=== PATIENT | male | born 1960 | race Caucasian/White ===

== ENCOUNTER 2021-06-16 00:36 | Inpatient (IN) | payer MEDICAID, SELFPAY ==
[2021-06-16] VITALS (101 sets, daily range): BP systolic 63–142; BP diastolic 44–86; PULSE 70–122; RESP 13–29; TEMP 36.7; O2SAT 90–100; BMI 30.1
--- NOTE | 2021-06-16 00:42 | W.ED.NAVMDI ---
Documented by User: ANA MARIA Lozano 06/18/21 07:05 HPI - Nausea/Vomiting/Diarrhea General: Chief complaint: Abdominal Pain Stated complaint: N/V/D Time Seen by Provider: 06/16/21 00:37 Source: patient and EMS Mode of arrival: EMS Limitations: no limitations History of Present Illness: HPI Narrative: Patient is a nice 61-year-old male presents to ED today via EMS for complaints of abdominal pain, nausea, vomiting, diarrhea that began around 4PM yesterday. Patient states he has had approximately 8-9 episodes of nonbloody emesis. He reports approximately fifteen episodes of non-bloody watery diarrhea. Patient states he had a very similar episode approximately 2 years ago and was diagnosed with gastroenteritis. He also was diagnosed with severe dehydration and admitted to the hospital (this visit occurred in [place]). Patient is status post nephrectomy secondary to renal carcinoma. He has not been running fevers. No other abdominal surgeries. MD elicited complaint: nausea, vomiting, diarrhea and abdominal pain Description of vomiting: watery Description of diarrhea: watery Associated nausea: Yes Associated abdominal pain: Yes Location of pain: Diffuse Radiation: diffuse Pain consistency: constant Associated symtoms: Reports nausea; Denies chest pain, dysuria, fatigue, headache(s) or malaise Review of Systems Const: Denies: fever(s), chills, body aches, fatigue or malaise Card: Denies: chest pain Resp: Denies: dyspnea GI: Reports: abdominal pain, nausea, vomiting and diarrhea; Denies: hematemesis, coffee ground emesis, hematochezia or melena : Denies: flank pain or dysuria Musc: Denies: neck pain, back pain, extremity pain or joint pain Skin/Breast: Denies: rash Neuro: Denies: headache(s), numbness in extremities, weakness in extremities or sensory changes PFS ED PFSH: Medical History Gout Hypertension Renal cell cancer Right 2018 Surgical History H/O inguinal hernia repair Right History of nephrectomy Right -- robotic 2018 History of tonsillectomy Family History Mother Cancer Lung cancer Other CAD (coronary artery disease) Social History Smoking and tobacco status: current every day smoker Alcohol intake: current Alcohol intake frequency: 3 or more drinks per day Alcohol type: beer and hard liquor Substance/Drug Use: never Household members: spouse Housing: House Physical Exam Const: COMMON NORMALS: patient oriented x3, no limitations and alert GENERAL APPEARANCE: cooperative and in distress (appears mildly uncomfortable) NUTRITIONAL APPEARANCE: obese ORIENTATION/CONSCIOUSNESS: Yes awake, Yes oriented to person, Yes oriented to place and Yes oriented to time HENMT: COMMON NORMALS: normocephalic and atraumatic HEAD & SCALP: normocephalic and atraumatic Resp: COMMON NORMALS: normal respiratory effort and clear to auscultation bilaterally AUSCULTATION: clear to auscultation bilaterally Cardio: COMMON NORMALS: regular rate and regular rhythm RATE: regular rate RHYTHM: regular rhythm GI: COMMON NORMALS: Normal to inspection, nondistended, normoactive bowel sounds present, Soft to palpation and no masses INSPECTION: Yes normal to inspection AUSCULTATION: Yes normoactive bowel sounds PALPATION: Yes Soft to palpation, Yes Tenderness to palpation present (GI) (across mid abdomen) and Yes Hepatomegaly present : COMMON NORMALS: Yes no CVA tenderness BLADDER/KIDNEY EXAM: Yes no CVA tenderness Back/Pelvis: COMMON NORMALS: no CVA tenderness Extremity: COMMON NORMALS: normal to inspection Neuro: COMMON NORMALS: patient oriented x3 SENSORIUM/ORIENTATION: Yes alert, Yes oriented to person, Yes oriented to place and Yes oriented to time Skin: COMMON NORMALS: no rashes or lesions noted GENERAL SKIN EXAM: no rashes or lesions noted Course ED course: Shortly after my initial assessment-RN was able to get a set of vital signs on patient. He is tachycardic and hypotensive with a BP of 60s/50s. EMS reported normal vital signs in route. We will move patient to room [address] Berger was consulted who has also seen/evaluated patient. Vital Signs: Vital signs: Vital Signs Temperature 98.8 F 06/18/21 03:50 Pulse Rate 67 06/18/21 03:50 Respiratory Rate 18 06/18/21 04:02 Blood Pressure 119/82 06/18/21 03:50 Pulse Oximetry 98 06/18/21 03:50 MDM - Nausea/Vomiting/Diarrhea Lab Data: Labs: Lab Results 06/16/21 06/16/21 06/16/21 Range/Units 01:21 01:21 01:21 WBC 11.0 H (4.0-10.0) 10^3/ uL RBC 2.72 L (4.1-5.3) 10^6/u L Hgb 9.4 L (11.7-16.6) g/dL Hct 31.0 L (42.0-52.0) % MCV 114.0 H (80-94) fL MCH 34.6 H (28.0-34.0) pg MCHC 30.3 (30.0-36.0) g/dL RDW 13.7 (12.1-15.1) % Plt Count 182 (130-400) 10^3/c mm MPV 8.9 (7.4-10.4) fL Neut % (Auto) 85.4 % Lymph % (Auto) 6.1 % Haralson % (Auto) 7.4 % Eos % (Auto) 0.0 % Baso % (Auto) 0.4 % Neut # (Auto) 9.35 H (1.8-7.7) 10^3/u L Lymph # (Auto) 0.7 L (0.8-4.8) 10^3/u L Haralson # (Auto) 0.8 (0.2-0.9) 10^3/u L Eos # (Auto) 0.0 (0.0-0.8) 10^3/u L Baso # (Auto) 0.0 (0.0-0.1) 10^3/u L Nucleated RBC % (a uto) 0 % Nucleated RBCs # 0.0 /100WBC Specimen Type Sample Site ABG pH (7.35-7.45) ABG pCO2 (35-45) mmHg ABG pO2 (80.0-100.0) mmH g ABG HCO3 (22-26) mmol/L ABG Base Excess (-2.0-2.0) mmol/ L Milo Test Hematocrit (42-52) % O2 Delivery Device Controller Operations And Hr Manager ID Sodium 144 (136-145) mmol/L Potassium 2.7 L* (3.5-5.1) mmol/L Chloride 123 H (98-107) mmol/L Carbon Dioxide 11 L (22-29) mmol/L Anion Gap 12.7 (5-19) BUN 10 (6-20) mg/dL Creatinine 0.8 (0.7-1.2) mg/dL GFR Calculation 98.9 (90-130) mL/min Glucose 113 (65-115) mg/dL Calculated Osmolal ity 298 H (285-295) mOsm/k g Lactate (0.5-2.2) mmol/L Calcium 3.1 L* (8.5-10.5) mg/dL Magnesium 0.6 L* (1.7-2.3) mg/dL Total Bilirubin 0.2 (0.15-1.2) mg/dL AST 19 (0-40) U/L ALT 13 (0-41) U/L Alkaline Phosphata se 57 (40-130) IU/L Troponin T Baselin e (0-15) ng/L Troponin T Hi Sens 6Hr Troponin T Hi Sens 6Hr Delta C-Reactive Protein (0.0-4.9) mg/L Total Protein 2.1 L (6.6-8.7) g/dL Albumin 1.4 L (3.5-5.2) g/dL Globulin 0.7 L (1.3-4.6) g/dL Lipase 5 L (13-60) U/L Procalcitonin (0-0.5) ng/mL 06/16/21 06/16/21 06/16/21 Range/Units 01:21 01:21 01:21 WBC (4.0-10.0) 10^3/ uL RBC (4.1-5.3) 10^6/u L Hgb (11.7-16.6) g/dL Hct (42.0-52.0) % MCV (80-94) fL MCH (28.0-34.0) pg MCHC (30.0-36.0) g/dL RDW (12.1-15.1) % Plt Count (130-400) 10^3/c mm MPV (7.4-10.4) fL Neut % (Auto) % Lymph % (Auto) % Haralson % (Auto) % Eos % (Auto) % Baso % (Auto) % Neut # (Auto) (1.8-7.7) 10^3/u L Lymph # (Auto) (0.8-4.8) 10^3/u L Haralson # (Auto) (0.2-0.9) 10^3/u L Eos # (Auto) (0.0-0.8) 10^3/u L Baso # (Auto) (0.0-0.1) 10^3/u L Nucleated RBC % (a uto) % Nucleated RBCs # /100WBC Specimen Type Sample Site ABG pH (7.35-7.45) ABG pCO2 (35-45) mmHg ABG pO2 (80.0-100.0) mmH g ABG HCO3 (22-26) mmol/L ABG Base Excess (-2.0-2.0) mmol/ L Milo Test Hematocrit (42-52) % O2 Delivery Device Controller Operations And Hr Manager ID Sodium (136-145) mmol/L Potassium (3.5-5.1) mmol/L Chloride (98-107) mmol/L Carbon Dioxide (22-29) mmol/L Anion Gap (5-19) BUN (6-20) mg/dL Creatinine (0.7-1.2) mg/dL GFR Calculation (90-130) mL/min Glucose (65-115) mg/dL Calculated Osmolal ity (285-295) mOsm/k g Lactate (0.5-2.2) mmol/L Calcium (8.5-10.5) mg/dL Magnesium (1.7-2.3) mg/dL Total Bilirubin (0.15-1.2) mg/dL AST (0-40) U/L ALT (0-41) U/L Alkaline Phosphata se (40-130) IU/L Troponin T Baselin e 12 (0-15) ng/L Troponin T Hi Sens 6Hr Cancelled Troponin T Hi Sens 6Hr Delta Cancelled C-Reactive Protein 7.1 H (0.0-4.9) mg/L Total Protein (6.6-8.7) g/dL Albumin (3.5-5.2) g/dL Globulin (1.3-4.6) g/dL Lipase (13-60) U/L Procalcitonin 0.18 (0-0.5) ng/mL 06/16/21 06/16/21 Range/Units 02:28 02:45 WBC (4.0-10.0) 10^3/ uL RBC (4.1-5.3) 10^6/u L Hgb (11.7-16.6) g/dL Hct (42.0-52.0) % MCV (80-94) fL MCH (28.0-34.0) pg MCHC (30.0-36.0) g/dL RDW (12.1-15.1) % Plt Count (130-400) 10^3/c mm MPV (7.4-10.4) fL Neut % (Auto) % Lymph % (Auto) % Haralson % (Auto) % Eos % (Auto) % Baso % (Auto) % Neut # (Auto) (1.8-7.7) 10^3/u L Lymph # (Auto) (0.8-4.8) 10^3/u L Haralson # (Auto) (0.2-0.9) 10^3/u L Eos # (Auto) (0.0-0.8) 10^3/u L Baso # (Auto) (0.0-0.1) 10^3/u L Nucleated RBC % (a uto) % Nucleated RBCs # /100WBC Specimen Type Arterial Sample Site Radial, right ABG pH 7.26 L (7.35-7.45) ABG pCO2 37.0 (35-45) mmHg ABG pO2 86.4 (80.0-100.0) mmH g ABG HCO3 16.5 L (22-26) mmol/L ABG Base Excess -9.8 L (-2.0-2.0) mmol/ L Milo Test Pos Hematocrit 54.0 H (42-52) % O2 Delivery Device Room air Controller Operations And Hr Manager ID newcl Sodium (136-145) mmol/L Potassium (3.5-5.1) mmol/L Chloride (98-107) mmol/L Carbon Dioxide (22-29) mmol/L Anion Gap (5-19) BUN (6-20) mg/dL Creatinine (0.7-1.2) mg/dL GFR Calculation (90-130) mL/min Glucose (65-115) mg/dL Calculated Osmolal ity (285-295) mOsm/k g Lactate 4.5 H* (0.5-2.2) mmol/L Calcium (8.5-10.5) mg/dL Magnesium (1.7-2.3) mg/dL Total Bilirubin (0.15-1.2) mg/dL AST (0-40) U/L ALT (0-41) U/L Alkaline Phosphata se (40-130) IU/L Troponin T Baselin e (0-15) ng/L Troponin T Hi Sens 6Hr Troponin T Hi Sens 6Hr Delta C-Reactive Protein (0.0-4.9) mg/L Total Protein (6.6-8.7) g/dL Albumin (3.5-5.2) g/dL Globulin (1.3-4.6) g/dL Lipase (13-60) U/L Procalcitonin (0-0.5) ng/mL Imaging Data^: CT Abd/Pel: Radiologist's impression: [address] [address] [address] Scan Report Signed Patient: DEB OBREGON Unit #: [id number] : 1960 Age/Sex: 61 / M ADM Date: 06/16/21 Loc: ER Room/Bed: Attending Dr: Ordering Provider/Ordering MD: Ashleigh Collazo Date of Service: 06/16/21 Procedure(s): CT abdomen pelvis con [id number] Accession Number(s): [id number] Report Number: [id number] PROCEDURE INFORMATION: Exam: CT Abdomen And Pelvis Without Contrast Exam date and time: 06/16/2021 1:05 AM Age: 61 years old Clinical indication: Nausea and vomiting; Abdominal pain; Generalized; Prior surgery; Surgery type: Nephrectomy. Hernia repair. ; Patient HX: Abd pain with n/v/d. Sudden hypovolemic shock while in er. ; Additional info: Abdominal pain, n/v/d; Hypotensive/tachycardic TECHNIQUE: Imaging protocol: Computed tomography of the abdomen and pelvis without contrast. Radiation optimization: All CT scans at this facility use at least one of these dose optimization techniques: automated exposure control; mA and/or kV adjustment per patient size (includes targeted exams where dose is matched to clinical indication); or iterative reconstruction. COMPARISON: No relevant prior studies available. RADIATION DOSE METRICS: Total DLP (mGy-cm): 1824.38 FINDINGS: Mediastinal space: Mild to moderate hiatal hernia. Liver: Severe fatty infiltration of the liver. Gallbladder and bile ducts: Normal. No calcified stones. No ductal dilation. Pancreas: Normal. No ductal dilation. Spleen: Normal. No splenomegaly. Adrenal glands: Normal. No mass. Kidneys and ureters: Absent right kidney consistent with previous nephrectomy. Stomach and bowel: Moderate diverticulosis. Moderate bowel wall thickening through out the entire small bowel except the duodenum consistent with moderate to severe infectious enteritis versus ischemic enteritis. Appendix: Normal appendix. Intraperitoneal space: Unremarkable. No free air. No significant fluid collection. Vasculature: Retroaortic left renal vein which is a normal variant. Calcification of the abdominal aorta and/or iliac arteries consistent with atherosclerotic vessel disease. CTA abdomen with arterial and venous phase imaging and or Doppler ultrasound examination of the superior mesenteric vessels may be helpful. Lymph nodes: Unremarkable. No enlarged lymph nodes. Urinary bladder: Unremarkable as visualized. Reproductive: Unremarkable as visualized. Bones/joints: Mild dextroscoliosis. Soft tissues: Unremarkable. CT/CT abdomen pelvis wo con [id number] IMPRESSION: 1. Severe fatty infiltration of the liver. 2. Absent right kidney consistent with previous nephrectomy. 3. Moderate bowel wall thickening through out the entire small bowel except the duodenum consistent with moderate to severe infectious enteritis versus ischemic enteritis. 4. CTA abdomen with arterial and venous phase imaging and or Doppler ultrasound examination of the superior mesenteric vessels may be helpful. Radiation Dose CTDIVOL = (mGy): DLP = 1824.38 (mGy-cm) Dictated By: Michael Pedraza MD Signed By: Michael Pedraza MD Signed Date/Time: 06/16/21143 DD/ 1 Discharge Plan Discharge Patient Disposition: Admitted As Inpatient Admit Provider: Debbie Hong Clinical Impression: Hypocalcemia, Hypokalemia, Hypomagnesemia, Abdominal pain, Elevated lactic acid level Condition: Stable Coding Level of Care Code ED Key Account Manager for Chg Fwd Exam Comprehensive Documented by User: Kamlesh Berger MD 06/16/21 04:55 HPI - Nausea/Vomiting/Diarrhea General: Chief complaint: Abdominal Pain Stated complaint: N/V/D Time Seen by Provider: 06/16/21 00:37 PFSH ED PFSH: Medical History Gout Hypertension Renal cell cancer Right 2018 Surgical History H/O inguinal hernia repair Right History of nephrectomy Right -- robotic 2018 History of tonsillectomy Family History Mother Cancer Lung cancer Other CAD (coronary artery disease) Social History Smoking and tobacco status: current every day smoker Alcohol intake: current Alcohol intake frequency: 3 or more drinks per day Alcohol type: beer and hard liquor Substance/Drug Use: never Household members: spouse Housing: House Course Vital Signs: Vital signs: Vital Signs Temperature 98.8 F 06/18/21 03:50 Pulse Rate 67 06/18/21 03:50 Respiratory Rate 18 06/18/21 04:02 Blood Pressure 119/82 06/18/21 03:50 Pulse Oximetry 98 06/18/21 03:50 MDM - Nausea/Vomiting/Diarrhea MDM Narrative: Medical decision making narrative: Deb presents with abdominal pain along with elevated lactic acid level. His initial blood pressures were in the 60s and after 3 L he is improved greatly. His heart rate now is 87 blood pressure is 107/65. CT findings show some bowel thickening. Concern for possible ischemic bowel but he is improving here with IV fluids. I spoke to her surgeon Dr. Gurrola who is consulted and will see patient. Patient also had electrolyte abnormalities that I have given calcium and magnesium and potassium 4. Patient also given IV antibiotics. Spoke to hospitalist will admit to the ICU. Lab Data: Labs: Lab Results 06/16/21 06/16/21 06/16/21 Range/Units 01:21 01:21 01:21 WBC 11.0 H (4.0-10.0) 10^3/ uL RBC 2.72 L (4.1-5.3) 10^6/u L Hgb 9.4 L (11.7-16.6) g/dL Hct 31.0 L (42.0-52.0) % MCV 114.0 H (80-94) fL MCH 34.6 H (28.0-34.0) pg MCHC 30.3 (30.0-36.0) g/dL RDW 13.7 (12.1-15.1) % Plt Count 182 (130-400) 10^3/c mm MPV 8.9 (7.4-10.4) fL Neut % (Auto) 85.4 % Lymph % (Auto) 6.1 % Haralson % (Auto) 7.4 % Eos % (Auto) 0.0 % Baso % (Auto) 0.4 % Neut # (Auto) 9.35 H (1.8-7.7) 10^3/u L Lymph # (Auto) 0.7 L (0.8-4.8) 10^3/u L Haralson # (Auto) 0.8 (0.2-0.9) 10^3/u L Eos # (Auto) 0.0 (0.0-0.8) 10^3/u L Baso # (Auto) 0.0 (0.0-0.1) 10^3/u L Nucleated RBC % (a uto) 0 % Nucleated RBCs # 0.0 /100WBC Specimen Type Sample Site ABG pH (7.35-7.45) ABG pCO2 (35-45) mmHg ABG pO2 (80.0-100.0) mmH g ABG HCO3 (22-26) mmol/L ABG Base Excess (-2.0-2.0) mmol/ L Milo Test Hematocrit (42-52) % O2 Delivery Device Controller Operations And Hr Manager ID Sodium 144 (136-145) mmol/L Potassium 2.7 L* (3.5-5.1) mmol/L Chloride 123 H (98-107) mmol/L Carbon Dioxide 11 L (22-29) mmol/L Anion Gap 12.7 (5-19) BUN 10 (6-20) mg/dL Creatinine 0.8 (0.7-1.2) mg/dL GFR Calculation 98.9 (90-130) mL/min Glucose 113 (65-115) mg/dL Calculated Osmolal ity 298 H (285-295) mOsm/k g Lactate (0.5-2.2) mmol/L Calcium 3.1 L* (8.5-10.5) mg/dL Magnesium 0.6 L* (1.7-2.3) mg/dL Total Bilirubin 0.2 (0.15-1.2) mg/dL AST 19 (0-40) U/L ALT 13 (0-41) U/L Alkaline Phosphata se 57 (40-130) IU/L Troponin T Baselin e (0-15) ng/L Troponin T Hi Sens 6Hr Troponin T Hi Sens 6Hr Delta C-Reactive Protein (0.0-4.9) mg/L Total Protein 2.1 L (6.6-8.7) g/dL Albumin 1.4 L (3.5-5.2) g/dL Globulin 0.7 L (1.3-4.6) g/dL Lipase 5 L (13-60) U/L Procalcitonin (0-0.5) ng/mL 06/16/21 06/16/21 06/16/21 Range/Units 01:21 01: 01:21 WBC (4.0-10.0) 10^3/ uL RBC (4.1-5.3) 10^6/u L Hgb (11.7-16.6) g/dL Hct (42.0-52.0) % MCV (80-94) fL MCH (28.0-34.0) pg MCHC (30.0-36.0) g/dL RDW (12.1-15.1) % Plt Count (130-400) 10^3/c mm MPV (7.4-10.4) fL Neut % (Auto) % Lymph % (Auto) % Haralson % (Auto) % Eos % (Auto) % Baso % (Auto) % Neut # (Auto) (1.8-7.7) 10^3/u L Lymph # (Auto) (0.8-4.8) 10^3/u L Haralson # (Auto) (0.2-0.9) 10^3/u L Eos # (Auto) (0.0-0.8) 10^3/u L Baso # (Auto) (0.0-0.1) 10^3/u L Nucleated RBC % (a uto) % Nucleated RBCs # /100WBC Specimen Type Sample Site ABG pH (7.35-7.45) ABG pCO2 (35-45) mmHg ABG pO2 (80.0-100.0) mmH g ABG HCO3 (22-26) mmol/L ABG Base Excess (-2.0-2.0) mmol/ L Milo Test Hematocrit (42-52) % O2 Delivery Device Controller Operations And Hr Manager ID Sodium (136-145) mmol/L Potassium (3.5-5.1) mmol/L Chloride (98-107) mmol/L Carbon Dioxide (22-29) mmol/L Anion Gap (5-19) BUN (6-20) mg/dL Creatinine (0.7-1.2) mg/dL GFR Calculation (90-130) mL/min Glucose (65-115) mg/dL Calculated Osmolal ity (285-295) mOsm/k g Lactate (0.5-2.2) mmol/L Calcium (8.5-10.5) mg/dL Magnesium (1.7-2.3) mg/dL Total Bilirubin (0.15-1.2) mg/dL AST (0-40) U/L ALT (0-41) U/L Alkaline Phosphata se (40-130) IU/L Troponin T Baselin e 12 (0-15) ng/L Troponin T Hi Sens 6Hr Cancelled Troponin T Hi Sens 6Hr Delta Cancelled C-Reactive Protein 7.1 H (0.0-4.9) mg/L Total Protein (6.6-8.7) g/dL Albumin (3.5-5.2) g/dL Globulin (1.3-4.6) g/dL Lipase (13-60) U/L Procalcitonin 0.18 (0-0.5) ng/mL 06/16/21 06/16/21 Range/Units 02:28 02:45 WBC (4.0-10.0) 10^3/ uL RBC (4.1-5.3) 10^6/u L Hgb (11.7-16.6) g/dL Hct (42.0-52.0) % MCV (80-94) fL MCH (28.0-34.0) pg MCHC (30.0-36.0) g/dL RDW (12.1-15.1) % Plt Count (130-400) 10^3/c mm MPV (7.4-10.4) fL Neut % (Auto) % Lymph % (Auto) % Haralson % (Auto) % Eos % (Auto) % Baso % (Auto) % Neut # (Auto) (1.8-7.7) 10^3/u L Lymph # (Auto) (0.8-4.8) 10^3/u L Haralson # (Auto) (0.2-0.9) 10^3/u L Eos # (Auto) (0.0-0.8) 10^3/u L Baso # (Auto) (0.0-0.1) 10^3/u L Nucleated RBC % (a uto) % Nucleated RBCs # /100WBC Specimen Type Arterial Sample Site Radial, right ABG pH 7.26 L (7.35-7.45) ABG pCO2 37.0 (35-45) mmHg ABG pO2 86.4 (80.0-100.0) mmH g ABG HCO3 16.5 L (22-26) mmol/L ABG Base Excess -9.8 L (-2.0-2.0) mmol/ L Milo Test Pos Hematocrit 54.0 H (42-52) % O2 Delivery Device Room air Controller Operations And Hr Manager ID newcl Sodium (136-145) mmol/L Potassium (3.5-5.1) mmol/L Chloride (98-107) mmol/L Carbon Dioxide (22-29) mmol/L Anion Gap (5-19) BUN (6-20) mg/dL Creatinine (0.7-1.2) mg/dL GFR Calculation (90-130) mL/min Glucose (65-115) mg/dL Calculated Osmolal ity (285-295) mOsm/k g Lactate 4.5 H* (0.5-2.2) mmol/L Calcium (8.5-10.5) mg/dL Magnesium (1.7-2.3) mg/dL Total Bilirubin (0.15-1.2) mg/dL AST (0-40) U/L ALT (0-41) U/L Alkaline Phosphata se (40-130) IU/L Troponin T Baselin e (0-15) ng/L Troponin T Hi Sens 6Hr Troponin T Hi Sens 6Hr Delta C-Reactive Protein (0.0-4.9) mg/L Total Protein (6.6-8.7) g/dL Albumin (3.5-5.2) g/dL Globulin (1.3-4.6) g/dL Lipase (13-60) U/L Procalcitonin (0-0.5) ng/mL EKG Data^: EKG 1: Attestation: I personally reviewed and interpreted this EKG as follows: EKG interpretation date: 06/16/21 EKG interpretation time: 00:59 Interpretation: sinus tach hr [address] or t wave abnormalities qrs 86 qtc 359 Critical Care Time Critical Care Time: Critical Care Time: Yes Total Critical Care Time: 35 Attestation: This case had a high probability of a clinically significant, sudden, or life threatening deterioration of this patient's condition which required my full and direct attention, intervention and personal management. Discharge Plan Discharge Patient Disposition: Admitted As Inpatient Admit Provider: Debbie Hong Clinical Impression: Hypocalcemia, Hypokalemia, Hypomagnesemia, Abdominal pain, Elevated lactic acid level Condition: Stable Coding Level of Care Code ED Key Account Manager for Chg Fwd Exam Comprehensive
--- NOTE | 2021-06-16 01:05 | CTR_ITS ---
PROCEDURE INFORMATION: Exam: CT Abdomen And Pelvis Without Contrast Exam date and time: 06/16/2021 1:05 AM Age: 61 years old Clinical indication: Nausea and vomiting; Abdominal pain; Generalized; Prior surgery; Surgery type: Nephrectomy. Hernia repair. ; Patient HX: Abd pain with n/v/d. Sudden hypovolemic shock while in er. ; Additional info: Abdominal pain, n/v/d; Hypotensive/tachycardic TECHNIQUE: Imaging protocol: Computed tomography of the abdomen and pelvis without contrast. Radiation optimization: All CT scans at this facility use at least one of these dose optimization techniques: automated exposure control; mA and/or kV adjustment per patient size (includes targeted exams where dose is matched to clinical indication); or iterative reconstruction. COMPARISON: No relevant prior studies available. RADIATION DOSE METRICS: Total DLP (mGy-cm): 1824.38 FINDINGS: Mediastinal space: Mild to moderate hiatal hernia. Liver: Severe fatty infiltration of the liver. Gallbladder and bile ducts: Normal. No calcified stones. No ductal dilation. Pancreas: Normal. No ductal dilation. Spleen: Normal. No splenomegaly. Adrenal glands: Normal. No mass. Kidneys and ureters: Absent right kidney consistent with previous nephrectomy. Stomach and bowel: Moderate diverticulosis. Moderate bowel wall thickening through out the entire small bowel except the duodenum consistent with moderate to severe infectious enteritis versus ischemic enteritis. Appendix: Normal appendix. Intraperitoneal space: Unremarkable. No free air. No significant fluid collection. Vasculature: Retroaortic left renal vein which is a normal variant. Calcification of the abdominal aorta and/or iliac arteries consistent with atherosclerotic vessel disease. CTA abdomen with arterial and venous phase imaging and or Doppler ultrasound examination of the superior mesenteric vessels may be helpful. Lymph nodes: Unremarkable. No enlarged lymph nodes. Urinary bladder: Unremarkable as visualized. Reproductive: Unremarkable as visualized. Bones/joints: Mild dextroscoliosis. Soft tissues: Unremarkable. CT/CT abdomen pelvis wo con [id number] IMPRESSION: 1. Severe fatty infiltration of the liver. 2. Absent right kidney consistent with previous nephrectomy. 3. Moderate bowel wall thickening through out the entire small bowel except the duodenum consistent with moderate to severe infectious enteritis versus ischemic enteritis. 4. CTA abdomen with arterial and venous phase imaging and or Doppler ultrasound examination of the superior mesenteric vessels may be helpful. Radiation Dose CTDIVOL = (mGy): DLP = 1824.38 (mGy-cm)
[2021-06-16] MEDS: morphine 4 mg/mL SDV 1 mL IVP ×2 (01:09→08:10)
[2021-06-16] MEDS: sodium chloride 0.9% 1,000 ML 999 ML IV ×3 (01:10→03:48)
[2021-06-16 01:27] LABS: Basophils % 0.4 %; Hemoglobin 9.4 g/dL (11.7-16.6); Lymphocytes # 0.7 10^3/uL (0.8-4.8); Lymphocytes % 6.1 %; Mean Corpuscular HGB Conc 30.3 g/dL (30.0-36.0); Mean Corpuscular Hemoglobin 34.6 pg (28.0-34.0); Mean Platelet Volume 8.9 fL (7.4-10.4); Monocytes # 0.8 10^3/uL (0.2-0.9); Monocytes % 7.4 %; Neutrophils # 9.35 10^3/uL (1.8-7.7); Neutrophils % 85.4 %; Nucleated Red Blood Cells % 0 %; Platelet Count 182 10^3/cmm (130-400); Red Blood Count 2.72 10^6/uL (4.1-5.3); Red Cell Distribution Width 13.7 % (12.1-15.1)
[2021-06-16 01:44] LABS: Alanine Aminotransferase 13 U/L (0-41); Albumin Level 1.4 g/dL (3.5-5.2); Alkaline Phosphatase 57 IU/L (40-130); Anion Gap 12.7 (5-19); Aspartate Amino Transferase 19 U/L (0-40); Blood Urea Nitrogen 10 mg/dL (6-20); Carbon Dioxide 11 mmol/L (22-29); Chloride 123 mmol/L (98-107); Globulin 0.7 g/dL (1.3-4.6); Glomerular Filtration Rate 98.9 mL/min (90-130); Glucose 113 mg/dL (65-115); Lipase 5 U/L (13-60); Osmolality Calculated 298 mOsm/kg (285-295); Sodium 144 mmol/L (136-145); Total Bilirubin 0.2 mg/dL (0.15-1.2); Total Protein 2.1 g/dL (6.6-8.7)
[2021-06-16 01:49] LABS: Potassium 2.7 mmol/L (3.5-5.1)
[2021-06-16 01:50] LABS: Calcium 3.1 mg/dL (8.5-10.5)
--- NOTE | 2021-06-16 01:52 | CTR_ITS ---
PROCEDURE INFORMATION: Exam: CTA Abdomen and Pelvis With Contrast Exam date and time: 06/16/2021 1:52 AM Age: 61 years old Clinical indication: Abdominal pain; Generalized; Prior surgery; Surgery type: Nephrectomy. Hernia repair. ; Patient HX: Abd pain with n/v/d. Hypovolemic shock while in er. ; Additional info: Abdominal pain poss ischemic bowel; Abnormal CT w/o contrast TECHNIQUE: Imaging protocol: Computed tomographic angiography of the abdomen and pelvis with contrast material. 3D rendering (Not supervised by radiologist): MIP and/or 3D reconstructed images were created by the technologist. Radiation optimization: All CT scans at this facility use at least one of these dose optimization techniques: automated exposure control; mA and/or kV adjustment per patient size (includes targeted exams where dose is matched to clinical indication); or iterative reconstruction. Contrast material: VISI 320; Contrast volume: 95 ml; Contrast route: INTRAVENOUS (IV); COMPARISON: CT abdomen pelvis wo con [id number] 06/16/2021 1:23 AM RADIATION DOSE METRICS: Total DLP (mGy-cm): 2707.88 FINDINGS: Lungs: Bilateral pulmonary nodularity with largest finding estimated at 7 mm. Mediastinal space: Moderate-sized hiatal hernia. Aorta: No aortic aneurysm. No aortic dissection. Celiac trunk and mesenteric arteries: No occlusion or significant stenosis. Renal arteries: No occlusion or significant stenosis. Right iliac arteries: No occlusion or significant stenosis. Left iliac arteries: No occlusion or significant stenosis. Liver: Hepatic steatosis and hepatomegaly are noted. No focal lesions. No portal venous gas Gallbladder and bile ducts: Unremarkable. No calcified stones. No ductal dilation. Pancreas: Unremarkable. No mass. No ductal dilation. Spleen: Unremarkable. No splenomegaly. Adrenal glands: Unremarkable. No mass. Kidneys and ureters: There are findings of right nephrectomy. Stomach and bowel: Fluid noted within the colon but no abnormal bowel distention. There is suggestion of some thickening of small bowel wall diffusely with mild edema in the small bowel mesentery. Mild/early reduction in small bowel wall thickening suspected. No pneumatosis. Colonic diverticuli noted. Appendix: No evidence of appendicitis. Intraperitoneal space: Small ascites. Lymph nodes: Unremarkable. No enlarged lymph nodes. Urinary bladder: Unremarkable. No mass. Reproductive: Unremarkable as visualized. Bones/joints: No acute fracture. No dislocation. Soft tissues: Unremarkable. CT/CT angio abdomen pelvis [id number] IMPRESSION: Thickening of small bowel wall can relate to enteritis or hypoperfusion/hypotension. Fatty liver. Right nephrectomy. No findings of significant narrowing of visceral vasculature. Pulmonary nodularity; for patients at low risk (minimal or absent history of smoking and of other known risk factors), recommend CT Chest at 3-6 months, then consider CT Chest at 18-24 months. For patients at high risk (history of smoking or of other known risk factors), recommend CT Chest at 3-6 months, then CT Chest at 18-24 months. (Reference: Betsy) REFERENCES: Betsy Mora, et al. Guidelines for Management of Incidental Pulmonary Nodules Detected on CT Images: From the Fleischner Society 2017. Radiology. 2017;284(1):228-243. Radiation Dose CTDIVOL = (mGy): DLP = 2707.88 (mGy-cm)
[2021-06-16] MEDS: ondansetron 2 mg/ML SDV 2 mL 4 MG IVP (02:15)
[2021-06-16] MEDS: HYDROmorphone 1 mg/mL INJ 1 mL IVP (02:15)
[2021-06-16] MEDS: potassium chloride premix 100 ML 25 MEQ IV (02:16)
[2021-06-16 02:18] LABS: Magnesium 0.6 mg/dL (1.7-2.3)
--- NOTE | 2021-06-16 02:28 | ECG_ITS ---
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 Measurements Intervals [place] Rate: 121 P: 30 AL: 132 QRS: -42 QRSD: 86 T: 48 QT: 287 QTc: 407 Interpretive Statements SINUS TACHYCARDIA PATTERN CONSISTENT WITH PULMONARY DISEASE INFERIOR MYOCARDIAL INFARCTION [40+ ms Q WAVE AND/OR ST/T ABNORMALITY IN II/aVF], PROBABLY OLD INTERPRETATION BASED ON A DEFAULT AGE OF 40 YEARS No previous ECG available for comparison Electronically Signed On 06-16-2021 9:55:21 CDT by Harlan Dutta M.D. [email or web address].[facility]pspe[facility] hospitalAgentBridgeprotest[facility].[place] [employer]/store/NU/[id number] f
--- NOTE | 2021-06-16 02:28 | CTR_ITS ---
PROCEDURE INFORMATION: Exam: CTA Chest With Contrast Exam date and time: 06/16/2021 2:28 AM Age: 61 years old Clinical indication: Chest pressure; Patient HX: Onset of chest pain with transient tachycardia while in er. ; Additional info: Cp TECHNIQUE: Imaging protocol: Computed tomographic angiography of the chest with contrast. 3D rendering (Not supervised by radiologist): MIP and/or 3D reconstructed images were created by the technologist. Radiation optimization: All CT scans at this facility use at least one of these dose optimization techniques: automated exposure control; mA and/or kV adjustment per patient size (includes targeted exams where dose is matched to clinical indication); or iterative reconstruction. Contrast material: VISI 320; Contrast volume: 67 ml; Contrast route: INTRAVENOUS (IV); COMPARISON: CT angio abdomen pelvis [id number] 06/16/2021 3:08 AM RADIATION DOSE METRICS: Total DLP (mGy-cm): 519.63 FINDINGS: Pulmonary arteries: Normal. No pulmonary emboli. Aorta: No aortic aneurysm. No aortic dissection. Lungs: No consolidation. Pleural spaces: No pneumothorax. No pleural effusion. Heart: No cardiomegaly. No pericardial effusion. Mediastinal space: Moderate-sized hiatal hernia. Lymph nodes: No enlarged lymph nodes. Bones/joints: No acute fracture. Soft tissues: Unremarkable. Other findings: Bilateral pulmonary nodularity; please see abdomen study regarding follow-up. CT/CT angio chest PE protcl [id number] IMPRESSION: No acute findings. Radiation Dose CTDIVOL = (mGy): DLP = 519.63 (mGy-cm)
[2021-06-16 02:47] LABS: Troponin(5th) Baseline 12 ng/L (0-15)
[2021-06-16 02:48] LABS: Lactate (Lactic Acid level) 4.5 mmol/L (0.5-2.2)
[2021-06-16 03:00] LABS: ABG PH Result 7.26 (7.35-7.45); Base Excess ABG -9.8 mmol/L (-2.0-2.0); Blood Gas Allen Test Pos; Blood Gas Sample Site Radial, right; Blood Gas Sample Type Arterial; HCO3 ABG 16.5 mmol/L (22-26); PO2 ABG 86.4 mmHg (80.0-100.0)
[2021-06-16 03:03] LABS: Oxygen Device ROOM AIR
[2021-06-16] MEDS: iodixanol 320 mg/mL 100mL Btl IV ×2 (03:11→03:26)
[2021-06-16] MEDS: piperacillin-tazobactam 3.375 GM in sodium chloride 0.9% (plus) 50 ML IV ×3 (03:38→16:06)
--- NOTE | 2021-06-16 04:28 | ECG_ITS ---
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 Measurements Intervals [place] Rate: 82 P: 38 ID: [id number] QRS: -47 QRSD: 110 T: 44 QT: 361 QTc: 423 Interpretive Statements SINUS RHYTHM LEFT ANTERIOR FASCICULAR BLOCK [QRS AXIS <= -45, QR IN I, RS IN II] INFERIOR MYOCARDIAL INFARCTION [40+ ms Q WAVE AND/OR ST/T ABNORMALITY IN II/aVF], PROBABLY OLD Compared to ECG 06/16/2021 00:59:12 Left anterior fascicular block now present Sinus tachycardia no longer present Myocardial infarct finding still present Electronically Signed On 06-23-2021 10:08:01 CDT by Sejal Botello M.D. [id number]
--- NOTE | 2021-06-16 04:55 | P.HP_ITS ---
Providers/Chief Complaint Admitting Physician: Debbie Hong MD Chief Complaint: N/V/D History of Present Illness DEB OBREGON is a 61 year old male who presented today with chief complaint of abdominal pain. Patient stating that his symptoms started around 4 PM yesterday, a day before yesterday he ate frozen clams, he has been experiencing multiple episodes of diarrhea associated with his emesis. He has noticed low- grade fever, no active chest pain, shortness of breath or recent use of antibiotics. No recent camping or traveling. He has moved from [place]. Experienced gastroenteritis 2 months ago. He is an alcoholic drinks 3-4 shots of vodka with 3 to 4 cans of beer every day. Never experienced any withdrawal symptoms. He is denying blood in stool or vomiting. No history of atrial fibrillation Diagnostic work-up in the ER revealed hypotension, hypokalemia, hypomagnesemia, hypocalcemia which improved with fluid resuscitation, potassium repleted, electrolytes replenished, blood pressure improved after fluid boluses, CT abdomen pelvis consistent with small bowel edema concern for ischemia versus gastroenteritis Started on Zosyn, fluid resuscitation, hold anticoagulation for now, EKG showing sinus rhythm Vaccinated with [employer]fund in March Review of Systems Const: Reports: fever(s), chills, body aches and fatigue Eyes: Denies: change in vision ENMT: Denies: throat pain Card: Denies: chest pain Resp: Denies: dyspnea GI: Reports: abdominal pain, nausea, vomiting and diarrhea : Denies: flank pain Musc: Denies: neck pain Skin/Breast: Denies: rash Neuro: Denies: headache(s) Psych: Denies: anxiety Endo: Denies: polyuria Arjun/Lymph: Denies: easy bruising All/Imm: Denies: urticaria Medications/Allergies Allergies Allergy/AdvReac Type Severity Reaction Status Date / Time No Known Allergies Allergy Verified 06/16/21 01:06 PFSH Acute PFSH: Medical History Hypertension Renal cell cancer Surgical History H/O inguinal hernia repair History of nephrectomy Family History (Updated 06/16/21 @ 06:44 by Debbie Hong MD) Mother Cancer Lung cancer Other CAD (coronary artery disease) Social History (Updated 06/16/21 @ 06:44 by Debbie Hong MD) Smoking and tobacco status: current every day smoker Alcohol intake: current Alcohol intake frequency: 3 or more drinks per day Alcohol type: beer and hard liquor Substance/Drug Use: never Household members: spouse Housing: House Vitals/I&O/Wt Last Vital Signs Pulse 94 06/16/21 04:00 Resp 16 06/16/21 04:00 BP 101/74 06/16/21 04:00 Pulse Ox 99 06/16/21 02:46 06/15/21 06/15/21 06/16/21 14:59 22:59 06:59 Intake Total 1070 / 1070 Balance 1070 / 1070 Weight last 48 hrs Weight 95.254 kg Physical Exam Narrative: EXAM NARRATIVE: Middle-age male who is being supine complaining abdominal pain Distended abdomen no active signs of peritonitis, bowel sounds present, no guarding or rigidity S1, S2 sinus rhythm No murmur appreciated no signs of heart failure clinically looks dehydrated EOMI, PERRLA No neurological deficit Bilateral breath sound without adventitious rhonchi or crackles No joint swelling or cellulitis Appropriate mood and affect Data : 06/16/21 01:21 06/16/21 01:21 A&P Assessment and plan (1) Small bowel ischemia: Status: Acute (2) Hypocalcemia: Status: Acute (3) Hypokalemia: Status: Acute (4) Hypomagnesemia: Status: Acute (5) Abdominal pain: Status: Acute (6) Elevated lactic acid level: Status: Acute (7) Sepsis: Status: Acute Additional A&P Information Sepsis small bowel ischemia Normal sinus rhythm on EKG No history of A. fib Hold off on anticoagulation for now Resuscitate with IV fluids and start Zosyn CT abdomen pelvis findings reviewed CTA unremarkable, no acute embolic phenomenon noted No signs of GI bleed Macrocytic anemia patient is an alcoholic check B12 folate level No active GI bleed Electrolyte imbalance Hypocalcemia: Repleted, will give him another calcium gluconate dose, Check PTH, corrected calcium less than 8 Hypokalemia and hypomagnesemia related diarrhea and vomiting: Repleted Lactic acidemia secondary to dehydration: Anticipating improvement Underlying sepsis, start Zosyn Low albumin 1.4, Secondary to alcohol abuse N.p.o. DVT prophylaxis: SCDs in case he requires any intervention, Full code History of nephrectomy, no acute worsening of kidney function Attestations Medical Necessity Statement*: Anticipating stay in the hospital cross more than 2 midnights for management of sepsis, small bowel ischemia Time Spent in Patient Care: Greater than 35 minutes Coding Level of Care Code Acute Licensed Occupational Therapy Assistant for Chg Fwd Diagnoses Small bowel ischemia K55.9 Hypocalcemia E83.51 Hypokalemia E87.6 Hypomagnesemia E83.42 Abdominal pain R10.9 Elevated lactic acid level R79.89 Sepsis A41.9
[2021-06-16] MEDS: fentaNYL 50 mcg/mL INJ 2mL 25 MCG IVP (06:30)
[2021-06-16 06:44] LABS: C Reactive Protein 7.1 mg/L (0.0-4.9)
[2021-06-16 06:51] LABS: Procalcitonin 0.18 ng/mL (0-0.5)
[2021-06-16] MEDS: pantoprazole 40 mg SDV IVP ×2 (08:08→17:22)
[2021-06-16] MEDS: folic acid 1 mg Tablet PO (08:08)
[2021-06-16] MEDS: magnesium sulfate premix 2 GM/50 ML PIGGYBACK IV (08:08)
--- NOTE | 2021-06-16 08:28 | ECG_ITS ---
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 Measurements Intervals [place] Rate: 78 P: 40 CT: 155 QRS: -16 QRSD: 100 T: 30 QT: 353 QTc: 404 Interpretive Statements SINUS RHYTHM INFERIOR MYOCARDIAL INFARCTION [40+ ms Q WAVE AND/OR ST/T ABNORMALITY IN II/aVF], PROBABLY OLD Compared to ECG 06/16/2021 05:37:34 Left anterior fascicular block no longer present Myocardial infarct finding still present Electronically Signed On 06-16-2021 23:05:12 CDT by Harlan Dutta M.D. [email or web address].[email or web address]/store/[id number]
[2021-06-16 08:45] LABS: Calcium 7.9 mg/dL (8.5-10.5)
[2021-06-16 08:52] LABS: Parathyroid Hormone 244.3 pg/mL (15-65)
[2021-06-16 08:55] LABS: Troponin(5th) Baseline 18 ng/L (0-15)
[2021-06-16 08:59] LABS: Folate Level 3.6 ng/mL (4.5-32.2)
[2021-06-16 09:01] LABS: 25 Hydroxy Vitamin D 16 ng/mL (30-100); Vitamin B12 378 pg/mL (232-1245)
[2021-06-16 09:03] LABS: Add Urine Culture? No; Add Urine Microscopic? YES; Bacteria Urine TRACE /hpf; Bilirubin Urine 1+ (Negative); Blood Urine Neg (Negative); Glucose Urine UA Norm (Normal); Ketones Urine Negative (Negative); Leukocyte Esterase Urine Negative (Negative); Nitrate Urine Negative (Negative); Protein Urine 1+ (Negative); RBC Urine RARE /hpf (0-2); Squamous Epithelial Cell Urine RARE /hpf (0-5); Urine Appearance Clear (CLEAR); Urine Color Yellow (Yellow); Urobilinogen Urine Norm (Negative); WBC Urine 0-4 /hpf (0-5); pH Urine 5 (5-7)
[2021-06-16] MEDS: HYDROmorphone 1 mg/mL INJ 1 mL 0.4 MG IVP ×4 (09:18→22:10)
--- NOTE | 2021-06-16 09:45 | PC.CHAP ---
Pastoral Care Encounter/Spiritual Assessment Type of Contact [] Declined pattern changer and repairer visit [] Patient/Family/Request visit [] Outpatient visit [] Follow-up visit [] Physician referral [] Code/Alert [x] Routine visit [] Staff referral [] Actively dying [] Patient sleeping [] Family support [] [] Out of room [] Palliative care [] [] Receiving care in room [] Pre-surgical visit [] Trauma [] Long length of stay [x] ICU visit [] Other: Relational/Emotional Strength [] Patient feels connected with others/family/visitors/staff [] Distress [] Loneliness/isolation [] Abandonment Spirituality of Patient [] Person of Leena [] Attends Adventism of their Leena [] Believes in Prayer [] Reads Bible or Latter-Day materials [] There are Spiritual issues to be addressed Graphic Arts Instructor Interventions [x] Prayer [x] Active listening [x] Non-anxious presence [x] Spiritual/emotional support [] Crisis/trauma care [] Spiritual counseling [] Bereavement support [] Provided bereavement packet [] Provided Bible/devotional materials [] Provided toy/stuffed animal, coloring book to patient or family member [] Provided Communion [] Anointing/[place] [] Salvation [x] Completed spiritual assessment [] Other: Impact on Illness or Injury [] Angry [] Fearful [] Anxious [] Often cries [] Exhaustion [] Unable to work [] Unable to attend religious [] Unable to walk/stand [] Unable to read [] Unable to drive [] Unable to eat/drink [] Unable to sleep [] Unable to be with family [] Patient intubated [] Other: Summary recently moved form [place] to [place]... feeling better Time spent with patient 5 min
[2021-06-16] MEDS: dextrose 5%-ns + KCl 40 40 MEQ/1,000 ML BAG 75 MEQ IV (09:59)
[2021-06-16 10:54] LABS: Troponin 5 2HR 17.84 ng/L (0-15)
[2021-06-16 10:58] LABS: Troponin 5 2HR Delta -0.16 ABS# (0-10)
--- NOTE | 2021-06-16 11:58 | PM.CONSULT ---
Providers/Reason For Consult Consulting Physician/Specialty*: General Surgery Daryl Gurrola MD Reason for Consult*: Abdominal pain, rule out intestinal ischemia. Attending Physician: Georges Castellanos MD History of Present Illness History of Present Illness Austin Munson is a 61 year old male admitted earlier this morning with abdominal pain, nausea/vomiting and diarrhea. The patient says that he started having some bandlike abdominal pain across the umbilical level yesterday morning. He does mention that he ate some frozen clams the day before that he obtained an [place], and has never done that before. He says by the afternoon he started having multiple episodes of diarrhea without evidence of hematochezia. 1 to 2 hours later he started developing nausea and had vomiting without evidence of hematemesis. He is not sure if he had any fevers but feels like he had some cold sweats. He came to the emergency department and apparently was found to be hypotensive initially. A CAT scan showed evidence of small bowel inflammation consistent with either gastroenteritis or possible intestinal ischemia. He apparently responded very well to fluid resuscitation and his pain got markedly better. He was placed in the intensive care unit subsequently. Harry says he has continued to feel well but still has some very mild pain. He would like something to drink if possible. Interestingly, Harry just moved from [place] recently. He said 2 months ago in [place] he had a very similar episode and was hospitalized for about 3 days. He says he was told at that time that he had kidney failure. Review of Systems General: Reports: 10 or more systems reviewed and unremarkable except in HPI and below Const: Reports: other ( Cold sweats ) GI: Reports: abdominal pain, nausea, vomiting and diarrhea; Denies: hematemesis Meds/Allergies Home Medications and Allergies Home Medications Medication Instructions Recorded Confirmed Last Taken Type allopurinol 100 mg PO QAM 06/16/21 06/16/21 Unknown History aspirin [Aspir-81] 81 mg PO QAM 06/16/21 06/16/21 Unknown History lisinopril 20 mg PO QAM 06/16/21 06/16/21 Unknown History omeprazole [Prilosec] 40 mg PO QAM 06/16/21 06/16/21 Unknown History tramadol [Ultram] 50 - 100 mg PO DAILY PRN 06/16/21 06/16/21 Unknown History Allergies Allergy/AdvReac Type Severity Reaction Status Date / Time No Known Allergies Allergy Verified 06/16/21 08:24 Current Medications Current Medications Generic Name Dose Route Start Last Admin Trade Name Suzanne PRN Reason Stop Dose Admin Folic Acid 1 mg 06/16/21 09:00 06/16/21 08:08 Folic Acid 1 Mg Tablet PO 1 mg DAILY YAAKOV Administration Hydromorphone HCl 0.4 mg 06/16/21 07:09 06/16/21 09:18 Hydromorphone 1 Mg/Ml Inj 1 Ml IVP 0.4 mg Q4H PRN Administration pain Piperacillin Sod/Tazobactam 50 mls @ 12.5 mls/hr 06/16/21 09:00 06/16/21 08:08 Sod 3.375 gm/ Sodium Chloride IV 12.5 mls/hr Q8H YAAKOV Administration Protocol Potassium Chloride/Dextrose/Sod Cl 40 meq in 1,000 mls @ 75 mls/hr 06/16/21 07:09 06/16/21 09:59 Dextrose 5%-Ns + Kcl 40 IV 75 mls/hr .[id number] YAAKOV Administration Pantoprazole Sodium 40 mg 06/16/21 09:00 06/16/21 08:08 Pantoprazole 40 Mg Sdv IVP 40 mg BID YAAKOV Administration Thiamine HCl 100 mg 06/16/21 09:00 06/16/21 08:08 Thiamine 100 Mg/Ml Sdv IV 100 mg DAILY YAAKOV Administration PFSH Acute PFSH: Medical History (Updated 06/16/21 @ 12:09 by Daryl Gurrola MD) Gout Hypertension Renal cell cancer Right 2018 Surgical History (Updated 06/16/21 @ 12:01 by Daryl Gurrola MD) H/O inguinal hernia repair Right History of nephrectomy Right -- robotic 2018 History of tonsillectomy Family History Mother Cancer Lung cancer Other CAD (coronary artery disease) Social History Smoking and tobacco status: current every day smoker Alcohol intake: current Alcohol intake frequency: 3 or more drinks per day Alcohol type: beer and hard liquor Substance/Drug Use: never Household members: spouse Housing: House Vitals/I&O/Wt Last Vital Signs Temp 98.0 F 06/16/21 08:15 Pulse 73 06/16/21 10:10 Resp 16 06/16/21 10:10 BP 104/63 06/16/21 10:10 Pulse Ox 95 06/16/21 08:10 06/15/21 06/16/21 06/16/21 22:59 06:59 14:59 Intake Total 3272 / 3272 50 / 50 Output Total 300 / 300 Balance 3272 / 3272 -250 / -250 Weight last 48 hrs Weight 218 lb Weight 210 lb Physical Exam Narrative: EXAM NARRATIVE: The patient was encountered in his room in the intensive care unit. He does not appear to be in any distress. The pupils are equal. No carotid bruits are heard. The lungs are clear anteriorly. The heart is regular. The abdomen is mildly to moderately obese but is soft. Bowel sounds are present. He still has some mild tenderness across the mid abdomen at around the umbilical level. No obvious masses are palpated. The extremities reveal no edema. Neurologically the patient is grossly intact. Data Imaging^: CT Abd/Pel: Radiologist's impression: CT abdomen/pelvis 06/15/2021 IMPRESSION: 1. Severe fatty infiltration of the liver. 2. Absent right kidney consistent with previous nephrectomy. 3. Moderate bowel wall thickening through out the entire small bowel except the duodenum consistent with moderate to severe infectious enteritis versus ischemic enteritis. 4. CTA abdomen with arterial and venous phase imaging and or Doppler ultrasound examination of the superior mesenteric vessels may be helpful. A&P Assessment and plan (1) Abdominal pain: I think it is unlikely that the patient has any ongoing intestinal ischemia, but a low flow state from dehydration could be a possibility. He seemed to respond very well to resuscitation in the emergency department last night. In addition, he had a very similar episode while he was very dehydrated in [place] 2 months ago. I will be happy to follow the patient for now. Status: Acute (2) Elevated lactic acid level: Recheck tomorrow. Status: Acute Consult Attestations Medical Necessity Statement: See admitting service's notation. Coding Level of Care Code Acute [employer] Salvage for Jessie Newman Diagnoses Abdominal pain R10.9 Elevated lactic acid level R79.89
--- NOTE | 2021-06-16 14:27 | P.PN_ITS ---
Subjective Subjective: Interval history: History and physical reviewed. Patient reports he still has some abdominal pain. Does feel markedly better than he did earlier. Denies any vomiting or nausea currently Medications: Reviewed: Yes Vitals/I&O/Wt Last Vital Signs Temp 98.0 F 06/16/21 08:15 Pulse 73 06/16/21 12:10 Resp 20 H 06/16/21 14:03 BP 94/64 06/16/21 12:10 Pulse Ox 95 06/16/21 12:10 06/15/21 06/16/21 06/16/21 22:59 06:59 14:59 Intake Total 3272 / 3272 100 / 100 Output Total 300 / 300 Balance 3272 / 3272 -200 / -200 Weight last 48 hrs Weight 98.883 kg Weight 95.254 kg Physical Exam Narrative: EXAM NARRATIVE: General exam no distress Neck supple no lymphadenopathy or thyromegaly Cardiovascular regular rate and rhythm without murmur Lungs clear Abdomen is soft, positive bowel sounds Extremities no cyanosis clubbing or edema Data : 06/16/21 01:21 06/16/21 01:21 A&P Assessment and plan (1) Sepsis: Appears to be resolving. Await cultures Add stool studies should he have any more diarrhea Continue hydration Status: Acute (2) Hypokalemia: Supplemented. Recheck Status: Acute (3) Hypocalcemia: Profound on admission. This has been supplemented. Will recheck. PTH level. We will also get TSH. Status: Acute (4) Hypomagnesemia: This has been supplemented. We will recheck this afternoon. Status: Acute (5) Abdominal pain: Patient reports this is improving. General surgery consultation is on the chart, with consideration of ischemic bowel. Repeat lactate Protonix IV Lipase not elevated CTA did not demonstrate vascular compromise. CT abdomen and pelvis demonstrated absent right kidney, fatty infiltration of liver, moderate bowel thickening throughout the entire small bowel except duodenum Status: Acute Additional A&P Information Non Anion gap metabolic acidosis noted on admission. Macrocytic anemia. Folate initiated. History of alcohol use. Monitor for withdrawal. He is also on thiamine. Full code Lovenox for DVT prophylaxis Consider transfer out of the ICU if electrolyte abnormalities are improving. He has been vaccinated with [employer] vaccine, however GI symptomatology is occasionally associated with Covid so will at least arrange for rapid Covid antigen test. Attestations Medical Necessity Statement*: Needs continued hospitalization for close monitoring secondary to concern of ischemic bowel. Coding Level of Care Code Acute Applications Consultant for Chg Fwd Diagnoses Sepsis A41.9 Hypokalemia E87.6 Hypocalcemia E83.51 Hypomagnesemia E83.42 Abdominal pain R10.9
[2021-06-16 15:27] LABS: Thyroid Stimulating Hormone 6.87 uIU/mL (0.27-4.20)
[2021-06-16 15:29] LABS: Lactate (Lactic Acid level) 2.4 mmol/L (0.5-2.2)
[2021-06-16] MEDS: sodium chloride 0.9% 1,000 ML 125 ML IV (16:11)
--- NOTE | 2021-06-16 16:23 | PM.CONSULT ---
Providers/Reason For Consult Consulting Physician/Specialty*: Pulmonary and critical care medicine Reason for Consult*: Hypertension and electrolyte abnormalities Attending Physician: Georges Castellanos MD History of Present Illness History of Present Illness Austin Munson is a 61 year old male with a past history of right nephrectomy due to renal cell cancer, hypertension who presented to the hospital with explosive diarrhea. According to the patient, he had frozen clamps on Sunday for dinner. Approximately 12 hours following that the patient started experiencing abdominal pain. This was followed by explosive diarrhea, nausea and vomiting. When the patient presented to the hospital yesterday he was hypotensive requiring fluid resuscitation. He also had significant electrolyte abnormalities. CT scan of the abdomen and pelvis revealed inflammation of the small bowel. Due to concern for ischemic colitis, the patient underwent a CT angiogram of the abdomen and pelvis which did not reveal any evidence of ischemia. For unclear reasons, the patient also had a CT angiogram of the chest which was negative as well. The patient's admission labs are very interesting. The patient had non-anion gap metabolic acidosis with profound hypokalemia and hypomagnesemia. This would be consistent with diarrhea. There is no evidence of renal tubular acidosis. There has been mildly elevated lactate level. I have seen and examined the patient in the ICU today. He appeared more comfortable. Still having abdominal pain but no diarrhea since midnight last night. He is receiving sodium chloride with potassium supplementation. He is concerned because this had happened to him about a year ago at which time the patient had kidney injury. The patient has history of alcohol use. No signs of withdrawal at this point. He does have fatty liver. No known history of hepatitis B or C. Review of Systems Narrative: General: Fever, chills, body ache and fatigue Skin: No rash HEENT: No nasal congestion, rhinitis, sinusitis, sneezing, hoarseness of voice Neck: There is no neck swelling, mass or swollen glands. Respiratory: No cough, sputum production, wheezing or shortness of breath Cardiovascular: No chest pain Gastrointestinal: Abdominal pain, nausea vomiting and diarrhea which has gotten better Musculoskeletal: No joint pain or swelling, muscle weakness, morning stiffness, numbness or tingling. Neurological: Patient is awake alert and oriented x3, no paralysis, gross motor function is normal. Psychiatric: No anxiety or depression. Meds/Allergies Home Medications and Allergies Home Medications Medication Instructions Recorded Confirmed Last Taken Type allopurinol 100 mg PO QAM 06/16/21 06/16/21 Unknown History aspirin [Aspir-81] 81 mg PO QAM 06/16/21 06/16/21 Unknown History lisinopril 20 mg PO QAM 06/16/21 06/16/21 Unknown History omeprazole [Prilosec] 40 mg PO QAM 06/16/21 06/16/21 Unknown History tramadol [Ultram] 50 - 100 mg PO DAILY PRN 06/16/21 06/16/21 Unknown History Allergies Allergy/AdvReac Type Severity Reaction Status Date / Time No Known Allergies Allergy Verified 06/16/21 08:24 Current Medications Current Medications Generic Name Dose Route Start Last Admin Trade Name Freq PRN Reason Stop Dose Admin Folic Acid 1 mg 06/16/21 09:00 06/16/21 08:08 Folic Acid 1 Mg Tablet PO 1 mg DAILY YAAKOV Administration Hydromorphone HCl 0.4 mg 06/16/21 07:09 06/16/21 14:03 Hydromorphone 1 Mg/Ml Inj 1 Ml IVP 0.4 mg Q4H PRN Administration pain Piperacillin Sod/Tazobactam 50 mls @ 12.5 mls/hr 06/16/21 09:00 06/16/21 16:06 Sod 3.375 gm/ Sodium Chloride IV 12.5 mls/hr Q8H YAAKOV Administration Protocol Sodium Chloride 1,000 mls @ 125 mls/hr 06/16/21 15:45 06/16/21 16:11 Sodium Chloride 0.9% IV 125 mls/hr .Q8H YAAKOV Administration Pantoprazole Sodium 40 mg 06/16/21 09:00 06/16/21 08:08 Pantoprazole 40 Mg Sdv IVP 40 mg BID YAAKOV Administration Thiamine HCl 100 mg 06/16/21 09:00 06/16/21 08:08 Thiamine 100 Mg/Ml Sdv IV 100 mg DAILY YAAKOV Administration PFSH Acute PFSH: Medical History Gout Hypertension Renal cell cancer Right 2018 Surgical History H/O inguinal hernia repair Right History of nephrectomy Right -- robotic 2018 History of tonsillectomy Family History Mother Cancer Lung cancer Other CAD (coronary artery disease) Social History Smoking and tobacco status: current every day smoker Alcohol intake: current Alcohol intake frequency: 3 or more drinks per day Alcohol type: beer and hard liquor Substance/Drug Use: never Household members: spouse Housing: House Vitals/I&O/Wt Last Vital Signs Temp 98.0 F 06/16/21 08:15 Pulse 76 06/16/21 15:57 Resp 14 06/16/21 15:30 BP 123/79 06/16/21 15:30 Pulse Ox 96 06/16/21 15:30 06/16/21 06/16/21 06/16/21 06:59 14:59 22:59 Intake Total 3272 / 3272 100 / 100 Output Total 300 / 300 Balance 3272 / 3272 -200 / -200 Weight last 48 hrs Weight 218 lb Weight 210 lb Physical Exam Narrative: EXAM NARRATIVE: General: Patient is awake alert and oriented, in no distress. Neck: No JVD Respiratory: Auscultation: Bilateral clear to auscultation both anterior and posteriorly, no crackles wheezing or rhonchi Cardiovascular: Regular rate and rhythm, S1-S2 present, no murmur, no peripheral edema. Abdomen: Soft, mild tenderness in the epigastric area, hyperactive bowel sound Musculoskeletal: No obvious joint deformity Skin: No rash Neuro: Mental status is normal, no gross cranial nerve deficit, normal motor and coordination. Data Other Data: Attestation for Other Data: I personally reviewed and interpreted the following: Other data: I have reviewed the patient's laboratory, microbiologic and radiologic data. Please see the HPI for detail A&P Assessment and plan (1) Acute gastroenteritis: The patient likely suffered from an episode of acute gastroenteritis resulting in sepsis. The patient suffered from profound volume loss from diarrhea and vomiting resulting in hypotension. Currently the patient is doing much better with volume replacement. No diarrhea since midnight last night. The patient still not able to tolerate oral diet other than small sips of liquid but the patient is ready to be transferred out of the ICU. Status: Acute (2) Sepsis: The sepsis appears to be resolving. The patient is currently on Zosyn. Once he is able to tolerate oral therapy he can be easily switched to Cipro and Metro. Status: Acute (3) Metabolic acidosis: The patient's laboratory work-up on admission was consistent with non-anion gap metabolic acidosis. This was secondary to explosive diarrhea which also resulted in hypokalemia and hypomagnesemia. The patient is receiving electrolyte replacements. We are following up with repeat blood work. All electrolytes are being repleted now. If the metabolic acidosis lingers, the patient will get bicarb drip. Status: Acute (4) Hypokalemia: Hypokalemia is intriguing in the setting of metabolic acidosis. This would signify a significant depletion of whole body potassium. Status: Acute (5) Hypomagnesemia: See above Status: Acute (6) Hypocalcemia: See above Status: Acute (7) Hypertension: We are holding his blood pressure medications for the time being. Status: Acute Coding Level of Care Code Acute Television Writer for [facility] Fwd Diagnoses Acute gastroenteritis K52.9 Sepsis A41.9 Metabolic acidosis E87.2 Hypokalemia E87.6 Hypomagnesemia E83.42 Hypocalcemia E83.51 Hypertension I10
[2021-06-16 17:16] LABS: Blood Urea Nitrogen 21 mg/dL (6-20); Calcium 7.9 mg/dL (8.5-10.5); Carbon Dioxide 21 mmol/L (22-29); Chloride 100 mmol/L (98-107); Glomerular Filtration Rate 29.2 mL/min (90-130); Glucose 84 mg/dL (65-115); Magnesium 2.2 mg/dL (1.7-2.3); Osmolality Calculated 278 mOsm/kg (285-295); Sodium 133 mmol/L (136-145)
[2021-06-16 17:17] LABS: Creatine Phosphokinase 83 U/L (39-308)
[2021-06-16 17:25] LABS: Troponin 5 6HR 21.81 ng/L (0-15)
[2021-06-16 17:53] LABS: Anion Gap 17.7 (5-19); Potassium 5.7 mmol/L (3.5-5.1)
--- NOTE | 2021-06-16 18:40 | PC.NURSE ---
Shift Note Frequent safety and comfort rounds continue. Orders and/or nursing care completed as indicated. Patient monitored for response to intervention and treatment(s). Education provided includes s/s of ishemic bowel and pain management. Patient verbalizes understanding. Pt swabbed for covid per orders. On isolation per orders until results return. Will continue to monitor.
[2021-06-16 18:52] LABS: SARS Covid-2 Antigen Negative (Negative)
[2021-06-17] VITALS (22 sets, daily range): BP systolic 93–149; BP diastolic 60–108; PULSE 74–105; RESP 13–23; TEMP 36.6–37; O2SAT 91–97
[2021-06-17] MEDS: piperacillin-tazobactam 3.375 GM in sodium chloride 0.9% (plus) 50 ML IV ×3 (00:39→17:38)
[2021-06-17] MEDS: sodium chloride 0.9% 1,000 ML 125 ML IV ×3 (01:15→17:42)
[2021-06-17] MEDS: HYDROmorphone 1 mg/mL INJ 1 mL 0.4 MG IVP ×4 (01:31→20:56)
--- NOTE | 2021-06-17 03:06 | PC.NURSE ---
Transfer Note Patient transferred from EVA Ochoa to this nurse (EVA Bess). Patient oriented to environment and equipment. Orders reviewed and will continue to monitor.
[2021-06-17 06:05] LABS: Basophils # 0.1 10^3/uL (0.0-0.1); Eosinophils # 0.3 10^3/uL (0.0-0.8); Eosinophils % 3.7 %; Hematocrit 42.2 % (42.0-52.0); Hemoglobin 13.2 g/dL (11.7-16.6); Lymphocytes # 0.7 10^3/uL (0.8-4.8); Lymphocytes % 9.5 %; Mean Corpuscular HGB Conc 31.3 g/dL (30.0-36.0); Mean Corpuscular Hemoglobin 34.2 pg (28.0-34.0); Mean Corpuscular Volume 109.3 fL (80-94); Mean Platelet Volume 9.1 fL (7.4-10.4); Monocytes # 0.6 10^3/uL (0.2-0.9); Monocytes % 8.2 %; Neutrophils # 5.26 10^3/uL (1.8-7.7); Neutrophils % 77.3 %; Nucleated Red Blood Cells % 0 %; Platelet Count 169 10^3/cmm (130-400); Red Blood Count 3.86 10^6/uL (4.1-5.3); Red Cell Distribution Width 13.7 % (12.1-15.1); White Blood Count 6.8 10^3/uL (4.0-10.0)
--- NOTE | 2021-06-17 06:17 | PC.NURSE ---
Shift Note Frequent safety and comfort rounds continue. Orders and/or nursing care completed as indicated. Patient monitored for response to intervention and treatment(s). Education provided includes letting staff know about increased pain before it gets too bad. Patient stated an understanding of letting staff know about pain before it gets out of hand. Will continue to monitor.
[2021-06-17 06:23] LABS: Anion Gap 12.6 (5-19); Blood Urea Nitrogen 15 mg/dL (6-20); Carbon Dioxide 21 mmol/L (22-29); Chloride 108 mmol/L (98-107); Glomerular Filtration Rate 36.5 mL/min (90-130); Glucose 79 mg/dL (65-115); Osmolality Calculated 280 mOsm/kg (285-295); Sodium 135 mmol/L (136-145)
[2021-06-17 06:39] LABS: Potassium 6.6 mmol/L (3.5-5.1)
--- NOTE | 2021-06-17 07:03 | ECG_ITS ---
[facility] Test Date: 2021-06-17 Pat Name: Austin Munson Department: Room: ICU12 Gender: Male Chain Dyer: : 1960 Requested By: MoneyReef Butch Order Number: [id number] Rodolfo MD: Sejal Botello M.D. Measurements Intervals [place] Rate: 85 P: 29 MS: 145 QRS: -17 QRSD: 97 T: 28 QT: 346 QTc: 413 Interpretive Statements SINUS RHYTHM INFERIOR MYOCARDIAL INFARCTION [40+ ms Q WAVE AND/OR ST/T ABNORMALITY IN II/aVF], PROBABLY OLD Compared to ECG 06/16/2021 18:21:17 No significant changes Electronically Signed On 06-17-2021 13:52:06 CDT by Sejal Botello M.D. [email or web address]
--- NOTE | 2021-06-17 08:04 | PC.NURSE ---
dexter getting up to b.s.cJoan puckett. well
--- NOTE | 2021-06-17 08:23 | P.PN_ITS ---
Subjective Subjective: Interval history: The patient says he feels well. He denies any abdominal pain. He says he has not taken any pain medication in over 12 hours. He is having bowel movements. Vitals/I&O/Wt Last Vital Signs Temp 98.4 F 06/17/21 07:48 Pulse 85 06/17/21 07:48 Resp 15 06/17/21 07:48 BP 110/60 06/17/21 05:00 Pulse Ox 93 06/17/21 07:48 06/16/21 06/17/21 06/17/21 22:59 06:59 14:59 Intake Total 1016.25 / 2186.25 1070 / 2186.25 Output Total 1150 / 1450 Balance 1016.25 / 736.25 -80 / 736.25 Weight last 48 hrs Weight 218 lb Weight 210 lb Physical Exam Narrative: EXAM NARRATIVE: Abdomen reveals bowel sounds and is nontender and soft. Data : 06/17/21 05:52 06/17/21 05:52 A&P Assessment and plan (1) Abdominal pain: I think it is unlikely that the patient has any ongoing intestinal ischemia, but he may have presented with a low flow state from dehydration could be a possibility. He has responded very well to resuscitation. In addition, he had a very similar episode while he was very dehydrated in [place] 2 months ago. The patient's white blood cell count is normal and his lactate has returned to normal. I will be out of town starting later today. I have discussed the patient with Dr. Garcia who is on-call. I do not expect any abdominal issues and will leave it up to his discretion if he wants to continue seeing the patient daily. Status: Acute (2) Elevated lactic acid level: Normal on 06/17/2021. Status: Acute Attestations Medical Necessity Statement*: See admitting service's notation. Coding Level of Care Code Acute Hearing Impaired Itinerant Teacher for [facility] Diagnoses Abdominal pain R10.9 Elevated lactic acid level R79.89
[2021-06-17] MEDS: insulin regular-human 10 UNIT in SYRINGE 1 EACH IVP (08:34)
[2021-06-17] MEDS: dextrose 50% syringe 50 mL IVP ×2 (08:36→08:39)
[2021-06-17] MEDS: FUROsemide 10 mg/mL SDV 2mL 20 MG IVP (08:39)
[2021-06-17] MEDS: folic acid 1 mg Tablet PO (09:40)
[2021-06-17] MEDS: pantoprazole 40 mg SDV IVP ×2 (09:46→17:29)
--- NOTE | 2021-06-17 10:06 | PC.NURSE ---
Left AC IV Since left AC IV was not able to give blood return around 0800, checked again if would give return and attempted to flush with normal saline. It did not give return or flush, therefore I removed the dressing to check for any kinks. Once repositioned, the IV was easily flushed and gave blood return. New venaguard applied.
--- NOTE | 2021-06-17 10:11 | PC.NURSE ---
Left AC IV IV in left AC did not give blood return or flush.
--- NOTE | 2021-06-17 11:41 | PC.NURSE ---
New Orders Physician responded at 1055 with new PO vancomycin order.
--- NOTE | 2021-06-17 11:55 | P.PN_ITS ---
Subjective Subjective: Interval history: Austin reports he feels better. Abdominal pain is less. No further vomiting. Diarrhea has subsided. Medications: Reviewed: Yes Vitals/I&O/Wt Last Vital Signs Temp 98.4 F 06/17/21 07:48 Pulse 81 06/17/21 11:00 Resp 14 06/17/21 11:00 BP 121/85 06/17/21 11:00 Pulse Ox 95 06/17/21 11:00 06/16/21 06/17/21 06/17/21 22:59 06:59 14:59 Intake Total 1016.25 / 1116.25 1070 / 2186.25 1000 / 1000 Output Total 1150 / 1450 575 / 575 Balance 1016.25 / 816.25 -80 / 736.25 425 / 425 Weight last 48 hrs Weight 98.883 kg Weight 95.254 kg Physical Exam Narrative: EXAM NARRATIVE: General exam no distress Neck supple no lymphadenopathy or thyromegaly Cardiovascular regular rate and rhythm without murmur Lungs clear Abdomen is soft, positive bowel sounds. Mild tenderness to palpation. Extremities no cyanosis clubbing or edema Data : 06/17/21 05:52 06/17/21 05:52 Micro: Microbiology 06/17/21 07:15 Enteric Pathogens (PCR) - Final Stool Routine Collection C.difficile Toxin B Gene (PCR) - Final Occult Blood (FIT) - Final A&P Assessment and plan (1) Sepsis: Appears to be resolved Await cultures. Unfortunately I do not believe he received a blood culture on admission. C. difficile has come back positive which is unusual. I am not sure I believe this caused the acute episode. We will treat with vancomycin 125 mg 4 times daily currently. Continue hydration. May reduce rate. Status: Acute (2) Hypokalemia: Supplemented in the emergency department and now hyperkalemic. EKG demonstrates no QRS widening. Critical care has given insulin and glucose as well as a dose of Lasix which is appropriate. Repeat early this afternoon Status: Acute (3) Hypocalcemia: Profound on admission. This has been supplemented. Stable currently. TSH slightly elevated. Status: Acute (4) Hypomagnesemia: This has been supplemented. Status: Acute (5) Abdominal pain: Patient reports this is improving. General surgery consultation is on the chart, with consideration of ischemic bowel. Lactate has now returned to normal. Continue IV Protonix Lipase not elevated CTA did not demonstrate vascular compromise. CT abdomen and pelvis demonstrated absent right kidney, fatty infiltration of liver, moderate bowel thickening throughout the entire small bowel except duodenum Advance diet Continue Protonix Status: Acute Additional A&P Information Acute kidney injury resolving. CK normal. Non Anion gap metabolic acidosis noted on admission. Macrocytic anemia. Folate initiated. History of alcohol use. Monitor for withdrawal. He is also on thiamine. Full code Lovenox for DVT prophylaxis He has been vaccinated with [employer] Carroll vaccine, however GI symptomatology is occasionally associated with Covid so will at least arrange for rapid Covid antigen test. This was negative. Attestations Medical Necessity Statement*: Needs continued hospitalization for close follow-up of abdominal pain with electrolyte abnormality. Coding Level of Care Code Acute Business Services Intern for [facility] Fwd Diagnoses Sepsis A41.9 Hypokalemia E87.6 Hypocalcemia E83.51 Hypomagnesemia E83.42 Abdominal pain R10.9
--- NOTE | 2021-06-17 13:13 | PC.NURSE ---
KENNYAR Report faxed to [facility].
[2021-06-17 13:20] LABS: Anion Gap 14.7 (5-19); Blood Urea Nitrogen 13 mg/dL (6-20); Calcium 8.3 mg/dL (8.5-10.5); Carbon Dioxide 22 mmol/L (22-29); Chloride 106 mmol/L (98-107); Glomerular Filtration Rate 36.5 mL/min (90-130); Glucose 85 mg/dL (65-115); Osmolality Calculated 283 mOsm/kg (285-295); Potassium 5.7 mmol/L (3.5-5.1); Sodium 137 mmol/L (136-145)
--- NOTE | 2021-06-17 13:23 | PC.NURSE ---
Report SBAR report called to [facility] and received by EVA Bernal.
--- NOTE | 2021-06-17 15:03 | PC.NURSE ---
Transfer patient transferred to [facility] room 262 via wheelchair. All belongings accounted for and with patient.
[2021-06-17 19:41] LABS: Potassium 5.5 mmol/L (3.5-5.1)
[2021-06-18] MEDS: piperacillin-tazobactam 3.375 GM in sodium chloride 0.9% (plus) 50 ML IV ×3 (00:22→17:55)
[2021-06-18] MEDS: sodium chloride 0.9% 1,000 ML 125 ML IV ×2 (00:22→10:45)
[2021-06-18 03:50] VITALS: BP 119/82; PULSE 67; RESP 18; TEMP 37.1; O2SAT 98
[2021-06-18 04:02] VITALS: RESP 18
[2021-06-18] MEDS: HYDROmorphone 1 mg/mL INJ 1 mL 0.4 MG IVP (04:02)
[2021-06-18 06:29] LABS: Basophils % 0.7 %; Eosinophils # 0.2 10^3/uL (0.0-0.8); Eosinophils % 3.3 %; Hemoglobin 12.2 g/dL (11.7-16.6); Lymphocytes # 0.7 10^3/uL (0.8-4.8); Lymphocytes % 11.9 %; Mean Corpuscular HGB Conc 31.3 g/dL (30.0-36.0); Mean Corpuscular Hemoglobin 34.3 pg (28.0-34.0); Mean Corpuscular Volume 109.6 fL (80-94); Mean Platelet Volume 9.5 fL (7.4-10.4); Monocytes # 0.6 10^3/uL (0.2-0.9); Monocytes % 9.3 %; Neutrophils # 4.59 10^3/uL (1.8-7.7); Neutrophils % 74.5 %; Nucleated Red Blood Cells % 0 %; Platelet Count 166 10^3/cmm (130-400); Red Blood Count 3.56 10^6/uL (4.1-5.3); Red Cell Distribution Width 13.3 % (12.1-15.1); White Blood Count 6.2 10^3/uL (4.0-10.0)
[2021-06-18 06:58] LABS: Alanine Aminotransferase 28 U/L (0-41); Albumin Level 3.1 g/dL (3.5-5.2); Alkaline Phosphatase 109 IU/L (40-130); Aspartate Amino Transferase 59 U/L (0-40); Blood Urea Nitrogen 11 mg/dL (6-20); Calcium 8.1 mg/dL (8.5-10.5); Carbon Dioxide 22 mmol/L (22-29); Chloride 106 mmol/L (98-107); Globulin 2.5 g/dL (1.3-4.6); Glomerular Filtration Rate 41.5 mL/min (90-130); Glucose 72 mg/dL (65-115); Osmolality Calculated 282 mOsm/kg (285-295); Sodium 137 mmol/L (136-145); Total Bilirubin 0.4 mg/dL (0.15-1.2); Total Protein 5.6 g/dL (6.6-8.7)
[2021-06-18 07:00] LABS: Anion Gap 14.5 (5-19); Potassium 5.5 mmol/L (3.5-5.1)
[2021-06-18 08:00] VITALS: BP 136/90; PULSE 76; RESP 16; TEMP 37.1; O2SAT 97
[2021-06-18] MEDS: folic acid 1 mg Tablet PO (08:10)
[2021-06-18] MEDS: pantoprazole 40 mg SDV IVP ×2 (10:38→17:52)
[2021-06-18] MEDS: dextrose 50% syringe 50 mL IVP (10:41)
[2021-06-18] MEDS: insulin regular-human 10 UNIT in SYRINGE 1 EACH IVP (10:43)
[2021-06-18] MEDS: cholecalciferol (vitamin D3) 5,000 unit Tablet 5000 UNIT PO (10:54)
[2021-06-18 12:24] LABS: Free T4 Free Thyroxine 0.85 ng/dL (0.82-1.77); T3 Free 2.5 PG/ML (2.0-4.4)
--- NOTE | 2021-06-18 13:04 | P.PN_ITS ---
Subjective Subjective: Interval history: Hospital course, labs appreciated. No acute events overnight. Denies any N/V. As per nurse 1 episode of BM since last night. More formed as per Nurse. Afebrile in last 24 hrs. Medications: Reviewed: Yes Vitals/I&O/Wt Last Vital Signs Temp 98.8 F 06/18/21 08:00 Pulse 76 06/18/21 08:00 Resp 16 06/18/21 08:00 BP 136/90 06/18/21 08:00 Pulse Ox 97 06/18/21 08:00 Intake & Output 06/17/21 06/18/21 06/18/21 22:59 06:59 14:59 Intake Total 1770 / 2820 833.333 / 3653.333 1410 / 1410 Output Total 1250 / 1825 Balance 1770 / 2245 -416.667 / 3164.060 8995 / 1410 Physical Exam Narrative: EXAM NARRATIVE: General exam no distress Neck supple no lymphadenopathy or thyromegaly Cardiovascular regular rate and rhythm without murmur Lungs clear Abdomen is soft, positive bowel sounds. Mild tenderness to palpation. Extremities no cyanosis clubbing or edema Data : 06/18/21 05:27 06/18/21 05:27 Micro: Microbiology 06/17/21 07:15 Enteric Pathogens (PCR) - Final Stool Routine Collection Parasite Antigen Panel - Final C.difficile Toxin B Gene (PCR) - Final Occult Blood (FIT) - Final A&P Assessment and plan (1) Sepsis: Appears to be resolved Await cultures. Unfortunately I do not believe he received a blood culture on admission. C. difficile has come back positive which is unusual. Continue with vancomycin 125 mg 4 times daily currently. Continue hydration with IVF @75 cc/hr. Status: Acute (2) Acute gastroenteritis: Status: Acute (3) Abdominal pain: Patient reports this is improving. General surgery consultation is on the chart, with consideration of ischemic bowel. Lactate has now returned to normal. Continue IV Protonix Lipase not elevated CTA did not demonstrate vascular compromise. CT abdomen and pelvis demonstrated absent right kidney, fatty infiltration of liver, moderate bowel thickening throughout the entire small bowel except duodenum Advance diet Continue Protonix Status: Acute (4) RADHA (acute kidney injury): Most likely 2/2 Sepsis, dehydration and home dose of lisinopril. Improving. Medrec done for nephrotoxic drugs. Good urine output. IVF @ 75 cc/hr. No metabolic acidosis. Status: Acute (5) Hyperkalemia: Most likely 2/2 to RADHA. D50, insulin 10 cc. Repeat in AM. Status: Acute (6) Hypocalcemia: Profound on admission. This has been supplemented. PTH low. Stable currently. TSH slightly elevated. Check free T3, T4 Status: Acute (7) Hypomagnesemia: This has been supplemented. Status: Acute Additional A&P Information Macrocytic anemia. Folate initiated. History of alcohol use. Monitor for withdrawal. He is also on thiamine. Start on oral Vit D Full code Lovenox for DVT prophylaxis He has been vaccinated with [employer] vaccine, however GI symptomatology is occasionally associated with Covid so will at least arrange for rapid Covid antigen test. This was negative. Attestations Medical Necessity Statement*: Requires further hospitalization for RADHA, C.diff infection. Time Spent in Patient Care: Greater than 35 minutes (>than 50% of time spent in counselling and/or direct pt care on unit) . Coding Level of Care Code Acute Collections Curator for [facility] Fwd Diagnoses Sepsis A41.9 Acute gastroenteritis K52.9 Abdominal pain R10.9 RADHA (acute kidney injury) N17.9 Hyperkalemia E87.5 Hypocalcemia E83.51 Hypomagnesemia E83.42
[2021-06-18 14:34] LABS: Iron 78 ug/dL (59-158); Total Iron Binding Capacity 260 mcg/dl; Unsaturated Iron Binding 182 ug/dL (112-347)
[2021-06-18 16:08] VITALS: BP 133/89; PULSE 74; RESP 18; TEMP 36.9; O2SAT 95
[2021-06-18 20:00] VITALS: BP 136/80; PULSE 68; RESP 18; TEMP 37.1; O2SAT 97
[2021-06-18] MEDS: sodium chloride 0.9% 1,000 ML 75 ML IV (21:45)
[2021-06-19] VITALS: BP 123/79; PULSE 65; RESP 16; TEMP 36.9; O2SAT 98
[2021-06-19] MEDS: piperacillin-tazobactam 3.375 GM in sodium chloride 0.9% (plus) 50 ML IV ×2 (00:35→09:48)
[2021-06-19 04:00] VITALS: BP 142/98; PULSE 77; RESP 17; TEMP 36.5; O2SAT 97
[2021-06-19] MEDS: acetaminophen 500 mg Tablet PO (04:32)
[2021-06-19 05:26] LABS: Alanine Aminotransferase 29 U/L (0-41); Albumin Level 3.3 g/dL (3.5-5.2); Alkaline Phosphatase 114 IU/L (40-130); Anion Gap 13.9 (5-19); Aspartate Amino Transferase 55 U/L (0-40); Blood Urea Nitrogen 9 mg/dL (6-20); Calcium 8.2 mg/dL (8.5-10.5); Carbon Dioxide 22 mmol/L (22-29); Chloride 103 mmol/L (98-107); Globulin 2.5 g/dL (1.3-4.6); Glomerular Filtration Rate 51.9 mL/min (90-130); Glucose 80 mg/dL (65-115); Osmolality Calculated 276 mOsm/kg (285-295); Potassium 4.9 mmol/L (3.5-5.1); Sodium 134 mmol/L (136-145); Total Bilirubin 0.4 mg/dL (0.15-1.2); Total Protein 5.8 g/dL (6.6-8.7)
[2021-06-19 05:33] LABS: Chol HDL Ratio 3.46 mg/dL (1.0-5.00); Cholesterol 194 mg/dL (0-200); HDL Cholesterol 56 mg/dL (60-100); LDL Cholesterol Calculated 92 mg/dL (50-129); Triglycerides 230 mg/dL (0-150); VLDL Cholestrol Calculation 46 mg/dL (0-30)
[2021-06-19 06:02] LABS: Estmated Average Glucose 108; Hemoglobin A1C 5.4 % (4.0-6.0)
[2021-06-19 07:32] VITALS: BP 149/96; PULSE 65; RESP 17; TEMP 37.1; O2SAT 96
[2021-06-19] MEDS: folic acid 1 mg Tablet PO (08:20)
[2021-06-19] MEDS: pantoprazole 40 mg SDV IVP (08:20)
[2021-06-19] MEDS: cholecalciferol (vitamin D3) 5,000 unit Tablet 5000 UNIT PO (08:20)
--- NOTE | 2021-06-19 09:20 | PM.DCS ---
Discharge Providers Date of Admission: 06/16/21 04:32 Date of Discharge: June 19, 2021 Attending Provider at Admission: Debbie Hong MD Attending Provider at Discharge: Emanuel Dave MD Consults: Surgery: Dr. Gurrola Diagnoses at Discharge Discharge Diagnosis (1) Sepsis: Status: Acute (2) Acute gastroenteritis: Status: Acute (3) Abdominal pain: Status: Acute (4) RADHA (acute kidney injury): Status: Acute (5) Hyperkalemia: Status: Acute (6) Hypocalcemia: Status: Acute (7) Hypomagnesemia: Status: Acute (8) Single functional kidney: Status: Acute Reason for Visit Reason for Visit: N/V/D Hospital Course Hospital Course DEB OBREGON is a 61 year old male who presented today with chief complaint of abdominal pain. Patient stating that his symptoms started around 4 PM yesterday, a day before yesterday he ate frozen clams, he has been experiencing multiple episodes of diarrhea associated with his emesis. He has noticed low-grade fever, no active chest pain, shortness of breath or recent use of antibiotics. No recent camping or traveling. He has moved from [place]. Experienced gastroenteritis 2 months ago. He is an alcoholic drinks 3-4 shots of vodka with 3 to 4 cans of beer every day. Never experienced any withdrawal symptoms. He is denying blood in stool or vomiting. No history of atrial fibrillation Diagnostic work-up in the ER revealed hypotension, hypokalemia, hypomagnesemia, hypocalcemia which improved with fluid resuscitation, potassium repleted, electrolytes replenished, blood pressure improved after fluid boluses, CT abdomen pelvis consistent with small bowel edema concern for ischemia versus gastroenteritis. Patient admitted to hospital for management of hypertension, acute kidney injury, dehydration secondary to gastroenteritis. On admission there were concerns of bowel ischemia for which surgery was consulted and it was ruled out. Eventually patient stool study came back positive for C. difficile. He was started on oral vancomycin after that patient continued to improve. Currently patient is having well formed bowel movements. His kidney functions have continued to improve with IV fluids. On admission patient was requiring electrolyte repletion to manage multiple electrolyte abnormalities which have normalized by the end of discharge. During hospitalization patient was found to have gout exacerbation for which she has been discharged on prednisone taper. He is been discharged hemodynamically stable condition with advice to follow-up with his primary care provider within next 1 week. He is advised to continue taking oral vancomycin for next 14 days. He is advised to stop his lisinopril for now. He will be started on amlodipine 10 mg daily. He is advised to monitor his blood pressure twice daily and maintain a blood pressure chart and follow-up with his primary care provider for further adjustment of antihypertensives. Patient is advised to take at least 2 to 3 L of fluid every day which should include at least 1 L of electrolyte fluid like Gatorade. He should repeat his BMP in next 1 week when he follow-up with a primary care provider. Physical Exam Narrative: EXAM NARRATIVE: General exam no distress Neck supple no lymphadenopathy or thyromegaly Cardiovascular regular rate and rhythm without murmur Lungs clear Abdomen is soft, positive bowel sounds. Mild tenderness to palpation. Extremities no cyanosis clubbing or edema Discharge Data Data Completed and Pending: Completed Studies During Hospitalization Category Date Time Status CT abdomen pelvis wo con [id number] Urge nt Cat Scan 06/16/21 01:[address] angio abdomen pelvis [id number] Urgen t Cat Scan 06/16/21 01:[address] angio chest PE protcl [id number] Urge nt Cat Scan 06/16/21 02:28 Completed Labs from last 24 hours 06/19/21 06/19/21 06/19/21 04:49 04:49 04:49 Sodium 134 L Potassium 4.9 Chloride 103 Carbon Dioxide 22 Anion Gap 13.9 BUN 9 Creatinine 1.4 H GFR Calculation 51.9 L Glucose 80 Estimat Average Gl ucose 108 Hemoglobin A1c 5.4 Calculated Osmolal ity 276 L Calcium 8.2 L Iron TIBC % Saturation Unsat Iron Binding Total Bilirubin 0.4 AST 55 H ALT 29 Alkaline Phosphata se 114 Total Protein 5.8 L Albumin 3.3 L Globulin 2.5 Triglycerides 230 H Cholesterol 194 LDL Cholesterol, C alc 92 Total VLDL Cholest jorge 46 H HDL Cholesterol 56 L Cholesterol/HDL Ra latoya 3.46 Free T4 Free T3 06/18/21 05:27 Sodium Potassium Chloride Carbon Dioxide Anion Gap BUN Creatinine GFR Calculation Glucose Estimat Average Gl ucose Hemoglobin A1c Calculated Osmolal ity Calcium Iron 78 TIBC 260 % Saturation 30.0 Unsat Iron Binding 182 Total Bilirubin AST ALT Alkaline Phosphata se Total Protein Albumin Globulin Triglycerides Cholesterol LDL Cholesterol, C alc Total VLDL Cholest jorge HDL Cholesterol Cholesterol/HDL Ra latoya Free T4 0.85 Free T3 2.5 Addt'l Data from Hospital Stay: Laboratory Results WBC 6.2 10^3/uL (4.0- 10.0) 06/18/21 05:27 RBC 3.56 10^6/uL (4.1 -5.3) L 06/18/21 05:27 Hgb 12.2 g/dL (11.7-1 6.6) 06/18/21 05:27 Hct 39.0 % (42.0-52.0 ) L 06/18/21 05:27 MCV 109.6 fL (80-94) H 06/18/21 05:27 MCH 34.3 pg (28.0-34. 0) H 06/18/21 05:27 MCHC 31.3 g/dL (30.0-3 6.0) 06/18/21 05:27 RDW 13.3 % (12.1-15.1 ) 06/18/21 05:27 Plt Count 166 10^3/cmm (130 -400) 06/18/21 05:27 MPV 9.5 fL (7.4-10.4) 06/18/21 05:27 Neut % (Auto) 74.5 % 06/18/21 05:27 Lymph % (Auto) 11.9 % 06/18/21 05:27 [place] % (Auto) 9.3 % 06/18/21 05:27 Eos % (Auto) 3.3 % 06/18/21 05:27 Baso % (Auto) 0.7 % 06/18/21 05:27 Neut # (Auto) 4.59 10^3/uL (1.8 -7.7) 06/18/21 05:27 Lymph # (Auto) 0.7 10^3/uL (0.8- 4.8) L 06/18/21 05:27 [place] # (Auto) 0.6 10^3/uL (0.2- 0.9) 06/18/21 05:27 Eos # (Auto) 0.2 10^3/uL (0.0- 0.8) 06/18/21 05:27 Baso # (Auto) 0.0 10^3/uL (0.0- 0.1) 06/18/21 05:27 Nucleated RBC % (a uto) 0 % 06/18/21 05:27 Nucleated RBCs # 0.0 /100WBC 06/18/21 05:27 Specimen Type Arterial 06/16/21 02:45 Sample Site Radial, right 06/16/21 02:45 ABG pH 7.26 (7.35-7.45) L 06/16/21 02:45 ABG pCO2 37.0 mmHg (35-45) 06/16/21 02:45 ABG pO2 86.4 mmHg (80.0-1 00.0) 06/16/21 02:45 ABG HCO3 16.5 mmol/L (22-2 6) L 06/16/21 02:45 ABG Base Excess -9.8 mmol/L (-2.0 -2.0) L 06/16/21 02:45 Milo Test Pos 06/16/21 02:45 Hematocrit 54.0 % (42-52) H 06/16/21 02:45 O2 Delivery Device Room air 06/16/21 02:45 Dipper And Drier ID newcl 06/16/21 02:45 Sodium 134 mmol/L (136-1 45) L 06/19/21 04:49 Potassium 4.9 mmol/L (3.5-5 .1) 06/19/21 04:49 Chloride 103 mmol/L (98-10 7) 06/19/21 04:49 Carbon Dioxide 22 mmol/L (22-29) 06/19/21 04:49 Anion Gap 13.9 (5-19) 06/19/21 04:49 BUN 9 mg/dL (6-20) 06/19/21 04:49 Creatinine 1.4 mg/dL (0.7-1. 2) H 06/19/21 04:49 GFR Calculation 51.9 mL/min (90-1 30) L 06/19/21 04:49 Glucose 80 mg/dL (65-115) 06/19/21 04:49 Estimat Average Gl ucose 108 06/19/21 04:49 Hemoglobin A1c 5.4 % (4.0-6.0) 06/19/21 04:49 Calculated Osmolal ity 276 mOsm/kg (285- 295) L 06/19/21 04:49 Lactate 1.0 mmol/L (0.5-2 .2) 06/17/21 05:52 Calcium 8.2 mg/dL (8.5-10 .5) L 06/19/21 04:49 Ionized Calcium Me as 1.0 mmol/L (1.1-1 .4) L 06/16/21 07:35 Magnesium 2.0 mg/dL (1.7-2. 3) 06/17/21 05:52 Iron 78 ug/dL (59-158) 06/18/21 05:27 TIBC 260 mcg/dl 06/18/21 05:27 % Saturation 30.0 % (20-50) 06/18/21 05:27 Unsat Iron Binding 182 ug/dL (112-34 7) 06/18/21 05:27 Total Bilirubin 0.4 mg/dL (0.15-1 .2) 06/19/21 04:49 AST 55 U/L (0-40) H 06/19/21 04:49 ALT 29 U/L (0-41) 06/19/21 04:49 Alkaline Phosphata se 114 IU/L (40-130) 06/19/21 04:49 Creatine Kinase 83 U/L (39-308) 06/16/21 16:08 Troponin T Baselin e 18 ng/L (0-15) H 06/16/21 07:35 Troponin T 120 Min [place] 17.84 ng/L (0-15) H 06/16/21 09:40 Delta Troponin T -0.16 ABS# (0-10) L 06/16/21 09:40 Troponin T Hi Sens 6Hr 21.81 ng/L (0-15) H 06/16/21 16:08 Troponin T Hi Sens 6Hr Delta TNP 06/16/21 16:08 C-Reactive Protein 7.1 mg/L (0.0-4.9 ) H 06/16/21 01:21 Total Protein 5.8 g/dL (6.6-8.7 ) L 06/19/21 04:49 Albumin 3.3 g/dL (3.5-5.2 ) L 06/19/21 04:49 Globulin 2.5 g/dL (1.3-4.6 ) 06/19/21 04:49 Triglycerides 230 mg/dL (0-150) H 06/19/21 04:49 Cholesterol 194 mg/dL (0-200) 06/19/21 04:49 LDL Cholesterol, C alc 92 mg/dL (50-129) 06/19/21 04:49 Total VLDL Cholest jorge 46 mg/dL (0-30) H 06/19/21 04:49 HDL Cholesterol 56 mg/dL (60-100) L 06/19/21 04:49 Cholesterol/HDL Ra latoya 3.46 mg/dL (1.0-5 .00) 06/19/21 04:49 Lipase 5 U/L (13-60) L 06/16/21 01:21 Vitamin B12 378 pg/mL (232-12 45) 06/16/21 07:35 25-OH Vitamin D To [place] 16 ng/mL (30-100) L 06/16/21 07:35 Folate 3.6 ng/mL (4.5-32 .2) L 06/16/21 07:35 Procalcitonin 0.18 ng/mL (0-0.5 ) 06/16/21 01:21 TSH 6.87 uIU/mL (0.27 -4.20) H 06/16/21 13:54 Free T4 0.85 ng/dL (0.82- 1.77) 06/18/21 05:27 Free T3 2.5 PG/ML (2.0-4. 4) 06/18/21 05:27 PTH Intact 244.3 pg/mL (15-6 5) H 06/16/21 07:35 Calcium (PTH Intac t) 7.9 mg/dL (8.5-10 .5) L 06/16/21 07:35 Urine Color Yellow (Yellow) 06/16/21 07:25 Urine Appearance Clear (CLEAR) 06/16/21 07:25 Urine pH 5 (5-7) 06/16/21 07:25 Ur Specific Gravit y 1.010 (1.005-1.0 30) 06/16/21 07:25 Urine Protein 1+ (Negative) H 06/16/21 07:25 Urine Glucose (UA) Norm (Normal) 06/16/21 07:25 Urine Ketones Negative (Negati ve) 06/16/21 07:25 Urine Blood Neg (Negative) 06/16/21 07:25 Urine Nitrate Negative (Negati ve) 06/16/21 07:25 Urine Bilirubin 1+ (Negative) H 06/16/21 07:25 Urine Urobilinogen Norm mg/dL (Negat anthony) 06/16/21 07:25 Ur Leukocyte Caridad ase Negative (Negati ve) 06/16/21 07:25 Urine RBC Rare /hpf (0-2) 06/16/21 07:25 Urine WBC 0-4 /hpf (0-5) H 06/16/21 07:25 Ur Squamous Epith Cells Rare /hpf (0-5) 06/16/21 07:25 Amorphous Sediment Not Reportable 06/16/21 07:25 Urine Bacteria Trace /hpf (NONE) 06/16/21 07:25 SARS-CoV-2 Ag (Rap id) Negative (Negati ve) 06/16/21 18:00 Blood Type A Positive 06/16/21 07:35 Rho(D) Type Positive / 4+ 06/16/21 07:35 Antibody Screen Negative 06/16/21 07:35 Impressions Abdomen/Pelvis CT 06/16/21 01:05 IMPRESSION: 1. Severe fatty infiltration of the liver. 2. Absent right kidney consistent with previous nephrectomy. 3. Moderate bowel wall thickening through out the entire small bowel except the duodenum consistent with moderate to severe infectious enteritis versus ischemic enteritis. 4. CTA abdomen with arterial and venous phase imaging and or Doppler ultrasound examination of the superior mesenteric vessels may be helpful. Radiation Dose CTDIVOL = (mGy): DLP = 1824.38 (mGy-cm) ADDENDUM: 06/16/21 0201 THIS REPORT CONTAINS FINDINGS THAT MAY BE CRITICAL TO PATIENT CARE. Ashleigh Collazo has read and understood the report at 1:58 AM CDT on 06/16/2021. The clinician has no questions. Radiation Dose CTDIVOL = (mGy): DLP = 1824.38 (mGy-cm) Abdomen/Pelvis CTA 06/16/21 01:52 IMPRESSION: Thickening of small bowel wall can relate to enteritis or hypoperfusion/hypotension. Fatty liver. Right nephrectomy. No findings of significant narrowing of visceral vasculature. Pulmonary nodularity; for patients at low risk (minimal or absent history of smoking and of other known risk factors), recommend CT Chest at 3-6 months, then consider CT Chest at 18-24 months. For patients at high risk (history of smoking or of other known risk factors), recommend CT Chest at 3-6 months, then [address] Chest at 18-24 months. (Reference: Betsy) REFERENCES: Betsy Mora et al. Guidelines for Management of Incidental Pulmonary Nodules Detected on CT Images: From the Fleischner Society 2017. Radiology. 2017;284(1):228-243. Radiation Dose CTDIVOL = (mGy): DLP = 2707.88 (mGy-cm) Chest CTA 06/16/21 02:28 IMPRESSION: No acute findings. Radiation Dose CTDIVOL = (mGy): DLP = 519.63 (mGy-cm) Microbiology 06/17/21 07:15 Stool Routine Collection Enteric Pathogens (PCR) - Final 06/17/21 07:15 Stool Routine Collection Parasite Antigen Panel - Final 06/17/21 07:15 Stool Routine Collection C.difficile Toxin B Gene (PCR) - Final 06/17/21 07:15 Stool Routine Collection Occult Blood (FIT) - Final Vitals: Last Vital Signs Temp 98.7 F 06/19/21 07:32 Pulse 65 06/19/21 07:32 Resp 17 06/19/21 07:32 BP 149/96 06/19/21 07:32 Pulse Ox 96 06/19/21 07:32 Discharge Plan Discharge Patient Disposition: Home Condition: Stable Prescriptions: New Protonix 40 mg tablet,delayed release (DR/EC) 40 mg PO BID 14 Days Qty: 28 RF: 0 vancomycin 125 mg capsule 125 mg PO QID 14 Days Qty: 56 RF: 0 prednisone 10 mg tablets,dose pack See Rx Instructions .ROUTE .COMPLEX Qty: 21 RF: 0 amlodipine 10 mg tablet 10 mg PO DAILY Qty: 30 RF: 0 Continued allopurinol 100 mg tablet 100 mg PO QAM RF: 0 Prilosec 40 mg Capsule,Delayed Release(Dr/Ec) 40 mg PO QAM RF: 0 Aspir-81 81 mg Tablet,Delayed Release (Dr/Ec) 81 mg PO QAM RF: 0 Ultram 50 mg Tablet 50 - 100 mg PO DAILY PRN (Reason: Pain) RF: 0 Held lisinopril 20 mg Tablet 20 mg PO QAM RF: 0 Hold Instructions: Resume on 07/04/21. Discharge Orders: Discharge Order (Routine); Ordered 06/19/21 Ordered By: Emanuel Dave Referrals: [facility] [Outside] Discharge Diet: Advance as tolerated, Usual diet and GI Soft Discharge Activity: Resume usual activity Patient Instructions: Opioid Safety Activity Restrictions/Additional Instructions: follow-up with his primary care provider within next 1 week. He is advised to continue taking oral vancomycin for next 14 days. He is advised to stop his lisinopril for now. He will be started on amlodipine 10 mg daily. He is advised to monitor his blood pressure twice daily and maintain a blood pressure chart and follow-up with his primary care provider for further adjustment of antihypertensives. Patient is advised to take at least 2 to 3 L of fluid every day which should include at least 1 L of electrolyte fluid like Gatorade. He should repeat his BMP in next 1 week when he follow-up with a primary care provider. Discharge Attestations Time Spent in Discharge Care*: greater than 30 min Specific Discharge Activities: educating patient, discussing with child support case officer/social workers/dc planners, documenting/other paperwork and evaluating patient/reviewing data Status at Discharge: Cognitive status at discharge: cognitively intact, Behavioral status at discharge: cooperative, Functional status at discharge: independent ambulation Overall status at discharge: patient is back to baseline Quality Metrics Clinical Quality Measures During this hospital stay, did patient experience: None Coding Level of Care Code Acute Chg FW DC note Diagnoses Sepsis A41.9 Acute gastroenteritis K52.9 Abdominal pain R10.9 RADHA (acute kidney injury) N17.9 Hyperkalemia E87.5 Hypocalcemia E83.51 Hypomagnesemia E83.42 Single functional kidney Z90.5
--- NOTE | 2021-06-19 11:50 | PC.NURSE ---
DISCHARGE INSTRUCTIONS DISCHARGE INSTRUCTIONS GIVEN PER THIS NURSE - PT VERBALIZES UNDERSTANDING
[2021-06-19 12:00] VITALS: BP 142/99; PULSE 65; RESP 18; TEMP 36.8; O2SAT 98
[2021-06-19 14:10] VITALS: BP 142/99; PULSE 65; RESP 18; TEMP 36.8; O2SAT 98
--- NOTE | 2021-06-20 16:54 | PC.RESP ---
Smoking Cessation information sent to patient.
== END 2021-06-19 14:11 | disposition home or self-care (01) | DRG 872 ==
LOC: ER 02:12 → ICU 04:37 → MEDSURG 06-17 14:58
PROVIDERS: Internal Medicine; Internal Medicine Critical Care Medicine; Physician Assistant; Surgery; Admitting Provider Internal Medicine; Emergency Provider Emergency Medicine; Visit Provider Student in an Organized Health Care Education/Training Program
DX: A41.9 Sepsis, unspecified organism (principal); E87.2 Acidosis; N17.9 Acute kidney failure, unspecified; A04.72 Enterocolitis due to Clostridium difficile, not specified as recurrent; E86.0 Dehydration; Z85.528 Personal history of other malignant neoplasm of kidney; Z90.5 Acquired absence of kidney; M10.9 Gout, unspecified; I10 Essential (primary) hypertension; F17.210 Nicotine dependence, cigarettes, uncomplicated; E87.6 Hypokalemia; E83.42 Hypomagnesemia; F10.10 Alcohol abuse, uncomplicated; I95.9 Hypotension, unspecified; E83.51 Hypocalcemia; D53.9 Nutritional anemia, unspecified; K76.0 Fatty (change of) liver, not elsewhere classified; K52.9 Noninfective gastroenteritis and colitis, unspecified; Z79.82 Long term (current) use of aspirin
CPT/HCPCS: 36415; 36600; 71275; 74174; 74176; 80048; 80053; 80061; 81001; 82274; 82306; 82310; 82330; 82550; 82607; 82746; 82803; 83036; 83540; 83550; 83605; 83690; 83735; 83970; 84132; 84145; 84439; 84443; 84481; 84484; 85025; 86140; 86850; 86900; 87426; 87493; 87506; 93005; 96365; 96366; 96367; 96375; 99291; C9113; J0610; J1170; J1815; J1940; J2270; J2405; J2543; J3010; J3370; J3411; J3475; J3480; J7030; Q9967

== ENCOUNTER 2021-07-07 03:37 | Emergency (ER) | payer MEDICAID, SELFPAY ==
[2021-07-07] VITALS (11 sets, daily range): BP systolic 100–140; BP diastolic 71–99; PULSE 97–120; RESP 17–22; TEMP 36.8–38.3; O2SAT 95–97; BMI 30.1
--- NOTE | 2021-07-07 03:47 | XRR_ITS ---
PROCEDURE INFORMATION: Exam: XR Chest Exam date and time: 07/07/2021 3:47 AM Age: 61 years old Clinical indication: Shortness of breath; Chest pressure; Patient HX: Chest pain with SOB. Per patient, history of pulmonary nodules. ; Additional info: Cp TECHNIQUE: Imaging protocol: XR of the chest. Views: 1 view. Total images: 1 COMPARISON: CT angio chest PE protcl [id number] 06/16/2021 3:23 AM FINDINGS: Lungs: Nonspecific mild opacity in the right lung base, favoring atelectasis or pneumonia. Pleural spaces: Unremarkable. No pleural effusion. No pneumothorax. Heart/Mediastinum: Low lung volumes are present, accentuating cardiac size and pulmonary markings. Bones/joints: Unremarkable. XR/XR chest 1V portable [id number] IMPRESSION: 1. Low lung volumes are present, accentuating cardiac size and pulmonary markings. 2. Nonspecific mild opacity in the right lung base, favoring atelectasis or pneumonia.
[2021-07-07] MEDS: sodium chloride 0.9% 1,000 ML 999 ML IV (05:05)
--- NOTE | 2021-07-07 05:08 | W.ED.CHESTPA ---
Documented by User: Kamlesh Berger MD 07/07/21 05:47 HPI - Chest Pain General: Chief Complaint: Chest Pain Stated Complaint: Chest Pains\Numbness Left Arm\Jaw Pain Time Seen by Provider: 07/07/21 04:02 Source: patient Mode of arrival: ambulatory Limitations: no limitations History of Present Illness: HPI narrative: 61-year-old male who states that he woke up tonight at midnight with a sharp pain in the center of his chest that radiated to his back. He states the pain was an 8 out of 10 he also had a fever 102. He denies any cough or recent illnesses. He states the pain is lessened but still a 5 out of 10. States he has had some slight dyspnea. He denies any worsening improving factors. Patient was admitted here 2 weeks ago for food poisoning states he currently does have gout in his left foot. He has been taking prednisone for his gout. Associated symptoms: Reports dyspnea and fever(s); Deny abdominal pain, nausea or vomiting Review of Systems Const: Reports: fever(s) and chills Eyes: Denies: blurry vision or eye discomfort ENMT: Denies: throat pain or dental pain Card: Reports: chest pain Resp: Reports: dyspnea GI: Denies: abdominal pain, nausea, vomiting or diarrhea : Denies: dysuria Musc: Denies: neck pain or back pain Skin/Breast: Denies: rash Neuro: Denies: headache(s) Psych: Denies: depression Arjun/Lymph: Denies: easy bruising All/Imm: Denies: urticaria PFSH ED PFSH: Medical History Gout Hypertension Hypertension Renal cell cancer Right 2018 Sepsis Single functional kidney Surgical History H/O inguinal hernia repair Right History of nephrectomy Right -- robotic 2018 History of tonsillectomy Family History Mother Cancer Lung cancer Other CAD (coronary artery disease) Social History Smoking and tobacco status: current every day smoker Alcohol intake: current Alcohol intake frequency: 3 or more drinks per day Alcohol type: beer and hard liquor Household members: spouse Housing: House Physical Exam Const: COMMON NORMALS: no acute distress, patient oriented x3 and healthy appearing HENMT: COMMON NORMALS: normocephalic and atraumatic HEAD & SCALP: normocephalic and atraumatic Eye: COMMON NORMALS: Equal, round and reactive pupils present and EOMs intact bilaterally PUPIL: Yes Equal, round and reactive pupils present Neck/C-Spine: COMMON NORMALS: full ROM and supple Chest: COMMONS NORMALS: normal inspection of the chest and normal palpation of entire chest wall Resp: COMMON NORMALS: normal respiratory effort, No retractions, No use of accessory muscles and clear to auscultation bilaterally AUSCULTATION: clear to auscultation bilaterally Cardio: COMMON NORMALS: regular rhythm and No murmurs present (Cardio) RATE: tachycardic RHYTHM: regular rhythm GI: COMMON NORMALS: Normal to inspection, nondistended, normoactive bowel sounds present, Soft to palpation, non-tender and no masses PALPATION: Yes Soft to palpation Extremity: COMMON NORMALS: normal to inspection and full ROM Neuro: COMMON NORMALS: patient oriented x3, moves all extremities and no focal motor deficits Psych: COMMON NORMALS: mental status grossly normal, Normal thought process present and cooperative THOUGHT PROCESS: Normal thought process present Skin: COMMON NORMALS: no rashes or lesions noted and no wounds GENERAL SKIN EXAM: no rashes or lesions noted Course Vital Signs: Vital signs: Vital Signs Temperature 101.0 F H 07/07/21 03:40 Pulse Rate 100 07/07/21 14:59 Respiratory Rate 22 H 07/07/21 14:59 Blood Pressure 100/71 07/07/21 12:15 Pulse Oximetry 95 07/07/21 14:59 MDM - Chest Pain Lab Data: Labs: Lab Results 07/07/21 07/07/21 07/07/21 Range/Units 05:10 07:00 07:00 WBC 12.0 H (4.0-10.0) 10^3/ uL RBC 3.53 L (4.1-5.3) 10^6/u L Hgb 11.8 (11.7-16.6) g/dL Hct 35.5 L (42.0-52.0) % MCV 100.6 H (80-94) fl MCH 33.4 (28.0-34.0) pg MCHC 33.2 (30.0-36.0) g/dL RDW 13.2 (12.1-15.1) % Plt Count 255 (130-400) 10^3/c mm MPV 9.4 (7.4-10.4) fL Neut % (Auto) 85.4 % Lymph % (Auto) 2.7 % [place] % (Auto) 10.7 % Eos % (Auto) 0.2 % Baso % (Auto) 0.3 % Neut # (Auto) 10.25 H (1.8-7.7) 10^3/u L Lymph # (Auto) 0.3 L (0.8-4.8) 10^3/u L [place] # (Auto) 1.3 H (0.2-0.9) 10^3/u L Eos # (Auto) 0.0 (0.0-0.8) 10^3/u L Baso # (Auto) 0.0 (0.0-0.1) 10^3/u L Nucleated RBC % (a uto) 0 % Nucleated RBCs # 0.0 /100WBC D-Dimer (0-0.59) ug/mIFE U Sodium 125 L (136-145) mmol/L Potassium 4.7 (3.5-5.1) mmol/L Chloride 91 L (98-107) mmol/L Carbon Dioxide 23 (22-29) mmol/L Anion Gap 15.7 (5-19) BUN 20 (6-20) mg/dL Creatinine 1.0 (0.7-1.2) mg/dL GFR Calculation 76.5 L (90-130) mL/min Glucose 130 H (65-115) mg/dL Calculated Osmolal ity 264 L (285-295) mOsm/k g Lactic Acid (0.5-2.2) mmol/L Calcium 9.0 (8.5-10.5) mg/dL Total Bilirubin 0.6 (0.15-1.2) mg/dL AST 61 H (0-40) U/L ALT 32 (0-41) U/L Alkaline Phosphata se 173 H (40-130) IU/L Troponin T Baselin e (0-15) ng/L Troponin T 120 Min [place] (0-15) ng/L Delta Troponin T (0-10) ABS# Troponin T Hi Sens 6Hr (0-15) ng/L Troponin T Hi Sens 6Hr Delta (0-12) ng/L NT-Pro-B Natriuret Pep 63 (0-125) pg/mL Total Protein 6.8 (6.6-8.7) g/dL Albumin 3.1 L (3.5-5.2) g/dL Globulin 3.7 (1.3-4.6) g/dL SARS-CoV-2 Ag (Rap id) Negative (Negative) 07/07/21 07/07/21 07/07/21 Range/Units 07:00 07:00 07:00 WBC (4.0-10.0) 10^3/ uL RBC (4.1-5.3) 10^6/u L Hgb (11.7-16.6) g/dL Hct (42.0-52.0) % MCV (80-94) fl MCH (28.0-34.0) pg MCHC (30.0-36.0) g/dL RDW (12.1-15.1) % Plt Count (130-400) 10^3/c mm MPV (7.4-10.4) fL Neut % (Auto) % Lymph % (Auto) % [place] % (Auto) % Eos % (Auto) % Baso % (Auto) % Neut # (Auto) (1.8-7.7) 10^3/u L Lymph # (Auto) (0.8-4.8) 10^3/u L [place] # (Auto) (0.2-0.9) 10^3/u L Eos # (Auto) (0.0-0.8) 10^3/u L Baso # (Auto) (0.0-0.1) 10^3/u L Nucleated RBC % (a uto) % Nucleated RBCs # /100WBC D-Dimer 3.04 H (0-0.59) ug/mIFE U Sodium (136-145) mmol/L Potassium (3.5-5.1) mmol/L Chloride (98-107) mmol/L Carbon Dioxide (22-29) mmol/L Anion Gap (5-19) BUN (6-20) mg/dL Creatinine (0.7-1.2) mg/dL GFR Calculation (90-130) mL/min Glucose (65-115) mg/dL Calculated Osmolal ity (285-295) mOsm/k g Lactic Acid 1.1 (0.5-2.2) mmol/L Calcium (8.5-10.5) mg/dL Total Bilirubin (0.15-1.2) mg/dL AST (0-40) U/L ALT (0-41) U/L Alkaline Phosphata se (40-130) IU/L Troponin T Baselin e 13 (0-15) ng/L Troponin T 120 Min [place] (0-15) ng/L Delta Troponin T (0-10) ABS# Troponin T Hi Sens 6Hr (0-15) ng/L Troponin T Hi Sens 6Hr Delta (0-12) ng/L NT-Pro-B Natriuret Pep (0-125) pg/mL Total Protein (6.6-8.7) g/dL Albumin (3.5-5.2) g/dL Globulin (1.3-4.6) g/dL SARS-CoV-2 Ag (Rap id) (Negative) 07/07/21 07/07/21 Range/Units 09:11 13:36 WBC (4.0-10.0) 10^3/ uL RBC (4.1-5.3) 10^6/u L Hgb (11.7-16.6) g/dL Hct (42.0-52.0) % MCV (80-94) fl MCH (28.0-34.0) pg MCHC (30.0-36.0) g/dL RDW (12.1-15.1) % Plt Count (130-400) 10^3/c mm MPV (7.4-10.4) fL Neut % (Auto) % Lymph % (Auto) % [place] % (Auto) % Eos % (Auto) % Baso % (Auto) % Neut # (Auto) (1.8-7.7) 10^3/u L Lymph # (Auto) (0.8-4.8) 10^3/u L [place] # (Auto) (0.2-0.9) 10^3/u L Eos # (Auto) (0.0-0.8) 10^3/u L Baso # (Auto) (0.0-0.1) 10^3/u L Nucleated RBC % (a uto) % Nucleated RBCs # /100WBC D-Dimer (0-0.59) ug/mIFE U Sodium (136-145) mmol/L Potassium (3.5-5.1) mmol/L Chloride (98-107) mmol/L Carbon Dioxide (22-29) mmol/L Anion Gap (5-19) BUN (6-20) mg/dL Creatinine (0.7-1.2) mg/dL GFR Calculation (90-130) mL/min Glucose (65-115) mg/dL Calculated Osmolal ity (285-295) mOsm/k g Lactic Acid (0.5-2.2) mmol/L Calcium (8.5-10.5) mg/dL Total Bilirubin (0.15-1.2) mg/dL AST (0-40) U/L ALT (0-41) U/L Alkaline Phosphata se (40-130) IU/L Troponin T Baselin e (0-15) ng/L Troponin T 120 Min [place] 11.82 (0-15) ng/L Delta Troponin T -1.18 L (0-10) ABS# Troponin T Hi Sens 6Hr 13.32 (0-15) ng/L Troponin T Hi Sens 6Hr Delta 0.32 (0-12) ng/L NT-Pro-B Natriuret Pep (0-125) pg/mL Total Protein (6.6-8.7) g/dL Albumin (3.5-5.2) g/dL Globulin (1.3-4.6) g/dL SARS-CoV-2 Ag (Rap id) (Negative) Imaging Data^: CXR: Attestation: I personally reviewed and interpreted this imaging study as follows: My impression: no acute abnormality EKG Data^: EKG 1: Attestation: I personally reviewed and interpreted this EKG as follows: EKG interpretation date: 07/07/21 EKG interpretation time: 03:48 Interpretation: sinus tach hr [address] or t wave abnormalities qrs 98 qtc 362 Discharge Plan Discharge Condition: Stable Prescriptions: No Action lisinopril 20 mg Tablet 20 mg PO QAM RF: 0 Hold Instructions: Resume on 07/04/21. allopurinol 100 mg tablet 100 mg PO QAM RF: 0 aspirin 81 mg Tablet,Delayed Release (Dr/Ec) 81 mg PO DAILY RF: 0 tramadol [Ultram] 50 mg Tablet See Rx Instructions .ROUTE .COMPLEX RF: 0 pantoprazole 40 mg tablet,delayed release (DR/EC) 40 mg PO DAILY RF: 0 amlodipine 10 mg tablet 10 mg PO QAM RF: 0 Discharge Orders: Discharge ED (Routine); Ordered 07/07/21 Ordered By: Lucian Temple Patient Instructions: Chest Pain (ED) Activity Restrictions/Additional Instructions: WE will call you to schedule an appointment with a pulmologist for possible lung lesions. Your CT report is below. Your sodium is 125, and you need to follow up with a doctor to get this adjusted. [address] [id number] Scan ReportSigned Patient: Austin Munson #: [id number]: 1960cct#:[id number]/Sex: 61 / MADM Date: 07/07/21Loc: ERRoom/Bed:Attending Dr: Ordering Provider/Ordering MD: Lucian Temple MD Date of Service: 07/07/21 Procedure(s): CT angio chest PE protcl [id number] Accession Number(s): [id number] Report Number: [id number] WS: [id number] CT CHEST ANGIOGRAPHY WITH REFORMATS HISTORY: rule out pe TECHNIQUE: Contiguous axial images are obtained through the chest during arterial injection of intravenous contrast. Images are reconstructed to evaluate the pulmonary arteries. MIP imaging also reviewed. All CT scans at [facility] use at least one of these dose optimization techniques: automated exposure control; mA and/or kV adjustment per patient size (includes targeted exams where dose is matched to clinical indication); or iterative reconstruction. CONTRAST: Visipaque 320; 95 mL IV. DLP: 579.59 mGy.cm COMPARISON: 06/16/2021 Good opacification of the pulmonary arteries. No pulmonary embolism is identified. Normal size pulmonary artery. Very mild atherosclerosis aorta. No aneurysm or dissection. Heart size is normal. Mild increased pericardial fat. No mediastinal or hilar adenopathy. Lungs are mildly hyperinflated. There are numerous bilateral subcentimeter and noncalcified pulmonary nodules. The largest nodule in the anterior RIGHT middle lobe measures 6 mm. These nodules are unchanged in size since 06/16/2021. Large hiatal hernia. No adrenal mass. Liver is enlarged but incompletely visualized. There is also mild enlargement of the spleen at 13.7 cm in length. Mild thoracic scoliosis and increased kyphosis. No destructive bone lesions. CT/CT angio chest PE protcl [id number] IMPRESSION: 1. No pulmonary embolism. 2. Subcentimeter, bilateral noncalcified pulmonary nodules unchanged since 06/16/2021. Recommend follow-up chest CT with IV contrast in 3-6 months. Early metastatic lesions are not excluded. 3. Large hiatal hernia. Dictated By:Cecile Julian DOSigned By:Cecile Julian DOSigned Date/Time:07/07/21 1508DD/ 1502 Coding Level of Care Code ED Desktop Technician for Chg Fwd Exam Comprehensive Documented by User: Lucian Temple MD 07/07/21 15:49 HPI - Chest Pain General: Chief Complaint: Chest Pain Stated Complaint: Chest Pains\Numbness Left Arm\Jaw Pain Time Seen by Provider: 07/07/21 04:02 [facility] ED PFSH: Medical History Gout Hypertension Hypertension Renal cell cancer Right 2018 Sepsis Single functional kidney Surgical History H/O inguinal hernia repair Right History of nephrectomy Right -- robotic 2018 History of tonsillectomy Family History Mother Cancer Lung cancer Other CAD (coronary artery disease) Social History Smoking and tobacco status: current every day smoker Alcohol intake: current Alcohol intake frequency: 3 or more drinks per day Alcohol type: beer and hard liquor Household members: spouse Housing: House Course Vital Signs: Vital signs: Vital Signs Temperature 101.0 F H 07/07/21 03:40 Pulse Rate 100 07/07/21 14:59 Respiratory Rate 22 H 07/07/21 14:59 Blood Pressure 100/71 07/07/21 12:15 Pulse Oximetry 95 07/07/21 14:59 MDM - Chest Pain MDM Narrative: Medical decision making narrative: 61-year-old male with history of prior nephrectomy presented to the emergency room with complaints of chest pain. EKG is nonischemic. Troponin wnl. Covid negative. White count was noted to be 12 today, unclear cause. Creatinine is within normal limit. CTA chest negative for PE. However patient is noted to have findings of lesions on CT evaluation. I have discussed these findings extensively with patient. In addition, patient is also noted to have a sodium of 125 which is an acute drop from prior evaluation 3 weeks ago. Have offered patient admission for evaluation of the low sodium level. However patient declined this time. I have given patient strict return precautions for any worsening signs of weakness, fatigue, any new or concerning complaints. I have referred patient to a television program director and given patient a copy of the CT report today. In addition, for the low sodium, have given patient follow-up with her primary care provider. Patient is afebrile in the emergency room despite leukocytosis, I do not suspect that there is an acute infectious process today. Leukocytosis is likely secondary to steroid. Disposition: Discharge. Patient is given strict return precautions for any worsening signs of fever chills, nausea/vomiting, chest pain shortness breath, any new or concerning complaints. Lab Data: Labs: Lab Results 07/07/21 07/07/21 07/07/21 Range/Units 05:10 07:00 07:00 WBC 12.0 H (4.0-10.0) 10^3/ uL RBC 3.53 L (4.1-5.3) 10^6/u L Hgb 11.8 (11.7-16.6) g/dL Hct 35.5 L (42.0-52.0) % MCV 100.6 H (80-94) fl MCH 33.4 (28.0-34.0) pg MCHC 33.2 (30.0-36.0) g/dL RDW 13.2 (12.1-15.1) % Plt Count 255 (130-400) 10^3/c mm MPV 9.4 (7.4-10.4) fL Neut % (Auto) 85.4 % Lymph % (Auto) 2.7 % [place] % (Auto) 10.7 % Eos % (Auto) 0.2 % Baso % (Auto) 0.3 % Neut # (Auto) 10.25 H (1.8-7.7) 10^3/u L Lymph # (Auto) 0.3 L (0.8-4.8) 10^3/u L [place] # (Auto) 1.3 H (0.2-0.9) 10^3/u L Eos # (Auto) 0.0 (0.0-0.8) 10^3/u L Baso # (Auto) 0.0 (0.0-0.1) 10^3/u L Nucleated RBC % (a uto) 0 % Nucleated RBCs # 0.0 /100WBC D-Dimer (0-0.59) ug/mIFE U Sodium 125 L (136-145) mmol/L Potassium 4.7 (3.5-5.1) mmol/L Chloride 91 L (98-107) mmol/L Carbon Dioxide 23 (22-29) mmol/L Anion Gap 15.7 (5-19) BUN 20 (6-20) mg/dL Creatinine 1.0 (0.7-1.2) mg/dL GFR Calculation 76.5 L (90-130) mL/min Glucose 130 H (65-115) mg/dL Calculated Osmolal ity 264 L (285-295) mOsm/k g Lactic Acid (0.5-2.2) mmol/L Calcium 9.0 (8.5-10.5) mg/dL Total Bilirubin 0.6 (0.15-1.2) mg/dL AST 61 H (0-40) U/L ALT 32 (0-41) U/L Alkaline Phosphata se 173 H (40-130) IU/L Troponin T Baselin e (0-15) ng/L Troponin T 120 Min [place] (0-15) ng/L Delta Troponin T (0-10) ABS# Troponin T Hi Sens 6Hr (0-15) ng/L Troponin T Hi Sens 6Hr Delta (0-12) ng/L NT-Pro-B Natriuret Pep 63 (0-125) pg/mL Total Protein 6.8 (6.6-8.7) g/dL Albumin 3.1 L (3.5-5.2) g/dL Globulin 3.7 (1.3-4.6) g/dL SARS-CoV-2 Ag (Rap id) Negative (Negative) 07/07/21 07/07/21 07/07/21 Range/Units 07:00 07:00 07:00 WBC (4.0-10.0) 10^3/ uL RBC (4.1-5.3) 10^6/u L Hgb (11.7-16.6) g/dL Hct (42.0-52.0) % MCV (80-94) fl MCH (28.0-34.0) pg MCHC (30.0-36.0) g/dL RDW (12.1-15.1) % Plt Count (130-400) 10^3/c mm MPV (7.4-10.4) fL Neut % (Auto) % Lymph % (Auto) % [place] % (Auto) % Eos % (Auto) % Baso % (Auto) % Neut # (Auto) (1.8-7.7) 10^3/u L Lymph # (Auto) (0.8-4.8) 10^3/u L [place] # (Auto) (0.2-0.9) 10^3/u L Eos # (Auto) (0.0-0.8) 10^3/u L Baso # (Auto) (0.0-0.1) 10^3/u L Nucleated RBC % (a uto) % Nucleated RBCs # /100WBC D-Dimer 3.04 H (0-0.59) ug/mIFE U Sodium (136-145) mmol/L Potassium (3.5-5.1) mmol/L Chloride (98-107) mmol/L Carbon Dioxide (22-29) mmol/L Anion Gap (5-19) BUN (6-20) mg/dL Creatinine (0.7-1.2) mg/dL GFR Calculation (90-130) mL/min Glucose (65-115) mg/dL Calculated Osmolal ity (285-295) mOsm/k g Lactic Acid 1.1 (0.5-2.2) mmol/L Calcium (8.5-10.5) mg/dL Total Bilirubin (0.15-1.2) mg/dL AST (0-40) U/L ALT (0-41) U/L Alkaline Phosphata se (40-130) IU/L Troponin T Baselin e 13 (0-15) ng/L Troponin T 120 Min [place] (0-15) ng/L Delta Troponin T (0-10) ABS# Troponin T Hi Sens 6Hr (0-15) ng/L Troponin T Hi Sens 6Hr Delta (0-12) ng/L NT-Pro-B Natriuret Pep (0-125) pg/mL Total Protein (6.6-8.7) g/dL Albumin (3.5-5.2) g/dL Globulin (1.3-4.6) g/dL SARS-CoV-2 Ag (Rap id) (Negative) 07/07/21 07/07/21 Range/Units 09:11 13:36 WBC (4.0-10.0) 10^3/ uL RBC (4.1-5.3) 10^6/u L Hgb (11.7-16.6) g/dL Hct (42.0-52.0) % MCV (80-94) fl MCH (28.0-34.0) pg MCHC (30.0-36.0) g/dL RDW (12.1-15.1) % Plt Count (130-400) 10^3/c mm MPV (7.4-10.4) fL Neut % (Auto) % Lymph % (Auto) % [place] % (Auto) % Eos % (Auto) % Baso % (Auto) % Neut # (Auto) (1.8-7.7) 10^3/u L Lymph # (Auto) (0.8-4.8) 10^3/u L [place] # (Auto) (0.2-0.9) 10^3/u L Eos # (Auto) (0.0-0.8) 10^3/u L Baso # (Auto) (0.0-0.1) 10^3/u L Nucleated RBC % (a uto) % Nucleated RBCs # /100WBC D-Dimer (0-0.59) ug/mIFE U Sodium (136-145) mmol/L Potassium (3.5-5.1) mmol/L Chloride (98-107) mmol/L Carbon Dioxide (22-29) mmol/L Anion Gap (5-19) BUN (6-20) mg/dL Creatinine (0.7-1.2) mg/dL GFR Calculation (90-130) mL/min Glucose (65-115) mg/dL Calculated Osmolal ity (285-295) mOsm/k g Lactic Acid (0.5-2.2) mmol/L Calcium (8.5-10.5) mg/dL Total Bilirubin (0.15-1.2) mg/dL AST (0-40) U/L ALT (0-41) U/L Alkaline Phosphata se (40-130) IU/L Troponin T Baselin e (0-15) ng/L Troponin T 120 Min [place] 11.82 (0-15) ng/L Delta Troponin T -1.18 L (0-10) ABS# Troponin T Hi Sens 6Hr 13.32 (0-15) ng/L Troponin T Hi Sens 6Hr Delta 0.32 (0-12) ng/L NT-Pro-B Natriuret Pep (0-125) pg/mL Total Protein (6.6-8.7) g/dL Albumin (3.5-5.2) g/dL Globulin (1.3-4.6) g/dL SARS-CoV-2 Ag (Rap id) (Negative) Imaging Data^: Other Imaging: Radiologist's impression: [facility] [id number] Scan ReportSigned Patient: Austin Munson #: [id number]: 2Acct#:[id number]/Sex: 61 / MADM Date: 07/07/21Loc: ERRoom/Bed:Attending Dr: Ordering Provider/Ordering MD: Lucian Temple MD Date of Service: 07/07/21 Procedure(s): CT angio chest PE protcl [id number] Accession Number(s): [id number] Report Number: [id number] WS: [id number] CT CHEST ANGIOGRAPHY WITH REFORMATS HISTORY: rule out pe TECHNIQUE: Contiguous axial images are obtained through the chest during arterial injection of intravenous contrast. Images are reconstructed to evaluate the pulmonary arteries. MIP imaging also reviewed. All CT scans at [facility] use at least one of these dose optimization techniques: automated exposure control; mA and/or kV adjustment per patient size (includes targeted exams where dose is matched to clinical indication); or iterative reconstruction. CONTRAST: Visipaque 320; 95 mL IV. DLP: 579.59 mGy.cm COMPARISON: 06/16/2021 Good opacification of the pulmonary arteries. No pulmonary embolism is identified. Normal size pulmonary artery. Very mild atherosclerosis aorta. No aneurysm or dissection. Heart size is normal. Mild increased pericardial fat. No mediastinal or hilar adenopathy. Lungs are mildly hyperinflated. There are numerous bilateral subcentimeter and noncalcified pulmonary nodules. The largest nodule in the anterior RIGHT middle lobe measures 6 mm. These nodules are unchanged in size since 06/16/2021. Large hiatal hernia. No adrenal mass. Liver is enlarged but incompletely visualized. There is also mild enlargement of the spleen at 13.7 cm in length. Mild thoracic scoliosis and increased kyphosis. No destructive bone lesions. CT/CT angio chest PE protcl [id number] IMPRESSION: 1. No pulmonary embolism. 2. Subcentimeter, bilateral noncalcified pulmonary nodules unchanged since 06/16/2021. Recommend follow-up chest CT with IV contrast in 3-6 months. Early metastatic lesions are not excluded. 3. Large hiatal hernia. Dictated By:Cecile Julian DOSigned By:Cecile Julian DOSigned Date/Time:07/07/21 1508DD/ [address] [address]OZnt ReportSigned Patient: Austin Munson #: [id number]: 1960cct#:[id number]/Sex: 61 / MADM Date: 07/07/21Loc: ERRoom/Bed:Attending Dr: Ordering Provider/Ordering MD: Kamlesh Berger MD Date of Service: 07/07/21 Procedure(s): XR chest 1V portable [id number] Accession Number(s): [id number] Report Number: [id number] PROCEDURE INFORMATION: Exam: XR Chest Exam date and time: 07/07/2021 3:47 AM Age: 61 years old Clinical indication: Shortness of breath; Chest pressure; Patient HX: Chest pain with SOB. Per patient, history of pulmonary nodules. ; Additional info: Cp TECHNIQUE: Imaging protocol: XR of the chest. Views: 1 view. Total images: 1 COMPARISON: CT angio chest PE protcl [id number] 06/16/2021 3:23 AM FINDINGS: Lungs: Nonspecific mild opacity in the right lung base, favoring atelectasis or pneumonia. Pleural spaces: Unremarkable. No pleural effusion. No pneumothorax. Heart/Mediastinum: Low lung volumes are present, accentuating cardiac size and pulmonary markings. Bones/joints: Unremarkable. XR/XR chest 1V portable [id number] IMPRESSION: 1. Low lung volumes are present, accentuating cardiac size and pulmonary markings. 2. Nonspecific mild opacity in the right lung base, favoring atelectasis or pneumonia. Dictated By:Alpesh Ochoa MDSigned By:Alpesh Ochoa MDSigned Date/Time:07/07/21607DD/ 5 Discharge Plan Discharge Condition: Stable Prescriptions: No Action lisinopril 20 mg Tablet 20 mg PO QAM RF: 0 Hold Instructions: Resume on 07/04/21. allopurinol 100 mg tablet 100 mg PO QAM RF: 0 aspirin 81 mg Tablet,Delayed Release (Dr/Ec) 81 mg PO DAILY RF: 0 tramadol [Ultram] 50 mg Tablet See Rx Instructions .ROUTE .COMPLEX RF: 0 pantoprazole 40 mg tablet,delayed release (DR/EC) 40 mg PO DAILY RF: 0 amlodipine 10 mg tablet 10 mg PO QAM RF: 0 Discharge Orders: Discharge ED (Routine); Ordered 07/07/21 Ordered By: Lucian Temple Patient Instructions: Chest Pain (ED) Activity Restrictions/Additional Instructions: WE will call you to schedule an appointment with a pulmologist for possible lung lesions. Your CT report is below. Your sodium is 125, and you need to follow up with a doctor to get this adjusted. [address] [place], [place] [address]JX Scan ReportSigned Patient: Austin Munson #: [id number]: 2Acct#:[id number]/Sex: 61 / MADM Date: 07/07/21Loc: ERRoom/Bed:Attending Dr: Ordering Provider/Ordering MD: Lucian Temple MD Date of Service: 07/07/21 Procedure(s): CT angio chest PE protcl [id number] Accession Number(s): [id number] Report Number: [id number] WS: [id number] CT CHEST ANGIOGRAPHY WITH REFORMATS HISTORY: rule out pe TECHNIQUE: Contiguous axial images are obtained through the chest during arterial injection of intravenous contrast. Images are reconstructed to evaluate the pulmonary arteries. MIP imaging also reviewed. All CT scans at [facility] use at least one of these dose optimization techniques: automated exposure control; mA and/or kV adjustment per patient size (includes targeted exams where dose is matched to clinical indication); or iterative reconstruction. CONTRAST: Visipaque 320; 95 mL IV. DLP: 579.59 mGy.cm COMPARISON: 06/16/2021 Good opacification of the pulmonary arteries. No pulmonary embolism is identified. Normal size pulmonary artery. Very mild atherosclerosis aorta. No aneurysm or dissection. Heart size is normal. Mild increased pericardial fat. No mediastinal or hilar adenopathy. Lungs are mildly hyperinflated. There are numerous bilateral subcentimeter and noncalcified pulmonary nodules. The largest nodule in the anterior RIGHT middle lobe measures 6 mm. These nodules are unchanged in size since 06/16/2021. Large hiatal hernia. No adrenal mass. Liver is enlarged but incompletely visualized. There is also mild enlargement of the spleen at 13.7 cm in length. Mild thoracic scoliosis and increased kyphosis. No destructive bone lesions. CT/CT angio chest PE protcl [id number]
[2021-07-07] MEDS: acetaminophen 325 mg Tablet 650 MG PO (05:10)
[2021-07-07 06:06] LABS: SARS Covid-2 Antigen Negative (Negative)
[2021-07-07 07:37] LABS: Basophils % 0.3 %; Eosinophils % 0.2 %; Hematocrit 35.5 % (42.0-52.0); Hemoglobin 11.8 g/dL (11.7-16.6); Lymphocytes # 0.3 10^3/uL (0.8-4.8); Lymphocytes % 2.7 %; Mean Corpuscular HGB Conc 33.2 g/dL (30.0-36.0); Mean Corpuscular Hemoglobin 33.4 pg (28.0-34.0); Mean Corpuscular Volume 100.6 fl (80-94); Mean Platelet Volume 9.4 fL (7.4-10.4); Monocytes # 1.3 10^3/uL (0.2-0.9); Monocytes % 10.7 %; Neutrophils # 10.25 10^3/uL (1.8-7.7); Neutrophils % 85.4 %; Nucleated Red Blood Cells % 0 %; Platelet Count 255 10^3/cmm (130-400); Red Blood Count 3.53 10^6/uL (4.1-5.3); Red Cell Distribution Width 13.2 % (12.1-15.1)
[2021-07-07 07:42] LABS: Lactic Sepsis W/Reflex 1.1 mmol/L (0.5-2.2)
[2021-07-07 07:50] LABS: D Dimer 3.04 ug/mIFEU (0-0.59)
[2021-07-07 07:52] LABS: Alanine Aminotransferase 32 U/L (0-41); Albumin Level 3.1 g/dL (3.5-5.2); Alkaline Phosphatase 173 IU/L (40-130); Anion Gap 15.7 (5-19); Aspartate Amino Transferase 61 U/L (0-40); Blood Urea Nitrogen 20 mg/dL (6-20); Carbon Dioxide 23 mmol/L (22-29); Chloride 91 mmol/L (98-107); Globulin 3.7 g/dL (1.3-4.6); Glomerular Filtration Rate 76.5 mL/min (90-130); Glucose 130 mg/dL (65-115); NT Pro B Type Natriuretic Pept 63 pg/mL (0-125); Osmolality Calculated 264 mOsm/kg (285-295); Potassium 4.7 mmol/L (3.5-5.1); Sodium 125 mmol/L (136-145); Total Bilirubin 0.6 mg/dL (0.15-1.2); Total Protein 6.8 g/dL (6.6-8.7); Troponin(5th) Baseline 13 ng/L (0-15)
[2021-07-07 09:33] LABS: Troponin 5 2HR 11.82 ng/L (0-15)
[2021-07-07 09:37] LABS: Troponin 5 2HR Delta -1.18 ABS# (0-10)
--- NOTE | 2021-07-07 09:47 | ECG_ITS ---
[facility] Test Date: 2021-07-07 Pat Name: Austin Munson Department: Room: Gender: Male Management Trainer: : 1960 Requested By: Kamlesh Berger Order Number: [id number] Reading MD: RICK CARD Measurements Intervals [place] Rate: 98 P: 31 MN: 143 QRS: -6 QRSD: 101 T: 32 QT: 319 QTc: 408 Interpretive Statements SINUS RHYTHM INFERIOR MYOCARDIAL INFARCTION , OF INDETERMINATE AGE [40+ ms Q WAVE AND/OR ST/T ABNORMALITY IN II/aVF] Compared to ECG 06/17/2021 07:32:06 No significant changes Electronically Signed On 07-07-2021 22:22:27 CDT by RICK CARD [id number]
--- NOTE | 2021-07-07 11:33 | PC.PHAR ---
pt states he takes care of his own medications-pt states he was taking one tab daily of protonix 40mg-rx filled on 06/20/21 14d/ for 40mg bid-pt states he is out of this medication and plans on going back to taking omeprazole-catarina last filled ultram on 05/05/21 50-100mg daily prn-pt states he only takes when he has a gout flare up pt states he has been taking 50mg qam and 100mg hs-pt states lisinopril 20mg is still on hold from dr lowe-catarina states the pt last filled 05/05/21 30d/s-pt states he took aspirin 81mg last night but states he was told to dc this medication-pt states he finished his vancomycin on sunday07/04/21 rx filled on 06/20/21 14d/s
--- NOTE | 2021-07-07 13:55 | CT_ITS ---
WS: [id number] CT CHEST ANGIOGRAPHY WITH REFORMATS HISTORY: rule out pe TECHNIQUE: Contiguous axial images are obtained through the chest during arterial injection of intrav enous contrast. Images are reconstructed to evaluate the pulmonary arteries. MIP imaging also reviewe d. All CT scans at [facility] use at least one of these dose optimization techniques: aut omated exposure control; mA and/or kV adjustment per patient size (includes targeted exams where dose is matched to clinical indication); or iterative reconstruction. CONTRAST: Visipaque 320; 95 mL IV. DLP: 579.59 mGy.cm COMPARISON: 06/16/2021 Good opacification of the pulmonary arteries. No pulmonary embolism is identified. Normal size pulmon andra artery. Very mild atherosclerosis aorta. No aneurysm or dissection. Heart size is normal. Mild in creased pericardial fat. No mediastinal or hilar adenopathy. Lungs are mildly hyperinflated. There are numerous bilateral subcentimeter and noncalcified pulmonary nodules. The largest nodule in the anterior RIGHT middle lobe measures 6 mm. These nodules are uncha nged in size since 06/16/2021. Large hiatal hernia. No adrenal mass. Liver is enlarged but incompletely visualized. There is also mi ld enlargement of the spleen at 13.7 cm in length. Mild thoracic scoliosis and increased kyphosis. No destructive bone lesions. CT/CT angio chest PE protcl [id number] IMPRESSION: 1. No pulmonary embolism. 2. Subcentimeter, bilateral noncalcified pulmonary nodules unchanged since 06/16. Recommend follow-up chest CT with IV contrast in 3-6 months. Early metas tatic lesions are not excluded. 3. Large hiatal hernia.
[2021-07-07 13:57] LABS: Troponin 5 6HR 13.32 ng/L (0-15); Troponin 5 6HR Delta 0.32 ng/L (0-12)
[2021-07-07] MEDS: iodixanol 320 mg/mL 100mL Btl IV (14:36)
--- NOTE | 2021-07-08 10:10 | DCPLANNER ---
manager background had message to speak with patient about getting established with a primary care physician and a follow up appointment for patient with a pulmologist. manager background called phone number [phone], unable to speak with patient at this time and unable to leave a voicemail for patient.
== END 2021-07-07 16:18 ==
PROVIDERS: Emergency Medicine; Emergency Provider Emergency Medicine
DX: R07.9 Chest pain, unspecified (principal); Z79.82 Long term (current) use of aspirin; I10 Essential (primary) hypertension; Z85.528 Personal history of other malignant neoplasm of kidney; F17.210 Nicotine dependence, cigarettes, uncomplicated; Z20.822 Contact with and (suspected) exposure to COVID-19
CPT/HCPCS: 36415; 71045; 71275; 80053; 83605; 83880; 84484; 85025; 85378; 87040; 87426; 93005; 99284; J7030; Q9967

== ENCOUNTER → 2021-09-02 11:31 | Outpatient (BNVA) | payer MEDICAID, SELFPAY | PROVIDERS: Visit Provider Family Medicine Adult Medicine | DX: Z90.5 Acquired absence of kidney (principal); M10.9 Gout, unspecified; I10 Essential (primary) hypertension | CPT/HCPCS: 80053; 84443; 84550; 85025 ==

== ENCOUNTER 2022-03-22 12:18 | Outpatient (CLI) | payer MEDICAID, SELFPAY ==
--- NOTE | 2022-03-22 12:29 | XR_ITS ---
WS: [id number] CHEST 2 VIEWS HISTORY: Shortness of breath COMPARISON: 07/07/2021 Lungs: Mild interstitial edema slightly greater on the RIGHT than the LEFT. No focal consolidation or pneumonia. No pleural effusion. Diaphragms are slightly flattened. Cardiac size: Normal. Mediastinum/Aorta: Mild atherosclerosis aorta. Bones: Mild increase in thoracic kyphosis. XR/XR chest 2V* [id number] IMPRESSION: Very mild interstitial edema. No pneumonia.
== END 2022-03-22 12:19 | disposition home or self-care (01) ==
LOC: RAD 12:20
PROVIDERS: PCP Family Medicine Adult Medicine; Visit Provider Family Medicine Adult Medicine
DX: R06.02 Shortness of breath (principal); R91.8 Other nonspecific abnormal finding of lung field
CPT/HCPCS: 71046; 80053; 80061; 85025

== ENCOUNTER 2022-03-22 16:57 | Observation (INO) | payer MEDICAID, SELFPAY ==
[2022-03-22] VITALS (11 sets, daily range): BP systolic 108–132; BP diastolic 66–78; PULSE 68–102; RESP 14–20; TEMP 36.5–37.1; O2SAT 92–96; BMI 29.5
--- NOTE | 2022-03-22 17:10 | ED_ITS ---
HPI - GI Bleed General: Chief complaint: GI Bleed Stated complaint: Says he needs a blood transfusion, Low blood count Time Seen by Provider: 03/22/22 17:10 Source: patient Mode of arrival: ambulatory Limitations: no limitations History of Present Illness: 61-year-old male comes in complaining of black tarry stools for the last 3 days. He has been lightheaded dizzy and weak. He is not had any bright red blood per rectum or hematemesis. Mild abdominal discomfort no vomiting. Shape patient admits and has known history of chronic alcohol use. MD complaint: melena Onset (ago): day(s) (3) Relieving factors: none Exacerbating factors: none Context: history of GI bleed Associated symptoms: Reports abdominal pain, malaise, nausea, poor appetite and weakness; Denies chills, easy bruising, epistaxis, fever(s), headache(s), other bleeding, rash, syncope or vomiting Treatments Prior to Arrival: none Review of Systems Const: Reports: malaise; Denies: fever(s) or chills ENMT: Denies: epistaxis Card: Denies: chest pain, palpitations, irregular heart rhythm or syncope Resp: Denies: dyspnea, productive cough or non-productive cough GI: Reports: abdominal pain, nausea and melena; Denies: vomiting, hematemesis or GI cramping : Denies: flank pain, difficulty urinating, dysuria, urinary frequency or urinary urgency Skin/Breast: Denies: rash Neuro: Denies: headache(s) Arjun/Lymph: Denies: easy bruising PFSH ED PFSH: Medical History Acute GI bleeding Acute kidney injury superimposed on CKD RADHA (acute kidney injury) Alcohol dependence Anemia Anemia Anxiety and depression Bilateral carpal tunnel syndrome Chronic low back pain Constipation by delayed colonic transit COPD exacerbation Elevated liver enzymes GERD (gastroesophageal reflux disease) Gout History of kidney stones Hypertension Hypertriglyceridemia Multiple lung nodules CTA 06/16 & 07/07/2021 RML nodules 6mm largest unchanged Obesity (BMI 30.0-34.9) Renal cell cancer Right nephrectomy 2018 Sepsis Single functional kidney Smoker SOBOE (shortness of breath on exertion) Surgical History H/O inguinal hernia repair Right History of nephrectomy Right -- robotic 2018 History of tonsillectomy Family History Mother Cancer Lung cancer Other CAD (coronary artery disease) Social History Smoking and tobacco status: former smoker Alcohol intake: current Alcohol intake frequency: 3 or more drinks per day Alcohol type: beer and hard liquor Household members: spouse Housing: House Physical Exam Const: COMMON NORMALS: no acute distress GENERAL APPEARANCE: cooperative and comfortable ORIENTATION/CONSCIOUSNESS: Yes awake, Yes oriented to person, Yes oriented to place and Yes oriented to time HENMT: COMMON NORMALS: normocephalic, atraumatic and hearing grossly normal bilaterally HEAD & SCALP: normocephalic and atraumatic Neck/C-Spine: COMMON NORMALS: no JVD Resp: COMMON NORMALS: normal respiratory effort, No retractions, No use of a ccessory muscles and clear to auscultation bilaterally AUSCULTATION: clear to auscultation bilaterally Cardio: COMMON NORMALS: no JVD, regular rate, regular rhythm and No murmurs present (Cardio) RATE: regular rate RHYTHM: regular rhythm GI: COMMON NORMALS: No hepatosplenomegaly present AUSCULTATION: Yes normoactive bowel sounds PALPATION: Yes Tenderness to palpation present (GI) (Mild epigastric tenderness), No Guarding due to palpation present (GI) and Yes No hepatosplenomegaly present Extremity: COMMON NORMALS: normal to inspection, capillary refill normal, no clubbing, cyanosis or edema, no calf tenderness and no pedal edema Neuro: SENSORIUM/ORIENTATION: Yes oriented to person, Yes oriented to place and Yes oriented to time Skin: COMMON NORMALS: no rashes or lesions noted GENERAL SKIN EXAM: no rashes or lesions noted Course Vital Signs: Vital signs: Vital Signs Temperature 98.2 F 03/24/22 16:23 Pulse Rate 88 03/24/22 16:23 Respiratory Rate 16 03/24/22 16:23 Blood Pressure 112/64 03/24/22 16:23 Pulse Oximetry 97 03/24/22 16:23 MDM - GI Bleed Medical Decision Making Severe anemia was upper GI bleed given Protonix cussed with hospitalist orders written transfusion orders written as well Medical Records I reviewed the patient's medical records. Lab Data I reviewed the patient's lab results. : 03/24/22 06:20 03/24/22 06:20 Laboratory Results Reticulocyte % (Auto) 4.5 % (0.5-2.0) H 03/22/22 11:51 Haptoglobin 143.0 mg/L (30-200) 03/22/22 17:25 PT 14.70 SECONDS (12.1-14.9) 03/22/22 17:25 INR 1.11 (0.8-1.2) 03/22/22 17:25 APTT 36.3 SECONDS (23.9-36.7) 03/22/22 17:25 Iron 14 ug/dL (59-158) L 03/22/22 17:25 TIBC 431 mcg/dl 03/22/22 17:25 % Saturation 3.2 % (20-50) L 03/22/22 17:25 Unsat Iron Binding 417 ug/dL (112-347) H 03/22/22 17:25 Ferritin 10 ng/mL (30-400) L 03/22/22 17:25 Vitamin B12 522 pg/mL (232-1245) 03/22/22 17:25 Folate 3.8 ng/mL (4.5-32.2) L 03/22/22 17:25 Blood Type A Positive 03/22/22 17:25 Rho(D) Type Positive 03/22/22 17:25 Antibody Screen Negative 03/22/22 17:25 Crossmatch See Detail 03/22/22 17:25 Discharge Plan Discharge Patient Disposition: Admitted As Inpatient Admit Provider: Jamie Puente Clinical Impression: Acute GI bleeding, Anemia, Alcohol dependence Condition: Stable Discharge Orders: Discharge Order (Routine); Ordered 03/24/22 Ordered By: Jamie Puente Discharge Diet: Regular Discharge Activity: Increase activity as tolerated Coding Level of Care Code ED Foreclosure Paralegal for Jessie Newman
[2022-03-22 17:43] LABS: Reticulocyte % 4.5 % (0.5-2.0)
[2022-03-22 17:50] LABS: INR 1.11 (0.8-1.2)
[2022-03-22 17:51] LABS: Partial Thromboplastin Time 36.3 SECONDS (23.9-36.7)
[2022-03-22 18:20] LABS: Ferritin 10 ng/mL (30-400); Iron 14 ug/dL (59-158); Percent Saturation 3.2 % (20-50); Total Iron Binding Capacity 431 mcg/dl; Unsaturated Iron Binding 417 ug/dL (112-347); Vitamin B12 522 pg/mL (232-1245)
--- NOTE | 2022-03-22 18:30 | PC.NURSE ---
Informed consent signed by patient before start of transfusion.
[2022-03-22 18:40] LABS: Folate Level 3.8 ng/mL (4.5-32.2)
--- NOTE | 2022-03-22 18:44 | PC.NURSE ---
RN at bedside, patient tolerating at this time. Patient vitals stable.
--- NOTE | 2022-03-22 18:49 | PM.HP ---
Providers/Chief Complaint Admitting Physician: Jamie Puente MD Primary Care Provider: Gary Macedo MD Chief Complaint: Says he needs a blood transfusion, Low blood count History of Present Illness Austin Munson is a 61 year old male with PMH of HTN, gout ,Alcohol use, chronic back pain , RCC s/p nephrectomy was sent in by his pcp because his H/H was 4/14.8, patient is currently complaining of slightly dark stool for about a week ,SOB with exertion,fatigue,low B/P, occasinal transient lasting palpitations.Deny any chest pain,nausea,vomiting. Upon arrival in the ER he was worked up for above mention complain Pertinent Labs WBC: 8.4 H&H : 4/ 14.8 PLT: 259 , RDW: 16.8 , Retic % : 4.5 , haptoglobin: 143 , Serum Iron : 14, TIBC : 431, Ferritin : 10 % Saturation : 3.2 ,Vit B12: 522, Folate :3.8 , Review of Systems General: Reports: 10 or more systems reviewed and unremarkable except in HPI and below Narrative: 70-year-old currently not in acute distress being admitted for chest pain evaluation Const: Denies: fever(s), chills, body aches, change in appetite or diaphoresis Card: Denies: palpitations, edema, swelling of feet/ankles, dyspnea on exertion, orthopnea or leg pain with exertion Resp: Denies: dyspnea, productive cough, wheezing or pain on inspiration GI: Denies: abdominal pain, nausea, vomiting, diarrhea or constipation : Denies: flank pain or difficulty urinating Musc: Denies: back pain, extremity pain or extremity swelling Neuro: Denies: headache(s), difficulty walking or confusion Medications/Allergies Home Medications Medication Instructions Recorded Confirmed Last Taken Type allopurinol 300 mg tablet 300 mg PO BID #60 tab 09/02/21 03/22/22 03/22/22 Rx bupropion HCl 150 mg 24 hr tablet, 150 mg PO QAM #30 tab 11/03/21 03/22/22 03/22/22 Rx extended release celecoxib 200 mg capsule See Rx Instructions .ROUTE 11/28/21 03/22/22 03/22/22 Rx .COMPLEX #60 cap tramadol 50 mg tablet 50 mg PO Q6H PRN 15 Days #60 tab 02/02/22 03/22/22 Unknown Rx pantoprazole 40 mg tablet,delayed 40 mg PO DAILY #30 tab 03/01/22 03/22/22 03/22/22 Rx release cyclobenzaprine 5 mg tablet 5 mg PO BEDTIME PRN 03/22/22 03/22/22 Unknown History Allergies Allergy/AdvReac Type Severity Reaction Status Date / Time No Known Allergies Allergy Verified 03/22/22 10:40 PFSH Acute PFSH: Medical History (Updated 03/22/22 @ 18:55 by Jamie Puente MD) RADHA (acute kidney injury) Alcohol dependence Anxiety and depression Bilateral carpal tunnel syndrome Chronic low back pain Constipation by delayed colonic transit COPD exacerbation Elevated liver enzymes GERD (gastroesophageal reflux disease) Gout History of kidney stones Hypertension Hypertriglyceridemia Multiple lung nodules CTA 06/16 & 07/07/2021 RML nodules 6mm largest unchanged Obesity (BMI 30.0-34.9) Renal cell cancer Right nephrectomy 2018 Sepsis Single functional kidney Smoker SOBOE (shortness of breath on exertion) Surgical History H/O inguinal hernia repair Right History of nephrectomy Right -- robotic 2018 History of tonsillectomy Family History Mother Cancer Lung cancer Other CAD (coronary artery disease) Social History Smoking and tobacco status: former smoker Alcohol intake: current Alcohol intake frequency: 3 or more drinks per day Alcohol type: beer and hard liquor Household members: spouse Housing: House Vitals/I&O/Wt Last Vital Signs Temp 98.0 F 03/22/22 18:36 Pulse 96 03/22/22 18:36 Resp 18 03/22/22 18:36 BP 122/72 03/22/22 18:36 Pulse Ox 95 03/22/22 18:36 03/22/22 03/22/22 03/22/22 06:59 14:59 22:59 Intake Total 0 / 0 Balance 0 / 0 Weight last 48 hrs Weight 93.44 kg Physical Exam Const: COMMON NORMALS: patient oriented x3 HENMT: COMMON NORMALS: normocephalic and atraumatic HEAD & SCALP: normocephalic and atraumatic Chest: CHEST: Yes Symmetrical chest wall rise Resp: COMMON NORMALS: normal respiratory effort, No retractions, No use of accessory muscles and clear to auscultation bilaterally EFFORT & INSPECTION: Yes symmetric chest movement AUSCULTATION: clear to auscultation bilaterally Cardio: COMMON NORMALS: regular rate, regular rhythm, S1 normal heart sound present, S2 normal heart sound present, No gallops present (Cardio), No murmurs present (Cardio), No rub (Cardio) and Peripheral pulses 2+ throughout RATE: regular rate RHYTHM: regular rhythm HEART SOUNDS: S1 normal heart sound present and S2 normal heart sound present PERIPHERAL PULSES: Peripheral pulses 2+ throughout GI: COMMON NORMALS: Normal to inspection, nondistended, normoactive bowel sounds present, Soft to palpation, non-tender, No hepatosplenomegaly present and no masses AUSCULTATION: Yes normoactive bowel sounds PALPATION: Yes Soft to palpation and Yes No hepatosplenomegaly present RECTAL EXAM: Yes deferred Extremity: COMMON NORMALS: no clubbing, cyanosis or edema and no pedal edema Neuro: COMMON NORMALS: patient oriented x3 Data : 03/23/22 04:23 03/23/22 01:57 A&P Assessment and plan (1) Chronic low back pain: Status: Acute (2) Gout: Status: Acute (3) Anemia: Status: Acute (4) Acute kidney injury superimposed on CKD: Status: Acute Plan 61 year old male with PMH of HTN, gout ,Alcohol use, chronic back pain , RCC s/p nephrectomy was sent in by his pcp because his H/H was 4/14.8, patient is currently complaining of morgan,SOB with exertion,fatigue,low B/P, dizziness. Deny any chest pain. Assessment : AL 2/2 G.I BLEED : H&H : 4/ 14.8 RDW: 16.8 , Retic % : 4.5 , haptoglobin: 143 , Anemia Panel : Serum Iron : 14, TIBC : 431, Ferritin : 10 % Saturation : 3.2 Vit B12: 522, Folate :3.8 NPO Protonix 40 mg I.V BID Plan is to transfuse 2 U PRBC Monitor H&H I.V Iron #G.I Bleed Patient is complaining of Dark stool. FOBT Possible EGD as well as colonscopy as outpatient v/s inpatient #Gout: Continue Allopurinol #H/O Alcohol dependence #Code Status :Full code #DVT PPX: ON SCDS Attestations Medical Necessity Statement*: Patient needs to be in hospital for the management of Symptomatic Anemia,G/I Bleed.Anticipated LOS Greater then 2 Midnights. Time Spent in Patient Care: Greater than 35 minutes (>than 50% of time spent in counselling and/or direct pt care on unit). Coding Level of Care Code Acute Pattern Weaver for [facility] Fwd Exam Detailed Diagnoses Chronic low back pain M54.50; G89.29 Gout M10.9 Anemia D64.9 Acute kidney injury superimposed on CKD N17.9; N18.9
--- NOTE | 2022-03-22 18:55 | PC.NURSE ---
attempted to give report at 1855, RN unable to take report at this time due to shift change.
--- NOTE | 2022-03-22 18:55 | PC.NURSE ---
Patient tolerated first 15 minutes of blood transfusion.
[2022-03-22] MEDS: TRAMadol 50 mg Tablet PO (21:42)
[2022-03-22] MEDS: pantoprazole 40 mg SDV IVP (21:42)
[2022-03-22] MEDS: sodium chloride 0.9% (100 ml) 100 ML 10 ML (22:15)
[2022-03-23] VITALS (21 sets, daily range): BP systolic 95–128; BP diastolic 58–80; PULSE 89–99; RESP 14–19; TEMP 36.6–37.2; O2SAT 85–97
[2022-03-23] MEDS: sodium chloride 0.9% 1,000 ML 75 ML IV (00:26)
[2022-03-23 02:29] LABS: Basophils # 0.1 10^3/uL (0.0-0.1); Basophils % 0.6 %; Eosinophils # 0.4 10^3/uL (0.0-0.8); Eosinophils % 4.9 %; Lymphocytes # 0.9 10^3/uL (0.8-4.8); Lymphocytes % 10.2 %; Mean Corpuscular HGB Conc 29.1 g/dL (30.0-36.0); Mean Corpuscular Hemoglobin 26.2 pg (28.0-34.0); Mean Platelet Volume 9.3 fL (7.4-10.4); Monocytes # 0.8 10^3/uL (0.2-0.9); Monocytes % 9.1 %; Neutrophils # 6.42 10^3/uL (1.8-7.7); Neutrophils % 74.5 %; Nucleated Red Blood Cells % 0.3 %; Platelet Count 224 10^3/cmm (130-400); Red Cell Distribution Width 15.9 % (12.1-15.1); White Blood Count 8.6 10^3/uL (4.0-10.0)
[2022-03-23 02:49] LABS: Hematocrit 18.9 % (42.0-52.0); Hemoglobin 5.5 g/dL (11.7-16.6)
[2022-03-23 02:51] LABS: INR 1.13 (0.8-1.2)
[2022-03-23 02:52] LABS: Partial Thromboplastin Time 38.5 SECONDS (23.9-36.7)
[2022-03-23 03:12] LABS: Anion Gap 15.5 (5-19); Blood Urea Nitrogen 19 mg/dL (6-20); Calcium 8.7 mg/dL (8.5-10.5); Carbon Dioxide 22 mmol/L (22-29); Chloride 103 mmol/L (98-107); Glomerular Filtration Rate 47.9 mL/min (90-130); Glucose 110 mg/dL (65-115); Osmolality Calculated 285 mOsm/kg (285-295); Potassium 4.5 mmol/L (3.5-5.1); Sodium 136 mmol/L (136-145); Thyroid Stimulating Hormone 5.15 uIU/mL (0.27-4.20)
[2022-03-23 05:18] LABS: Hematocrit 18.8 % (42.0-52.0); Hemoglobin 5.4 g/dL (11.7-16.6)
[2022-03-23] MEDS: pantoprazole 40 mg SDV IVP ×2 (06:09→18:18)
[2022-03-23] MEDS: buPROPion XL (24 HR) 150 mg Tablet PO (06:10)
[2022-03-23] MEDS: sodium chloride 0.9% (100 ml) 100 ML 125 ML ×2 (10:06→11:54)
[2022-03-23] MEDS: FUROsemide 10 mg/mL SDV 2mL 20 MG IVP (10:35)
[2022-03-23] MEDS: acetaminophen 325 mg Tablet 650 MG PO (10:35)
[2022-03-23] MEDS: TRAMadol 50 mg Tablet PO (10:36)
--- NOTE | 2022-03-23 11:09 | PC.CHAP ---
Pastoral Care Encounter/Spiritual Assessment Type of Contact [] Declined tower foreman visit [] Patient/Family/Request visit [] Outpatient visit [] Follow-up visit [] Physician referral [] Code/Alert [x] Routine visit [] Staff referral [] Actively dying [] Patient sleeping [] Family support [] [] Out of room [] Palliative care [] [x] Receiving care in room [] Pre-surgical visit [] Trauma [] Long length of stay [] ICU visit [] Other: Relational/Emotional Strength [x] Patient feels connected with others/family/visitors/staff [] Distress [] Loneliness/isolation [] Abandonment Spirituality of Patient [x] Person of Leena [] Attends Episcopalian of their Leena [x] Believes in Prayer [] Reads Bible or Lutheran materials [] There are Spiritual issues to be addressed Slate Splitter Interventions [x] Prayer [x] Active listening [x] Non-anxious presence [x] Spiritual/emotional support [] Crisis/trauma care [x] Spiritual counseling [] Bereavement support [] Provided bereavement packet [] Provided Bible/devotional materials [] Provided toy/stuffed animal, coloring book to patient or family member [] Provided Communion [] Anointing/[place] [] Salvation [x] Completed spiritual assessment [] Other: Impact on Illness or Injury [] Angry [] Fearful [x] Anxious [] Often cries [] Exhaustion [] Unable to work [] Unable to attend catholic [] Unable to walk/stand [] Unable to read [] Unable to drive [] Unable to eat/drink [] Unable to sleep [] Unable to be with family [] Patient intubated [] Other: Summary blood work checking stool waiting to see what needs to done has a good attitude well get to home soon Time spent with patient 10 mins
--- NOTE | 2022-03-23 12:49 | PM.PN ---
Subjective Subjective: Patient was seen and examined this morning, currently he is due to receive 4 units PRBC. For now we will continue to monitor H&H, has denied any hematuria,BRBPR. Started on full liquid diet. Medications: Medication Review Details: Generic Name Dose Route Start Last Admin Trade Name Freq PRN Reason Stop Dose Admin Acetaminophen 650 mg 03/22/22 18:41 03/23/22 10:35 Acetaminophen 32 5 Mg Tablet PO 650 mg Q6H PRN Administration Mild/Mod Pain Or Temp >/= 101 Bupropion HCl 150 mg 03/23/22 06:00 03/23/22 06:10 Bupropion Xl (24 Hr) 150 Mg Tablet PO 150 mg QAM YAAKOV Administration Pantoprazole Sodiu m 40 mg 03/22/22 18:45 03/23/22 06:09 Pantoprazole 40 Mg Sdv IVP 40 mg Q12H YAAKOV Administration Tramadol HCl 50 mg 03/23/22 07:55 03/23/22 10:36 Tramadol 50 Mg T ablet PO 50 mg Q6H PRN Administration MODERATE PAIN Vitals/I&O/Wt Last Vital Signs Temp 98.6 F 03/23/22 12:00 Pulse 94 03/23/22 12:00 Resp 17 03/23/22 12:00 BP 115/70 03/23/22 12:00 Pulse Ox 90 03/23/22 12:00 03/22/22 03/23/22 03/23/22 22:59 06:59 14:59 Intake Total 350 / 350 380 / 730 1513.75 / 1513.75 Output Total 800 / 800 300 / 300 Balance 350 / 350 -420 / -70 1213.75 / 1213.75 Weight last 48 hrs Weight 94.12 kg Weight 93.44 kg Weight 93.44 kg Physical Exam Const: COMMON NORMALS: patient oriented x3 HENMT: COMMON NORMALS: normocephalic and atraumatic HEAD & SCALP: normocephalic and atraumatic Chest: CHEST: Yes Symmetrical chest wall rise Resp: COMMON NORMALS: normal respiratory effort, No retractions, No use of accessory muscles and clear to auscultation bilaterally EFFORT & INSPECTION: Yes symmetric chest movement AUSCULTATION: clear to auscultation bilaterally Cardio: COMMON NORMALS: regular rate, regular rhythm, S1 normal heart sound present, S2 normal heart sound present, No gallops present (Cardio), No murmurs present (Cardio), No rub (Cardio) and Peripheral pulses 2+ throughout RATE: regular rate RHYTHM: regular rhythm HEART SOUNDS: S1 normal heart sound present and S2 normal heart sound present PERIPHERAL PULSES: Peripheral pulses 2+ throughout GI: COMMON NORMALS: Normal to inspection, nondistended, normoactive bowel sounds present, Soft to palpation, non-tender, No hepatosplenomegaly present and no masses AUSCULTATION: Yes normoactive bowel sounds PALPATION: Yes Soft to palpation and Yes No hepatosplenomegaly present RECTAL EXAM: Yes deferred Extremity: COMMON NORMALS: no clubbing, cyanosis or edema and no pedal edema Neuro: COMMON NORMALS: patient oriented x3 Data : 03/23/22 04:23 03/23/22 01:57 A&P Assessment and plan (1) Chronic low back pain: Status: Acute (2) Gout: Status: Acute (3) Anemia: Status: Acute (4) Acute kidney injury superimposed on CKD: Status: Acute Plan 61 year old male with PMH of HTN, gout ,Alcohol use, chronic back pain , RCC s/p nephrectomy was sent in by his pcp because his H/H was 4/14.8, patient is currently complaining of morgan,SOB with exertion,fatigue,low B/P, dizziness. Deny any chest pain. Assessment : AL 2/2 Likely G.I BLEED : H&H : 4/ 14.8 RDW: 16.8 , Retic % : 4.5 , haptoglobin: 143 , Anemia Panel : Serum Iron : 14, TIBC : 431, Ferritin : 10 % Saturation : 3.2 Vit B12: 522, Folate :3.8 Protonix 40 mg I.V BID Plan is to transfuse 4 U PRBC Monitor H&H I.V Iron #Possibly G.I Bleed Patient is complaining of Dark stool for about a week time FOBT Possible EGD as well as colonscopy as outpatient v/s inpatient #Gout: Continue Allopurinol #H/O Alcohol dependence #Code Status :Full code #DVT PPX: ON SCDS Attestations Medical Necessity Statement*: Patient is to be in hospital for management of symptomatic anemia. Coding Level of Care Code Acute Drafter Civil (Cad) for g Fwd Diagnoses Chronic low back pain M54.50; G89.29 Gout M10.9 Anemia D64.9 Acute kidney injury superimposed on CKD N17.9; N18.9
[2022-03-23] MEDS: iron sucrose 200 MG in sodium chloride 0.9% (100 ml) 100 ML 220 MG IV (16:12)
[2022-03-23 19:04] LABS: Hematocrit 24.3 % (42.0-52.0); Hemoglobin 7.4 g/dL (11.7-16.6)
[2022-03-24] VITALS (13 sets, daily range): BP systolic 111–129; BP diastolic 60–78; PULSE 60–96; RESP 16–18; TEMP 36.1–36.9; O2SAT 92–98
[2022-03-24] MEDS: buPROPion XL (24 HR) 150 mg Tablet PO (05:40)
[2022-03-24] MEDS: pantoprazole 40 mg SDV IVP (05:40)
[2022-03-24 06:44] LABS: Basophils # 0.1 10^3/uL (0.0-0.1); Basophils % 0.6 %; Eosinophils # 0.6 10^3/uL (0.0-0.8); Eosinophils % 6.6 %; Hemoglobin 7.9 g/dL (11.7-16.6); Lymphocytes # 0.8 10^3/uL (0.8-4.8); Lymphocytes % 9.7 %; Mean Corpuscular HGB Conc 30.4 g/dL (30.0-36.0); Mean Corpuscular Hemoglobin 26.3 pg (28.0-34.0); Mean Corpuscular Volume 86.7 fl (80-94); Mean Platelet Volume 8.9 fL (7.4-10.4); Monocytes # 0.8 10^3/uL (0.2-0.9); Monocytes % 9.8 %; Neutrophils % 72.2 %; Nucleated Red Blood Cells % 0.2 %; Platelet Count 209 10^3/cmm (130-400); Red Cell Distribution Width 17.4 % (12.1-15.1); White Blood Count 8.5 10^3/uL (4.0-10.0)
[2022-03-24 07:05] LABS: Alanine Aminotransferase 11 U/L (0-41); Albumin Level 3.4 g/dL (3.5-5.2); Alkaline Phosphatase 289 IU/L (40-130); Anion Gap 15.1 (5-19); Aspartate Amino Transferase 41 U/L (0-40); Blood Urea Nitrogen 14 mg/dL (6-20); Calcium 8.8 mg/dL (8.5-10.5); Carbon Dioxide 22 mmol/L (22-29); Chloride 105 mmol/L (98-107); Globulin 2.9 g/dL (1.3-4.6); Glomerular Filtration Rate 56.5 mL/min (90-130); Glucose 94 mg/dL (65-115); Osmolality Calculated 286 mOsm/kg (285-295); Potassium 4.1 mmol/L (3.5-5.1); Sodium 138 mmol/L (136-145); Total Bilirubin 1.3 mg/dL (0.15-1.2); Total Protein 6.3 g/dL (6.6-8.7)
--- NOTE | 2022-03-24 10:39 | PM.DCS ---
Discharge Providers Date of Admission: 03/22/22 17:51 Date of Discharge: March 24, 2022 Attending Provider at Admission: Jamie Puente MD Attending Provider at Discharge: Jamie Puente MD Primary Care Provider: Gary Macedo MD Diagnoses at Discharge Discharge Diagnosis (1) Chronic low back pain: Status: Acute (2) Gout: Status: Acute (3) Anemia: Status: Acute (4) Acute kidney injury superimposed on CKD: Status: Acute Reason for Visit Reason for Visit: Says he needs a blood transfusion, Low blood count Hospital Course Hospital Course Austin Munson is a 61 year old male with PMH of HTN, gout ,Alcohol use, chronic back pain , RCC s/p nephrectomy was sent in by his pcp because his H/H was 4/14.8, patient is currently complaining of slightly dark stool for about a week ,SOB with exertion,fatigue,low B/P, occasinal transient lasting palpitations.Deny any chest pain,nausea,vomiting. Upon arrival in the ER he was worked up for above mention complain Pertinent Labs WBC: 8.4 H&H : 4/ 14.8 PLT: 259 , RDW: 16.8 , Retic % : 4.5 , haptoglobin: 143 , Serum Iron : 14, TIBC : 431, Ferritin : 10 % Saturation : 3.2 ,Vit B12: 522, Folate :3.8 , FOBT positive. Hospital course: Patient was admitted for management of severe symptomatic anemia likely secondary to GI bleed, patient was complaining of black stool going on for about a week time. During the hospital stay patient was Transfused 5 units PRBC, H&H was monitored, patient was kept on Protonix IV, IV iron 2 bags were also given during the hospital stay,initially on full liquid diet later transitioned to, patient currently have opted for elective EGD and age-appropriate colonoscopy screening as outpatient. He has agreed to make outpatient appointment himself. He has been made aware of the providers who do EGD and colonoscopy. Overall he has responded well to above medical management and is being discharged in stable condition to home. Patient will continue to follow with his primary care physician as outpatient. Physical Exam Const: COMMON NORMALS: patient oriented x3 HENMT: COMMON NORMALS: normocephalic and atraumatic HEAD & SCALP: normocephalic and atraumatic Chest: CHEST: Yes Symmetrical chest wall rise Resp: COMMON NORMALS: normal respiratory effort, No retractions, No use of accessory muscles and clear to auscultation bilaterally EFFORT & INSPECTION: Yes symmetric chest movement AUSCULTATION: clear to auscultation bilaterally Cardio: COMMON NORMALS: regular rate, regular rhythm, S1 normal heart sound present, S2 normal heart sound present, No gallops present (Cardio), No murmurs present (Cardio), No rub (Cardio) and Peripheral pulses 2+ throughout RATE: regular rate RHYTHM: regular rhythm HEART SOUNDS: S1 normal heart sound present and S2 normal heart sound present PERIPHERAL PULSES: Peripheral pulses 2+ throughout GI: COMMON NORMALS: Normal to inspection, nondistended, normoactive bowel sounds present, Soft to palpation, non-tender, No hepatosplenomegaly present and no masses AUSCULTATION: Yes normoactive bowel sounds PALPATION: Yes Soft to palpation and Yes No hepatosplenomegaly present RECTAL EXAM: Yes deferred Extremity: COMMON NORMALS: no clubbing, cyanosis or edema and no pedal edema Neuro: COMMON NORMALS: patient oriented x3 Discharge Data Studies Completed and Pending Pending at discharge Category Date Time Status Complete Blood Count w/Auto AM LABS Lab 03/25/22 04:00 Ordered Comprehensive Metabolic Panel AM LABS Lab 03/25/22 04:00 Ordered Leukocyte Reduced RBC Stat Lab 03/22/22 17:25 Results Laboratory Results WBC 8.5 10^3/uL (4.0-10.0) 03/24/22 06:20 RBC 3.00 10^6/uL (4.1-5.3) L 03/24/22 06:20 Hgb 7.9 g/dL (11.7-16.6) L 03/24/22 06:20 Hct 26.0 % (42.0-52.0) L 03/24/22 06:20 MCV 86.7 fl (80-94) 03/24/22 06:20 MCH 26.3 pg (28.0-34.0) L 03/24/22 06:20 MCHC 30.4 g/dL (30.0-36.0) 03/24/22 06:20 RDW 17.4 % (12.1-15.1) H 03/24/22 06:20 Plt Count 209 10^3/cmm (130-400) 03/24/22 06:20 MPV 8.9 fL (7.4-10.4) 03/24/22 06:20 Neut % (Auto) 72.2 % 03/24/22 06:20 Lymph % (Auto) 9.7 % 03/24/22 06:20 Christian % (Auto) 9.8 % 03/24/22 06:20 Eos % (Auto) 6.6 % 03/24/22 06:20 Baso % (Auto) 0.6 % 03/24/22 06:20 Reticulocyte % (Auto) 4.5 % (0.5-2.0) H 03/22/22 11:51 Neut # (Auto) 6.10 10^3/uL (1.8-7.7) 03/24/22 06:20 Lymph # (Auto) 0.8 10^3/uL (0.8-4.8) 03/24/22 06:20 Christian # (Auto) 0.8 10^3/uL (0.2-0.9) 03/24/22 06:20 Eos # (Auto) 0.6 10^3/uL (0.0-0.8) 03/24/22 06:20 Baso # (Auto) 0.1 10^3/uL (0.0-0.1) 03/24/22 06:20 Nucleated RBC % (auto) 0.2 % 03/24/22 06:20 Nucleated RBCs # 0.0 /100WBC 03/24/22 06:20 Haptoglobin 143.0 mg/L (30-200) 03/22/22 17:25 PT 14.90 SECONDS (12.1-14.9) 03/23/22 01:57 INR 1.13 (0.8-1.2) 03/23/22 01:57 APTT 38.5 SECONDS (23.9-36.7) H 03/23/22 01:57 Sodium 138 mmol/L (136-145) 03/24/22 06:20 Potassium 4.1 mmol/L (3.5-5.1) 03/24/22 06:20 Chloride 105 mmol/L (98-107) 03/24/22 06:20 Carbon Dioxide 22 mmol/L (22-29) 03/24/22 06:20 Anion Gap 15.1 (5-19) 03/24/22 06:20 BUN 14 mg/dL (6-20) 03/24/22 06:20 Creatinine 1.3 mg/dL (0.7-1.2) H 03/24/22 06:20 GFR Calculation 56.5 mL/min (90-130) L 03/24/22 06:20 Glucose 94 mg/dL (65-115) 03/24/22 06:20 Calculated Osmolality 286 mOsm/kg (285-295) 03/24/22 06:20 Calcium 8.8 mg/dL (8.5-10.5) 03/24/22 06:20 Iron 14 ug/dL (59-158) L 03/22/22 17:25 TIBC 431 mcg/dl 03/22/22 17:25 % Saturation 3.2 % (20-50) L 03/22/22 17:25 Unsat Iron Binding 417 ug/dL (112-347) H 03/22/22 17:25 Ferritin 10 ng/mL (30-400) L 03/22/22 17:25 Total Bilirubin 1.3 mg/dL (0.15-1.2) H 03/24/22 06:20 AST 41 U/L (0-40) H 03/24/22 06:20 ALT 11 U/L (0-41) 03/24/22 06:20 Alkaline Phosphatase 289 IU/L (40-130) H 03/24/22 06:20 Total Protein 6.3 g/dL (6.6-8.7) L 03/24/22 06:20 Albumin 3.4 g/dL (3.5-5.2) L 03/24/22 06:20 Globulin 2.9 g/dL (1.3-4.6) 03/24/22 06:20 Vitamin B12 522 pg/mL (232-1245) 03/22/22 17:25 Folate 3.8 ng/mL (4.5-32.2) L 03/22/22 17:25 TSH 5.15 uIU/mL (0.27-4.20) H 03/23/22 01:57 Blood Type A Positive 03/22/22 17:25 Rho(D) Type Positive 03/22/22 17:25 Antibody Screen Negative 03/22/22 17:25 Crossmatch See Detail 03/22/22 17:25 Vitals Last Vital Signs Temp 98.0 F 03/24/22 07:18 Pulse 69 03/24/22 09:22 Resp 16 03/24/22 09:22 BP 127/76 03/24/22 07:18 Pulse Ox 92 03/24/22 09:22 Discharge Plan Discharge Patient Disposition: Home Condition: Stable Prescriptions: New Iron (ferrous sulfate) 325 mg (65 mg iron) tablet 325 mg PO DAILY Qty: 30 3RF Continued allopurinol 300 mg tablet 300 mg PO BID Qty: 60 5RF bupropion HCl 150 mg tablet extended release 24 hr 150 mg PO QAM Qty: 30 5RF tramadol 50 mg tablet 50 mg PO Q6H PRN (Reason: pain) 15 Days Qty: 60 1RF cyclobenzaprine 5 mg tablet 5 mg PO BEDTIME PRN (Reason: muscle spasm) 0RF Changed pantoprazole 40 mg tablet,delayed release (DR/EC) 40 mg PO BID 30 Days Qty: 60 5RF Discontinued celecoxib 200 mg capsule See Rx Instructions .ROUTE .COMPLEX Qty: 60 1RF Dose Instruction: TAKE 1 CAPSULE BY MOUTH TWICE DAILY FOR GOUT Rx Instructions: TAKE 1 CAPSULE BY MOUTH TWICE DAILY FOR GOUT Discharge Orders: Discharge Order (Routine); Ordered 03/24/22 Ordered By: Jamie Puente Other Ambulatory Orders: Complete Blood Count w/Auto (Routine) Timeframe: 1 Week Location: Determined by Patient Ordered By: Jamie uPente Referrals: Gary Macedo MD [Primary Care Provider] - 1 week Discharge Diet: Regular Discharge Activity: Increase activity as tolerated Patient Instructions: Opioid Safety Discharge Attestations Time Spent in Discharge Care*: less than 30 min Status at Discharge: Cognitive status at discharge: cognitively intact, Behavioral status at discharge: cooperative, Quality Metrics Clinical Quality Measures [ No reported AMI, CVA or VTE this stay] Coding Level of Care Code Acute Chg FW DC note Exam Detailed Diagnoses Chronic low back pain M54.50; G89.29 Gout M10.9 Anemia D64.9 Acute kidney injury superimposed on CKD N17.9; N18.9
[2022-03-24] MEDS: iron sucrose 200 MG in sodium chloride 0.9% (100 ml) 100 ML 220 MG IV (10:47)
[2022-03-24] MEDS: ipratropium-albuterol 3 mL Neb INHALATION (11:42)
[2022-03-24] MEDS: sodium chloride 0.9% (100 ml) 100 ML (12:57)
--- NOTE | 2022-03-24 16:16 | PC.NURSE ---
patient and family verbalized understanding of discharge instructions, home medications, and follow up appointments. Patient tolerated blood transfusion well. All vital signs stable.
== END 2022-03-24 16:25 | disposition home or self-care (01) ==
LOC: ER 17:22 → MEDSURG 18:33
PROVIDERS: Internal Medicine; Admitting Provider Internal Medicine; Emergency Provider Family Medicine; PCP Family Medicine Adult Medicine; Visit Provider Internal Medicine
DX: M54.50 Low back pain, unspecified (principal); G89.29 Other chronic pain; D64.9 Anemia, unspecified; N17.9 Acute kidney failure, unspecified; Z90.5 Acquired absence of kidney; E66.9 Obesity, unspecified; Z68.29 Body mass index [BMI] 29.0-29.9, adult; Z87.891 Personal history of nicotine dependence; I12.9 Hypertensive chronic kidney disease with stage 1 through stage 4 chronic kidney disease, or unspecified chronic kidney disease; N18.9 Chronic kidney disease, unspecified
CPT/HCPCS: 36415; 36430; 80048; 80053; 82274; 82607; 82728; 82746; 83010; 83540; 83550; 84443; 85014; 85018; 85025; 85045; 85610; 85730; 86850; 86900; 86920; 94640; 96365; 96375; 99285; C9113; G0378; J1756; J1940; J7030; P9016

== ENCOUNTER → 2022-03-29 10:41 | Outpatient (BNVA) | payer MEDICAID, SELFPAY | PROVIDERS: PCP Family Medicine Adult Medicine; Visit Provider Surgery | DX: D64.9 Anemia, unspecified (principal); Z12.11 Encounter for screening for malignant neoplasm of colon | CPT/HCPCS: 99202 ==

== ENCOUNTER → 2022-03-30 12:03 | Outpatient (BNVA) | payer MEDICAID, SELFPAY | PROVIDERS: PCP Family Medicine Adult Medicine; Visit Provider Family Medicine Adult Medicine | DX: D64.9 Anemia, unspecified (principal); K92.2 Gastrointestinal hemorrhage, unspecified; N17.9 Acute kidney failure, unspecified; N18.9 Chronic kidney disease, unspecified | CPT/HCPCS: 80048; 85025 ==

== ENCOUNTER 2022-04-07 07:12 | Day surgery (SDC) | payer MEDICAID, SELFPAY ==
[2022-04-04 13:09] VITALS: BMI 29.5
[2022-04-07 07:22] VITALS: PULSE 102; RESP 16; TEMP 36.2; O2SAT 97
[2022-04-07] MEDS: sodium chloride 0.9% 1,000 ML 30 ML IV (07:36)
--- NOTE | 2022-04-07 08:14 | ANES.PREANE2 ---
Pre-Anesthetic Assessment Height/Weight: Height 1.78 m Weight 93.44 kg Temp Pulse Resp Pulse Ox 97.2 F L 102 H 16 97 04/07/22 07:22 04/07/22 07:22 04/07/22 07:22 04/07/22 07:22 Operation Date: 04/07/22 08:30 Proposed Procedures p 20679 EGD 26235 COLON Z12.11/D50.9(Not Applicable) - DO govind Tavarez Colonoscopy(Not Applicable) - Merritt Garcia DO Familial anesthetic complications: none Was Beta Brea taken within 24 hours: N/A Was Clonidine taken within 24 hours: N/A Last intake: Intake Last Liquid Date 04/06/22 Last Liquid Time 22:00 Last Solid Date 04/06/22 Last Solid Time 07:00 Social Alcohol (ETOH dependence ) and No tobacco Exam alert, oriented x 3, clear to auscultation bilaterally and regular rate & rhythm Airway Submandibular: within normal limits Cervical ROM: within normal limits Mallampati: Class III Dentition: chipped Pulmonary Chronic Obstructive Pulmonary Disease Hx of SOBOE CV/HEM Anemia (Hgb 8.7) and Hypertension Chronic Renal Insufficiency 1 kidney s/p resection for carcinoma Hx of nephrolithiasi Hepatic Elevated liver enzymes GI Gastroesophageal Reflux Disease Hx of GI bleed Metabolic Overweight Musc/skel Gout Neuropsych Anxiety, Depression and Neuropathy Anesthetic Plan ASA status: 3 (61 year old male w/ hx of ETOH dependence with elevated AST/ALT, former smoking, COPD, HTN, GI bleed with anemia, s/p kidney removal for carcinoma) Anesthesia: Anesthesia Evaluation, General and MAC Other: I discussed with the patient risks, goals, and benefits of MAC and general anesthesia. We discussed spectrum of MAC anesthesia including conversion to general as well as possibility of recall of intraoperative stimuli including discomfort/pain. Patient agrees to proceed with MAC. Risk of > 500 ml blood loss (7ml/kg in children): No Medications/Allergies Home Medications Medication Instructions Recorded Confirmed Last Taken Type bupropion HCl 150 mg 24 hr tablet, 150 mg PO QAM #30 tab 11/03/21 04/04/22 04/06/22 Rx extended release cyclobenzaprine 5 mg tablet 5 mg PO BEDTIME PRN 03/22/22 04/04/22 04/06/22 History ferrous sulfate 325 mg (65 mg 325 mg PO DAILY #30 tab 03/24/22 04/04/22 04/06/22 Rx iron) tablet (Iron (ferrous sulfate)) pantoprazole 40 mg tablet,delayed 40 mg PO BID 30 Days #60 tab 03/24/22 04/04/22 04/06/22 Rx release allopurinol 300 mg tablet 300 mg PO BID 04/04/22 04/04/22 04/06/22 History tramadol 50 mg tablet 50 mg PO Q6H PRN 30 Days #60 tab 04/06/22 04/06/22 Rx Allergies Allergy/AdvReac Type Severity Reaction Status Date / Time No Known Allergies Allergy Verified 04/07/22 07:20 Current Medications Generic Name Dose Route Start Last Admin Trade Name Freq PRN Reason Stop Dose Admin Sodium Chloride 1,000 mls @ 30 mls/hr 04/07/22 07:15 04/07/22 07:36 Sodium Chloride 0.9% IV 04/08/22 07:14 30 mls/hr .Q24H YAAKOV Administration PFSH Anesthesia Medical History Acute GI bleeding Acute kidney injury superimposed on CKD RADHA (acute kidney injury) Alcohol dependence Anemia Anemia Anxiety and depression Bilateral carpal tunnel syndrome Chronic low back pain Constipation by delayed colonic transit COPD exacerbation Elevated liver enzymes GERD (gastroesophageal reflux disease) Gout History of kidney stones Hypertension Hypertriglyceridemia Multiple lung nodules CTA 06/16 & 07/07/2021 RML nodules 6mm largest unchanged Obesity (BMI 30.0-34.9) Renal cell cancer Right nephrectomy 2018 Sepsis Single functional kidney Smoker SOBOE (shortness of breath on exertion) Surgical History H/O inguinal hernia repair Right History of nephrectomy Right -- robotic 2018 History of tonsillectomy Family History Mother Cancer Lung cancer Other CAD (coronary artery disease) Social History Smoking and tobacco status: former smoker Alcohol intake: current Alcohol intake frequency: 3 or more drinks per day Alcohol type: beer and hard liquor Household members: spouse Housing: House Data Anesthesia Cardiac Studies: No Data to Display
--- NOTE | 2022-04-07 09:33 | W.PM.OPSUD ---
Surgery/Procedure H&P Update DATE OF PROCEDURE: April 07, 2022 DATE H&P PERFORMED: 03/29/22 CHANGES TO PREVIOUS DOCUMENTATION: none PLANNED PROCEDURE: Operation Date: 04/07/22 08:30 Proposed Procedures p 63291 EGD 97585 COLON Z12.11/D50.9(Not Applicable) - DO govind Tavarez Colonoscopy(Not Applicable) - Merritt Garcia DO
[2022-04-07 10:12] VITALS: BP 119/76; PULSE 88; RESP 18; TEMP 36.3; O2SAT 100
[2022-04-07 10:17] VITALS: BP 125/74; PULSE 90; RESP 18; O2SAT 98
[2022-04-07 10:27] VITALS: BP 120/78; PULSE 82; RESP 18; O2SAT 98
--- NOTE | 2022-04-07 14:45 | ANE.PACU2 ---
Inpatient post-anesthesia follow up: Airway intact: Yes Vital signs: Temperature 97.3 F Pulse Rate 82 Respiratory Rate 18 Blood Pressure 120/78 Pulse Oximetry 98 Oxygen Delivery Me thod Room Air Oxygen Flow Rate 5 Fraction of Inspir ed Oxygen Hydration adequate: Yes Nausea and vomiting: No Pain level: 1 Mental status: Baseline
== END 2022-04-07 10:40 | disposition home or self-care (01) ==
PROVIDERS: PCP Family Medicine Adult Medicine; Visit Provider Surgery
PROC: 0DJD8ZZ Inspection of Lower Intestinal Tract, Via Natural or Artificial Opening Endoscopic (ICD-10-PCS; CPT 45378; 2022-04-07 08:30)
PROC: 0DJ08ZZ Inspection of Upper Intestinal Tract, Via Natural or Artificial Opening Endoscopic (ICD-10-PCS; CPT 43235; 2022-04-07 08:30)
DX: Z12.11 Encounter for screening for malignant neoplasm of colon (principal); D50.9 Iron deficiency anemia, unspecified; D12.2 Benign neoplasm of ascending colon; K57.30 Diverticulosis of large intestine without perforation or abscess without bleeding; K64.4 Residual hemorrhoidal skin tags; K29.70 Gastritis, unspecified, without bleeding; J44.9 Chronic obstructive pulmonary disease, unspecified; K21.9 Gastro-esophageal reflux disease without esophagitis
CPT/HCPCS: 43239; 45385; 88305; 88342; J2704; J7030

== ENCOUNTER → 2022-04-20 14:34 | Outpatient (BNVA) | payer MEDICAID, SELFPAY | PROVIDERS: PCP Family Medicine Adult Medicine; Visit Provider Surgery | DX: Z09 Encounter for follow-up examination after completed treatment for conditions other than malignant neoplasm (principal); K21.9 Gastro-esophageal reflux disease without esophagitis; D36.9 Benign neoplasm, unspecified site | CPT/HCPCS: 99211; 99212; G0463 ==

== ENCOUNTER 2022-05-08 08:07 | Outpatient (CLI) | payer MEDICAID, SELFPAY ==
--- NOTE | 2022-05-08 08:30 | CT_ITS ---
WS: [id number] CTA CHEST AND ABDOMEN TECHNIQUE: Noncontrast plus contrast enhanced CTA of the chest and abdomen with coronal and sagittal reformatted images and additional MIP Images. CLINICAL INFORMATION: SOB and elevated liver enzmes with multiple lung nodules COMPARISON: None. DLP: 1626.[address] scans at [facility] use at least one of these dose optimization techniques: automated e xposure control; mA and/or kV adjustment per patient size (includes targeted exams where dose is matc hed to clinical indication); or iterative reconstruction. FINDINGS: Multiple noncalcified pulmonary nodules are stable compared to previous. Largest RIGHT middle lobe me asures 6 mm unchanged. Normal caliber thoracic aorta. Normal descending thoracic aorta. Celiac and SMA are patent. Large eso phageal hiatal hernia unchanged from previous. Proximal main pulmonary arteries are normal. Normal vi sualized segmental and subsegmental pulmonary arteries. No acute pulmonary infiltrates. Lungs are wel l aerated. No mediastinal or hilar lymphadenopathy. No axillary lymphadenopathy. Gallbladder is contracted. Cholelithiasis. Hepatomegaly. Mild splenomegaly measuring 15.0 cm pole-to- pole. This is similar to previous. RIGHT kidney is absent. Normal LEFT renal parenchymal enhancement. Partially visualized diverticulosis involving the RIGHT colon. CT/CT angio chest abdomen IMPRESSION: 1. Multiple noncalcified pulmonary nodules largest in the RIGHT middle lobe me asuring 6 mm unchanged from 07/07/21 2. Large esophageal hiatal hernia is stable. 3. Normal caliber thoracic aorta. Pulmonary arteries are normal. 4. No acute pulmonary infiltrates. 5. Hepatomegaly with splenomegaly. 6. Gallbladder is contracted with cholelithiasis. This can be further evaluate d ultrasound.
[2022-05-08] MEDS: iodixanol 320 mg/mL 100mL Btl IV (08:49)
== END 2022-05-08 08:08 | disposition home or self-care (01) ==
LOC: RAD 08:08
PROVIDERS: PCP Family Medicine Adult Medicine; Visit Provider Family Medicine Adult Medicine
DX: R91.8 Other nonspecific abnormal finding of lung field (principal); R06.02 Shortness of breath; R74.8 Abnormal levels of other serum enzymes; K44.9 Diaphragmatic hernia without obstruction or gangrene; R16.2 Hepatomegaly with splenomegaly, not elsewhere classified; K80.20 Calculus of gallbladder without cholecystitis without obstruction
CPT/HCPCS: 71275; 74175

== ENCOUNTER → 2022-06-21 09:53 | Outpatient (BNVA) | payer MEDICAID, SELFPAY | PROVIDERS: PCP Family Medicine Adult Medicine; Visit Provider Family Medicine Adult Medicine | DX: R79.89 Other specified abnormal findings of blood chemistry (principal); D64.9 Anemia, unspecified; N17.9 Acute kidney failure, unspecified; I12.9 Hypertensive chronic kidney disease with stage 1 through stage 4 chronic kidney disease, or unspecified chronic kidney disease; N18.9 Chronic kidney disease, unspecified; Z87.19 Personal history of other diseases of the digestive system; D36.9 Benign neoplasm, unspecified site; K21.9 Gastro-esophageal reflux disease without esophagitis; R91.8 Other nonspecific abnormal finding of lung field; Z90.5 Acquired absence of kidney | CPT/HCPCS: 80053; 84443; 85025 ==

== ENCOUNTER 2022-06-22 07:05 | Outpatient (CLI) | payer MEDICAID, SELFPAY ==
[2022-06-22] VITALS (13 sets, daily range): BP systolic 124–144; BP diastolic 74–90; PULSE 89–103; RESP 16–18; TEMP 36.8–37.1; O2SAT 97–100; BMI 30.1
[2022-06-22] MEDS: sodium chloride 0.9% (100 ml) 100 ML 150 ML (09:59)
--- NOTE | 2022-06-22 15:48 | PC.PHAR ---
PTS VERIFIED PTS MEDICATIONS-PTS STATES THE AMLODIPINE 10MG DAILY WAS DCED A WHILE BACK EXT MED HISTORY SHOWS LAST FILLED 05/29/22 30D/S
== END 2022-06-22 20:46 | disposition home or self-care (01) ==
LOC: OPMS 07:56 → MEDSURG 07:57
PROVIDERS: PCP Family Medicine Adult Medicine; Visit Provider Family Medicine Adult Medicine
DX: D64.9 Anemia, unspecified (principal)
CPT/HCPCS: 36415; 36430; 86850; 86900; 86920; P9016

== ENCOUNTER 2022-07-06 10:46 | Outpatient (CLI) | payer MEDICAID, SELFPAY ==
--- NOTE | 2022-07-06 11:00 | US_ITS ---
WS: [id number] RIGHT UPPER QUADRANT ULTRASOUND HISTORY: Contracted gallstones and gallbladder COMPARISON: 05/08/2022 Liver: 22.5 cm in length. Markedly enlarged very heterogeneous liver. Variable echogenicity throughou t the liver. The entire liver is not visualized. No mass identified. No bile duct dilatation. Portal Vein: Normal hepatopetal flow with monophasic waveform. Gallbladder: Moderately well distended gallbladder with numerous mobile small stones. No pericholecys tic fluid. CBD: 0.5 cm Pancreas: Head and tail are poorly visualized. The body is negative. Right kidney: Surgically removed. Aorta and IVC: Limited evaluation. No ascites. US/US gall bladder 47444 IMPRESSION: 1. Cholelithiasis without acute cholecystitis. 2. Marked hepatomegaly and hepatic steatosis.
== END 2022-07-06 10:47 | disposition home or self-care (01) ==
LOC: RAD 10:47
PROVIDERS: PCP Family Medicine Adult Medicine; Visit Provider Family Medicine Adult Medicine
DX: K80.20 Calculus of gallbladder without cholecystitis without obstruction (principal); R16.0 Hepatomegaly, not elsewhere classified; K76.0 Fatty (change of) liver, not elsewhere classified
CPT/HCPCS: 76705

== ENCOUNTER 2022-07-10 08:00 | Oncology outpatient (recurring) (ONCR) | payer MEDICAID, SELFPAY ==
[2022-06-29 15:49] LABS: Basophils % 0.8 %; Eosinophils # 0.1 10^3/uL (0.0-0.8); Eosinophils % 2.4 %; Hematocrit 26.2 % (42.0-52.0); Hemoglobin 7.1 g/dL (11.7-16.6); Lymphocytes # 0.5 10^3/uL (0.8-4.8); Lymphocytes % 10.6 %; Mean Corpuscular HGB Conc 27.1 g/dL (30.0-36.0); Mean Corpuscular Hemoglobin 26.5 pg (28.0-34.0); Mean Corpuscular Volume 97.8 fl (80-94); Mean Platelet Volume 9.1 fL (7.4-10.4); Monocytes # 0.5 10^3/uL (0.2-0.9); Monocytes % 10.6 %; Neutrophils # 3.66 10^3/uL (1.8-7.7); Neutrophils % 74.8 %; Nucleated Red Blood Cells % 0.4 %; Platelet Count 177 10^3/cmm (130-400); Red Blood Count 2.68 10^6/uL (4.1-5.3); Red Cell Distribution Width 20.3 % (12.1-15.1); White Blood Count 4.9 10^3/uL (4.0-10.0)
[2022-06-29 17:47] LABS: Alanine Aminotransferase 25 U/L (0-41); Albumin Level 4.1 g/dL (3.5-5.2); Alkaline Phosphatase 321 U/L (40-130); Anion Gap 16.4 (5-19); Aspartate Amino Transferase 59 U/L (0-40); Blood Urea Nitrogen 11 mg/dL (8-23); Calcium 9.1 mg/dL (8.5-10.5); Carbon Dioxide 26 mmol/L (22-29); Chloride 102 mmol/L (98-107); Ferritin 29 ng/mL (30-400); Globulin 2.2 g/dL (1.3-4.6); Glomerular Filtration Rate 76.2 mL/min (90-130); Glucose 95 mg/dL (65-115); Iron 43 ug/dL (59-158); Osmolality Calculated 289 mOsm/kg (285-295); Percent Saturation 8.8 % (20-50); Potassium 4.4 mmol/L (3.5-5.1); Sodium 140 mmol/L (136-145); Total Bilirubin 0.7 mg/dL (0.15-1.2); Total Iron Binding Capacity 484 mcg/dl; Total Protein 6.3 g/dL (6.6-8.7); Unsaturated Iron Binding 441 ug/dL (112-347)
[2022-07-03] VITALS (11 sets, daily range): BP systolic 122–132; BP diastolic 73–82; PULSE 68–94; RESP 18–20; TEMP 36.7–37.2; O2SAT 97–98
[2022-07-03] MEDS: diphenhydrAMINE 25 mg Capsule PO (09:54)
[2022-07-03] MEDS: acetaminophen 325 mg Tablet 650 MG PO (09:54)
[2022-07-03] MEDS: sodium chloride 0.9% 100 mL Bag 250 ML IV (09:55)
[2022-07-03] MEDS: FUROsemide 10 mg/mL SDV 2mL 20 MG IVP (12:02)
[2022-07-04 09:05] VITALS: BP 116/72; PULSE 106; RESP 18; TEMP 37.2; O2SAT 99
[2022-07-04] MEDS: sodium chloride 0.9% 500 ML 75 ML IV (09:29)
[2022-07-04] MEDS: acetaminophen 325 mg Tablet 650 MG PO (09:30)
[2022-07-04] MEDS: diphenhydrAMINE 50 mg/mL SDV 1mL 25 MG IVP (09:31)
[2022-07-04] MEDS: dexamethasone 10 mg/mL INJ IVP (09:32)
[2022-07-04] MEDS: iron dextran 25 MG in SYRINGE 1 EACH 30 MG IVP (09:43)
[2022-07-04] MEDS: iron dextran 1,500 MG in sodium chloride 0.9% 1,000 ML 250.75 MG IV (11:07)
[2022-07-04 16:40] VITALS: BP 131/75; PULSE 79; RESP 18; TEMP 36.5; O2SAT 94
[2022-07-10] VITALS (11 sets, daily range): BP systolic 92–130; BP diastolic 66–91; PULSE 66–91; RESP 18–20; TEMP 36.3–36.9; O2SAT 98
[2022-07-10 08:39] LABS: Basophils # 0.1 10^3/uL (0.0-0.1); Basophils % 0.8 %; Eosinophils # 0.1 10^3/uL (0.0-0.8); Eosinophils % 2.2 %; Hematocrit 24.9 % (42.0-52.0); Hemoglobin 7.3 g/dL (11.7-16.6); Lymphocytes % 16.3 %; Mean Corpuscular HGB Conc 29.3 g/dL (30.0-36.0); Mean Corpuscular Hemoglobin 31.2 pg (28.0-34.0); Mean Corpuscular Volume 106.4 fl (80-94); Mean Platelet Volume 9.4 fL (7.4-10.4); Monocytes # 0.6 10^3/uL (0.2-0.9); Monocytes % 10.2 %; Neutrophils # 4.22 10^3/uL (1.8-7.7); Neutrophils % 67.6 %; Nucleated Red Blood Cells # 0.1 /100WBC; Nucleated Red Blood Cells % 1.9 %; Platelet Count 211 10^3/cmm (130-400); Red Blood Count 2.34 10^6/uL (4.1-5.3); Red Cell Distribution Width 25.2 % (12.1-15.1); White Blood Count 6.3 10^3/uL (4.0-10.0)
[2022-07-10] MEDS: acetaminophen 325 mg Tablet 650 MG PO (10:02)
[2022-07-10] MEDS: sodium chloride 0.9% 100 mL Bag 250 ML IV (10:03)
[2022-07-10] MEDS: diphenhydrAMINE 25 mg Capsule PO (10:03)
== END 2022-07-12 23:59 | disposition home or self-care (01) ==
PROVIDERS: PCP Family Medicine Adult Medicine; Visit Provider Internal Medicine Medical Oncology
DX: D64.9 Anemia, unspecified (principal); D50.0 Iron deficiency anemia secondary to blood loss (chronic); Z79.899 Other long term (current) drug therapy
CPT/HCPCS: 36415; 36430; 80053; 82274; 82728; 83540; 83550; 85025; 86850; 86900; 86920; 96365; 96366; 96374; 96375; 99205; J1100; J1200; J1750; J1940; J7030; J7040; P9016; P9040

== ENCOUNTER 2022-07-18 11:16 | Outpatient (CLI) | payer MEDICAID, SELFPAY ==
[2022-07-18 11:58] LABS: Basophils # 0.1 10^3/uL (0.0-0.1); Basophils % 0.9 %; Eosinophils # 0.1 10^3/uL (0.0-0.8); Eosinophils % 2.1 %; Hematocrit 31.3 % (42.0-52.0); Hemoglobin 9.4 g/dL (11.7-16.6); Lymphocytes # 0.7 10^3/uL (0.8-4.8); Lymphocytes % 12.5 %; Mean Corpuscular Hemoglobin 33.3 pg (28.0-34.0); Mean Platelet Volume 8.8 fL (7.4-10.4); Monocytes # 0.6 10^3/uL (0.2-0.9); Monocytes % 10.7 %; Neutrophils # 4.16 10^3/uL (1.8-7.7); Neutrophils % 73.1 %; Nucleated Red Blood Cells % 0 %; Platelet Count 163 10^3/cmm (130-400); Red Blood Count 2.82 10^6/uL (4.1-5.3); Red Cell Distribution Width 24.4 % (12.1-15.1); White Blood Count 5.7 10^3/uL (4.0-10.0)
== END 2022-07-18 11:17 | disposition home or self-care (01) ==
LOC: LAB 11:20
PROVIDERS: Absent Provider Internal Medicine Medical Oncology; PCP Family Medicine Adult Medicine; Visit Provider Family Medicine Adult Medicine
DX: D64.9 Anemia, unspecified (principal); D50.0 Iron deficiency anemia secondary to blood loss (chronic)
CPT/HCPCS: 36415; 85025; 86850; 86900; 86920

== ENCOUNTER 2022-07-21 08:30 | Day surgery (SDC) | payer MEDICAID, SELFPAY ==
[2022-07-20 10:37] VITALS: BMI 30.7
--- NOTE | 2022-07-21 08:17 | W.PM.OPSUD ---
Surgery/Procedure H&P Update DATE OF PROCEDURE: July 21, 2022 DATE H&P PERFORMED: 03/29/22 H&P UPDATE INFORMATION: I have reviewed H&P completed within last 30 days, I have examined patient prior to procedure and No changes to prior documentation PRIMARY INDICATION FOR PROCEDURE: The same PLANNED PROCEDURE: Operation Date: 07/21/22 09:30 Proposed Procedures p EGD 86036/ gallbaladder problem K82.9/D50.0 iron def anemia(Not Applicable) - Dajuan Grande MD
[2022-07-21 08:49] VITALS: BP 140/72; PULSE 105; RESP 18; TEMP 37.1; O2SAT 100
[2022-07-21] MEDS: sodium chloride 0.9% 1,000 ML 30 ML IV (08:58)
--- NOTE | 2022-07-21 10:04 | ANES.PREANE2 ---
Pre-Anesthetic Assessment Height/Weight: Height 1.78 m Weight 97.069 kg Temp Pulse Resp BP Pulse Ox O2 Del Method 98.7 F 105 H 18 140/72 100 07/21/22 08:49 07/21/22 08:49 07/21/22 08:49 07/21/22 08:49 07/21/22 08:49 07/21/22 08:49 Preop Diagnosis: Anemia Operation Date: 07/21/22 09:30 Proposed Procedures p EGD 58971/ gallbaladder problem K82.9/D50.0 iron def anemia(Not Applicable) - Dajuan Grande MD Familial anesthetic complications: none Was Beta Brea taken within 24 hours: N/A Was Clonidine taken within 24 hours: N/A Last intake: Intake Last Liquid Date 07/20/22 Last Liquid Time 22:00 Last Solid Date 07/20/22 Last Solid Time 19:00 Social Alcohol (2 beers 2 shots a day) and No tobacco Exam alert, oriented x 3, clear to auscultation bilaterally and regular rate & rhythm Airway Submandibular: within normal limits Cervical ROM: within normal limits Mallampati: Class II Dentition: full Pulmonary Sleep Apnea CV/HEM Hypertension Chronic Renal Insufficiency kidney removed due to cancer Hepatic None reported GI Gastroesophageal Reflux Disease Metabolic Hyperlipidemia Musc/skel Lower Back Pain Neuropsych None reported Anesthetic Plan ASA status: 2 Anesthesia: MAC Risk of > 500 ml blood loss (7ml/kg in children): No Medications/Allergies Home Medications Medication Instructions Recorded Confirmed Last Taken Type cyclobenzaprine 5 mg tablet 5 mg PO BEDTIME PRN muscle spasm 03/22/22 07/21/22 07/20/22 History pantoprazole 40 mg tablet,delayed 40 mg PO BID 30 days #60 tabs 03/24/22 07/21/22 07/20/22 Rx release allopurinol 300 mg tablet 300 mg PO BID 04/04/22 07/21/22 07/20/22 History tramadol 50 mg tablet 50 mg PO Q6H PRN pain 30 days #60 04/06/22 07/21/22 04/06/22 Rx tabs bupropion HCl 150 mg 24 hr tablet, 150 mg PO QAM 06/22/22 07/21/22 07/20/22 History extended release Allergies Allergy/AdvReac Type Severity Reaction Status Date / Time No Known Allergies Allergy Verified 07/20/22 17:24 Current Medications Generic Name Dose Route Start Last Admin Trade Name Suzanne PRN Reason Stop Dose Admin Sodium Chloride 1,000 mls @ 30 mls/hr 07/21/22 08:45 07/21/22 08:58 Sodium Chloride 0.9% IV 07/22/22 08:44 30 mls/hr .Q24H YAAKOV Administration PFSH Anesthesia Medical History Acute kidney injury superimposed on CKD Alcohol dependence Anxiety and depression Bilateral carpal tunnel syndrome Chronic low back pain Constipation by delayed colonic transit COPD exacerbation Elevated liver enzymes Gallstones Gallstones GERD (gastroesophageal reflux disease) Gout Hepatomegaly History of GI bleed History of kidney stones History of multiple pulmonary nodules Hypertension Hypertriglyceridemia Obesity (BMI 30.0-34.9) Renal cell cancer Right nephrectomy 2018 Severe anemia Surgical History H/O inguinal hernia repair Right History of nephrectomy Right -- robotic 2018 History of tonsillectomy Family History Mother Cancer Lung cancer Lung disease Father CAD (coronary artery disease) Diabetes Stroke Other Chronic kidney disease (CKD) Hyperlipidemia Hypertension Denies family history of Clotting disorder Dementia Psychiatric illness Suicide Anesthesia complication Bleeding disorder Social History Smoking and tobacco status: former smoker Alcohol intake: current Alcohol intake frequency: 3 or more drinks per day Alcohol type: beer and hard liquor Household members: spouse Housing: House Data Anesthesia Cardiac Studies: No Data to Display
[2022-07-21 10:23] VITALS: BP 123/74; PULSE 99; RESP 18; TEMP 36.7; O2SAT 96
--- NOTE | 2022-07-21 10:27 | ANE.PACU2 ---
Inpatient post-anesthesia follow up: Airway intact: Yes Vital signs: Temperature 98.7 F Pulse Rate 105 Respiratory Rate 18 Blood Pressure 140/72 Pulse Oximetry 100 Oxygen Delivery Me thod Room Air Oxygen Flow Rate Fraction of Inspir ed Oxygen Hydration adequate: Yes Nausea and vomiting: No Pain level: 1 Mental status: Baseline
[2022-07-21 10:38] VITALS: BP 106/61; PULSE 102; RESP 18; O2SAT 97
== END 2022-07-21 10:44 | disposition home or self-care (01) ==
PROVIDERS: PCP Family Medicine Adult Medicine; Visit Provider Surgery
PROC: 0DJ08ZZ Inspection of Upper Intestinal Tract, Via Natural or Artificial Opening Endoscopic (ICD-10-PCS; CPT 43235; principal; 2022-07-21 09:30)
DX: D50.0 Iron deficiency anemia secondary to blood loss (chronic) (principal); K82.9 Disease of gallbladder, unspecified; K21.00 Gastro-esophageal reflux disease with esophagitis, without bleeding; K29.70 Gastritis, unspecified, without bleeding; G47.30 Sleep apnea, unspecified; I10 Essential (primary) hypertension; Z85.528 Personal history of other malignant neoplasm of kidney; Z90.5 Acquired absence of kidney; K21.9 Gastro-esophageal reflux disease without esophagitis; E78.5 Hyperlipidemia, unspecified; Z87.891 Personal history of nicotine dependence
CPT/HCPCS: 43239; 88305; J2704; J7030

== ENCOUNTER 2022-07-24 10:15 | Outpatient (CLI) | payer MEDICAID, SELFPAY ==
[2022-07-24 11:00] LABS: Basophils % 0.8 %; Eosinophils # 0.1 10^3/uL (0.0-0.8); Eosinophils % 2.4 %; Hematocrit 25.5 % (42.0-52.0); Hemoglobin 7.8 g/dL (11.7-16.6); Lymphocytes # 0.6 10^3/uL (0.8-4.8); Lymphocytes % 12.4 %; Mean Corpuscular HGB Conc 30.6 g/dL (30.0-36.0); Mean Corpuscular Hemoglobin 34.5 pg (28.0-34.0); Mean Corpuscular Volume 112.8 fl (80-94); Mean Platelet Volume 9.1 fL (7.4-10.4); Monocytes # 0.5 10^3/uL (0.2-0.9); Monocytes % 10.1 %; Neutrophils # 3.73 10^3/uL (1.8-7.7); Neutrophils % 73.5 %; Nucleated Red Blood Cells % 0.4 %; Platelet Count 210 10^3/cmm (130-400); Red Blood Count 2.26 10^6/uL (4.1-5.3); Red Cell Distribution Width 21.7 % (12.1-15.1); White Blood Count 5.1 10^3/uL (4.0-10.0)
[2022-07-24 11:20] LABS: Alanine Aminotransferase 31 U/L (0-41); Albumin Level 3.7 g/dL (3.5-5.2); Alkaline Phosphatase 331 U/L (40-130); Anion Gap 13.2 (5-19); Aspartate Amino Transferase 109 U/L (0-40); Blood Urea Nitrogen 10 mg/dL (8-23); Calcium 8.9 mg/dL (8.5-10.5); Carbon Dioxide 26 mmol/L (22-29); Chloride 103 mmol/L (98-107); Globulin 2.7 g/dL (1.3-4.6); Glomerular Filtration Rate 86.1 mL/min (90-130); Glucose 127 mg/dL (65-115); Iron 49 ug/dL (59-158); Osmolality Calculated 287 mOsm/kg (285-295); Percent Saturation 15.5 % (20-50); Potassium 4.2 mmol/L (3.5-5.1); Sodium 138 mmol/L (136-145); Total Bilirubin 0.9 mg/dL (0.15-1.2); Total Iron Binding Capacity 315 mcg/dl; Total Protein 6.4 g/dL (6.6-8.7); Unsaturated Iron Binding 266 ug/dL (112-347)
== END 2022-07-24 10:16 | disposition home or self-care (01) ==
LOC: LAB 10:18
PROVIDERS: PCP Family Medicine Adult Medicine; Visit Provider Internal Medicine Medical Oncology
DX: D50.0 Iron deficiency anemia secondary to blood loss (chronic) (principal)
CPT/HCPCS: 36415; 80053; 83540; 83550; 85025

== ENCOUNTER 2022-08-02 12:23 | Outpatient (CLI) | payer MEDICAID, SELFPAY | END 2022-08-02 12:24 | disposition home or self-care (01) | PROVIDERS: PCP Family Medicine Adult Medicine; Visit Provider Internal Medicine Medical Oncology | DX: D50.0 Iron deficiency anemia secondary to blood loss (chronic) (principal) | CPT/HCPCS: 36415; 86850; 86900; 86920 ==

== ENCOUNTER 2022-08-11 08:17 | Oncology outpatient (recurring) (ONCR) | payer MEDICAID, SELFPAY ==
[2022-07-13] VITALS (10 sets, daily range): BP systolic 114–130; BP diastolic 67–77; PULSE 60–95; RESP 18; TEMP 36.6–37.1; O2SAT 94–99
[2022-07-13 09:41] LABS: Basophils # 0.1 10^3/uL (0.0-0.1); Eosinophils # 0.2 10^3/uL (0.0-0.8); Eosinophils % 2.5 %; Hematocrit 27.8 % (42.0-52.0); Hemoglobin 8.1 g/dL (11.7-16.6); Lymphocytes # 0.9 10^3/uL (0.8-4.8); Lymphocytes % 14.2 %; Mean Corpuscular HGB Conc 29.1 g/dL (30.0-36.0); Mean Corpuscular Hemoglobin 31.6 pg (28.0-34.0); Mean Corpuscular Volume 108.6 fl (80-94); Mean Platelet Volume 9.1 fL (7.4-10.4); Monocytes # 0.6 10^3/uL (0.2-0.9); Monocytes % 9.2 %; Neutrophils # 4.17 10^3/uL (1.8-7.7); Neutrophils % 68.8 %; Nucleated Red Blood Cells # 0.1 /100WBC; Nucleated Red Blood Cells % 1.5 %; Platelet Count 158 10^3/cmm (130-400); Red Blood Count 2.56 10^6/uL (4.1-5.3); Red Cell Distribution Width 27.2 % (12.1-15.1); White Blood Count 6.1 10^3/uL (4.0-10.0)
[2022-07-13 09:59] LABS: Alanine Aminotransferase 29 U/L (0-41); Albumin Level 3.7 g/dL (3.5-5.2); Alkaline Phosphatase 312 U/L (40-130); Anion Gap 15.2 (5-19); Aspartate Amino Transferase 67 U/L (0-40); Blood Urea Nitrogen 11 mg/dL (8-23); Calcium 8.7 mg/dL (8.5-10.5); Carbon Dioxide 25 mmol/L (22-29); Chloride 104 mmol/L (98-107); Ferritin 470 ng/mL (30-400); Globulin 2.2 g/dL (1.3-4.6); Glomerular Filtration Rate 86.1 mL/min (90-130); Glucose 147 mg/dL (65-115); Iron 148 ug/dL (59-158); Osmolality Calculated 292 mOsm/kg (285-295); Percent Saturation 43.2 % (20-50); Potassium 4.2 mmol/L (3.5-5.1); Sodium 140 mmol/L (136-145); Total Iron Binding Capacity 342 mcg/dl; Total Protein 5.9 g/dL (6.6-8.7); Unsaturated Iron Binding 194 ug/dL (112-347)
[2022-07-13] MEDS: diphenhydrAMINE 25 mg Capsule PO (11:13)
[2022-07-13] MEDS: acetaminophen 325 mg Tablet 650 MG PO (11:13)
[2022-07-13] MEDS: sodium chloride 0.9% 250 ML 75 ML IV (11:21)
[2022-07-13] MEDS: FUROsemide 10 mg/mL SDV 2mL 20 MG IVP ×2 (13:03→13:11)
[2022-07-27] VITALS (10 sets, daily range): BP systolic 118–144; BP diastolic 67–79; PULSE 87–97; RESP 16–18; TEMP 36.2–36.9; O2SAT 97–100
[2022-07-27] MEDS: sodium chloride 0.9% 250 ML IV (09:37)
[2022-07-27] MEDS: diphenhydrAMINE 25 mg Capsule PO (09:38)
[2022-07-27] MEDS: acetaminophen 325 mg Tablet 650 MG PO (09:38)
[2022-07-27] MEDS: FUROsemide 10 mg/mL SDV 2mL 20 MG IVP (11:38)
--- NOTE | 2022-07-27 12:20 | PC.NURSE ---
Total volume of blood in bag was 262 mL
[2022-08-02 13:02] LABS: Basophils % 0.3 %; Eosinophils # 0.1 10^3/uL (0.0-0.8); Lymphocytes # 0.7 10^3/uL (0.8-4.8); Lymphocytes % 11.9 %; Mean Corpuscular HGB Conc 28.6 g/dL (30.0-36.0); Mean Corpuscular Volume 112.2 fl (80-94); Mean Platelet Volume 8.9 fL (7.4-10.4); Monocytes # 0.6 10^3/uL (0.2-0.9); Monocytes % 9.6 %; Neutrophils # 4.37 10^3/uL (1.8-7.7); Neutrophils % 76.5 %; Nucleated Red Blood Cells % 0.5 %; Platelet Count 183 10^3/cmm (130-400); Red Blood Count 1.81 10^6/uL (4.1-5.3); Red Cell Distribution Width 19.8 % (12.1-15.1); White Blood Count 5.7 10^3/uL (4.0-10.0)
[2022-08-02 13:15] LABS: Hematocrit 20.3 % (42.0-52.0); Hemoglobin 5.8 g/dL (11.7-16.6)
[2022-08-03] VITALS (17 sets, daily range): BP systolic 110–131; BP diastolic 58–75; PULSE 86–110; RESP 16–18; TEMP 36.2–37.2; O2SAT 95–100
[2022-08-03] MEDS: sodium chloride 0.9% 100 mL Bag 250 ML IV (08:28)
[2022-08-03] MEDS: acetaminophen 325 mg Tablet 650 MG PO (08:28)
[2022-08-03] MEDS: diphenhydrAMINE 25 mg Capsule PO (08:29)
[2022-08-09] VITALS (11 sets, daily range): BP systolic 94–121; BP diastolic 56–64; PULSE 94–97; RESP 18; TEMP 36.6–37.1; O2SAT 94–100
[2022-08-09 08:58] LABS: Basophils % 0.5 %; Eosinophils # 0.1 10^3/uL (0.0-0.8); Eosinophils % 1.8 %; Lymphocytes # 0.7 10^3/uL (0.8-4.8); Lymphocytes % 11.8 %; Mean Corpuscular HGB Conc 28.7 g/dL (30.0-36.0); Mean Corpuscular Hemoglobin 30.7 pg (28.0-34.0); Mean Corpuscular Volume 106.8 fl (80-94); Mean Platelet Volume 10.3 fL (7.4-10.4); Monocytes # 0.6 10^3/uL (0.2-0.9); Monocytes % 10.6 %; Neutrophils # 4.49 10^3/uL (1.8-7.7); Neutrophils % 74.6 %; Nucleated Red Blood Cells % 0.5 %; Platelet Count 195 10^3/cmm (130-400); Red Blood Count 1.76 10^6/uL (4.1-5.3); Red Cell Distribution Width 19.4 % (12.1-15.1)
[2022-08-09 09:04] LABS: Hematocrit 18.8 % (42.0-52.0); Hemoglobin 5.4 g/dL (11.7-16.6)
[2022-08-09 09:48] LABS: Reticulocyte % 9.4 % (0.5-2.0)
[2022-08-09] MEDS: sodium chloride 0.9% 100 mL Bag 50 ML IV (10:00)
[2022-08-09] MEDS: acetaminophen 325 mg Tablet 650 MG PO (10:30)
[2022-08-09] MEDS: diphenhydrAMINE 25 mg Capsule PO (10:30)
[2022-08-09] MEDS: sodium chloride 0.9% 250 ML 75 ML IV ×2 (10:31→10:42)
[2022-08-09 10:57] LABS: Lactate Dehydrogenase 261 U/L (135-225)
[2022-08-09] MEDS: FUROsemide 10 mg/mL SDV 2mL 20 MG IVP (12:58)
[2022-08-10 08:50] LABS: Basophils # 0.1 10^3/uL (0.0-0.1); Basophils % 0.7 %; Eosinophils # 0.1 10^3/uL (0.0-0.8); Eosinophils % 1.5 %; Hematocrit 21.8 % (42.0-52.0); Hemoglobin 6.8 g/dL (11.7-16.6); Lymphocytes # 0.7 10^3/uL (0.8-4.8); Lymphocytes % 9.2 %; Mean Corpuscular HGB Conc 31.2 g/dL (30.0-36.0); Mean Corpuscular Hemoglobin 31.1 pg (28.0-34.0); Mean Corpuscular Volume 99.5 fl (80-94); Mean Platelet Volume 10.5 fL (7.4-10.4); Monocytes # 0.8 10^3/uL (0.2-0.9); Monocytes % 11.1 %; Neutrophils # 5.83 10^3/uL (1.8-7.7); Neutrophils % 76.8 %; Nucleated Red Blood Cells % 0.5 %; Platelet Count 209 10^3/cmm (130-400); Red Blood Count 2.19 10^6/uL (4.1-5.3); Red Cell Distribution Width 20.1 % (12.1-15.1); White Blood Count 7.6 10^3/uL (4.0-10.0)
[2022-08-10 08:55] VITALS: BP 97/42; PULSE 92; RESP 18; TEMP 36.7; O2SAT 96
[2022-08-10] MEDS: diphenhydrAMINE 25 mg Capsule PO (09:23)
[2022-08-10] MEDS: acetaminophen 325 mg Tablet 650 MG PO (09:26)
[2022-08-10] MEDS: sodium chloride 0.9% 250 ML IV (10:08)
[2022-08-10 10:10] VITALS: BP 102/65; PULSE 95; RESP 18; TEMP 36.9; O2SAT 98
[2022-08-10 11:10] VITALS: BP 121/64; PULSE 100; RESP 18; TEMP 36.6; O2SAT 98
[2022-08-10 11:35] VITALS: BP 116/72; PULSE 94; RESP 18; TEMP 36.9; O2SAT 98
[2022-08-10 12:05] VITALS: BP 101/74; PULSE 91; RESP 18; TEMP 36.6; O2SAT 98
[2022-08-10] MEDS: FUROsemide 10 mg/mL SDV 2mL 20 MG IVP (12:05)
--- NOTE | 2022-08-10 16:38 | PC.NURSE ---
patient was visited with dr sterling with new orders for cbc in am and he is referring him to [facility] tomorrow for gi vsiit.mm
[2022-08-11 08:43] LABS: Basophils # 0.1 10^3/uL (0.0-0.1); Basophils % 0.7 %; Eosinophils # 0.1 10^3/uL (0.0-0.8); Eosinophils % 1.8 %; Hematocrit 26.9 % (42.0-52.0); Hemoglobin 8.4 g/dL (11.7-16.6); Lymphocytes # 0.8 10^3/uL (0.8-4.8); Lymphocytes % 11.1 %; Mean Corpuscular HGB Conc 31.2 g/dL (30.0-36.0); Mean Corpuscular Hemoglobin 30.1 pg (28.0-34.0); Mean Corpuscular Volume 96.4 fl (80-94); Mean Platelet Volume 10.2 fL (7.4-10.4); Monocytes # 0.9 10^3/uL (0.2-0.9); Monocytes % 11.9 %; Nucleated Red Blood Cells % 0.4 %; Platelet Count 208 10^3/cmm (130-400); Red Blood Count 2.79 10^6/uL (4.1-5.3); Red Cell Distribution Width 19.9 % (12.1-15.1); White Blood Count 7.4 10^3/uL (4.0-10.0)
[2022-08-11] MEDS: acetaminophen 325 mg Tablet 650 MG PO (09:14)
[2022-08-11] MEDS: diphenhydrAMINE 25 mg Capsule PO (09:15)
[2022-08-11] MEDS: sodium chloride 0.9% 250 ML IV (09:15)
[2022-08-11 09:39] VITALS: BP 117/77; PULSE 98; RESP 16; TEMP 36.5; O2SAT 98
[2022-08-11 09:55] VITALS: BP 120/74; PULSE 96; RESP 16; TEMP 37.2; O2SAT 99
[2022-08-11 10:10] VITALS: BP 111/69; PULSE 94; RESP 16; TEMP 36.9; O2SAT 99
[2022-08-11 11:10] VITALS: BP 112/64; PULSE 98; RESP 16; TEMP 36.7; O2SAT 99
[2022-08-11 11:25] VITALS: BP 119/76; PULSE 92; RESP 16; TEMP 36.7; O2SAT 98
[2022-08-11 11:35] VITALS: BP 119/76; PULSE 92; RESP 16; TEMP 36.7; O2SAT 98
== END 2022-08-11 23:59 | disposition home or self-care (01) ==
PROVIDERS: Nurse Practitioner; PCP Family Medicine Adult Medicine; Visit Provider Internal Medicine Medical Oncology
DX: D64.9 Anemia, unspecified (principal); Z53.9 Procedure and treatment not carried out, unspecified reason
CPT/HCPCS: 36415; 36430; 80053; 82728; 83010; 83540; 83550; 83615; 85025; 85045; 86850; 86900; 86920; 96374; 96375; J1940; J7050; P9016

== ENCOUNTER 2022-09-11 08:00 | Oncology outpatient (recurring) (ONCR) | payer MEDICAID, SELFPAY ==
[2022-08-16 09:38] LABS: Basophils # 0.1 10^3/uL (0.0-0.1); Basophils % 0.9 %; Eosinophils # 0.1 10^3/uL (0.0-0.8); Eosinophils % 1.7 %; Hematocrit 23.8 % (42.0-52.0); Hemoglobin 6.8 g/dL (11.7-16.6); Lymphocytes # 0.6 10^3/uL (0.8-4.8); Lymphocytes % 10.1 %; Mean Corpuscular HGB Conc 28.6 g/dL (30.0-36.0); Mean Corpuscular Volume 104.8 fl (80-94); Mean Platelet Volume 9.9 fL (7.4-10.4); Monocytes # 0.7 10^3/uL (0.2-0.9); Monocytes % 10.9 %; Neutrophils % 75.6 %; Nucleated Red Blood Cells % 0.3 %; Platelet Count 270 10^3/cmm (130-400); Red Blood Count 2.27 10^6/uL (4.1-5.3); Red Cell Distribution Width 18.5 % (12.1-15.1); White Blood Count 6.4 10^3/uL (4.0-10.0)
[2022-08-16] MEDS: acetaminophen 325 mg Tablet 650 MG PO (10:21)
[2022-08-16] MEDS: diphenhydrAMINE 25 mg Capsule PO (10:22)
[2022-08-16] MEDS: sodium chloride 0.9% 100 mL Bag 250 ML IV (10:22)
[2022-08-16 12:23] VITALS: BP 118/56; PULSE 94; RESP 16; TEMP 36.4; O2SAT 98
[2022-08-16] MEDS: FUROsemide 10 mg/mL SDV 2mL 20 MG IVP (14:11)
[2022-08-16 16:17] VITALS: BP 118/72; PULSE 79; TEMP 36.4; O2SAT 99
[2022-08-18 08:27] LABS: Basophils % 0.7 %; Eosinophils # 0.1 10^3/uL (0.0-0.8); Eosinophils % 2.1 %; Hematocrit 24.5 % (42.0-52.0); Hemoglobin 7.6 g/dL (11.7-16.6); Lymphocytes # 0.6 10^3/uL (0.8-4.8); Mean Corpuscular Hemoglobin 30.5 pg (28.0-34.0); Mean Corpuscular Volume 98.4 fl (80-94); Mean Platelet Volume 9.5 fL (7.4-10.4); Monocytes # 0.6 10^3/uL (0.2-0.9); Monocytes % 9.9 %; Neutrophils # 4.66 10^3/uL (1.8-7.7); Neutrophils % 76.8 %; Nucleated Red Blood Cells % 0.5 %; Platelet Count 256 10^3/cmm (130-400); Red Blood Count 2.49 10^6/uL (4.1-5.3); Red Cell Distribution Width 18.4 % (12.1-15.1); White Blood Count 6.1 10^3/uL (4.0-10.0)
[2022-08-18] MEDS: acetaminophen 325 mg Tablet 650 MG PO (08:52)
[2022-08-18] MEDS: diphenhydrAMINE 25 mg Capsule PO (08:53)
[2022-08-18] MEDS: sodium chloride 0.9% 100 mL Bag 50 ML IV (08:55)
[2022-08-18 09:30] VITALS: BP 119/73; PULSE 98; RESP 18; TEMP 36.2; O2SAT 97
[2022-08-18 09:45] VITALS: BP 112/69; PULSE 95; RESP 16; TEMP 36.4; O2SAT 97
[2022-08-18 10:05] VITALS: BP 128/76; PULSE 98; RESP 18; TEMP 36.4; O2SAT 100
[2022-08-18 11:20] VITALS: BP 108/66; PULSE 92; RESP 16; TEMP 36.7
[2022-08-18 11:25] VITALS: BP 108/66; PULSE 92; RESP 16; TEMP 36.7; O2SAT 98
[2022-08-21] VITALS (8 sets, daily range): BP systolic 110–121; BP diastolic 68–73; PULSE 78–92; RESP 16–18; TEMP 36.2–37; O2SAT 16–99
[2022-08-21 09:36] LABS: Basophils % 0.4 %; Eosinophils # 0.1 10^3/uL (0.0-0.8); Eosinophils % 1.6 %; Hematocrit 24.8 % (42.0-52.0); Hemoglobin 7.3 g/dL (11.7-16.6); Lymphocytes # 0.5 10^3/uL (0.8-4.8); Lymphocytes % 7.5 %; Mean Corpuscular HGB Conc 29.4 g/dL (30.0-36.0); Mean Corpuscular Hemoglobin 29.7 pg (28.0-34.0); Mean Corpuscular Volume 100.8 fl (80-94); Mean Platelet Volume 9.7 fL (7.4-10.4); Monocytes # 0.7 10^3/uL (0.2-0.9); Monocytes % 10.6 %; Neutrophils # 5.38 10^3/uL (1.8-7.7); Neutrophils % 79.5 %; Nucleated Red Blood Cells % 0 %; Platelet Count 247 10^3/cmm (130-400); Red Blood Count 2.46 10^6/uL (4.1-5.3); Red Cell Distribution Width 18.2 % (12.1-15.1); White Blood Count 6.8 10^3/uL (4.0-10.0)
[2022-08-21] MEDS: acetaminophen 325 mg Tablet 650 MG PO (11:13)
[2022-08-21] MEDS: sodium chloride 0.9% 100 mL Bag 250 ML IV (11:14)
[2022-08-21] MEDS: diphenhydrAMINE 25 mg Capsule PO (11:14)
[2022-08-23] VITALS (10 sets, daily range): BP systolic 106–112; BP diastolic 69–74; PULSE 85–92; RESP 18; TEMP 36.6; O2SAT 92–99
[2022-08-23 09:06] LABS: Basophils % 0.6 %; Eosinophils # 0.1 10^3/uL (0.0-0.8); Eosinophils % 1.4 %; Hematocrit 24.4 % (42.0-52.0); Hemoglobin 7.3 g/dL (11.7-16.6); Lymphocytes # 0.6 10^3/uL (0.8-4.8); Lymphocytes % 9.2 %; Mean Corpuscular HGB Conc 29.9 g/dL (30.0-36.0); Mean Corpuscular Hemoglobin 29.7 pg (28.0-34.0); Mean Corpuscular Volume 99.2 fl (80-94); Mean Platelet Volume 9.9 fL (7.4-10.4); Monocytes # 0.7 10^3/uL (0.2-0.9); Monocytes % 10.5 %; Neutrophils # 5.38 10^3/uL (1.8-7.7); Neutrophils % 77.7 %; Nucleated Red Blood Cells % 0.3 %; Platelet Count 230 10^3/cmm (130-400); Red Blood Count 2.46 10^6/uL (4.1-5.3); Red Cell Distribution Width 19.5 % (12.1-15.1); White Blood Count 6.9 10^3/uL (4.0-10.0)
[2022-08-23 09:27] LABS: Alanine Aminotransferase 17 U/L (0-41); Albumin Level 2.8 g/dL (3.5-5.2); Alkaline Phosphatase 367 U/L (40-130); Blood Urea Nitrogen 11 mg/dL (8-23); Calcium 8.6 mg/dL (8.5-10.5); Carbon Dioxide 23 mmol/L (22-29); Chloride 103 mmol/L (98-107); Globulin 3.2 g/dL (1.3-4.6); Glomerular Filtration Rate 76.2 mL/min (90-130); Glucose 151 mg/dL (65-115); Osmolality Calculated 288 mOsm/kg (285-295); Sodium 138 mmol/L (136-145)
[2022-08-23 09:29] LABS: Aspartate Amino Transferase 64 U/L (0-40)
[2022-08-23] MEDS: acetaminophen 325 mg Tablet 650 MG PO (10:12)
[2022-08-23] MEDS: diphenhydrAMINE 25 mg Capsule PO (10:13)
[2022-08-23] MEDS: sodium chloride 0.9% 250 ML IV (10:25)
[2022-08-23 12:32] LABS: Magnesium 1.8 mg/dL (1.7-2.3)
[2022-08-23] MEDS: FUROsemide 10 mg/mL SDV 2mL 20 MG IVP (12:57)
[2022-08-25] VITALS (11 sets, daily range): BP systolic 109–130; BP diastolic 69–78; PULSE 74–88; RESP 16; TEMP 36.1–36.4; O2SAT 97–99
[2022-08-25 08:18] LABS: Basophils # 0.1 10^3/uL (0.0-0.1); Basophils % 0.7 %; Eosinophils # 0.1 10^3/uL (0.0-0.8); Eosinophils % 1.5 %; Hematocrit 26.5 % (42.0-52.0); Hemoglobin 8.1 g/dL (11.7-16.6); Lymphocytes # 0.6 10^3/uL (0.8-4.8); Lymphocytes % 8.3 %; Mean Corpuscular HGB Conc 30.6 g/dL (30.0-36.0); Mean Corpuscular Hemoglobin 29.5 pg (28.0-34.0); Mean Corpuscular Volume 96.4 fl (80-94); Mean Platelet Volume 9.1 fL (7.4-10.4); Monocytes # 0.7 10^3/uL (0.2-0.9); Monocytes % 10.2 %; Neutrophils # 5.43 10^3/uL (1.8-7.7); Neutrophils % 78.7 %; Nucleated Red Blood Cells % 0 %; Platelet Count 209 10^3/cmm (130-400); Red Blood Count 2.75 10^6/uL (4.1-5.3); White Blood Count 6.9 10^3/uL (4.0-10.0)
[2022-08-25] MEDS: acetaminophen 325 mg Tablet 650 MG PO (09:06)
[2022-08-25] MEDS: diphenhydrAMINE 25 mg Capsule PO (09:06)
[2022-08-25] MEDS: sodium chloride 0.9% 100 mL Bag 250 ML IV (09:06)
[2022-08-25] MEDS: FUROsemide 10 mg/mL SDV 2mL 20 MG IVP (11:17)
[2022-08-28 08:41] LABS: Basophils # 0.1 10^3/uL (0.0-0.1); Basophils % 0.7 %; Eosinophils # 0.1 10^3/uL (0.0-0.8); Eosinophils % 2.1 %; Hematocrit 30.1 % (42.0-52.0); Hemoglobin 9.1 g/dL (11.7-16.6); Lymphocytes # 0.6 10^3/uL (0.8-4.8); Lymphocytes % 9.1 %; Mean Corpuscular HGB Conc 30.2 g/dL (30.0-36.0); Mean Corpuscular Hemoglobin 29.6 pg (28.0-34.0); Monocytes # 0.6 10^3/uL (0.2-0.9); Monocytes % 9.1 %; Neutrophils # 5.24 10^3/uL (1.8-7.7); Neutrophils % 78.6 %; Nucleated Red Blood Cells % 0 %; Platelet Count 215 10^3/cmm (130-400); Red Blood Count 3.07 10^6/uL (4.1-5.3); Red Cell Distribution Width 19.4 % (12.1-15.1); White Blood Count 6.7 10^3/uL (4.0-10.0)
[2022-08-31] VITALS (10 sets, daily range): BP systolic 106–130; BP diastolic 52–68; PULSE 62–93; RESP 16–18; TEMP 36.6–37.1; O2SAT 96–100
[2022-08-31 08:26] LABS: Basophils # 0.1 10^3/uL (0.0-0.1); Basophils % 0.7 %; Eosinophils # 0.1 10^3/uL (0.0-0.8); Eosinophils % 1.9 %; Hematocrit 23.7 % (42.0-52.0); Hemoglobin 7.1 g/dL (11.7-16.6); Lymphocytes # 0.7 10^3/uL (0.8-4.8); Lymphocytes % 9.4 %; Mean Corpuscular Hemoglobin 30.6 pg (28.0-34.0); Mean Corpuscular Volume 102.2 fl (80-94); Monocytes # 0.6 10^3/uL (0.2-0.9); Monocytes % 8.8 %; Neutrophils # 5.49 10^3/uL (1.8-7.7); Neutrophils % 78.3 %; Nucleated Red Blood Cells % 0 %; Platelet Count 254 10^3/cmm (130-400); Red Blood Count 2.32 10^6/uL (4.1-5.3); Red Cell Distribution Width 19.6 % (12.1-15.1)
[2022-08-31 08:53] LABS: Alanine Aminotransferase 19 U/L (0-41); Alkaline Phosphatase 429 U/L (40-130); Blood Urea Nitrogen 12 mg/dL (8-23); Calcium 8.8 mg/dL (8.5-10.5); Carbon Dioxide 24 mmol/L (22-29); Chloride 102 mmol/L (98-107); Ferritin 60 ng/mL (30-400); Globulin 3.5 g/dL (1.3-4.6); Glomerular Filtration Rate 68.3 mL/min (90-130); Glucose 184 mg/dL (65-115); Iron 39 ug/dL (59-158); Osmolality Calculated 291 mOsm/kg (285-295); Sodium 138 mmol/L (136-145); Total Protein 6.5 g/dL (6.6-8.7)
[2022-08-31 08:55] LABS: Anion Gap 17.3 (5-19); Aspartate Amino Transferase 88 U/L (0-40); Potassium 5.3 mmol/L (3.5-5.1)
[2022-08-31 08:58] LABS: Percent Saturation 11.9 % (20-50); Total Iron Binding Capacity 327 mcg/dl; Unsaturated Iron Binding 288 ug/dL (112-347)
[2022-08-31] MEDS: acetaminophen 325 mg Tablet 650 MG PO (09:53)
[2022-08-31] MEDS: diphenhydrAMINE 25 mg Capsule PO (09:54)
[2022-08-31] MEDS: sodium chloride 0.9% 100 mL Bag 250 ML IV (09:54)
[2022-08-31] MEDS: FUROsemide 10 mg/mL SDV 2mL 20 MG IVP (12:22)
[2022-09-04] VITALS (10 sets, daily range): BP systolic 107–117; BP diastolic 59–64; PULSE 74–97; RESP 16–18; TEMP 36.3–36.6; O2SAT 95–99
[2022-09-04 08:25] LABS: Basophils # 0.1 10^3/uL (0.0-0.1); Basophils % 0.6 %; Eosinophils # 0.2 10^3/uL (0.0-0.8); Eosinophils % 2.3 %; Hematocrit 23.2 % (42.0-52.0); Hemoglobin 6.9 g/dL (11.7-16.6); Lymphocytes # 0.6 10^3/uL (0.8-4.8); Mean Corpuscular HGB Conc 29.7 g/dL (30.0-36.0); Mean Corpuscular Hemoglobin 29.5 pg (28.0-34.0); Mean Corpuscular Volume 99.1 fl (80-94); Mean Platelet Volume 9.6 fL (7.4-10.4); Monocytes # 0.7 10^3/uL (0.2-0.9); Neutrophils # 6.33 10^3/uL (1.8-7.7); Neutrophils % 79.1 %; Nucleated Red Blood Cells % 0 %; Platelet Count 247 10^3/cmm (130-400); Red Blood Count 2.34 10^6/uL (4.1-5.3); Red Cell Distribution Width 20.3 % (12.1-15.1)
[2022-09-04 08:35] LABS: INR 1.05 (0.8-1.2)
[2022-09-04 08:36] LABS: Fibrinogen 547 mg/dL (174-498); Partial Thromboplastin Time 36.1 SECONDS (23.9-36.7)
[2022-09-04] MEDS: sodium chloride 0.9% 100 mL Bag 250 ML IV (10:17)
[2022-09-04] MEDS: diphenhydrAMINE 25 mg Capsule PO (10:17)
[2022-09-04] MEDS: acetaminophen 325 mg Tablet 650 MG PO (10:17)
[2022-09-06 10:57] LABS: Basophils % 0.6 %; Eosinophils # 0.1 10^3/uL (0.0-0.8); Hematocrit 24.7 % (42.0-52.0); Hemoglobin 7.6 g/dL (11.7-16.6); Lymphocytes # 0.6 10^3/uL (0.8-4.8); Lymphocytes % 9.7 %; Mean Corpuscular HGB Conc 30.8 g/dL (30.0-36.0); Mean Corpuscular Hemoglobin 30.2 pg (28.0-34.0); Mean Platelet Volume 9.1 fL (7.4-10.4); Monocytes # 0.7 10^3/uL (0.2-0.9); Monocytes % 10.5 %; Neutrophils # 4.84 10^3/uL (1.8-7.7); Neutrophils % 75.9 %; Nucleated Red Blood Cells % 0.3 %; Platelet Count 222 10^3/cmm (130-400); Red Blood Count 2.52 10^6/uL (4.1-5.3); Red Cell Distribution Width 19.6 % (12.1-15.1); White Blood Count 6.4 10^3/uL (4.0-10.0)
[2022-09-07] VITALS (11 sets, daily range): BP systolic 108–140; BP diastolic 70–78; PULSE 78–98; RESP 18–19; TEMP 36.1–37.2; O2SAT 94–99
[2022-09-07] MEDS: acetaminophen 325 mg Tablet 650 MG PO (08:29)
[2022-09-07] MEDS: diphenhydrAMINE 25 mg Capsule PO (08:30)
[2022-09-07] MEDS: sodium chloride 0.9% 250 ML 75 ML IV (08:45)
[2022-09-07] MEDS: FUROsemide 10 mg/mL SDV 2mL 20 MG IVP (10:58)
[2022-09-11] VITALS (10 sets, daily range): BP systolic 119–135; BP diastolic 69–77; PULSE 90–96; RESP 16–18; TEMP 36.8–37.2; O2SAT 97–99
[2022-09-11 08:53] LABS: Basophils # 0.1 10^3/uL (0.0-0.1); Basophils % 0.7 %; Eosinophils # 0.1 10^3/uL (0.0-0.8); Eosinophils % 1.8 %; Hematocrit 21.1 % (42.0-52.0); Lymphocytes # 0.5 10^3/uL (0.8-4.8); Lymphocytes % 7.2 %; Mean Corpuscular HGB Conc 29.9 g/dL (30.0-36.0); Mean Corpuscular Hemoglobin 29.9 pg (28.0-34.0); Mean Platelet Volume 9.5 fL (7.4-10.4); Monocytes # 0.6 10^3/uL (0.2-0.9); Monocytes % 9.3 %; Neutrophils # 5.36 10^3/uL (1.8-7.7); Neutrophils % 80.4 %; Nucleated Red Blood Cells % 0 %; Platelet Count 226 10^3/cmm (130-400); Red Blood Count 2.11 10^6/uL (4.1-5.3); Red Cell Distribution Width 18.6 % (12.1-15.1); White Blood Count 6.7 10^3/uL (4.0-10.0)
[2022-09-11 08:59] LABS: Hemoglobin 6.3 g/dL (11.7-16.6)
[2022-09-11] MEDS: sodium chloride 0.9% 250 ML IV (10:17)
[2022-09-11] MEDS: acetaminophen 325 mg Tablet 650 MG PO (10:17)
[2022-09-11] MEDS: diphenhydrAMINE 25 mg Capsule PO (10:17)
[2022-09-11] MEDS: FUROsemide 10 mg/mL SDV 2mL 20 MG IVP (12:20)
== END 2022-09-11 23:59 | disposition home or self-care (01) ==
PROVIDERS: PCP Family Medicine Adult Medicine; Visit Provider Internal Medicine Medical Oncology
DX: D64.9 Anemia, unspecified (principal)
CPT/HCPCS: 36415; 36430; 80053; 82728; 83540; 83550; 83735; 85025; 85384; 85610; 85730; 86850; 86900; 86920; 96374; 96375; J1940; J7050; P9016; P9040

== ENCOUNTER 2022-09-12 07:00 | Outpatient (CLI) | payer MEDICAID, SELFPAY ==
--- NOTE | 2022-09-12 07:00 | USCV_ITS ---
Arpit Austin Age: 62 Gender: M : 1960 Exam Date: 09/12/2022 07:26 Ordering Phys: Dajuan Grande MD Technologist: CT [place]am [place] [facility] Indication: ? sma size Findings Could not identify the aorta or SMA due to bowel gas. Conclusions Cannot identify the SMA, obscured by GI content. Dr. Cecile Julian DO (Electronically Signed) Final Date: 12 September 2022 10:39 S
== END 2022-09-12 07:01 | disposition home or self-care (01) ==
LOC: RAD 07:01
PROVIDERS: PCP Family Medicine Adult Medicine; Visit Provider Surgery
DX: R16.2 Hepatomegaly with splenomegaly, not elsewhere classified (principal)
CPT/HCPCS: 93975

== ENCOUNTER 2022-10-06 08:47 | Outpatient (CLI) | payer MEDICAID, SELFPAY ==
[2022-10-06] VITALS (10 sets, daily range): BP systolic 108–121; BP diastolic 56–76; PULSE 83–90; RESP 14–18; TEMP 36.4–36.8; O2SAT 96–98
[2022-10-06 08:21] LABS: Hematocrit 21.5 % (42.0-52.0); Hemoglobin 6.7 g/dL (11.7-16.6)
[2022-10-06 10:00] LABS: Basophils % 0.3 %; Eosinophils # 0.1 10^3/uL (0.0-0.8); Eosinophils % 1.8 %; Lymphocytes # 1.4 10^3/uL (0.8-4.8); Lymphocytes % 18.9 %; Mean Corpuscular HGB Conc 30.4 g/dL (30.0-36.0); Mean Corpuscular Hemoglobin 29.3 pg (28.0-34.0); Mean Corpuscular Volume 96.2 fl (80-94); Mean Platelet Volume 9.7 fL (7.4-10.4); Monocytes # 0.6 10^3/uL (0.2-0.9); Neutrophils # 4.85 10^3/uL (1.8-7.7); Neutrophils % 67.8 %; Nucleated Red Blood Cells # 0.1 /100WBC; Nucleated Red Blood Cells % 0.7 %; Platelet Count 224 10^3/cmm (130-400); Red Blood Count 2.39 10^6/uL (4.1-5.3); Red Cell Distribution Width 19.9 % (12.1-15.1); White Blood Count 7.2 10^3/uL (4.0-10.0)
[2022-10-06] MEDS: sodium chloride 0.9% (100 ml) 100 ML (12:54)
== END 2022-10-06 14:50 | disposition home or self-care (01) ==
LOC: LAB 08:50 → MEDSURG 08:51
PROVIDERS: PCP Family Medicine Adult Medicine; Visit Provider Internal Medicine Medical Oncology
DX: D50.0 Iron deficiency anemia secondary to blood loss (chronic) (principal)
CPT/HCPCS: 36415; 36430; 85014; 85018; 85025; 86850; 86900; 86920; P9016

== ENCOUNTER 2022-10-09 08:00 | Oncology outpatient (recurring) (ONCR) | payer MEDICAID, SELFPAY ==
[2022-09-12] VITALS (7 sets, daily range): BP systolic 110–130; BP diastolic 65–79; PULSE 92–102; RESP 18; TEMP 36.6–37; O2SAT 94–98
[2022-09-12] MEDS: diphenhydrAMINE 25 mg Capsule PO (08:22)
[2022-09-12] MEDS: acetaminophen 325 mg Tablet 650 MG PO (08:23)
[2022-09-12] MEDS: sodium chloride 0.9% 100 mL Bag 50 ML IV ×2 (08:25→11:35)
[2022-09-14] VITALS (11 sets, daily range): BP systolic 99–121; BP diastolic 61–74; PULSE 64–94; RESP 16–18; TEMP 36.6–37.3; O2SAT 96–98
[2022-09-14 08:25] LABS: Basophils # 0.1 10^3/uL (0.0-0.1); Basophils % 0.7 %; Eosinophils # 0.2 10^3/uL (0.0-0.8); Eosinophils % 2.7 %; Hematocrit 22.8 % (42.0-52.0); Hemoglobin 6.9 g/dL (11.7-16.6); Lymphocytes # 0.6 10^3/uL (0.8-4.8); Lymphocytes % 8.8 %; Mean Corpuscular HGB Conc 30.3 g/dL (30.0-36.0); Mean Corpuscular Volume 99.1 fl (80-94); Mean Platelet Volume 9.4 fL (7.4-10.4); Monocytes # 0.7 10^3/uL (0.2-0.9); Monocytes % 9.4 %; Neutrophils # 5.53 10^3/uL (1.8-7.7); Neutrophils % 77.3 %; Nucleated Red Blood Cells % 0.3 %; Platelet Count 228 10^3/cmm (130-400); Red Cell Distribution Width 19.5 % (12.1-15.1); White Blood Count 7.2 10^3/uL (4.0-10.0)
[2022-09-14] MEDS: acetaminophen 325 mg Tablet 650 MG PO (09:24)
[2022-09-14] MEDS: diphenhydrAMINE 25 mg Capsule PO (09:24)
[2022-09-14] MEDS: sodium chloride 0.9% 250 ML IV (09:24)
[2022-09-14] MEDS: FUROsemide 10 mg/mL SDV 2mL 20 MG IVP (11:44)
[2022-09-15] MEDS: diphenhydrAMINE 25 mg Capsule PO (08:06)
[2022-09-15] MEDS: acetaminophen 325 mg Tablet 650 MG PO (08:06)
[2022-09-15 08:08] VITALS: BP 122/64; PULSE 88; RESP 18; TEMP 36.9; O2SAT 98
[2022-09-15] MEDS: sodium chloride 0.9% 250 ML IV (08:15)
[2022-09-15 08:25] VITALS: BP 114/72; PULSE 100; RESP 18; TEMP 37; O2SAT 97
[2022-09-15 08:40] VITALS: BP 114/64; PULSE 95; RESP 16; TEMP 36.9; O2SAT 98
[2022-09-15 09:40] VITALS: BP 112/69; PULSE 90; RESP 16; TEMP 37.1; O2SAT 97
[2022-09-15 10:35] VITALS: BP 112/69; PULSE 90; RESP 16; TEMP 37.1; O2SAT 97
[2022-09-18] VITALS (11 sets, daily range): BP systolic 110–124; BP diastolic 52–79; PULSE 76–94; RESP 16–18; TEMP 36.3–36.9; O2SAT 98–100
[2022-09-18 08:52] LABS: Basophils % 0.6 %; Eosinophils # 0.2 10^3/uL (0.0-0.8); Eosinophils % 3.1 %; Hematocrit 24.5 % (42.0-52.0); Hemoglobin 7.2 g/dL (11.7-16.6); Lymphocytes # 0.6 10^3/uL (0.8-4.8); Lymphocytes % 8.9 %; Mean Corpuscular HGB Conc 29.4 g/dL (30.0-36.0); Mean Corpuscular Hemoglobin 29.8 pg (28.0-34.0); Mean Corpuscular Volume 101.2 fl (80-94); Mean Platelet Volume 9.7 fL (7.4-10.4); Monocytes # 0.7 10^3/uL (0.2-0.9); Monocytes % 9.3 %; Neutrophils % 77.1 %; Nucleated Red Blood Cells % 0 %; Platelet Count 235 10^3/cmm (130-400); Red Blood Count 2.42 10^6/uL (4.1-5.3); Red Cell Distribution Width 19.1 % (12.1-15.1)
[2022-09-21 08:30] LABS: Basophils % 0.7 %; Eosinophils # 0.1 10^3/uL (0.0-0.8); Eosinophils % 2.3 %; Hematocrit 22.5 % (42.0-52.0); Hemoglobin 6.6 g/dL (11.7-16.6); Lymphocytes # 0.6 10^3/uL (0.8-4.8); Lymphocytes % 10.5 %; Mean Corpuscular HGB Conc 29.3 g/dL (30.0-36.0); Mean Corpuscular Hemoglobin 29.5 pg (28.0-34.0); Mean Corpuscular Volume 100.4 fl (80-94); Mean Platelet Volume 9.4 fL (7.4-10.4); Monocytes # 0.4 10^3/uL (0.2-0.9); Monocytes % 7.9 %; Neutrophils # 4.32 10^3/uL (1.8-7.7); Neutrophils % 77.9 %; Nucleated Red Blood Cells % 0 %; Platelet Count 203 10^3/cmm (130-400); Red Blood Count 2.24 10^6/uL (4.1-5.3); Red Cell Distribution Width 18.6 % (12.1-15.1); White Blood Count 5.6 10^3/uL (4.0-10.0)
[2022-09-21] MEDS: sodium chloride 0.9% 250 ML IV (10:10)
[2022-09-21] MEDS: acetaminophen 325 mg Tablet 650 MG PO (10:11)
[2022-09-21] MEDS: diphenhydrAMINE 25 mg Capsule PO (10:11)
[2022-09-21 11:05] VITALS: BP 101/66; BP 105/63; PULSE 86; PULSE 88; RESP 18; TEMP 36.9; O2SAT 98
[2022-09-22] MEDS: diphenhydrAMINE 25 mg Capsule PO (08:38)
[2022-09-22] MEDS: acetaminophen 325 mg Tablet 650 MG PO (08:38)
[2022-09-22 10:50] VITALS: BP 111/67; PULSE 88; RESP 16; TEMP 36.7; O2SAT 99
[2022-09-22 11:05] VITALS: BP 111/67; PULSE 88; RESP 16; TEMP 36.6; O2SAT 99
[2022-09-22 11:20] VITALS: BP 113/67; PULSE 86; RESP 16; TEMP 36.9; O2SAT 98
[2022-09-22 11:50] VITALS: BP 111/69; PULSE 84; RESP 16; TEMP 36.7; O2SAT 98
[2022-09-22 12:38] VITALS: BP 121/78; PULSE 87; RESP 16; TEMP 36.7; O2SAT 99
[2022-09-25] VITALS (12 sets, daily range): BP systolic 103–126; BP diastolic 62–76; PULSE 81–90; RESP 18; TEMP 36–37.1; O2SAT 97–99
[2022-09-25 08:58] LABS: Basophils # 0.1 10^3/uL (0.0-0.1); Basophils % 0.9 %; Eosinophils # 0.1 10^3/uL (0.0-0.8); Eosinophils % 2.4 %; Hematocrit 21.4 % (42.0-52.0); Lymphocytes # 0.5 10^3/uL (0.8-4.8); Lymphocytes % 8.9 %; Mean Corpuscular Hemoglobin 29.2 pg (28.0-34.0); Mean Corpuscular Volume 100.9 fl (80-94); Mean Platelet Volume 9.5 fL (7.4-10.4); Monocytes # 0.6 10^3/uL (0.2-0.9); Neutrophils # 4.24 10^3/uL (1.8-7.7); Neutrophils % 76.9 %; Nucleated Red Blood Cells % 0 %; Platelet Count 196 10^3/cmm (130-400); Red Blood Count 2.12 10^6/uL (4.1-5.3); Red Cell Distribution Width 17.4 % (12.1-15.1); White Blood Count 5.5 10^3/uL (4.0-10.0)
[2022-09-25 09:01] LABS: Hemoglobin 6.2 g/dL (11.7-16.6)
[2022-09-25] MEDS: acetaminophen 325 mg Tablet 650 MG PO (09:54)
[2022-09-25] MEDS: sodium chloride 0.9% 250 ML 75 ML IV (09:55)
[2022-09-25] MEDS: diphenhydrAMINE 25 mg Capsule PO (09:55)
[2022-09-25] MEDS: FUROsemide 10 mg/mL SDV 2mL 20 MG IVP (11:48)
[2022-09-26] MEDS: sodium chloride 0.9% 250 mL Bag IV (08:37)
[2022-09-26] MEDS: acetaminophen 325 mg Tablet 650 MG PO (08:37)
[2022-09-26] MEDS: diphenhydrAMINE 25 mg Capsule PO (08:38)
[2022-09-26 08:50] VITALS: BP 107/61; PULSE 86; RESP 18; TEMP 36.8; O2SAT 98
[2022-09-26 10:25] VITALS: BP 120/76; PULSE 84; RESP 18; TEMP 37.1
[2022-09-28] VITALS (11 sets, daily range): BP systolic 105–114; BP diastolic 63–78; PULSE 92–98; RESP 18; TEMP 36.6; O2SAT 97–98
[2022-09-28 09:01] LABS: Basophils # 0.1 10^3/uL (0.0-0.1); Basophils % 1.2 %; Eosinophils # 0.1 10^3/uL (0.0-0.8); Eosinophils % 2.4 %; Hemoglobin 7.1 g/dL (11.7-16.6); Lymphocytes # 0.5 10^3/uL (0.8-4.8); Lymphocytes % 9.4 %; Mean Corpuscular HGB Conc 29.6 g/dL (30.0-36.0); Mean Corpuscular Hemoglobin 28.4 pg (28.0-34.0); Mean Platelet Volume 9.9 fL (7.4-10.4); Monocytes # 0.5 10^3/uL (0.2-0.9); Monocytes % 9.4 %; Neutrophils # 3.92 10^3/uL (1.8-7.7); Neutrophils % 76.8 %; Nucleated Red Blood Cells % 0 %; Platelet Count 221 10^3/cmm (130-400); Red Cell Distribution Width 19.4 % (12.1-15.1); White Blood Count 5.1 10^3/uL (4.0-10.0)
[2022-09-28] MEDS: acetaminophen 325 mg Tablet 650 MG PO (10:14)
[2022-09-28] MEDS: sodium chloride 0.9% 250 mL Bag IV (10:14)
[2022-09-28] MEDS: diphenhydrAMINE 25 mg Capsule PO (10:15)
--- NOTE | 2022-09-28 11:10 | XR_ITS ---
WS: [id number] Exam: XR chest 2V* [id number] Date/Time of Exam: 09/28/2022 11:10 AM Reason For Exam: cough Comparison 03/22/2022. The lungs are fully expanded. Chronic changes in the right lower lung zone. Normal cardiomediastinal silhouette for technique. Bilateral apical pleural thickening. Bony structures are intact. Increased thoracic kyphosis. XR/XR chest 2V* [id number] IMPRESSION: 1. Chronic changes in the right basal region. No acute process noted.
[2022-09-28] MEDS: FUROsemide 10 mg/mL SDV 2mL 20 MG IVP (12:35)
--- NOTE | 2022-09-28 16:15 | PC.NURSE ---
Addendum entered by Bridgett Patel RN 09/28/22 16:17: New orders for tesslon pearls sent into [facility] [place] along the over the counter Mucinex per Dr Odell//alyson Original Note: Patient has a non-productive cough with continous hacking. Dr Odell notified with Chest Xray done with no issues noted.alyson
[2022-09-29] MEDS: acetaminophen 325 mg Tablet 650 MG PO (08:19)
[2022-09-29] MEDS: sodium chloride 0.9% 250 mL Bag IV (08:19)
[2022-09-29] MEDS: diphenhydrAMINE 25 mg Capsule PO (08:20)
[2022-09-29 08:30] VITALS: BP 99/56; PULSE 97; RESP 16; TEMP 37; O2SAT 97
[2022-09-29 08:45] VITALS: BP 105/61; PULSE 97; RESP 16; TEMP 36.3; O2SAT 99
[2022-09-29 09:00] VITALS: BP 110/64; PULSE 90; RESP 16; TEMP 37.1; O2SAT 96
[2022-09-29 09:30] VITALS: BP 105/58; PULSE 95; RESP 16; TEMP 37.1
[2022-09-29 10:00] VITALS: BP 112/63; PULSE 96; RESP 16; TEMP 36.8; O2SAT 96
[2022-09-29 10:05] VITALS: BP 112/63; PULSE 96; RESP 16; TEMP 36.8; O2SAT 96
[2022-10-02] VITALS (11 sets, daily range): BP systolic 104–124; BP diastolic 56–69; PULSE 84–88; RESP 16–18; TEMP 35.8–36.5; O2SAT 95–99
[2022-10-02 08:35] LABS: Basophils % 0.3 %; Eosinophils # 0.1 10^3/uL (0.0-0.8); Lymphocytes # 0.7 10^3/uL (0.8-4.8); Lymphocytes % 20.4 %; Mean Corpuscular HGB Conc 29.7 g/dL (30.0-36.0); Mean Corpuscular Hemoglobin 28.9 pg (28.0-34.0); Mean Platelet Volume 10.4 fL (7.4-10.4); Monocytes # 0.3 10^3/uL (0.2-0.9); Monocytes % 9.4 %; Neutrophils # 2.17 10^3/uL (1.8-7.7); Nucleated Red Blood Cells % 0 %; Platelet Count 186 10^3/cmm (130-400); Red Blood Count 2.01 10^6/uL (4.1-5.3); Red Cell Distribution Width 19.9 % (12.1-15.1); White Blood Count 3.3 10^3/uL (4.0-10.0)
[2022-10-02 08:42] LABS: Hematocrit 19.5 % (42.0-52.0); Hemoglobin 5.8 g/dL (11.7-16.6)
[2022-10-02] MEDS: acetaminophen 325 mg Tablet 650 MG PO (09:43)
[2022-10-02] MEDS: diphenhydrAMINE 25 mg Capsule PO (09:43)
[2022-10-02] MEDS: sodium chloride 0.9% 250 ML IV (09:44)
[2022-10-03] VITALS (9 sets, daily range): BP systolic 113–126; BP diastolic 57–67; PULSE 80–94; RESP 16–18; TEMP 36.3–37; O2SAT 95–98
[2022-10-03] MEDS: acetaminophen 325 mg Tablet 650 MG PO (08:21)
[2022-10-03] MEDS: diphenhydrAMINE 25 mg Capsule PO (08:22)
[2022-10-03] MEDS: sodium chloride 0.9% 250 ML IV (08:22)
[2022-10-04 08:20] VITALS: BP 115/68; PULSE 88; RESP 18; TEMP 36.6; O2SAT 98
[2022-10-04 08:24] LABS: Basophils % 0.6 %; Eosinophils # 0.1 10^3/uL (0.0-0.8); Eosinophils % 2.6 %; Hematocrit 27.4 % (42.0-52.0); Hemoglobin 8.5 g/dL (11.7-16.6); Lymphocytes # 1.2 10^3/uL (0.8-4.8); Lymphocytes % 24.2 %; Mean Corpuscular Hemoglobin 29.4 pg (28.0-34.0); Mean Corpuscular Volume 94.8 fl (80-94); Mean Platelet Volume 10.1 fL (7.4-10.4); Monocytes # 0.6 10^3/uL (0.2-0.9); Monocytes % 11.2 %; Neutrophils # 3.06 10^3/uL (1.8-7.7); Nucleated Red Blood Cells % 0.6 %; Platelet Count 180 10^3/cmm (130-400); Red Blood Count 2.89 10^6/uL (4.1-5.3); Red Cell Distribution Width 18.9 % (12.1-15.1); White Blood Count 5.1 10^3/uL (4.0-10.0)
[2022-10-04] MEDS: sodium chloride 0.9% 250 mL Bag IV (09:27)
[2022-10-04] MEDS: acetaminophen 325 mg Tablet 650 MG PO (09:27)
[2022-10-04] MEDS: diphenhydrAMINE 25 mg Capsule PO (09:28)
[2022-10-04 09:55] VITALS: BP 115/66; PULSE 92; RESP 18; O2SAT 95
[2022-10-04 10:10] VITALS: BP 115/69; BP 115/78; PULSE 92; RESP 18; TEMP 36.6; O2SAT 95; O2SAT 99
[2022-10-04 10:25] VITALS: BP 116/70; PULSE 92; RESP 18; TEMP 36.6; O2SAT 98
[2022-10-04 10:55] VITALS: BP 117/68; PULSE 91; RESP 18; TEMP 36.7; O2SAT 98
[2022-10-04 11:30] VITALS: BP 120/69; PULSE 88; RESP 18; TEMP 36.6; O2SAT 98
--- NOTE | 2022-10-04 14:19 | PC.NURSE ---
patient came in for the lab test with Dr Odell reviewing the results requesting to have one unit due to extreme anemia and will be scheduled for Sunday lab draw and then check at [facility] for the possible transfusion on the unit due to this office closed on / Sun with the holiday.alyson
[2022-10-09] VITALS (8 sets, daily range): BP systolic 107–126; BP diastolic 62–72; PULSE 18–96; RESP 16–94; TEMP 36.7–37.2; O2SAT 96–97
[2022-10-09 08:57] LABS: Basophils % 0.4 %; Eosinophils # 0.1 10^3/uL (0.0-0.8); Eosinophils % 1.6 %; Lymphocytes # 0.6 10^3/uL (0.8-4.8); Lymphocytes % 11.3 %; Mean Corpuscular HGB Conc 29.7 g/dL (30.0-36.0); Mean Corpuscular Hemoglobin 29.6 pg (28.0-34.0); Mean Corpuscular Volume 99.5 fl (80-94); Mean Platelet Volume 9.8 fL (7.4-10.4); Monocytes # 0.4 10^3/uL (0.2-0.9); Neutrophils # 3.97 10^3/uL (1.8-7.7); Neutrophils % 77.3 %; Nucleated Red Blood Cells % 0.6 %; Platelet Count 231 10^3/cmm (130-400); Red Blood Count 2.03 10^6/uL (4.1-5.3); Red Cell Distribution Width 20.5 % (12.1-15.1); White Blood Count 5.1 10^3/uL (4.0-10.0)
[2022-10-09 09:00] LABS: Hematocrit 20.2 % (42.0-52.0); Slide Review Slide Review Perform
[2022-10-09] MEDS: diphenhydrAMINE 25 mg Capsule PO (09:46)
[2022-10-09] MEDS: sodium chloride 0.9% 250 mL Bag IV (09:47)
[2022-10-09] MEDS: acetaminophen 325 mg Tablet 650 MG PO (09:47)
== END 2022-10-11 23:59 | disposition home or self-care (01) ==
PROVIDERS: PCP Family Medicine Adult Medicine; Visit Provider Internal Medicine Medical Oncology
DX: D50.0 Iron deficiency anemia secondary to blood loss (chronic); Z79.899 Other long term (current) drug therapy
CPT/HCPCS: 36415; 36430; 71046; 85014; 85018; 85025; 86850; 86900; 86920; 96375; J1940; J7050; P9016; P9040

== ENCOUNTER 2022-11-08 08:00 | Oncology outpatient (recurring) (ONCR) | payer MEDICAID, SELFPAY ==
[2022-10-12] VITALS (7 sets, daily range): BP systolic 99–108; BP diastolic 57–69; PULSE 75–92; RESP 18; TEMP 36.1–36.6; O2SAT 94–98
[2022-10-12 08:45] LABS: Basophils % 0.4 %; Eosinophils # 0.2 10^3/uL (0.0-0.8); Eosinophils % 3.1 %; Hematocrit 22.9 % (42.0-52.0); Hemoglobin 6.8 g/dL (11.7-16.6); Lymphocytes # 0.6 10^3/uL (0.8-4.8); Lymphocytes % 13.2 %; Mean Corpuscular HGB Conc 29.7 g/dL (30.0-36.0); Mean Corpuscular Hemoglobin 29.6 pg (28.0-34.0); Mean Corpuscular Volume 99.6 fl (80-94); Mean Platelet Volume 9.6 fL (7.4-10.4); Monocytes # 0.4 10^3/uL (0.2-0.9); Monocytes % 7.5 %; Neutrophils # 3.59 10^3/uL (1.8-7.7); Neutrophils % 75.2 %; Nucleated Red Blood Cells % 0 %; Platelet Count 250 10^3/cmm (130-400); Red Cell Distribution Width 19.5 % (12.1-15.1); White Blood Count 4.8 10^3/uL (4.0-10.0)
[2022-10-12] MEDS: diphenhydrAMINE 25 mg Capsule PO (10:01)
[2022-10-12] MEDS: acetaminophen 325 mg Tablet 650 MG PO (10:01)
[2022-10-12] MEDS: sodium chloride 0.9% 250 mL Bag IV (10:02)
[2022-10-16 08:21] LABS: Basophils % 1.2 %; Eosinophils # 0.1 10^3/uL (0.0-0.8); Eosinophils % 3.5 %; Hematocrit 27.2 % (42.0-52.0); Lymphocytes # 0.6 10^3/uL (0.8-4.8); Lymphocytes % 16.1 %; Mean Corpuscular HGB Conc 29.4 g/dL (30.0-36.0); Mean Corpuscular Hemoglobin 29.7 pg (28.0-34.0); Mean Corpuscular Volume 101.1 fl (80-94); Mean Platelet Volume 9.8 fL (7.4-10.4); Monocytes # 0.4 10^3/uL (0.2-0.9); Monocytes % 10.5 %; Neutrophils # 2.33 10^3/uL (1.8-7.7); Neutrophils % 68.1 %; Nucleated Red Blood Cells % 0 %; Platelet Count 195 10^3/cmm (130-400); Red Blood Count 2.69 10^6/uL (4.1-5.3); Red Cell Distribution Width 18.9 % (12.1-15.1); White Blood Count 3.4 10^3/uL (4.0-10.0)
[2022-10-16] MEDS: acetaminophen 325 mg Tablet 650 MG PO (09:32)
[2022-10-16] MEDS: diphenhydrAMINE 25 mg Capsule PO (09:33)
[2022-10-16] MEDS: sodium chloride 0.9% 250 mL Bag IV (09:33)
[2022-10-16 09:45] VITALS: BP 121/81; PULSE 94; RESP 16; TEMP 37.1; O2SAT 95
[2022-10-16 10:00] VITALS: BP 124/67; PULSE 92; RESP 16; TEMP 36.9; O2SAT 96
[2022-10-16 10:15] VITALS: BP 118/73; PULSE 92; RESP 16; TEMP 37; O2SAT 96
[2022-10-16 10:45] VITALS: BP 126/69; PULSE 87; RESP 18; TEMP 37.1; O2SAT 98
[2022-10-16 11:25] VITALS: BP 116/74; PULSE 92; RESP 18; TEMP 37.2; O2SAT 97
[2022-10-16 11:45] VITALS: BP 116/74; PULSE 92; RESP 18; TEMP 37.2; O2SAT 97
[2022-10-19] VITALS (9 sets, daily range): BP systolic 104–122; BP diastolic 64–70; PULSE 88–96; RESP 16–18; TEMP 36.8–37.1; O2SAT 96–99
[2022-10-19 08:28] LABS: Basophils % 0.8 %; Eosinophils # 0.1 10^3/uL (0.0-0.8); Eosinophils % 3.4 %; Hematocrit 26.1 % (42.0-52.0); Hemoglobin 7.6 g/dL (11.7-16.6); Lymphocytes # 0.5 10^3/uL (0.8-4.8); Lymphocytes % 13.7 %; Mean Corpuscular HGB Conc 29.1 g/dL (30.0-36.0); Mean Corpuscular Hemoglobin 29.3 pg (28.0-34.0); Mean Corpuscular Volume 100.8 fl (80-94); Mean Platelet Volume 9.3 fL (7.4-10.4); Monocytes # 0.4 10^3/uL (0.2-0.9); Monocytes % 11.6 %; Neutrophils # 2.67 10^3/uL (1.8-7.7); Neutrophils % 70.2 %; Nucleated Red Blood Cells % 0 %; Platelet Count 167 10^3/cmm (130-400); Red Blood Count 2.59 10^6/uL (4.1-5.3); Red Cell Distribution Width 18.3 % (12.1-15.1); White Blood Count 3.8 10^3/uL (4.0-10.0)
[2022-10-19] MEDS: acetaminophen 325 mg Tablet 650 MG PO (09:16)
[2022-10-19] MEDS: diphenhydrAMINE 25 mg Capsule PO (09:16)
[2022-10-19] MEDS: sodium chloride 0.9% 250 mL Bag IV (09:17)
[2022-10-23] VITALS (10 sets, daily range): BP systolic 121–136; BP diastolic 67–80; PULSE 90–94; RESP 16–18; TEMP 37.1–37.4; O2SAT 96–99
[2022-10-23 08:59] LABS: Basophils % 0.6 %; Eosinophils # 0.1 10^3/uL (0.0-0.8); Eosinophils % 3.7 %; Hemoglobin 8.1 g/dL (11.7-16.6); Lymphocytes # 0.5 10^3/uL (0.8-4.8); Lymphocytes % 15.1 %; Mean Corpuscular Hemoglobin 29.8 pg (28.0-34.0); Mean Corpuscular Volume 99.3 fl (80-94); Mean Platelet Volume 10.2 fL (7.4-10.4); Monocytes # 0.3 10^3/uL (0.2-0.9); Monocytes % 9.4 %; Neutrophils % 70.9 %; Nucleated Red Blood Cells % 0 %; Platelet Count 152 10^3/cmm (130-400); Red Blood Count 2.72 10^6/uL (4.1-5.3); Red Cell Distribution Width 17.6 % (12.1-15.1); White Blood Count 3.5 10^3/uL (4.0-10.0)
[2022-10-23] MEDS: acetaminophen 325 mg Tablet 650 MG PO (10:36)
[2022-10-23] MEDS: diphenhydrAMINE 25 mg Capsule PO (10:36)
[2022-10-23] MEDS: sodium chloride 0.9% 250 mL Bag IV (10:37)
[2022-10-26 08:56] LABS: Eosinophils # 0.2 10^3/uL (0.0-0.8); Eosinophils % 4.5 %; Hematocrit 28.3 % (42.0-52.0); Hemoglobin 8.6 g/dL (11.7-16.6); Lymphocytes # 0.7 10^3/uL (0.8-4.8); Lymphocytes % 15.5 %; Mean Corpuscular HGB Conc 30.4 g/dL (30.0-36.0); Mean Corpuscular Hemoglobin 30.2 pg (28.0-34.0); Mean Corpuscular Volume 99.3 fl (80-94); Mean Platelet Volume 9.8 fL (7.4-10.4); Monocytes # 0.4 10^3/uL (0.2-0.9); Neutrophils # 2.87 10^3/uL (1.8-7.7); Neutrophils % 68.5 %; Nucleated Red Blood Cells % 0 %; Platelet Count 157 10^3/cmm (130-400); Red Blood Count 2.85 10^6/uL (4.1-5.3); Red Cell Distribution Width 18.5 % (12.1-15.1); White Blood Count 4.2 10^3/uL (4.0-10.0)
[2022-10-26] MEDS: acetaminophen 325 mg Tablet 650 MG PO (09:56)
[2022-10-26] MEDS: sodium chloride 0.9% 250 mL Bag IV (09:56)
[2022-10-26] MEDS: diphenhydrAMINE 25 mg Capsule PO (09:56)
[2022-10-26 10:30] VITALS: BP 111/69; PULSE 90; RESP 16; TEMP 36.7; O2SAT 99
[2022-10-26 10:45] VITALS: BP 111/60; PULSE 88; RESP 16; TEMP 37.1; O2SAT 99
[2022-10-26 11:00] VITALS: BP 121/64; PULSE 86; RESP 18; TEMP 37; O2SAT 100
[2022-10-26 12:00] VITALS: BP 113/66; PULSE 85; RESP 16; TEMP 36.9; O2SAT 100
[2022-10-26 12:15] VITALS: BP 114/55; PULSE 82; TEMP 37; O2SAT 100
[2022-10-26 12:43] VITALS: BP 114/55; PULSE 81; RESP 16; TEMP 37; O2SAT 100
[2022-11-01] VITALS (13 sets, daily range): BP systolic 109–123; BP diastolic 62–78; PULSE 74–91; RESP 18; TEMP 36.6–36.7; O2SAT 96–100
[2022-11-01 09:09] LABS: Basophils % 0.5 %; Eosinophils # 0.1 10^3/uL (0.0-0.8); Eosinophils % 2.2 %; Hematocrit 24.1 % (42.0-52.0); Hemoglobin 7.2 g/dL (11.7-16.6); Lymphocytes # 0.4 10^3/uL (0.8-4.8); Lymphocytes % 10.1 %; Mean Corpuscular HGB Conc 29.9 g/dL (30.0-36.0); Mean Corpuscular Hemoglobin 30.3 pg (28.0-34.0); Mean Corpuscular Volume 101.3 fl (80-94); Mean Platelet Volume 9.3 fL (7.4-10.4); Monocytes # 0.4 10^3/uL (0.2-0.9); Monocytes % 10.6 %; Neutrophils # 3.17 10^3/uL (1.8-7.7); Neutrophils % 75.9 %; Nucleated Red Blood Cells % 0 %; Platelet Count 175 10^3/cmm (130-400); Red Blood Count 2.38 10^6/uL (4.1-5.3); Red Cell Distribution Width 18.7 % (12.1-15.1); White Blood Count 4.2 10^3/uL (4.0-10.0)
[2022-11-01] MEDS: sodium chloride 0.9% 250 mL Bag IV (10:02)
[2022-11-01] MEDS: acetaminophen 325 mg Tablet 650 MG PO (10:02)
[2022-11-01] MEDS: diphenhydrAMINE 25 mg Capsule PO (10:03)
[2022-11-07 08:23] LABS: Basophils % 0.7 %; Eosinophils # 0.1 10^3/uL (0.0-0.8); Eosinophils % 3.3 %; Hemoglobin 7.4 g/dL (11.7-16.6); Lymphocytes # 0.4 10^3/uL (0.8-4.8); Lymphocytes % 14.2 %; Mean Corpuscular HGB Conc 29.6 g/dL (30.0-36.0); Mean Corpuscular Hemoglobin 29.5 pg (28.0-34.0); Mean Corpuscular Volume 99.6 fl (80-94); Monocytes # 0.3 10^3/uL (0.2-0.9); Monocytes % 10.9 %; Neutrophils # 2.13 10^3/uL (1.8-7.7); Neutrophils % 70.6 %; Nucleated Red Blood Cells % 0 %; Platelet Count 160 10^3/cmm (130-400); Red Blood Count 2.51 10^6/uL (4.1-5.3); Red Cell Distribution Width 18.1 % (12.1-15.1)
[2022-11-07] MEDS: acetaminophen 325 mg Tablet 650 MG PO (13:10)
[2022-11-07] MEDS: sodium chloride 0.9% 250 mL Bag IV (13:10)
[2022-11-07 13:15] VITALS: BP 131/64; PULSE 94; RESP 16; TEMP 37; O2SAT 98
[2022-11-07 13:30] VITALS: BP 122/73; PULSE 93; RESP 18; TEMP 36.9; O2SAT 98
[2022-11-07 13:45] VITALS: BP 119/69; PULSE 94; RESP 16; TEMP 37; O2SAT 98
[2022-11-07 14:15] VITALS: BP 120/70; PULSE 97; RESP 18; TEMP 37.5; O2SAT 98
[2022-11-07] MEDS: diphenhydrAMINE 25 mg Capsule PO (14:34)
[2022-11-08] MEDS: acetaminophen 325 mg Tablet 650 MG PO (08:22)
[2022-11-08] MEDS: diphenhydrAMINE 25 mg Capsule PO (08:23)
[2022-11-08] MEDS: sodium chloride 0.9% 250 ML IV (08:23)
[2022-11-08 08:25] VITALS: BP 134/70; PULSE 100; RESP 16; TEMP 37.2; O2SAT 99
[2022-11-08 08:40] VITALS: BP 130/82; PULSE 95; RESP 16; TEMP 37.1; O2SAT 99
[2022-11-08 08:55] VITALS: BP 133/80; PULSE 100; RESP 16; TEMP 36.9; O2SAT 99
[2022-11-08 09:25] VITALS: BP 129/75; PULSE 92; RESP 18; TEMP 37.1; O2SAT 98
[2022-11-08 10:15] VITALS: BP 134/70; PULSE 94; RESP 18; TEMP 37.1; O2SAT 98
== END 2022-11-11 23:59 | disposition home or self-care (01) ==
PROVIDERS: PCP Family Medicine Adult Medicine; Visit Provider Internal Medicine Medical Oncology
DX: D50.0 Iron deficiency anemia secondary to blood loss (chronic); Z79.899 Other long term (current) drug therapy
CPT/HCPCS: 36415; 36430; 85025; 86850; 86900; 86920; J7050; P9016; P9040

== ENCOUNTER → 2022-11-24 13:13 | Day surgery (SDC) | payer MEDICAID, SELFPAY ==
--- NOTE | 2022-11-24 12:29 | XR_ITS ---
WS: [id number] CHEST XRAY TECHNIQUE: Portable chest. CLINICAL INFORMATION: post PICC insertion COMPARISON: September 28, 2022 FINDINGS: RIGHT PICC line in good position with tip in the distal SVC. No pneumothorax. Heart: Cardiomegaly. Mild pulmonary vascular congestion. Lungs: No focal pneumonia or pleural fluid. Bones: Normal visualized bony structures. XR/XR chest 1V portable [id number] IMPRESSION: RIGHT PICC line in good position with tip in the distal SVC. No pneumothorax.
--- NOTE | 2022-11-24 14:00 | PC.NURSE ---
Pt to GI infusions for insertion of PICC. Right dual lumen PICC inserted into basilic vein without difficulty. Trimmed cath length 44cm with external length 3 cm. Mid-arm circumference noted at 28 cm measured 10 cm from right AC. X-ray confirms tip in distal SVC in good position for use. Pt tolertated well. States he has follow-up with oncology Sunday morning at 8 am.
== END ==
PROVIDERS: PCP Family Medicine Adult Medicine; Visit Provider Internal Medicine Medical Oncology
DX: Z45.2 Encounter for adjustment and management of vascular access device (principal)
CPT/HCPCS: 36569; 71045

== ENCOUNTER 2022-12-11 08:00 | Oncology outpatient (recurring) (ONCR) | payer MEDICAID, SELFPAY ==
[2022-11-14 08:31] LABS: Eosinophils # 0.1 10^3/uL (0.0-0.8); Eosinophils % 3.2 %; Hematocrit 22.4 % (42.0-52.0); Lymphocytes # 0.5 10^3/uL (0.8-4.8); Lymphocytes % 15.8 %; Mean Corpuscular HGB Conc 28.6 g/dL (30.0-36.0); Mean Corpuscular Hemoglobin 28.3 pg (28.0-34.0); Mean Corpuscular Volume 99.1 fl (80-94); Mean Platelet Volume 10.2 fL (7.4-10.4); Monocytes # 0.4 10^3/uL (0.2-0.9); Monocytes % 11.6 %; Neutrophils # 2.11 10^3/uL (1.8-7.7); Neutrophils % 67.8 %; Nucleated Red Blood Cells % 0 %; Platelet Count 138 10^3/cmm (130-400); Red Blood Count 2.26 10^6/uL (4.1-5.3); Red Cell Distribution Width 17.2 % (12.1-15.1); White Blood Count 3.1 10^3/uL (4.0-10.0)
[2022-11-14 08:45] VITALS: BP 106/65; PULSE 98; RESP 18; TEMP 36.6; O2SAT 96
[2022-11-14 09:21] LABS: Hemoglobin 6.4 g/dL (11.7-16.6)
[2022-11-14] MEDS: acetaminophen 325 mg Tablet 650 MG PO (11:27)
[2022-11-14] MEDS: diphenhydrAMINE 25 mg Capsule PO (11:27)
[2022-11-14] MEDS: sodium chloride 0.9% 250 mL Bag IV (11:28)
[2022-11-14 11:55] VITALS: BP 112/67; PULSE 92; RESP 18; TEMP 37.5; O2SAT 97
[2022-11-16] VITALS (10 sets, daily range): BP systolic 112–128; BP diastolic 58–71; PULSE 85–91; RESP 18; TEMP 36.6–36.9; O2SAT 91–99
[2022-11-16 08:40] LABS: Basophils % 1.1 %; Eosinophils # 0.1 10^3/uL (0.0-0.8); Hematocrit 24.7 % (42.0-52.0); Hemoglobin 7.3 g/dL (11.7-16.6); Lymphocytes # 0.7 10^3/uL (0.8-4.8); Lymphocytes % 19.9 %; Mean Corpuscular HGB Conc 29.6 g/dL (30.0-36.0); Mean Corpuscular Hemoglobin 29.3 pg (28.0-34.0); Mean Corpuscular Volume 99.2 fl (80-94); Mean Platelet Volume 9.3 fL (7.4-10.4); Monocytes # 0.4 10^3/uL (0.2-0.9); Monocytes % 10.2 %; Neutrophils # 2.25 10^3/uL (1.8-7.7); Neutrophils % 63.9 %; Nucleated Red Blood Cells % 0 %; Platelet Count 138 10^3/cmm (130-400); Red Blood Count 2.49 10^6/uL (4.1-5.3); Red Cell Distribution Width 18.2 % (12.1-15.1); White Blood Count 3.5 10^3/uL (4.0-10.0)
[2022-11-16] MEDS: sodium chloride 0.9% 250 mL Bag IV (10:33)
[2022-11-16] MEDS: diphenhydrAMINE 25 mg Capsule PO (10:34)
[2022-11-16] MEDS: acetaminophen 325 mg Tablet 650 MG PO (10:34)
[2022-11-20] VITALS (11 sets, daily range): BP systolic 114–126; BP diastolic 64–86; PULSE 84–94; RESP 16–18; TEMP 36.2–36.9; O2SAT 94–98
[2022-11-20 08:52] LABS: Basophils % 0.8 %; Eosinophils # 0.1 10^3/uL (0.0-0.8); Eosinophils % 2.9 %; Hematocrit 25.1 % (42.0-52.0); Hemoglobin 7.3 g/dL (11.7-16.6); Lymphocytes # 0.9 10^3/uL (0.8-4.8); Lymphocytes % 24.3 %; Mean Corpuscular HGB Conc 29.1 g/dL (30.0-36.0); Mean Corpuscular Hemoglobin 29.3 pg (28.0-34.0); Mean Corpuscular Volume 100.8 fl (80-94); Monocytes # 0.4 10^3/uL (0.2-0.9); Monocytes % 10.4 %; Neutrophils # 2.34 10^3/uL (1.8-7.7); Neutrophils % 61.1 %; Nucleated Red Blood Cells % 0.8 %; Platelet Count 146 10^3/cmm (130-400); Red Blood Count 2.49 10^6/uL (4.1-5.3); Red Cell Distribution Width 19.2 % (12.1-15.1); White Blood Count 3.8 10^3/uL (4.0-10.0)
[2022-11-20] MEDS: diphenhydrAMINE 25 mg Capsule PO (10:56)
[2022-11-20] MEDS: acetaminophen 325 mg Tablet 650 MG PO (10:56)
[2022-11-20] MEDS: sodium chloride 0.9% 250 mL Bag IV (10:56)
[2022-11-23 08:31] LABS: Basophils % 0.8 %; Eosinophils # 0.1 10^3/uL (0.0-0.8); Hematocrit 25.7 % (42.0-52.0); Hemoglobin 7.7 g/dL (11.7-16.6); Lymphocytes # 0.8 10^3/uL (0.8-4.8); Lymphocytes % 21.6 %; Mean Corpuscular Hemoglobin 30.1 pg (28.0-34.0); Mean Corpuscular Volume 100.4 fl (80-94); Mean Platelet Volume 9.2 fL (7.4-10.4); Monocytes # 0.3 10^3/uL (0.2-0.9); Monocytes % 9.1 %; Neutrophils # 2.33 10^3/uL (1.8-7.7); Neutrophils % 64.7 %; Nucleated Red Blood Cells % 0 %; Platelet Count 162 10^3/cmm (130-400); Red Blood Count 2.56 10^6/uL (4.1-5.3); Red Cell Distribution Width 19.7 % (12.1-15.1); White Blood Count 3.6 10^3/uL (4.0-10.0)
[2022-11-23] MEDS: acetaminophen 325 mg Tablet 650 MG PO (11:16)
[2022-11-23] MEDS: sodium chloride 0.9% 250 mL Bag IV (11:17)
[2022-11-23] MEDS: diphenhydrAMINE 25 mg Capsule PO (11:17)
[2022-11-27] VITALS (10 sets, daily range): BP systolic 112–123; BP diastolic 60–73; PULSE 86–94; RESP 16–18; TEMP 36.6–37; O2SAT 98
[2022-11-27 08:39] LABS: Basophils % 1.1 %; Eosinophils # 0.1 10^3/uL (0.0-0.8); Eosinophils % 2.8 %; Hematocrit 26.9 % (42.0-52.0); Hemoglobin 8.2 g/dL (11.7-16.6); Lymphocytes # 0.7 10^3/uL (0.8-4.8); Lymphocytes % 18.2 %; Mean Corpuscular HGB Conc 30.5 g/dL (30.0-36.0); Mean Corpuscular Volume 98.5 fl (80-94); Mean Platelet Volume 9.8 fL (7.4-10.4); Monocytes # 0.4 10^3/uL (0.2-0.9); Monocytes % 12.1 %; Neutrophils # 2.37 10^3/uL (1.8-7.7); Neutrophils % 65.2 %; Nucleated Red Blood Cells % 0 %; Platelet Count 178 10^3/cmm (130-400); Red Blood Count 2.73 10^6/uL (4.1-5.3); White Blood Count 3.6 10^3/uL (4.0-10.0)
[2022-11-27] MEDS: sodium chloride 0.9% 250 mL Bag IV (10:50)
[2022-11-27] MEDS: diphenhydrAMINE 25 mg Capsule PO (10:50)
[2022-11-27] MEDS: acetaminophen 325 mg Tablet 650 MG PO (10:50)
[2022-12-04 08:26] LABS: Basophils % 0.9 %; Eosinophils # 0.1 10^3/uL (0.0-0.8); Eosinophils % 3.4 %; Hematocrit 28.8 % (42.0-52.0); Hemoglobin 8.9 g/dL (11.7-16.6); Lymphocytes # 0.5 10^3/uL (0.8-4.8); Lymphocytes % 15.7 %; Mean Corpuscular HGB Conc 30.9 g/dL (30.0-36.0); Mean Corpuscular Hemoglobin 30.9 pg (28.0-34.0); Mean Platelet Volume 9.6 fL (7.4-10.4); Monocytes # 0.4 10^3/uL (0.2-0.9); Monocytes % 10.8 %; Neutrophils # 2.22 10^3/uL (1.8-7.7); Neutrophils % 68.6 %; Nucleated Red Blood Cells % 0 %; Platelet Count 136 10^3/cmm (130-400); Red Blood Count 2.88 10^6/uL (4.1-5.3); Red Cell Distribution Width 17.3 % (12.1-15.1); White Blood Count 3.2 10^3/uL (4.0-10.0)
[2022-12-07 09:00] VITALS: BP 122/68; PULSE 92; RESP 18; TEMP 37.2; O2SAT 98
[2022-12-07 09:54] LABS: Basophils % 0.7 %; Eosinophils # 0.1 10^3/uL (0.0-0.8); Eosinophils % 2.8 %; Hematocrit 28.6 % (42.0-52.0); Hemoglobin 8.4 g/dL (11.7-16.6); Lymphocytes # 0.4 10^3/uL (0.8-4.8); Lymphocytes % 15.2 %; Mean Corpuscular HGB Conc 29.4 g/dL (30.0-36.0); Mean Corpuscular Hemoglobin 29.4 pg (28.0-34.0); Mean Platelet Volume 9.9 fL (7.4-10.4); Monocytes # 0.4 10^3/uL (0.2-0.9); Monocytes % 13.4 %; Neutrophils # 1.96 10^3/uL (1.8-7.7); Neutrophils % 67.6 %; Nucleated Red Blood Cells % 0 %; Platelet Count 138 10^3/cmm (130-400); Red Blood Count 2.86 10^6/uL (4.1-5.3); Red Cell Distribution Width 16.6 % (12.1-15.1); White Blood Count 2.9 10^3/uL (4.0-10.0)
--- NOTE | 2022-12-07 16:23 | PC.NURSE ---
Patient labs reviewed with Dr Maldonado and patient does feel he will be okay without transfusion until recheck on sunday. results reviewed with 8.4 hbg.mm
== END 2022-12-12 23:59 | disposition home or self-care (01) ==
PROVIDERS: PCP Family Medicine Adult Medicine; Visit Provider Internal Medicine Medical Oncology
DX: D64.9 Anemia, unspecified (principal)
CPT/HCPCS: 36415; 36430; 36592; 80503; 85025; 86850; 86870; 86900; 86902; 86920; J7050; P9016; P9040

== ENCOUNTER 2023-01-08 08:00 | Oncology outpatient (recurring) (ONCR) | payer MEDICAID, SELFPAY ==
[2022-12-14 08:35] LABS: Basophils % 0.6 %; Eosinophils # 0.1 10^3/uL (0.0-0.8); Eosinophils % 3.1 %; Hematocrit 28.2 % (42.0-52.0); Hemoglobin 8.3 g/dL (11.7-16.6); Lymphocytes # 0.8 10^3/uL (0.8-4.8); Lymphocytes % 23.2 %; Mean Corpuscular HGB Conc 29.4 g/dL (30.0-36.0); Mean Corpuscular Hemoglobin 28.6 pg (28.0-34.0); Mean Corpuscular Volume 97.2 fl (80-94); Mean Platelet Volume 9.5 fL (7.4-10.4); Monocytes # 0.3 10^3/uL (0.2-0.9); Monocytes % 9.2 %; Neutrophils # 2.27 10^3/uL (1.8-7.7); Neutrophils % 63.6 %; Nucleated Red Blood Cells % 0 %; Platelet Count 135 10^3/cmm (130-400); Red Cell Distribution Width 15.4 % (12.1-15.1); White Blood Count 3.6 10^3/uL (4.0-10.0)
[2022-12-18 08:33] LABS: Eosinophils # 0.1 10^3/uL (0.0-0.8); Eosinophils % 2.8 %; Hematocrit 28.2 % (42.0-52.0); Lymphocytes # 0.6 10^3/uL (0.8-4.8); Lymphocytes % 16.2 %; Mean Corpuscular HGB Conc 28.4 g/dL (30.0-36.0); Mean Corpuscular Hemoglobin 27.5 pg (28.0-34.0); Mean Corpuscular Volume 96.9 fl (80-94); Mean Platelet Volume 9.7 fL (7.4-10.4); Monocytes # 0.4 10^3/uL (0.2-0.9); Neutrophils # 2.69 10^3/uL (1.8-7.7); Neutrophils % 69.2 %; Nucleated Red Blood Cells % 0 %; Platelet Count 154 10^3/cmm (130-400); Red Blood Count 2.91 10^6/uL (4.1-5.3); Red Cell Distribution Width 14.9 % (12.1-15.1); White Blood Count 3.9 10^3/uL (4.0-10.0)
[2022-12-21] VITALS (9 sets, daily range): BP systolic 122–140; BP diastolic 69–82; PULSE 84–91; RESP 18; TEMP 36.6–36.8; O2SAT 98–99
[2022-12-21 08:20] LABS: Basophils # 0.1 10^3/uL (0.0-0.1); Basophils % 1.4 %; Eosinophils # 0.1 10^3/uL (0.0-0.8); Eosinophils % 3.1 %; Hematocrit 26.9 % (42.0-52.0); Hemoglobin 7.7 g/dL (11.7-16.6); Lymphocytes # 0.7 10^3/uL (0.8-4.8); Lymphocytes % 18.7 %; Mean Corpuscular HGB Conc 28.6 g/dL (30.0-36.0); Mean Corpuscular Hemoglobin 27.5 pg (28.0-34.0); Mean Corpuscular Volume 96.1 fl (80-94); Mean Platelet Volume 9.5 fL (7.4-10.4); Monocytes # 0.4 10^3/uL (0.2-0.9); Monocytes % 10.6 %; Neutrophils # 2.36 10^3/uL (1.8-7.7); Neutrophils % 65.6 %; Nucleated Red Blood Cells % 0 %; Platelet Count 143 10^3/cmm (130-400); Red Cell Distribution Width 14.8 % (12.1-15.1); White Blood Count 3.6 10^3/uL (4.0-10.0)
[2022-12-21] MEDS: acetaminophen 325 mg Tablet 650 MG PO (09:56)
[2022-12-21] MEDS: sodium chloride 0.9% 250 mL Bag IV (09:57)
[2022-12-21] MEDS: diphenhydrAMINE 25 mg Capsule PO (09:57)
[2022-12-25 08:40] LABS: Basophils % 1.2 %; Eosinophils # 0.1 10^3/uL (0.0-0.8); Hemoglobin 8.7 g/dL (11.7-16.6); Lymphocytes # 0.6 10^3/uL (0.8-4.8); Lymphocytes % 18.5 %; Mean Corpuscular Hemoglobin 28.7 pg (28.0-34.0); Mean Corpuscular Volume 95.7 fl (80-94); Mean Platelet Volume 9.8 fL (7.4-10.4); Monocytes # 0.4 10^3/uL (0.2-0.9); Monocytes % 11.2 %; Neutrophils # 2.15 10^3/uL (1.8-7.7); Neutrophils % 65.5 %; Nucleated Red Blood Cells % 0 %; Platelet Count 133 10^3/cmm (130-400); Red Blood Count 3.03 10^6/uL (4.1-5.3); Red Cell Distribution Width 14.9 % (12.1-15.1); White Blood Count 3.3 10^3/uL (4.0-10.0)
[2023-01-01] VITALS (10 sets, daily range): BP systolic 131–149; BP diastolic 74–81; PULSE 90–98; RESP 16–18; TEMP 36.7–37.5; O2SAT 96–99
[2023-01-01 08:39] LABS: Basophils % 0.8 %; Eosinophils # 0.1 10^3/uL (0.0-0.8); Hematocrit 26.5 % (42.0-52.0); Hemoglobin 7.5 g/dL (11.7-16.6); Lymphocytes # 0.6 10^3/uL (0.8-4.8); Lymphocytes % 23.1 %; Mean Corpuscular HGB Conc 28.3 g/dL (30.0-36.0); Mean Corpuscular Hemoglobin 27.4 pg (28.0-34.0); Mean Corpuscular Volume 96.7 fl (80-94); Mean Platelet Volume 9.6 fL (7.4-10.4); Monocytes # 0.3 10^3/uL (0.2-0.9); Monocytes % 11.4 %; Neutrophils # 1.58 10^3/uL (1.8-7.7); Neutrophils % 61.9 %; Nucleated Red Blood Cells % 0 %; Platelet Count 133 10^3/cmm (130-400); Red Blood Count 2.74 10^6/uL (4.1-5.3); Red Cell Distribution Width 15.1 % (12.1-15.1); White Blood Count 2.6 10^3/uL (4.0-10.0)
[2023-01-01] MEDS: diphenhydrAMINE 25 mg Capsule PO (10:16)
[2023-01-01] MEDS: sodium chloride 0.9% 250 mL Bag IV (10:16)
[2023-01-01] MEDS: acetaminophen 325 mg Tablet 650 MG PO (10:16)
[2023-01-04 08:46] LABS: Basophils % 0.6 %; Eosinophils # 0.1 10^3/uL (0.0-0.8); Eosinophils % 2.9 %; Hematocrit 32.2 % (42.0-52.0); Hemoglobin 9.4 g/dL (11.7-16.6); Lymphocytes # 0.7 10^3/uL (0.8-4.8); Lymphocytes % 23.2 %; Mean Corpuscular HGB Conc 29.2 g/dL (30.0-36.0); Mean Corpuscular Hemoglobin 27.3 pg (28.0-34.0); Mean Corpuscular Volume 93.6 fl (80-94); Mean Platelet Volume 9.7 fL (7.4-10.4); Monocytes # 0.4 10^3/uL (0.2-0.9); Monocytes % 11.9 %; Neutrophils % 61.1 %; Nucleated Red Blood Cells % 0 %; Platelet Count 141 10^3/cmm (130-400); Red Blood Count 3.44 10^6/uL (4.1-5.3); Red Cell Distribution Width 15.4 % (12.1-15.1); White Blood Count 3.1 10^3/uL (4.0-10.0)
--- NOTE | 2023-01-04 15:47 | PC.NURSE ---
Patient has 9.4 hgb with no transfusion needed at this time,repeat on sunday for lab and dressing change.alyson
[2023-01-08 08:20] VITALS: BP 109/64; PULSE 90; RESP 18; TEMP 37.2; O2SAT 98
[2023-01-08 08:33] LABS: Basophils % 0.9 %; Eosinophils # 0.1 10^3/uL (0.0-0.8); Eosinophils % 2.8 %; Hematocrit 31.6 % (42.0-52.0); Hemoglobin 9.4 g/dL (11.7-16.6); Lymphocytes # 0.6 10^3/uL (0.8-4.8); Lymphocytes % 19.6 %; Mean Corpuscular HGB Conc 29.7 g/dL (30.0-36.0); Mean Corpuscular Hemoglobin 27.7 pg (28.0-34.0); Mean Corpuscular Volume 93.2 fl (80-94); Mean Platelet Volume 9.7 fL (7.4-10.4); Monocytes # 0.3 10^3/uL (0.2-0.9); Monocytes % 10.4 %; Neutrophils # 2.07 10^3/uL (1.8-7.7); Neutrophils % 65.7 %; Nucleated Red Blood Cells % 0 %; Platelet Count 128 10^3/cmm (130-400); Red Blood Count 3.39 10^6/uL (4.1-5.3); Red Cell Distribution Width 14.6 % (12.1-15.1); White Blood Count 3.2 10^3/uL (4.0-10.0)
[2023-01-08 09:30] VITALS: BP 142/76; PULSE 90; RESP 18; TEMP 37.7; O2SAT 96
--- NOTE | 2023-01-08 09:45 | PC.NURSE ---
Sterile dressing change to the right upper arm PICC line with no reddness or drainage. Area cleanse with chloraprep air dry with the biopatch and swab caps applied on dual line PICC line.mm
== END 2023-01-09 23:59 | disposition home or self-care (01) ==
PROVIDERS: PCP Family Medicine Adult Medicine; Visit Provider Internal Medicine Medical Oncology
DX: D50.0 Iron deficiency anemia secondary to blood loss (chronic) (principal)
CPT/HCPCS: 36430; 36591; 36592; 85025; 86850; 86900; 86920; J7050; P9016

== ENCOUNTER → 2023-01-31 07:59 | Outpatient (BNVA) | payer MEDICAID, SELFPAY | PROVIDERS: PCP Family Medicine Adult Medicine; Visit Provider Family Medicine Adult Medicine | DX: I10 Essential (primary) hypertension (principal); Z90.5 Acquired absence of kidney; R79.89 Other specified abnormal findings of blood chemistry; F10.20 Alcohol dependence, uncomplicated; E78.1 Pure hyperglyceridemia; R74.8 Abnormal levels of other serum enzymes; D50.0 Iron deficiency anemia secondary to blood loss (chronic); K31.811 Angiodysplasia of stomach and duodenum with bleeding | CPT/HCPCS: 80053; 80061; 83036; 84443; 85025 ==

== ENCOUNTER 2023-02-01 09:45 | Emergency (ER) | payer MEDICAID, SELFPAY ==
[2023-02-01 09:49] VITALS: BMI 31.2
[2023-02-01 09:55] VITALS: BP 146/80; PULSE 104; RESP 18; TEMP 36.9; O2SAT 98
--- NOTE | 2023-02-01 10:07 | W.ED.GENADLT ---
HPI - General Adult General: Chief complaint: General Medical Stated complaint: sent for pickline Time Seen by Provider: 02/01/23 09:58 History of Present Illness: Patient is a 62-year-old male comes to the ED for removal of PICC line. Patient was sent here by Dr. Kirby to have PICC line removed due to concern for infection. They wanted us to obtain blood cultures and culture of PICC line as well. Over the past couple days patient has had redness around PICC line site with some puslike drainage and increased tenderness. Reports having low-grade temperatures but no other symptoms. Associated symptoms: Deny chest pain, dyspnea, headache(s), nausea, rash, palpitations or vomiting Review of Systems Const: Denies: fever(s), chills or fatigue Eyes: Denies: change in vision or eye discomfort ENMT: Denies: throat pain, odynophagia, nasal discharge or nasal congestion Card: Denies: chest pain, palpitations, edema, swelling of feet/ankles, dyspnea on exertion or orthopnea Resp: Denies: dyspnea, productive cough or non-productive cough GI: Denies: abdominal pain, nausea, vomiting, diarrhea, constipation or hematochezia : Denies: flank pain, difficulty urinating, dysuria or hematuria Musc: Denies: neck pain, back pain or extremity swelling Skin/Breast: Reports: surgical incision (Right arm-PICC line infection); Denies: rash or new lesions Neuro: Denies: headache(s), numbness in extremities or weakness in extremities PFS ED PFSH: Medical History (Updated 02/01/23 @ 10:18 by ANA MARIA Mccormick) Acute kidney injury superimposed on CKD Alcohol dependence Anxiety and depression Bilateral carpal tunnel syndrome Chronic low back pain Constipation by delayed colonic transit COPD exacerbation Gallstones 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 Romy SEVERINO, [place], nodulal bleeding (GAVE) banded x5, F/U repeat 3-4 weeks GERD (gastroesophageal reflux disease) Gout Hepatomegaly History of kidney stones History of multiple pulmonary nodules Hypertension Hypertriglyceridemia Multiple lung nodules CTA 06/16 & 07/07/2021 RML nodules 6mm largest unchanged Obesity (BMI 30.0-34.9) Renal cell cancer Right nephrectomy 2018 Tubular adenoma Surgical History H/O inguinal hernia repair Right History of esophagogastroduodenoscopy (EGD) History of nephrectomy Right -- robotic 2018 History of tonsillectomy Hx of colonoscopy with polypectomy Family History Mother Cancer Lung cancer Lung disease Father CAD (coronary artery disease) Diabetes Stroke Other Chronic kidney disease (CKD) Hyperlipidemia Hypertension Denies family history of Clotting disorder Dementia Psychiatric illness Suicide Anesthesia complication Bleeding disorder Social History Smoking and tobacco status: former smoker Alcohol intake: current Alcohol intake frequency: 3 or more drinks per day Alcohol type: beer and hard liquor Household members: spouse Housing: House Physical Exam Const: COMMON NORMALS: patient oriented x3 HENMT: COMMON NORMALS: normocephalic HEAD & SCALP: normocephalic MOUTH: Normal oral and palatal mucosa present THROAT: posterior oropharynx normal and uvula midline Neck/C-Spine: COMMON NORMALS: supple GENERAL: Yes normal visual inspection Resp: COMMON NORMALS: normal respiratory effort, No retractions, No use of accessory muscles and clear to auscultation bilaterally AUSCULTATION: clear to auscultation bilaterally Cardio: COMMON NORMALS: regular rate, regular rhythm, S1 normal heart sound present, S2 normal heart sound present, No gallops present (Cardio), No clicks present (Cardio), No murmurs present (Cardio) and Peripheral pulses 2+ throughout RATE: regular rate RHYTHM: regular rhythm HEART SOUNDS: S1 normal heart sound present and S2 normal heart sound present PERIPHERAL PULSES: Peripheral pulses 2+ throughout GI: COMMON NORMALS: Normal to inspection, nondistended, normoactive bowel sounds present, Soft to palpation, non-tender and no masses PALPATION: Yes Soft to palpation : COMMON NORMALS: Yes no CVA tenderness BLADDER/KIDNEY EXAM: Yes no CVA tenderness Back/Pelvis: COMMON NORMALS: no CVA tenderness Extremity: NARRATIVE EXTREMITY EXAM: Right arm?PICC line?tenderness, erythema and warmth surrounding PICC line. No visible purulent drainage seen. Findings just above developing cellulitis around PICC line. No red streaking seen up arm. Neuro: COMMON NORMALS: patient oriented x3 GAIT: Yes Normal gait present Skin: GENERAL SKIN EXAM: dry skin Course Vital Signs: Vital signs: Vital Signs Temperature 98.5 F 02/01/23 09:55 Pulse Rate 95 02/01/23 10:57 Respiratory Rate 18 02/01/23 09:55 Blood Pressure 146/75 02/01/23 10:57 Pulse Oximetry 94 02/01/23 10:57 Oxygen Delivery Me thod 02/01/23 09:55 MDM - General Adult Medical Decision Making Patient is a 62-year-old male comes to the ED for removal of PICC line. Patient was sent here by Dr. Kirby to have PICC line removed due to concern for infection. They wanted us to obtain blood cultures and culture of PICC line as well. Over the past couple days patient has had redness around PICC line site with some puslike drainage and increased tenderness. Reports having low-grade temperatures but no other symptoms. Vitals are stable patient is afebrile. Patient appears nontoxic in no acute distress. Right arm?PICC line?tenderness, erythema and warmth surrounding PICC line. No visible purulent drainage seen. Findings just above developing cellulitis around PICC line. No red streaking seen up arm. nurse removed PICC line and CBC, BMP, blood cultures, PICC line culture were obtained and pending. White blood cell count normal at 4.4 and his hemoglobin is 8.8 which appears to be normal for him when looking at all previous hemoglobin labs. Rest of labs are unremarkable. Patient was diagnosed with PICC line removal and local infection around PICC line. He was discharged home with a prescription for Bactrim and Keflex. Told to follow-up with his doctor within the next 2 to 3 days for reevaluation. Return to ED precautions given. Patient understood and agreed with plan. Lab Data I reviewed the patient's lab results. 02/01/23 10:23 02/01/23 10:23 Laboratory Results WBC 4.4 10^3/uL (4.0-10.0) 02/01/23 10:23 RBC 3.31 10^6/uL (4.1-5.3) L 02/01/23 10:23 Hgb 8.8 g/dL (11.7-16.6) L 02/01/23 10:23 Hct 30.1 % (42.0-52.0) L 02/01/23 10:23 MCV 90.9 fl (80-94) 02/01/23 10:23 MCH 26.6 pg (28.0-34.0) L 02/01/23 10:23 MCHC 29.2 g/dL (30.0-36.0) L 02/01/23 10:23 RDW 15.4 % (12.1-15.1) H 02/01/23 10:23 Plt Count 146 10^3/cmm (130-400) 02/01/23 10:23 MPV 9.1 fL (7.4-10.4) 02/01/23 10:23 Neut % (Auto) 72.6 % 02/01/23 10:23 Lymph % (Auto) 13.3 % 02/01/23 10:23 [place] % (Auto) 10.2 % 02/01/23 10:23 Eos % (Auto) 2.5 % 02/01/23 10:23 Baso % (Auto) 0.7 % 02/01/23 10:23 Neut # (Auto) 3.21 10^3/uL (1.8-7.7) 02/01/23 10:23 Lymph # (Auto) 0.6 10^3/uL (0.8-4.8) L 02/01/23 10:23 [place] # (Auto) 0.5 10^3/uL (0.2-0.9) 02/01/23 10:23 Eos # (Auto) 0.1 10^3/uL (0.0-0.8) 02/01/23 10:23 Baso # (Auto) 0.0 10^3/uL (0.0-0.1) 02/01/23 10:23 Nucleated RBC % (auto) 0 % 02/01/23 10:23 Nucleated RBCs # 0.0 /100WBC 02/01/23 10:23 Sodium 139 mmol/L (136-145) 02/01/23 10:23 Potassium 4.7 mmol/L (3.5-5.1) 02/01/23 10:23 Chloride 102 mmol/L (98-107) 02/01/23 10:23 Carbon Dioxide 26 mmol/L (22-29) 02/01/23 10:23 Anion Gap 15.7 (5-19) 02/01/23 10:23 BUN 10 mg/dL (8-23) 02/01/23 10:23 Creatinine 1.1 mg/dL (0.7-1.2) 02/01/23 10:23 GFR Calculation 68.3 mL/min (90-130) L 02/01/23 10:23 Glucose 121 mg/dL (65-115) H 02/01/23 10:23 Calculated Osmolality 288 mOsm/kg (285-295) 02/01/23 10:23 Calcium 8.9 mg/dL (8.5-10.5) 02/01/23 10:23 Discharge Plan Discharge Patient Disposition: Home Clinical Impression: PIC line (peripherally inserted central catheter) removal Local infection due to peripherally inserted central catheter (PICC) Qualifiers: Encounter type: initial encounter Qualified Code(s): T80.212A - Local infection due to central venous catheter, initial encounter Condition: Stable Prescriptions: New Bactrim DS 800-160 mg tablet 1 tab PO BID 10 Days Qty: 20 0RF cephalexin 500 mg capsule 500 mg PO Q6H 10 Days Qty: 40 0RF No Action pantoprazole 40 mg tablet,delayed release (DR/EC) 40 mg PO BID 30 Days Qty: 60 5RF tramadol 50 mg tablet 50 mg PO Q6H PRN (Reason: pain) 30 Days Qty: 60 2RF Hold Instructions: Order Change Rx Instructions: hydrocodone's on hold surgery in 2 wks, refilling the tramadol milk thistle 150 mg Capsule 150 mg PO BID Rx Instructions: give with meal/snack allopurinol 300 mg tablet 300 mg PO BID cyclobenzaprine 5 mg tablet 5 mg PO QPM PRN (Reason: muscle spasm) Discharge Orders: Discharge ED (Routine); Ordered 02/01/23 Ordered By: Efraín Welch Referrals: Gary Macedo MD [Primary Care Provider] - Discharge Diet: Regular Discharge Activity: Increase activity as tolerated Activity Restrictions/Additional Instructions: Follow-up with medical provider as directed in the next 2 to 3 days for reevaluation. Take medications as prescribed. Return to the ER or your medical provider if condition worsens. Please read and understand discharge instructions. Thank you for choosing [facility] for your healthcare needs today. Please realize this is an emergency room and that we are providing you with a medical screening exam and this may not be complete and all inclusive of all the testing and or work up that you may need to determine your ailment or severity of your illness. It is very important that you follow up as instructed or that you return to the Emergency Department should you have concerns or if your condition changes or worsens in any way. Coding Level of Care Code ED [employer] for Jessie Newman
[2023-02-01 10:35] LABS: Basophils % 0.7 %; Eosinophils # 0.1 10^3/uL (0.0-0.8); Eosinophils % 2.5 %; Hematocrit 30.1 % (42.0-52.0); Hemoglobin 8.8 g/dL (11.7-16.6); Lymphocytes # 0.6 10^3/uL (0.8-4.8); Lymphocytes % 13.3 %; Mean Corpuscular HGB Conc 29.2 g/dL (30.0-36.0); Mean Corpuscular Hemoglobin 26.6 pg (28.0-34.0); Mean Corpuscular Volume 90.9 fl (80-94); Mean Platelet Volume 9.1 fL (7.4-10.4); Monocytes # 0.5 10^3/uL (0.2-0.9); Monocytes % 10.2 %; Neutrophils # 3.21 10^3/uL (1.8-7.7); Neutrophils % 72.6 %; Nucleated Red Blood Cells % 0 %; Platelet Count 146 10^3/cmm (130-400); Red Blood Count 3.31 10^6/uL (4.1-5.3); Red Cell Distribution Width 15.4 % (12.1-15.1); White Blood Count 4.4 10^3/uL (4.0-10.0)
[2023-02-01 10:49] LABS: Anion Gap 15.7 (5-19); Blood Urea Nitrogen 10 mg/dL (8-23); Calcium 8.9 mg/dL (8.5-10.5); Carbon Dioxide 26 mmol/L (22-29); Chloride 102 mmol/L (98-107); Glomerular Filtration Rate 68.3 mL/min (90-130); Glucose 121 mg/dL (65-115); Osmolality Calculated 288 mOsm/kg (285-295); Potassium 4.7 mmol/L (3.5-5.1); Sodium 139 mmol/L (136-145)
[2023-02-01 10:57] VITALS: BP 146/75; PULSE 95; O2SAT 94
== END 2023-02-01 10:59 | disposition home or self-care (01) ==
PROVIDERS: Emergency Provider Physician Assistant; PCP Family Medicine Adult Medicine
DX: T80.212A Local infection due to central venous catheter, initial encounter (principal); Y83.2 Surgical operation with anastomosis, bypass or graft as the cause of abnormal reaction of the patient, or of later complication, without mention of misadventure at the time of the procedure; D50.0 Iron deficiency anemia secondary to blood loss (chronic); L24.A9 Irritant contact dermatitis due friction or contact with other specified body fluids
CPT/HCPCS: 36415; 80048; 85025; 87040; 87070; 87075; 87077; 87186; 87205; 99283

== ENCOUNTER 2023-02-09 08:00 | Oncology outpatient (recurring) (ONCR) | payer MEDICAID, SELFPAY ==
[2023-01-15 08:28] LABS: Basophils % 0.9 %; Eosinophils # 0.2 10^3/uL (0.0-0.8); Eosinophils % 3.7 %; Hematocrit 34.1 % (42.0-52.0); Lymphocytes # 0.7 10^3/uL (0.8-4.8); Lymphocytes % 16.6 %; Mean Corpuscular HGB Conc 29.3 g/dL (30.0-36.0); Mean Corpuscular Hemoglobin 26.3 pg (28.0-34.0); Mean Corpuscular Volume 89.7 fl (80-94); Mean Platelet Volume 9.5 fL (7.4-10.4); Monocytes # 0.5 10^3/uL (0.2-0.9); Monocytes % 10.7 %; Neutrophils # 2.91 10^3/uL (1.8-7.7); Neutrophils % 67.9 %; Nucleated Red Blood Cells % 0 %; Platelet Count 159 10^3/cmm (130-400); Red Cell Distribution Width 14.1 % (12.1-15.1); White Blood Count 4.3 10^3/uL (4.0-10.0)
[2023-01-22 08:24] LABS: Eosinophils # 0.1 10^3/uL (0.0-0.8); Eosinophils % 4.2 %; Hematocrit 31.9 % (42.0-52.0); Hemoglobin 9.3 g/dL (11.7-16.6); Lymphocytes # 0.6 10^3/uL (0.8-4.8); Lymphocytes % 17.8 %; Mean Corpuscular HGB Conc 29.2 g/dL (30.0-36.0); Mean Corpuscular Hemoglobin 26.8 pg (28.0-34.0); Mean Corpuscular Volume 91.9 fl (80-94); Mean Platelet Volume 9.5 fL (7.4-10.4); Monocytes # 0.3 10^3/uL (0.2-0.9); Neutrophils # 2.02 10^3/uL (1.8-7.7); Neutrophils % 65.4 %; Nucleated Red Blood Cells % 0 %; Platelet Count 130 10^3/cmm (130-400); Red Blood Count 3.47 10^6/uL (4.1-5.3); Red Cell Distribution Width 14.7 % (12.1-15.1); White Blood Count 3.1 10^3/uL (4.0-10.0)
[2023-01-22 10:57] VITALS: BP 112/74; PULSE 84; RESP 16; TEMP 36.6
[2023-01-25 08:27] LABS: Basophils % 0.7 %; Eosinophils # 0.1 10^3/uL (0.0-0.8); Eosinophils % 3.4 %; Hematocrit 32.7 % (42.0-52.0); Hemoglobin 9.5 g/dL (11.7-16.6); Lymphocytes # 0.5 10^3/uL (0.8-4.8); Lymphocytes % 13.3 %; Mean Corpuscular HGB Conc 29.1 g/dL (30.0-36.0); Mean Corpuscular Hemoglobin 26.5 pg (28.0-34.0); Mean Corpuscular Volume 91.3 fl (80-94); Mean Platelet Volume 9.5 fL (7.4-10.4); Monocytes # 0.4 10^3/uL (0.2-0.9); Monocytes % 9.3 %; Neutrophils # 2.97 10^3/uL (1.8-7.7); Neutrophils % 73.1 %; Nucleated Red Blood Cells % 0 %; Platelet Count 133 10^3/cmm (130-400); Red Blood Count 3.58 10^6/uL (4.1-5.3); Red Cell Distribution Width 14.8 % (12.1-15.1); White Blood Count 4.1 10^3/uL (4.0-10.0)
[2023-01-25 08:30] VITALS: BP 124/88; PULSE 109; RESP 18; TEMP 37.2; O2SAT 98
[2023-02-01 08:10] VITALS: BP 124/78; PULSE 103; RESP 18; TEMP 37.4; O2SAT 99
[2023-02-05] VITALS (10 sets, daily range): BP systolic 108–121; BP diastolic 60–72; PULSE 82–92; RESP 18; TEMP 36.8–37.3; O2SAT 97–98
--- NOTE | 2023-02-05 08:11 | PC.NURSE ---
lab drawn from LAC x1 attempt tolerated well, pressures dressing applied.
[2023-02-05 08:19] LABS: Eosinophils # 0.1 10^3/uL (0.0-0.8); Eosinophils % 4.4 %; Hematocrit 27.6 % (42.0-52.0); Hemoglobin 7.7 g/dL (11.7-16.6); Lymphocytes # 0.4 10^3/uL (0.8-4.8); Lymphocytes % 14.9 %; Mean Corpuscular HGB Conc 27.9 g/dL (30.0-36.0); Mean Corpuscular Hemoglobin 25.7 pg (28.0-34.0); Mean Platelet Volume 9.1 fL (7.4-10.4); Monocytes # 0.4 10^3/uL (0.2-0.9); Monocytes % 12.2 %; Neutrophils # 1.98 10^3/uL (1.8-7.7); Neutrophils % 66.8 %; Nucleated Red Blood Cells % 0 %; Platelet Count 137 10^3/cmm (130-400); Red Cell Distribution Width 15.7 % (12.1-15.1)
[2023-02-05] MEDS: sodium chloride 0.9% 100 mL Bag 50 ML IV (11:37)
[2023-02-05] MEDS: acetaminophen 325 mg Tablet 650 MG PO (11:38)
[2023-02-05] MEDS: diphenhydrAMINE 25 mg Capsule PO (11:38)
[2023-02-09 08:13] LABS: Basophils % 0.9 %; Eosinophils # 0.2 10^3/uL (0.0-0.8); Eosinophils % 3.7 %; Hematocrit 34.5 % (42.0-52.0); Lymphocytes # 0.5 10^3/uL (0.8-4.8); Lymphocytes % 12.5 %; Mean Corpuscular Hemoglobin 26.3 pg (28.0-34.0); Mean Corpuscular Volume 90.8 fl (80-94); Mean Platelet Volume 9.2 fL (7.4-10.4); Monocytes # 0.4 10^3/uL (0.2-0.9); Monocytes % 8.1 %; Neutrophils # 3.21 10^3/uL (1.8-7.7); Neutrophils % 74.3 %; Nucleated Red Blood Cells % 0 %; Platelet Count 130 10^3/cmm (130-400); Red Cell Distribution Width 15.9 % (12.1-15.1); White Blood Count 4.3 10^3/uL (4.0-10.0)
== END 2023-02-09 23:59 | disposition home or self-care (01) ==
PROVIDERS: Nurse Practitioner; PCP Family Medicine Adult Medicine; Visit Provider Internal Medicine Medical Oncology
DX: D50.0 Iron deficiency anemia secondary to blood loss (chronic) (principal)
CPT/HCPCS: 36415; 36430; 36591; 36592; 85025; 86850; 86900; 86920; 87070; 87077; 87186; P9016

== ENCOUNTER 2023-03-01 08:00 | Oncology outpatient (recurring) (ONCR) | payer MEDICAID, SELFPAY ==
[2023-02-15 08:20] LABS: Basophils % 1.1 %; Eosinophils # 0.1 10^3/uL (0.0-0.8); Eosinophils % 3.1 %; Hematocrit 31.7 % (42.0-52.0); Hemoglobin 9.1 g/dL (11.7-16.6); Lymphocytes # 0.5 10^3/uL (0.8-4.8); Lymphocytes % 15.1 %; Mean Corpuscular HGB Conc 28.7 g/dL (30.0-36.0); Mean Corpuscular Hemoglobin 26.1 pg (28.0-34.0); Mean Corpuscular Volume 91.1 fl (80-94); Monocytes # 0.4 10^3/uL (0.2-0.9); Neutrophils # 2.47 10^3/uL (1.8-7.7); Neutrophils % 70.4 %; Nucleated Red Blood Cells % 0 %; Platelet Count 175 10^3/cmm (130-400); Red Blood Count 3.48 10^6/uL (4.1-5.3); Red Cell Distribution Width 16.2 % (12.1-15.1); White Blood Count 3.5 10^3/uL (4.0-10.0)
[2023-03-01 08:10] VITALS: BP 124/78; PULSE 77; RESP 18; TEMP 36.4; O2SAT 98
[2023-03-01 08:18] LABS: Basophils % 0.9 %; Eosinophils # 0.1 10^3/uL (0.0-0.8); Eosinophils % 3.1 %; Hematocrit 32.8 % (42.0-52.0); Hemoglobin 9.3 g/dL (11.7-16.6); Lymphocytes # 0.6 10^3/uL (0.8-4.8); Lymphocytes % 13.1 %; Mean Corpuscular HGB Conc 28.4 g/dL (30.0-36.0); Mean Corpuscular Hemoglobin 25.5 pg (28.0-34.0); Mean Corpuscular Volume 89.9 fl (80-94); Mean Platelet Volume 9.2 fL (7.4-10.4); Monocytes # 0.4 10^3/uL (0.2-0.9); Monocytes % 9.6 %; Neutrophils # 3.11 10^3/uL (1.8-7.7); Neutrophils % 73.1 %; Nucleated Red Blood Cells % 0 %; Platelet Count 145 10^3/cmm (130-400); Red Blood Count 3.65 10^6/uL (4.1-5.3); Red Cell Distribution Width 16.1 % (12.1-15.1); White Blood Count 4.3 10^3/uL (4.0-10.0)
--- NOTE | 2023-03-01 09:34 | PC.NURSE ---
Patient came in for the cbc with Dr Odell reviewing the results with no further orders and repeat the labs in 2 weeks.mm
== END 2023-03-11 23:59 | disposition home or self-care (01) ==
PROVIDERS: PCP Family Medicine Adult Medicine; Visit Provider Internal Medicine Medical Oncology
DX: D50.0 Iron deficiency anemia secondary to blood loss (chronic) (principal)
CPT/HCPCS: 36415; 85025; 86850; 86900

== ENCOUNTER 2023-04-10 08:00 | Oncology outpatient (recurring) (ONCR) | payer MEDICAID, SELFPAY ==
[2023-03-15 08:10] VITALS: BP 120/78; PULSE 91; RESP 18; TEMP 37.6; O2SAT 98
[2023-03-15 08:14] LABS: Basophils % 0.9 %; Eosinophils # 0.1 10^3/uL (0.0-0.8); Hematocrit 30.9 % (42.0-52.0); Hemoglobin 8.6 g/dL (11.7-16.6); Lymphocytes # 0.6 10^3/uL (0.8-4.8); Lymphocytes % 12.5 %; Mean Corpuscular HGB Conc 27.8 g/dL (30.0-36.0); Mean Corpuscular Hemoglobin 25.2 pg (28.0-34.0); Mean Corpuscular Volume 90.6 fl (80-94); Mean Platelet Volume 8.7 fL (7.4-10.4); Monocytes # 0.4 10^3/uL (0.2-0.9); Neutrophils # 3.29 10^3/uL (1.8-7.7); Neutrophils % 74.9 %; Nucleated Red Blood Cells % 0 %; Platelet Count 167 10^3/cmm (130-400); Red Blood Count 3.41 10^6/uL (4.1-5.3); Red Cell Distribution Width 17.1 % (12.1-15.1); White Blood Count 4.4 10^3/uL (4.0-10.0)
--- NOTE | 2023-03-15 15:28 | PC.NURSE ---
lab results reviewed by Dr Odell with new orders in 2 weeks for labs and possible iron infusion.mm
[2023-03-28] VITALS (11 sets, daily range): BP systolic 124–158; BP diastolic 68–78; PULSE 91–99; RESP 18; TEMP 36.1–37; O2SAT 96–100
[2023-03-28 08:47] LABS: Eosinophils # 0.1 10^3/uL (0.0-0.8); Eosinophils % 2.5 %; Hematocrit 28.2 % (42.0-52.0); Hemoglobin 7.8 g/dL (11.7-16.6); Lymphocytes # 0.7 10^3/uL (0.8-4.8); Lymphocytes % 16.6 %; Mean Corpuscular HGB Conc 27.7 g/dL (30.0-36.0); Mean Corpuscular Hemoglobin 24.9 pg (28.0-34.0); Mean Corpuscular Volume 90.1 fl (80-94); Mean Platelet Volume 9.7 fL (7.4-10.4); Monocytes # 0.3 10^3/uL (0.2-0.9); Monocytes % 8.4 %; Neutrophils # 2.86 10^3/uL (1.8-7.7); Neutrophils % 70.8 %; Nucleated Red Blood Cells % 0 %; Platelet Count 172 10^3/cmm (130-400); Red Blood Count 3.13 10^6/uL (4.1-5.3)
[2023-03-28] MEDS: sodium chloride 0.9% (100 ml) 100 ML 75 ML (09:15)
[2023-03-28 09:20] LABS: Alanine Aminotransferase 21 U/L (0-41); Alkaline Phosphatase 316 U/L (40-130); Aspartate Amino Transferase 76 U/L (0-40); Blood Urea Nitrogen 9 mg/dL (8-23); Calcium 8.8 mg/dL (8.5-10.5); Carbon Dioxide 25 mmol/L (22-29); Chloride 101 mmol/L (98-107); Ferritin 20 ng/mL (30-400); Globulin 3.2 g/dL (1.3-4.6); Glomerular Filtration Rate 76.2 mL/min (90-130); Glucose 200 mg/dL (65-115); Iron 26 ug/dL (59-158); Osmolality Calculated 290 mOsm/kg (285-295); Percent Saturation 5.7 % (20-50); Sodium 138 mmol/L (136-145); Total Bilirubin 1.4 mg/dL (0.15-1.2); Total Iron Binding Capacity 453 mcg/dl; Total Protein 7.2 g/dL (6.6-8.7); Unsaturated Iron Binding 427 ug/dL (112-347)
[2023-03-28 09:22] LABS: Anion Gap 16.4 (5-19); Potassium 4.4 mmol/L (3.5-5.1)
[2023-04-05 08:20] VITALS: BP 119/73; PULSE 92; RESP 18; TEMP 37.4; O2SAT 95
[2023-04-05 08:30] LABS: Basophils # 0.1 10^3/uL (0.0-0.1); Basophils % 1.2 %; Eosinophils # 0.1 10^3/uL (0.0-0.8); Eosinophils % 2.5 %; Hematocrit 37.5 % (42.0-52.0); Hemoglobin 10.6 g/dL (11.7-16.6); Lymphocytes # 0.7 10^3/uL (0.8-4.8); Lymphocytes % 15.2 %; Mean Corpuscular HGB Conc 28.3 g/dL (30.0-36.0); Mean Corpuscular Hemoglobin 25.4 pg (28.0-34.0); Mean Corpuscular Volume 89.9 fl (80-94); Monocytes # 0.4 10^3/uL (0.2-0.9); Monocytes % 8.2 %; Neutrophils # 3.55 10^3/uL (1.8-7.7); Neutrophils % 72.7 %; Nucleated Red Blood Cells % 0 %; Platelet Count 186 10^3/cmm (130-400); Red Blood Count 4.17 10^6/uL (4.1-5.3); Red Cell Distribution Width 16.6 % (12.1-15.1); White Blood Count 4.9 10^3/uL (4.0-10.0)
[2023-04-05] MEDS: iron sucrose 200 MG in sodium chloride 0.9% (100 ml) 100 ML 220 MG IV (08:37)
[2023-04-05 09:30] VITALS: BP 120/78; PULSE 99; RESP 17; TEMP 36.6; O2SAT 98
[2023-04-10 08:19] VITALS: BP 136/72; PULSE 82; RESP 18; TEMP 37.2; O2SAT 97
[2023-04-10] MEDS: iron sucrose 200 MG in sodium chloride 0.9% (100 ml) 100 ML 220 MG IV (08:30)
[2023-04-10 09:05] VITALS: BP 122/78; PULSE 90; RESP 18; TEMP 36.5; O2SAT 98
== END 2023-04-11 23:59 | disposition home or self-care (01) ==
PROVIDERS: PCP Family Medicine Adult Medicine; Visit Provider Internal Medicine Medical Oncology
DX: D50.0 Iron deficiency anemia secondary to blood loss (chronic) (principal)
CPT/HCPCS: 36415; 36430; 80053; 82728; 83540; 83550; 85025; 86850; 86870; 86900; 86920; 96365; 96374; J1756; J7050; P9016

== ENCOUNTER 2023-05-09 11:00 | Oncology outpatient (recurring) (ONCR) | payer MEDICAID, SELFPAY ==
[2023-04-12 08:20] VITALS: BP 109/78; PULSE 92; RESP 18; TEMP 36.6; O2SAT 98
[2023-04-12] MEDS: iron sucrose 200 MG in sodium chloride 0.9% (100 ml) 100 ML 220 MG IV (09:00)
[2023-04-12 09:20] VITALS: BP 147/78; PULSE 92; RESP 18; TEMP 36.6; O2SAT 98
[2023-04-12 09:48] VITALS: BP 126/66; PULSE 81; RESP 18; TEMP 36.8; O2SAT 99
[2023-04-16 08:30] VITALS: BP 114/73; PULSE 89; RESP 18; TEMP 36.9; O2SAT 96
[2023-04-16] MEDS: iron sucrose 200 MG in sodium chloride 0.9% (100 ml) 100 ML 220 MG IV (08:35)
[2023-04-16 09:15] VITALS: BP 124/75; PULSE 85; RESP 16; TEMP 37.1; O2SAT 99
[2023-04-18 08:30] VITALS: BP 119/73; PULSE 89; RESP 16; TEMP 36.3; O2SAT 97
[2023-04-18] MEDS: iron sucrose 200 MG in sodium chloride 0.9% (100 ml) 100 ML 220 MG IV (08:46)
[2023-04-18 09:25] VITALS: BP 125/76; PULSE 88; RESP 16; TEMP 37.1; O2SAT 98
[2023-05-09 11:07] VITALS: BP 142/82; PULSE 113; RESP 18; TEMP 37.6; O2SAT 98
[2023-05-09 11:20] LABS: Basophils % 0.9 %; Eosinophils # 0.1 10^3/uL (0.0-0.8); Eosinophils % 2.1 %; Hematocrit 37.3 % (42.0-52.0); Hemoglobin 11.1 g/dL (11.7-16.6); Lymphocytes # 0.6 10^3/uL (0.8-4.8); Lymphocytes % 16.5 %; Mean Corpuscular HGB Conc 29.8 g/dL (30.0-36.0); Mean Corpuscular Hemoglobin 28.8 pg (28.0-34.0); Mean Corpuscular Volume 96.9 fl (80-94); Mean Platelet Volume 9.1 fL (7.4-10.4); Monocytes # 0.3 10^3/uL (0.2-0.9); Monocytes % 8.4 %; Neutrophils # 2.39 10^3/uL (1.8-7.7); Neutrophils % 71.8 %; Nucleated Red Blood Cells % 0 %; Platelet Count 100 10^3/cmm (130-400); Red Blood Count 3.85 10^6/uL (4.1-5.3); Red Cell Distribution Width 19.5 % (12.1-15.1); White Blood Count 3.3 10^3/uL (4.0-10.0)
[2023-05-09 11:39] LABS: Alanine Aminotransferase 20 U/L (0-41); Albumin Level 4.1 g/dL (3.5-5.2); Alkaline Phosphatase 329 U/L (40-130); Anion Gap 18.7 (5-19); Aspartate Amino Transferase 53 U/L (0-40); Blood Urea Nitrogen 6 mg/dL (8-23); Calcium 8.6 mg/dL (8.5-10.5); Carbon Dioxide 22 mmol/L (22-29); Chloride 100 mmol/L (98-107); Ferritin 66 ng/mL (30-400); Glucose 168 mg/dL (65-115); Iron 28 ug/dL (59-158); Osmolality Calculated 285 mOsm/kg (285-295); Percent Saturation 6.8 % (20-50); Potassium 3.7 mmol/L (3.5-5.1); Sodium 137 mmol/L (136-145); Total Bilirubin 1.2 mg/dL (0.15-1.2); Total Iron Binding Capacity 407 mcg/dl; Total Protein 7.1 g/dL (6.6-8.7); Unsaturated Iron Binding 379 ug/dL (112-347)
== END 2023-05-11 23:59 | disposition home or self-care (01) ==
PROVIDERS: Nurse Practitioner Family; PCP Family Medicine Adult Medicine; Visit Provider Internal Medicine Medical Oncology
DX: D50.0 Iron deficiency anemia secondary to blood loss (chronic) (principal); K31.811 Angiodysplasia of stomach and duodenum with bleeding
CPT/HCPCS: 36415; 80053; 82728; 83540; 83550; 85025; 96365; J1756

== ENCOUNTER 2023-06-19 14:00 | Oncology outpatient (recurring) (ONCR) | payer MEDICARE, MEDICAID, SELFPAY ==
[2023-06-12 10:00] VITALS: BP 131/77; PULSE 102; RESP 18; TEMP 36.9; O2SAT 97
[2023-06-12 10:12] LABS: Basophils % 0.7 %; Eosinophils # 0.1 10^3/uL (0.0-0.8); Eosinophils % 2.5 %; Hematocrit 28.3 % (42.0-52.0); Hemoglobin 8.2 g/dL (11.7-16.6); Lymphocytes # 0.5 10^3/uL (0.8-4.8); Lymphocytes % 11.4 %; Mean Corpuscular Volume 96.6 fl (80-94); Mean Platelet Volume 8.9 fL (7.4-10.4); Monocytes # 0.5 10^3/uL (0.2-0.9); Monocytes % 10.9 %; Neutrophils # 3.22 10^3/uL (1.8-7.7); Neutrophils % 73.4 %; Nucleated Red Blood Cells % 0 %; Platelet Count 132 10^3/cmm (130-400); Red Blood Count 2.93 10^6/uL (4.1-5.3); Red Cell Distribution Width 16.7 % (12.1-15.1); White Blood Count 4.4 10^3/uL (4.0-10.0)
[2023-06-12 10:33] LABS: Iron 24 ug/dL (59-158); Percent Saturation 5.9 % (20-50); Total Iron Binding Capacity 405 mcg/dl; Unsaturated Iron Binding 381 ug/dL (112-347)
[2023-06-12 12:25] LABS: Alanine Aminotransferase 21 U/L (0-41); Albumin Level 3.9 g/dL (3.5-5.2); Alkaline Phosphatase 356 U/L (40-130); Anion Gap 15.5 (5-19); Aspartate Amino Transferase 76 U/L (0-40); Blood Urea Nitrogen 7 mg/dL (8-23); Carbon Dioxide 26 mmol/L (22-29); Chloride 103 mmol/L (98-107); Globulin 2.8 g/dL (1.3-4.6); Glucose 141 mg/dL (65-115); Osmolality Calculated 290 mOsm/kg (285-295); Potassium 4.5 mmol/L (3.5-5.1); Sodium 140 mmol/L (136-145); Total Bilirubin 1.6 mg/dL (0.15-1.2); Total Protein 6.7 g/dL (6.6-8.7)
[2023-06-12] MEDS: sodium chloride 0.9% 250 ML 75 ML IV (13:00)
[2023-06-12] MEDS: ferric carboxy (IVPB) 750 MG in sodium chloride 0.9% (100 ml) 100 ML 345 MG IV (13:30)
[2023-06-13 11:21] LABS: Thyroid Stimulating Hormone 3.07 uIU/mL (0.27-4.20)
[2023-06-19 14:15] VITALS: BP 119/66; PULSE 98; RESP 18; TEMP 36.7; O2SAT 97
[2023-06-19] MEDS: ferric carboxy (IVPB) 750 MG in sodium chloride 0.9% (100 ml) 100 ML 345 MG IV (14:25)
[2023-06-19 15:00] VITALS: BP 138/85; PULSE 72; RESP 18; TEMP 36.3; O2SAT 99
== END 2023-07-12 23:59 | disposition home or self-care (01) ==
PROVIDERS: PCP Family Medicine Adult Medicine; Visit Provider Internal Medicine Medical Oncology
DX: D50.0 Iron deficiency anemia secondary to blood loss (chronic) (principal)
CPT/HCPCS: 36415; 80053; 82274; 83540; 83550; 84443; 85025; 96365; 99214; J1439; J7050

== ENCOUNTER 2023-07-30 07:36 | Outpatient (CLI) | payer MEDICARE, MEDICAID, SELFPAY ==
--- NOTE | 2023-07-30 08:00 | CT_ITS ---
WS: [id number] CT CHEST, ABDOMEN AND PELVIS WITH CONTRAST HISTORY: hepatomegaly, renal cell cancer. TECHNIQUE: Contiguous 5 mm axial imaging performed through the chest, abdomen and pelvis with IV cont rast, oral contrast has been provided. Coronal and sagittal reformats chest. Coronal and sagittal ref ormats through the abdomen and pelvis. All CT scans at [facility] use at least one of these d ose optimization techniques: automated exposure control; mA and/or kV adjustment per patient size (in cludes targeted exams where dose is matched to clinical indication); or iterative reconstruction. CONTRAST: Omnipaque 350; 100 mL IV. DLP: 1414.56 mGy COMPARISON: 05/08/2022, 06/16/[address]: Numerous bilateral, subcentimeter noncalcified pulmonary nodules. Majority of these nodules are pleural or subpleural based. Largest nodule in the RIGHT middle lobe at 7 mm. These nodules are not increasing in size. No pneumonia. No pericardial or pleural effusions. No mediastinal or hilar ad enopathy. There is a large hiatal hernia. There is fluid adjacent to the hiatal hernia which was not present on the prior studies. This is only a small amount of fluid and may be reactive. Very mild ath erosclerosis aorta. Normal sized pulmonary artery. Abdomen CT: Marked hepatosplenomegaly. Liver is enlarged and of decreased attenuation and extends ove r a length of 22.3 cm. Spleen is also enlarged measuring 17.2 cm. No mass identified. Normal portal v ein. Cholelithiasis without acute cholecystitis. Negative pancreas. No adrenal mass. Prior RIGHT neph rectomy. No recurrent mass in the renal bed. LEFT kidney is normal size. There is new perinephric str anding. There is edema and stranding along the anterior and posterior pararenal fascia and along the paracolic gutter. Mild atherosclerosis aorta. Collateral vessels in the upper abdomen. There are several lymph nodes which are mildly enlarged in t he celiac axis and mansi hepatis. These lymph nodes measure up to 13 mm in short axis diameter. Nondistended stomach. No small bowel obstruction. Normal appendix. There are a few scattered distal c olonic diverticula. No acute diverticulitis. Pelvic CT: No free fluid in the pelvis. There is continued soft tissue stranding extending along the LEFT paracolic gutter into the LEFT pelvis. LEFT ureter does not appear dilated and no obstructing st ones. No destructive bone process. IMPRESSION: 1. Marked hepatosplenomegaly with LEFT upper quadrant collateral vessels. Suspect portal hypertension . 2. Cholelithiasis without acute cholecystitis. 3. Numerous bilateral, subcentimeter, noncalcified pulmonary nodules are stable over several years. 4. Indeterminate celiac axis and mansi hepatis lymph nodes. These may be reactive from patient's port al hypertension. 5. Large hiatal hernia. There is a small amount of fluid adjacent to the hiatal hernia which is new. 6. Prior RIGHT nephrectomy. 7. New LEFT perinephric and periureteral stranding. Correlate for urinary tract infection. Source of this stranding is not apparent. 8. Mild sigmoid diverticulosis without acute diverticulitis.
[2023-07-30] MEDS: iohexol 350 mg/mL 500 mL Btl (per mL) IV (08:53)
[2023-07-30] MEDS: iohexol 350 mg/mL 500 mL Btl (per mL) PO (08:54)
== END 2023-07-30 07:37 | disposition home or self-care (01) ==
LOC: RAD 07:36
PROVIDERS: PCP Family Medicine Adult Medicine; Visit Provider Internal Medicine Medical Oncology
DX: R91.8 Other nonspecific abnormal finding of lung field (principal); C64.9 Malignant neoplasm of unspecified kidney, except renal pelvis; R16.0 Hepatomegaly, not elsewhere classified; R74.8 Abnormal levels of other serum enzymes; R16.2 Hepatomegaly with splenomegaly, not elsewhere classified; K80.20 Calculus of gallbladder without cholecystitis without obstruction; Z90.5 Acquired absence of kidney; K44.9 Diaphragmatic hernia without obstruction or gangrene; K57.30 Diverticulosis of large intestine without perforation or abscess without bleeding
CPT/HCPCS: 71260; 74177; Q9967

== ENCOUNTER 2023-08-02 14:00 | Oncology outpatient (recurring) (ONCR) | payer MEDICARE, MEDICAID, SELFPAY ==
[2023-07-19 14:00] VITALS: BP 113/72; PULSE 89; RESP 18; TEMP 37.1; O2SAT 98
[2023-07-19 14:37] LABS: Basophils % 0.6 %; Eosinophils # 0.1 10^3/uL (0.0-0.8); Eosinophils % 1.9 %; Hematocrit 34.5 % (37-53); Lymphocytes # 0.6 10^3/uL (0.8-4.8); Lymphocytes % 8.9 %; Mean Corpuscular HGB Conc 30.4 g/dL (30-55); Mean Corpuscular Hemoglobin 32.4 pg (27-33); Mean Corpuscular Volume 106.5 fl (82-101); Mean Platelet Volume 9.1 fL (7.4-10.4); Monocytes # 0.6 10^3/uL (0.2-0.9); Monocytes % 9.2 %; Neutrophils # 4.91 10^3/uL (1.8-7.7); Neutrophils % 79.1 %; Nucleated Red Blood Cells % 0 %; Platelet Count 203 10^3/cmm (157-399); Red Blood Count 3.24 10^6/uL (3.85-5.65); Red Cell Distribution Width 19.3 % (12.1-15.1); White Blood Count 6.21 10^3/uL (3.29-11.43)
[2023-07-19 14:55] LABS: Ferritin 68 ng/mL (30-400); Iron 27 ug/dL (59-158); Percent Saturation 8.1 % (20-50); Total Iron Binding Capacity 332 mcg/dl; Unsaturated Iron Binding 305 ug/dL (112-347)
[2023-07-26] MEDS: ferric carboxy (IVPB) 750 MG in sodium chloride 0.9% (100 ml) 100 ML 345 MG IV (15:33)
[2023-07-26 16:10] VITALS: BP 123/61; PULSE 96; RESP 16; TEMP 37; O2SAT 96
[2023-08-02 14:30] VITALS: BP 140/71; PULSE 92; RESP 18; O2SAT 97
[2023-08-02] MEDS: ferric carboxy (IVPB) 750 MG in sodium chloride 0.9% (100 ml) 100 ML 345 MG IV (14:44)
[2023-08-02 15:26] VITALS: BP 124/63; PULSE 93; RESP 17; O2SAT 95
== END 2023-08-11 23:59 | disposition home or self-care (01) ==
PROVIDERS: PCP Family Medicine Adult Medicine; Visit Provider Internal Medicine Medical Oncology
DX: D50.0 Iron deficiency anemia secondary to blood loss (chronic) (principal)
CPT/HCPCS: 36415; 82728; 83540; 83550; 85025; 96365; J1439

== ENCOUNTER 2023-09-04 09:18 | Oncology outpatient (recurring) (ONCR) | payer MEDICARE, MEDICAID, SELFPAY ==
[2023-09-04 09:24] VITALS: BP 129/74; PULSE 79; RESP 16; TEMP 37.1; O2SAT 98
[2023-09-04 10:00] LABS: Basophils % 1.1 %; Eosinophils # 0.1 10^3/uL (0.0-0.8); Hematocrit 38.4 % (37-53); Lymphocytes # 0.5 10^3/uL (0.8-4.8); Mean Corpuscular HGB Conc 30.7 g/dL (30-55); Mean Corpuscular Hemoglobin 33.7 pg (27-33); Mean Corpuscular Volume 109.7 fl (82-101); Mean Platelet Volume 9.2 fL (7.4-10.4); Monocytes # 0.3 10^3/uL (0.2-0.9); Monocytes % 7.3 %; Neutrophils # 2.69 10^3/uL (1.8-7.7); Nucleated Red Blood Cells % 0 %; Platelet Count 157 10^3/cmm (157-399); Red Cell Distribution Width 16.1 % (12.1-15.1); White Blood Count 3.54 10^3/uL (3.29-11.43)
[2023-09-04 10:24] LABS: Alanine Aminotransferase 21 U/L (0-41); Alkaline Phosphatase 358 U/L (40-130); Anion Gap 16.2 (5-19); Aspartate Amino Transferase 89 U/L (0-40); Blood Urea Nitrogen 8 mg/dL (8-23); Calcium 8.9 mg/dL (8.5-10.5); Carbon Dioxide 26 mmol/L (22-29); Chloride 103 mmol/L (98-107); Globulin 3.3 g/dL (1.3-4.6); Glomerular Filtration Rate 68.1 mL/min (90-130); Glucose 148 mg/dL (65-115); Iron 24 ug/dL (59-158); Osmolality Calculated 293 mOsm/kg (285-295); Percent Saturation 7.3 % (20-50); Potassium 4.2 mmol/L (3.5-5.1); Sodium 141 mmol/L (136-145); Total Bilirubin 1.5 mg/dL (0.15-1.2); Total Iron Binding Capacity 325 mcg/dl; Total Protein 7.3 g/dL (6.6-8.7); Unsaturated Iron Binding 301 ug/dL (112-347)
== END 2023-09-11 23:59 | disposition home or self-care (01) ==
PROVIDERS: PCP Family Medicine Adult Medicine; Visit Provider Internal Medicine Medical Oncology
DX: D50.0 Iron deficiency anemia secondary to blood loss (chronic) (principal); R74.8 Abnormal levels of other serum enzymes; R91.8 Other nonspecific abnormal finding of lung field
CPT/HCPCS: 36415; 80053; 83540; 83550; 85025; 99214

== ENCOUNTER 2023-11-07 14:02 | Oncology outpatient (recurring) (ONCR) | payer MEDICARE, MEDICAID, SELFPAY ==
[2023-11-07 14:55] VITALS: BP 130/85; PULSE 85; RESP 18; TEMP 36.6; O2SAT 98
[2023-11-07] MEDS: ferric carboxy (IVPB) 750 MG in sodium chloride 0.9% (100 ml) 100 ML 345 MG IV (15:04)
[2023-11-07 15:41] VITALS: BP 93/59; PULSE 81; RESP 18; TEMP 36.4; O2SAT 97
== END 2023-11-11 23:59 | disposition home or self-care (01) ==
PROVIDERS: PCP Family Medicine Adult Medicine; Visit Provider Internal Medicine Medical Oncology
DX: Z53.9 Procedure and treatment not carried out, unspecified reason (principal); D50.0 Iron deficiency anemia secondary to blood loss (chronic)
CPT/HCPCS: 96365; J1439

== ENCOUNTER 2023-11-14 13:59 | Oncology outpatient (recurring) (ONCR) | payer MEDICARE, MEDICAID, SELFPAY ==
[2023-11-14 14:50] VITALS: BP 98/68; PULSE 78; RESP 18; TEMP 36.6; O2SAT 97
[2023-11-14] MEDS: ferric carboxy (IVPB) 750 MG in sodium chloride 0.9% (100 ml) 100 ML 345 MG IV (15:09)
[2023-11-14 15:40] VITALS: BP 96/74; PULSE 74; RESP 18; TEMP 36.6; O2SAT 99
== END 2023-12-12 23:59 | disposition home or self-care (01) ==
PROVIDERS: PCP Family Medicine Adult Medicine; Visit Provider Internal Medicine Medical Oncology
DX: D50.0 Iron deficiency anemia secondary to blood loss (chronic) (principal)
CPT/HCPCS: 96365; J1439

== ENCOUNTER 2024-01-03 09:30 | Oncology outpatient (recurring) (ONCR) | payer MEDICARE, MEDICAID, SELFPAY ==
[2023-12-19 12:11] LABS: Basophils % 0.8 %; Eosinophils # 0.1 10^3/uL (0.0-0.8); Eosinophils % 2.4 %; Hematocrit 32.8 % (37-53); Lymphocytes # 0.4 10^3/uL (0.8-4.8); Lymphocytes % 8.7 %; Mean Corpuscular HGB Conc 31.7 g/dL (30-55); Mean Corpuscular Volume 113.5 fl (82-101); Mean Platelet Volume 9.4 fL (7.4-10.4); Monocytes # 0.3 10^3/uL (0.2-0.9); Monocytes % 6.1 %; Neutrophils # 4.02 10^3/uL (1.8-7.7); Neutrophils % 81.4 %; Nucleated Red Blood Cells % 0 %; Platelet Count 111 10^3/cmm (157-399); Red Blood Count 2.89 10^6/uL (3.85-5.65); Red Cell Distribution Width 18.8 % (12.1-15.1); White Blood Count 4.94 10^3/uL (3.29-11.43)
[2023-12-19 12:39] LABS: Alanine Aminotransferase 17 U/L (0-41); Albumin Level 3.9 g/dL (3.5-5.2); Alkaline Phosphatase 452 U/L (40-130); Aspartate Amino Transferase 93 U/L (0-40); Blood Urea Nitrogen 10 mg/dL (8-23); Calcium 9.4 mg/dL (8.5-10.5); Carbon Dioxide 26 mmol/L (22-29); Chloride 95 mmol/L (98-107); Creatinine Clr Calc Pharmacy 78.7993; Ferritin 86 ng/mL (30-400); Globulin 3.7 g/dL (1.3-4.6); Glomerular Filtration Rate 68.1 mL/min (90-130); Glucose 140 mg/dL (65-115); Iron 28 ug/dL (59-158); Osmolality Calculated 279 mOsm/kg (285-295); Percent Saturation 9.6 % (20-50); Sodium 134 mmol/L (136-145); Total Bilirubin 2.6 mg/dL (0.15-1.2); Total Iron Binding Capacity 289 mcg/dl; Total Protein 7.6 g/dL (6.6-8.7); Unsaturated Iron Binding 261 ug/dL (112-347)
[2023-12-24 17:14] LABS: Soluble Transferrin Receptor 2.32 mg/L (0.76-1.76)
[2023-12-27 13:09] VITALS: BP 126/76; PULSE 98; RESP 16; TEMP 36.6; O2SAT 99
[2023-12-27] MEDS: ferric carboxy (IVPB) 750 MG in sodium chloride 0.9% (100 ml) 100 ML 345 MG IV (13:48)
[2023-12-27 14:24] VITALS: BP 135/69; PULSE 93; RESP 16; TEMP 36.9; O2SAT 97
[2024-01-03 10:18] VITALS: BP 98/58; PULSE 90; RESP 18; TEMP 36.4; O2SAT 93
[2024-01-03] MEDS: ferric carboxy (IVPB) 750 MG in sodium chloride 0.9% (100 ml) 100 ML 345 MG IV (10:23)
[2024-01-03 11:05] VITALS: BP 100/61; PULSE 93; RESP 17; TEMP 36.3; O2SAT 96
== END 2024-01-10 23:59 | disposition home or self-care (01) ==
PROVIDERS: PCP Family Medicine Adult Medicine; Visit Provider Internal Medicine Medical Oncology
DX: Z53.9 Procedure and treatment not carried out, unspecified reason (principal); D50.0 Iron deficiency anemia secondary to blood loss (chronic)
CPT/HCPCS: 36415; 80053; 82728; 83540; 83550; 84238; 85025; 96365; 99214; J1439

== ENCOUNTER 2024-01-31 15:09 | Emergency (ER) | payer MEDICARE, MEDICAID, SELFPAY ==
[2024-01-31] VITALS (10 sets, daily range): BP systolic 98–120; BP diastolic 52–96; PULSE 97–112; RESP 15–20; TEMP 36.8–36.9; O2SAT 99–100
[2024-01-31 15:59] LABS: Basophils % 0.6 %; Eosinophils # 0.1 10^3/uL (0.0-0.8); Eosinophils % 0.7 %; Lymphocytes # 0.4 10^3/uL (0.8-4.8); Lymphocytes % 6.4 %; Mean Corpuscular HGB Conc 26.9 g/dL (30-55); Mean Corpuscular Hemoglobin 34.1 pg (27-33); Mean Platelet Volume 10.4 fL (7.4-10.4); Monocytes # 0.4 10^3/uL (0.2-0.9); Monocytes % 6.2 %; Neutrophils # 5.93 10^3/uL (1.8-7.7); Neutrophils % 85.7 %; Nucleated Red Blood Cells % 0 %; Platelet Count 124 10^3/cmm (157-399); Red Blood Count 1.26 10^6/uL (3.85-5.65); Red Cell Distribution Width 17.4 % (12.1-15.1); White Blood Count 6.92 10^3/uL (3.29-11.43)
--- NOTE | 2024-01-31 16:17 | ED_ITS ---
HPI - GI Bleed 2 General: Chief complaint: GI Bleed Stated complaint: SOB, blood in stool, swollen feet Time Seen by Provider: 01/31/24 16:11 History of Present Illness: Patient presents to the ER with complaints of black and tarry stools over about the last week. Patient says he has had this before. He sees Dr. Odell. He does have a diagnosis of iron deficiency anemia in association with gastric antral vascular ectasia. About a year ago he was shipped up to [place] where he had endoscopies and cauterization multiple times on these. He has not needed blood has been stable for approximately the last year. 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 Romy SEVERINO, [place], nodulal bleeding (GAVE) banded x5, F/U repeat 3-4 weeks Hepatomegaly Increased thyroid stimulating hormone (TSH) level Gallstones Tubular adenoma Acute kidney injury superimposed on CKD Hypertriglyceridemia Bilateral carpal tunnel syndrome Anxiety and depression Chronic low back pain Constipation by delayed colonic transit COPD exacerbation GERD (gastroesophageal reflux disease) Alcohol dependence History of kidney stones Gout Hypertension Renal cell cancer Right nephrectomy 2017 Surgical History Hx of colonoscopy with polypectomy History of esophagogastroduodenoscopy (EGD) History of tonsillectomy H/O inguinal hernia repair Right History of nephrectomy Right -- robotic 2017 Family History Mother Cancer Lung cancer Lung disease Father CAD (coronary artery disease) Diabetes Stroke Other Chronic kidney disease (CKD) Hyperlipidemia Hypertension Denies family history of Clotting disorder Dementia Psychiatric illness Suicide Anesthesia complication Bleeding disorder Social History Smoking and tobacco/nicotine status: former use of tobacco/nicotine Quit status (tobacco/nicotine): has quit using Year quit tobacco: 2002 Former quit date comment: Smoked for 20 years Second hand smoke exposure: Yes (Smoked x 20+ years) Alcohol intake: current Alcohol intake frequency: 3 or more drinks per day Alcohol type: beer and hard liquor Substance/Drug Use: never Household members: spouse Housing: House Physical Exam 2 Const: COMMON NORMALS: no acute distress, average body habitus, patient oriented x3, no limitations, healthy appearing, alert and well nourished HENMT: COMMON NORMALS: normocephalic, atraumatic, hearing grossly normal bilaterally, external ears normal, Normal external nose present, moist oral mucous membranes and oropharynx normal HEAD & SCALP: normocephalic and atraumatic NOSE: Normal external nose present EXTERNAL EAR: Yes external ears normal Neck/C-Spine: COMMON NORMALS: no JVD Chest: COMMONS NORMALS: normal inspection of the chest and normal palpation of entire chest wall Resp: COMMON NORMALS: normal respiratory effort, No retractions, No use of accessory muscles and clear to auscultation bilaterally AUSCULTATION: clear to auscultation bilaterally Cardio: COMMON NORMALS: no JVD, regular rate, regular rhythm, S1 normal heart sound present, S2 normal heart sound present, No clicks present (Cardio) and No rub (Cardio); negative for No murmurs present (Cardio) (2/6 to 36 systolic ejection murmur) RATE: regular rate RHYTHM: regular rhythm HEART SOUNDS: S1 normal heart sound present and S2 normal heart sound present GI: COMMON NORMALS: Normal to inspection, nondistended, normoactive bowel sounds present, Soft to palpation, non-tender, No hepatosplenomegaly present and no masses PALPATION: Yes Soft to palpation and Yes No hepatosplenomegaly present Neuro: COMMON NORMALS: patient oriented x3 SENSORIUM/ORIENTATION: Yes alert Course 2 Vital Signs: Vital signs: Vital Signs Temperature 98.4 F 01/31/24 19:27 Pulse Rate 103 H 01/31/24 19:27 Respiratory Rate 20 H 01/31/24 19:27 Blood Pressure 120/56 01/31/24 19:27 Pulse Oximetry 99 01/31/24 19:27 Oxygen Delivery Me thod Room Air 01/31/24 17:25 MDM - GI Bleed Medical Decision Making Dr Hong suggested we transfer the patient out secondary to his not having GI and only having 2 units of blood with no timeframe that we will get anymore. Yared Alberto was consulted Dr. Julian in the ER accepted transfer patient be transfuse her 2 units while patient is here. Differential Diagnosis Likely esophageal varices, gastritis, Upper gastrointestinal hemorrhage and melena; Unlikely hemorrhoids, infectious diarrhea, Leticia-Kirk syndrome, Lower gastrointestinal hemorrhage or anal fissure Medical Records I reviewed the patient's medical records. Lab Data I reviewed the patient's lab results. 01/31/24 15:49 01/31/24 15:49 Laboratory Results WBC 6.92 10^3/uL (3.29-11.43) 01/31/24 15:49 RBC 1.26 10^6/uL (3.85-5.65) L 01/31/24 15:49 Hgb 4.30 g/dL (11.27-16.99) L* 01/31/24 15:49 Hct 16.0 % (37-53) L* 01/31/24 15:49 MCV 127.0 fl (82-101) H 01/31/24 15:49 MCH 34.1 pg (27-33) H 01/31/24 15:49 MCHC 26.9 g/dL (30-55) L 01/31/24 15:49 RDW 17.4 % (12.1-15.1) H 01/31/24 15:49 Plt Count 124 10^3/cmm (157-399) L 01/31/24 15:49 MPV 10.4 fL (7.4-10.4) 01/31/24 15:49 Neut % (Auto) 85.7 % 01/31/24 15:49 Lymph % (Auto) 6.4 % 01/31/24 15:49 [place] % (Auto) 6.2 % 01/31/24 15:49 Eos % (Auto) 0.7 % 01/31/24 15:49 Baso % (Auto) 0.6 % 01/31/24 15:49 Neut # (Auto) 5.93 10^3/uL (1.8-7.7) 01/31/24 15:49 Lymph # (Auto) 0.4 10^3/uL (0.8-4.8) L 01/31/24 15:49 [place] # (Auto) 0.4 10^3/uL (0.2-0.9) 01/31/24 15:49 Eos # (Auto) 0.1 10^3/uL (0.0-0.8) 01/31/24 15:49 Baso # (Auto) 0.0 10^3/uL (0.0-0.1) 01/31/24 15:49 Nucleated RBC % (auto) 0 % 01/31/24 15:49 Nucleated RBCs # 0.0 /100WBC 01/31/24 15:49 PT 17.30 SECONDS (12.1-14.9) H 01/31/24 15:49 INR 1.36 (0.8-1.2) H 01/31/24 15:49 Sodium 133 mmol/L (136-145) L 01/31/24 15:49 Potassium 4.3 mmol/L (3.5-5.1) 01/31/24 15:49 Chloride 98 mmol/L (98-107) 01/31/24 15:49 Carbon Dioxide 14 mmol/L (22-29) L 01/31/24 15:49 Anion Gap 25.3 (5-19) H 01/31/24 15:49 BUN 19 mg/dL (8-23) 01/31/24 15:49 Creatinine 1.1 mg/dL (0.7-1.2) 01/31/24 15:49 GFR Calculation 68.1 mL/min (90-130) L 01/31/24 15:49 Glucose 84 mg/dL (65-115) 01/31/24 15:49 Calculated Osmolality 277 mOsm/kg (285-295) L 01/31/24 15:49 Calcium 7.8 mg/dL (8.5-10.5) L 01/31/24 15:49 Total Bilirubin 2.2 mg/dL (0.15-1.2) H 01/31/24 15:49 AST 85 U/L (0-40) H 01/31/24 15:49 ALT 22 U/L (0-41) 01/31/24 15:49 Alkaline Phosphatase 436 U/L (40-130) H 01/31/24 15:49 Total Protein 5.6 g/dL (6.6-8.7) L 01/31/24 15:49 Albumin 2.9 g/dL (3.5-5.2) L 01/31/24 15:49 Globulin 2.7 g/dL (1.3-4.6) 01/31/24 15:49 Blood Type A Positive 01/31/24 16:16 Rho(D) Type Rh positive 01/31/24 16:16 Antibody Screen Positive 01/31/24 16:16 Antibody Identification Anti-Marlena 01/31/24 16:16 Crossmatch See Detail 01/31/24 16:16 All radiology interpretation(s) finalized by discharge Discharge Plan Discharge Patient Disposition: Xfer Short-Term Hosp Clinical Impression: Acute upper gastrointestinal bleeding, Anemia Condition: Stable Referrals: Gary Macedo MD [Primary Care Provider] - Coding Level of Care Code ED [employer] for Jessie Newman
[2024-01-31 16:24] LABS: Alanine Aminotransferase 22 U/L (0-41); Albumin Level 2.9 g/dL (3.5-5.2); Alkaline Phosphatase 436 U/L (40-130); Anion Gap 25.3 (5-19); Aspartate Amino Transferase 85 U/L (0-40); Blood Urea Nitrogen 19 mg/dL (8-23); Calcium 7.8 mg/dL (8.5-10.5); Carbon Dioxide 14 mmol/L (22-29); Chloride 98 mmol/L (98-107); Globulin 2.7 g/dL (1.3-4.6); Glomerular Filtration Rate 68.1 mL/min (90-130); Glucose 84 mg/dL (65-115); Osmolality Calculated 277 mOsm/kg (285-295); Potassium 4.3 mmol/L (3.5-5.1); Sodium 133 mmol/L (136-145); Total Bilirubin 2.2 mg/dL (0.15-1.2); Total Protein 5.6 g/dL (6.6-8.7)
[2024-01-31 16:26] LABS: INR 1.36 (0.8-1.2)
[2024-01-31 16:33] LABS: Slide Review Slide Review Perform
--- NOTE | 2024-01-31 18:04 | PC.NURSE ---
pt and family updated on status of possible blood transfusion. per lab they are doing an antibody panel to see if pt will have match for a blood transfusion here at [facility]. this nurse transferred lab to Dr. Rodgers to update Dr. Rodgers as well. pt still AOx4.
--- NOTE | 2024-01-31 19:18 | PC.NURSE ---
Pt. started on blood infusion. Pt. going at slower rate due to specific antibodies.
[2024-01-31] MEDS: morphine 4 mg/mL SDV 1 mL IVP (19:51)
[2024-01-31] MEDS: ondansetron 2 mg/ML SDV 2 mL 4 MG IVP (19:51)
--- NOTE | 2024-01-31 22:15 | PC.NURSE ---
Other unit that was prepared for patient was checked out and sent with cambering machine operator on helicopter for infusion.
== END 2024-01-31 22:18 | disposition short-term general hospital (02) ==
PROVIDERS: Emergency Provider Emergency Medicine; PCP Family Medicine Adult Medicine
DX: K92.2 Gastrointestinal hemorrhage, unspecified (principal); D64.9 Anemia, unspecified; Z87.891 Personal history of nicotine dependence; I12.9 Hypertensive chronic kidney disease with stage 1 through stage 4 chronic kidney disease, or unspecified chronic kidney disease; N18.9 Chronic kidney disease, unspecified; J44.9 Chronic obstructive pulmonary disease, unspecified; Z85.528 Personal history of other malignant neoplasm of kidney
CPT/HCPCS: 36415; 36430; 80053; 85025; 85610; 86850; 86870; 86900; 86905; 86920; 96374; 96375; 99285; J2270; J2405; P9016

== ENCOUNTER 2024-03-10 12:30 | Oncology outpatient (recurring) (ONCR) | payer MEDICARE, MEDICAID, SELFPAY ==
[2024-02-21] VITALS (8 sets, daily range): BP systolic 93–105; BP diastolic 43–65; PULSE 77–80; RESP 16–18; TEMP 36–36.6; O2SAT 95–100
[2024-02-21 08:20] LABS: Basophils # 0.1 10^3/uL (0.0-0.1); Basophils % 0.5 %; Eosinophils # 0.2 10^3/uL (0.0-0.8); Lymphocytes # 0.6 10^3/uL (0.8-4.8); Lymphocytes % 5.3 %; Mean Corpuscular HGB Conc 30.7 g/dL (30-55); Mean Platelet Volume 9.6 fL (7.4-10.4); Monocytes # 0.9 10^3/uL (0.2-0.9); Neutrophils % 83.3 %; Nucleated Red Blood Cells % 0 %; Platelet Count 308 10^3/cmm (157-399); Red Cell Distribution Width 21.1 % (12.1-15.1); White Blood Count 11.06 10^3/uL (3.29-11.43)
[2024-02-21 08:21] LABS: Reticulocyte % 5.6 % (0.5-2.0)
[2024-02-21 08:50] LABS: Alanine Aminotransferase 16 U/L (0-41); Albumin Level 2.9 g/dL (3.5-5.2); Alkaline Phosphatase 259 U/L (40-130); Anion Gap 15.9 (5-19); Aspartate Amino Transferase 98 U/L (0-40); Blood Urea Nitrogen 45 mg/dL (8-23); Carbon Dioxide 28 mmol/L (22-29); Chloride 98 mmol/L (98-107); Creatinine Clr Calc Pharmacy 42.9823; Ferritin 56 ng/mL (30-400); Globulin 3.5 g/dL (1.3-4.6); Glomerular Filtration Rate 32.3 mL/min (90-130); Glucose 147 mg/dL (65-115); Iron 20 ug/dL (59-158); Osmolality Calculated 300 mOsm/kg (285-295); Percent Saturation 10.3 % (20-50); Potassium 3.9 mmol/L (3.5-5.1); Sodium 138 mmol/L (136-145); Total Iron Binding Capacity 194 mcg/dl; Total Protein 6.4 g/dL (6.6-8.7); Unsaturated Iron Binding 174 ug/dL (112-347)
[2024-02-21 09:04] LABS: Hematocrit 20.2 % (37-53)
[2024-02-21 09:05] LABS: Total Bilirubin 10.3 mg/dL (0.15-1.2)
[2024-02-21] MEDS: oxyCODONE 5 mg IR Tab/Cap PO (10:57)
[2024-02-21] MEDS: sodium chloride 0.9% 250 mL Bag IV (12:23)
[2024-02-21] MEDS: FUROsemide 10 mg/mL SDV 2mL 20 MG IVP (14:39)
[2024-02-22] MEDS: ferric carboxy (IVPB) 750 MG in sodium chloride 0.9% (100 ml) 100 ML 345 MG IV (10:15)
[2024-02-22 10:40] VITALS: BP 101/65; PULSE 81; TEMP 36.1; O2SAT 92
[2024-02-25 09:39] LABS: Basophils # 0.1 10^3/uL (0.0-0.1); Basophils % 0.5 %; Eosinophils # 0.4 10^3/uL (0.0-0.8); Eosinophils % 2.9 %; Hematocrit 24.5 % (37-53); Lymphocytes # 0.6 10^3/uL (0.8-4.8); Lymphocytes % 4.3 %; Mean Corpuscular HGB Conc 30.6 g/dL (30-55); Mean Corpuscular Volume 101.2 fl (82-101); Mean Platelet Volume 9.5 fL (7.4-10.4); Monocytes # 0.9 10^3/uL (0.2-0.9); Monocytes % 7.1 %; Neutrophils # 10.89 10^3/uL (1.8-7.7); Neutrophils % 83.9 %; Nucleated Red Blood Cells % 0 %; Platelet Count 248 10^3/cmm (157-399); Red Blood Count 2.42 10^6/uL (3.85-5.65); White Blood Count 12.98 10^3/uL (3.29-11.43)
[2024-02-25 09:58] LABS: Alanine Aminotransferase 17 U/L (0-41); Albumin Level 2.7 g/dL (3.5-5.2); Alkaline Phosphatase 239 U/L (40-130); Anion Gap 14.6 (5-19); Aspartate Amino Transferase 97 U/L (0-40); Blood Urea Nitrogen 28 mg/dL (8-23); Calcium 8.6 mg/dL (8.5-10.5); Carbon Dioxide 29 mmol/L (22-29); Chloride 99 mmol/L (98-107); Globulin 3.6 g/dL (1.3-4.6); Glomerular Filtration Rate 44.2 mL/min (90-130); Glucose 136 mg/dL (65-115); Osmolality Calculated 296 mOsm/kg (285-295); Potassium 3.6 mmol/L (3.5-5.1); Sodium 139 mmol/L (136-145); Total Protein 6.3 g/dL (6.6-8.7)
[2024-02-25 10:00] LABS: Creatinine Clr Calc Pharmacy 56.4142; Total Bilirubin 9.2 mg/dL (0.15-1.2)
[2024-02-25 13:41] VITALS: BP 101/64; PULSE 80; RESP 16; TEMP 36.6; O2SAT 93
[2024-02-25 14:00] VITALS: BP 99/63; PULSE 83; RESP 16; TEMP 36.1
[2024-02-25 15:10] VITALS: BP 100/63; PULSE 83; RESP 16; TEMP 36.2; O2SAT 92
[2024-02-25 15:45] VITALS: BP 102/63; PULSE 83; RESP 16; TEMP 36.6; O2SAT 91
[2024-02-25] MEDS: sodium chloride 0.9% 250 mL Bag IV (16:22)
[2024-02-26] VITALS (7 sets, daily range): BP systolic 96–101; BP diastolic 52–63; PULSE 75–80; RESP 17–18; TEMP 35.8–36.6; O2SAT 99–100
[2024-02-26] MEDS: sodium chloride 0.9% 100 mL Bag 50 ML IV (11:41)
[2024-02-26] MEDS: sodium chloride 0.9% 100 ML 75 ML IV (13:50)
[2024-02-29 10:18] VITALS: BP 105/52; PULSE 89; RESP 16; TEMP 36.3; O2SAT 96
[2024-02-29] MEDS: ferric carboxy (IVPB) 750 MG in sodium chloride 0.9% (100 ml) 100 ML 345 MG IV (10:36)
[2024-02-29 11:12] VITALS: BP 106/65; PULSE 83; RESP 16; TEMP 36.3; O2SAT 94
[2024-03-03 13:03] LABS: Basophils % 0.2 %; Eosinophils # 0.2 10^3/uL (0.0-0.8); Eosinophils % 2.2 %; Hematocrit 27.3 % (37-53); Lymphocytes # 0.5 10^3/uL (0.8-4.8); Lymphocytes % 5.3 %; Mean Corpuscular HGB Conc 30.4 g/dL (30-55); Mean Corpuscular Hemoglobin 31.9 pg (27-33); Monocytes # 0.7 10^3/uL (0.2-0.9); Neutrophils # 7.37 10^3/uL (1.8-7.7); Neutrophils % 83.6 %; Nucleated Red Blood Cells % 0 %; Platelet Count 188 10^3/cmm (157-399); Red Cell Distribution Width 24.9 % (12.1-15.1); White Blood Count 8.82 10^3/uL (3.29-11.43)
[2024-03-03 13:28] LABS: Alanine Aminotransferase 22 U/L (0-41); Albumin Level 2.6 g/dL (3.5-5.2); Alkaline Phosphatase 209 U/L (40-130); Anion Gap 11.8 (5-19); Aspartate Amino Transferase 99 U/L (0-40); Blood Urea Nitrogen 16 mg/dL (8-23); Calcium 8.6 mg/dL (8.5-10.5); Carbon Dioxide 29 mmol/L (22-29); Chloride 100 mmol/L (98-107); Creatinine Clr Calc Pharmacy 82.0571; Globulin 3.4 g/dL (1.3-4.6); Glomerular Filtration Rate 68.1 mL/min (90-130); Glucose 156 mg/dL (65-115); Osmolality Calculated 288 mOsm/kg (285-295); Potassium 3.8 mmol/L (3.5-5.1); Sodium 137 mmol/L (136-145)
[2024-03-03 13:47] LABS: Total Bilirubin 8.4 mg/dL (0.15-1.2)
[2024-03-10 12:46] LABS: Basophils # 0.1 10^3/uL (0.0-0.1); Basophils % 0.6 %; Eosinophils # 0.1 10^3/uL (0.0-0.8); Eosinophils % 1.6 %; Hematocrit 26.1 % (37-53); Lymphocytes # 0.6 10^3/uL (0.8-4.8); Lymphocytes % 7.2 %; Mean Corpuscular HGB Conc 30.3 g/dL (30-55); Mean Corpuscular Hemoglobin 33.6 pg (27-33); Mean Corpuscular Volume 111.1 fl (82-101); Mean Platelet Volume 9.5 fL (7.4-10.4); Monocytes # 0.6 10^3/uL (0.2-0.9); Neutrophils % 81.7 %; Nucleated Red Blood Cells % 0 %; Platelet Count 227 10^3/cmm (157-399); Red Blood Count 2.35 10^6/uL (3.85-5.65); Red Cell Distribution Width 23.8 % (12.1-15.1); White Blood Count 7.96 10^3/uL (3.29-11.43)
[2024-03-10 13:10] LABS: Alanine Aminotransferase 19 U/L (0-41); Albumin Level 2.8 g/dL (3.5-5.2); Alkaline Phosphatase 252 U/L (40-130); Anion Gap 13.1 (5-19); Aspartate Amino Transferase 82 U/L (0-40); Blood Urea Nitrogen 13 mg/dL (8-23); Carbon Dioxide 28 mmol/L (22-29); Chloride 102 mmol/L (98-107); Globulin 3.2 g/dL (1.3-4.6); Glomerular Filtration Rate 61.6 mL/min (90-130); Glucose 135 mg/dL (65-115); Osmolality Calculated 290 mOsm/kg (285-295); Potassium 4.1 mmol/L (3.5-5.1); Sodium 139 mmol/L (136-145); Total Bilirubin 6.7 mg/dL (0.15-1.2)
[2024-03-10 14:03] LABS: INR 1.31 (0.8-1.2)
== END 2024-03-11 23:59 | disposition home or self-care (01) ==
PROVIDERS: Nurse Practitioner Family; PCP Family Medicine Adult Medicine; Visit Provider Internal Medicine Medical Oncology
DX: Z53.9 Procedure and treatment not carried out, unspecified reason (principal); D50.0 Iron deficiency anemia secondary to blood loss (chronic); R74.8 Abnormal levels of other serum enzymes; Z79.899 Other long term (current) drug therapy
CPT/HCPCS: 36415; 36430; 80053; 82248; 82728; 83010; 83540; 83550; 85025; 85045; 85610; 86850; 86870; 86900; 86920; 96365; 99214; J1439; J1940; J7050; P9016

== ENCOUNTER 2024-04-09 08:30 | Oncology outpatient (recurring) (ONCR) | payer MEDICARE, MEDICAID, SELFPAY ==
[2024-03-13] VITALS (13 sets, daily range): BP systolic 91–106; BP diastolic 52–65; PULSE 75–90; RESP 16–18; TEMP 36.1–36.6; O2SAT 90–92
[2024-03-13] MEDS: oxyCODONE 5 mg IR Tab/Cap PO (11:53)
[2024-03-13] MEDS: sodium chloride 0.9% 250 mL Bag IV (14:45)
[2024-03-17 12:55] LABS: Basophils # 0.1 10^3/uL (0.0-0.1); Basophils % 0.8 %; Eosinophils # 0.2 10^3/uL (0.0-0.8); Eosinophils % 2.6 %; Hematocrit 31.6 % (37-53); Lymphocytes # 0.6 10^3/uL (0.8-4.8); Lymphocytes % 8.8 %; Mean Corpuscular HGB Conc 31.6 g/dL (30-55); Mean Corpuscular Hemoglobin 33.4 pg (27-33); Mean Corpuscular Volume 105.7 fl (82-101); Mean Platelet Volume 9.4 fL (7.4-10.4); Monocytes # 0.6 10^3/uL (0.2-0.9); Monocytes % 7.6 %; Neutrophils % 79.8 %; Nucleated Red Blood Cells % 0 %; Platelet Count 273 10^3/cmm (157-399); Red Blood Count 2.99 10^6/uL (3.85-5.65); Red Cell Distribution Width 23.5 % (12.1-15.1); White Blood Count 7.27 10^3/uL (3.29-11.43)
[2024-03-17 13:17] LABS: Alanine Aminotransferase 19 U/L (0-41); Albumin Level 2.9 g/dL (3.5-5.2); Alkaline Phosphatase 276 U/L (40-130); Anion Gap 12.1 (5-19); Aspartate Amino Transferase 113 U/L (0-40); Blood Urea Nitrogen 9 mg/dL (8-23); Calcium 8.2 mg/dL (8.5-10.5); Carbon Dioxide 29 mmol/L (22-29); Chloride 100 mmol/L (98-107); Ferritin 372 ng/mL (30-400); Globulin 3.5 g/dL (1.3-4.6); Glomerular Filtration Rate 68.1 mL/min (90-130); Glucose 104 mg/dL (65-115); Iron 48 ug/dL (59-158); Osmolality Calculated 283 mOsm/kg (285-295); Percent Saturation 44.4 % (20-50); Potassium 4.1 mmol/L (3.5-5.1); Sodium 137 mmol/L (136-145); Total Bilirubin 5.8 mg/dL (0.15-1.2); Total Iron Binding Capacity 108 mcg/dl; Total Protein 6.4 g/dL (6.6-8.7); Unsaturated Iron Binding 60 ug/dL (112-347)
[2024-03-26 11:33] LABS: Basophils % 0.6 %; Eosinophils # 0.1 10^3/uL (0.0-0.8); Hematocrit 30.3 % (37-53); Lymphocytes # 0.5 10^3/uL (0.8-4.8); Mean Corpuscular HGB Conc 31.4 g/dL (30-55); Mean Corpuscular Hemoglobin 34.1 pg (27-33); Mean Corpuscular Volume 108.6 fl (82-101); Mean Platelet Volume 9.6 fL (7.4-10.4); Monocytes # 0.5 10^3/uL (0.2-0.9); Monocytes % 7.7 %; Neutrophils # 5.66 10^3/uL (1.8-7.7); Neutrophils % 82.4 %; Nucleated Red Blood Cells % 0 %; Platelet Count 167 10^3/cmm (157-399); Red Blood Count 2.79 10^6/uL (3.85-5.65); Red Cell Distribution Width 19.6 % (12.1-15.1); White Blood Count 6.87 10^3/uL (3.29-11.43)
[2024-03-26 11:57] LABS: Alanine Aminotransferase 12 U/L (0-41); Albumin Level 2.8 g/dL (3.5-5.2); Alkaline Phosphatase 234 U/L (40-130); Anion Gap 11.3 (5-19); Aspartate Amino Transferase 49 U/L (0-40); Blood Urea Nitrogen 10 mg/dL (8-23); Calcium 7.8 mg/dL (8.5-10.5); Carbon Dioxide 27 mmol/L (22-29); Chloride 101 mmol/L (98-107); Creatinine Clr Calc Pharmacy 80.8354; Globulin 3.3 g/dL (1.3-4.6); Glomerular Filtration Rate 68.1 mL/min (90-130); Glucose 123 mg/dL (65-115); Iron 28 ug/dL (59-158); Osmolality Calculated 280 mOsm/kg (285-295); Percent Saturation 26.4 % (20-50); Potassium 4.3 mmol/L (3.5-5.1); Sodium 135 mmol/L (136-145); Total Bilirubin 3.7 mg/dL (0.15-1.2); Total Iron Binding Capacity 106 mcg/dl; Total Protein 6.1 g/dL (6.6-8.7); Unsaturated Iron Binding 78 ug/dL (112-347)
[2024-04-02 11:20] LABS: Basophils # 0.1 10^3/uL (0.0-0.1); Basophils % 0.9 %; Eosinophils # 0.1 10^3/uL (0.0-0.8); Hematocrit 31.7 % (37-53); Lymphocytes # 0.6 10^3/uL (0.8-4.8); Mean Corpuscular HGB Conc 30.6 g/dL (30-55); Mean Corpuscular Hemoglobin 33.8 pg (27-33); Mean Corpuscular Volume 110.5 fl (82-101); Mean Platelet Volume 9.1 fL (7.4-10.4); Monocytes # 0.4 10^3/uL (0.2-0.9); Monocytes % 7.3 %; Neutrophils # 4.46 10^3/uL (1.8-7.7); Neutrophils % 79.6 %; Nucleated Red Blood Cells % 0 %; Platelet Count 196 10^3/cmm (157-399); Red Blood Count 2.87 10^6/uL (3.85-5.65); Red Cell Distribution Width 17.8 % (12.1-15.1)
[2024-04-09 09:52] LABS: Basophils # 0.1 10^3/uL (0.0-0.1); Basophils % 1.4 %; Eosinophils # 0.2 10^3/uL (0.0-0.8); Eosinophils % 2.9 %; Lymphocytes # 0.5 10^3/uL (0.8-4.8); Lymphocytes % 8.6 %; Mean Corpuscular HGB Conc 31.3 g/dL (30-55); Mean Corpuscular Hemoglobin 33.8 pg (27-33); Mean Platelet Volume 8.7 fL (7.4-10.4); Monocytes # 0.4 10^3/uL (0.2-0.9); Monocytes % 7.9 %; Neutrophils # 4.41 10^3/uL (1.8-7.7); Neutrophils % 78.8 %; Nucleated Red Blood Cells % 0 %; Platelet Count 181 10^3/cmm (157-399); Red Blood Count 2.87 10^6/uL (3.85-5.65); Red Cell Distribution Width 15.9 % (12.1-15.1); White Blood Count 5.59 10^3/uL (3.29-11.43)
[2024-04-09 10:05] VITALS: BP 104/64; PULSE 76; RESP 17; TEMP 36.4; O2SAT 99
[2024-04-09 10:13] LABS: Alanine Aminotransferase 10 U/L (0-41); Albumin Level 2.8 g/dL (3.5-5.2); Alkaline Phosphatase 207 U/L (40-130); Aspartate Amino Transferase 32 U/L (0-40); Blood Urea Nitrogen 8 mg/dL (8-23); Calcium 8.4 mg/dL (8.5-10.5); Carbon Dioxide 25 mmol/L (22-29); Chloride 105 mmol/L (98-107); Creatinine Clr Calc Pharmacy 88.8689; Globulin 3.4 g/dL (1.3-4.6); Glucose 120 mg/dL (65-115); Osmolality Calculated 286 mOsm/kg (285-295); Sodium 138 mmol/L (136-145); Total Bilirubin 3.1 mg/dL (0.15-1.2); Total Protein 6.2 g/dL (6.6-8.7)
[2024-04-09] MEDS: sodium chloride 0.9% 250 ML IV (10:17)
[2024-04-09] MEDS: ferric carboxy (IVPB) 750 MG in sodium chloride 0.9% (100 ml) 100 ML 345 MG IV (10:17)
[2024-04-09 11:05] VITALS: BP 154/78; PULSE 88; RESP 16; TEMP 36.6; O2SAT 94
== END 2024-04-11 23:59 | disposition home or self-care (01) ==
PROVIDERS: Nurse Practitioner Family; PCP Family Medicine Adult Medicine; Visit Provider Internal Medicine Medical Oncology
DX: D50.0 Iron deficiency anemia secondary to blood loss (chronic) (principal); Z53.9 Procedure and treatment not carried out, unspecified reason
CPT/HCPCS: 36415; 36430; 80053; 82728; 83540; 83550; 85025; 86850; 86900; 86920; 96365; 99214; J1439; J7050; P9016

== ENCOUNTER → 2024-04-14 13:59 | Outpatient (BNVA) | payer MEDICARE, MEDICAID, SELFPAY | PROVIDERS: PCP Family Medicine Adult Medicine; Visit Provider Surgery | DX: K70.30 Alcoholic cirrhosis of liver without ascites (principal); K31.811 Angiodysplasia of stomach and duodenum with bleeding; I87.8 Other specified disorders of veins | CPT/HCPCS: 99214 ==

== ENCOUNTER 2024-04-22 05:45 | Day surgery (SDC) | payer MEDICARE, MEDICAID, SELFPAY ==
[2024-04-22] VITALS (7 sets, daily range): BP systolic 105–123; BP diastolic 60–73; PULSE 86–93; RESP 12–18; TEMP 36.2–36.9; O2SAT 93–98; BMI 29.4
--- NOTE | 2024-04-22 05:58 | XRR_ITS ---
PROCEDURE INFORMATION: Exam: XR Chest Exam date and time: 04/22/2024 7:56 AM Age: 63 years old Clinical indication: Device placement; Other: Mediport placement; Prior surgery; Surgery date: Post-operative (0-2 days); Additional info: Status post mediport placement TECHNIQUE: Imaging protocol: Radiologic exam of the chest. Views: 1 view. COMPARISON: CT chest abdpel w/*[id number] 07/30/2023 8:50 AM FINDINGS: Tubes, catheters and devices: A left subclavian port is in place, tip overlies lower SVC. Lungs: Left mid to lower lung patchy infiltrates with effusion, new. Pleural spaces: No pneumothorax. Heart/Mediastinum: The heart is quite large. There is a least mild venous congestion. Bones/joints: Unremarkable. XR/XR chest 1V portable [id number] IMPRESSION: 1. New left port in place, no pneumothorax. 2. Increasing left mid to lower lung atelectasis or pneumonia with effusion. 3. The heart appears quite large.
--- NOTE | 2024-04-22 05:58 | SC_ITS ---
WS: [id number] C-ARM RADIOGRAPHS CHEST; 2 IMAGES HISTORY: Mediport placement COMPARISON: None available. Intraoperative imaging during LEFT subclavian clavian Mediport placement. The tip overlies the mid SV C. SC/C-arm FL for CVA [id number] IMPRESSION: Intraoperative imaging during Mediport placement.
[2024-04-22] MEDS: sodium chloride 0.9% 1,000 ML 30 ML IV (06:32)
--- NOTE | 2024-04-22 06:51 | W.PM.OPSUD ---
Surgery/Procedure H&P Update DATE OF PROCEDURE: April 22, 2024 DATE H&P PERFORMED: 04/14/24 H&P UPDATE INFORMATION: I have reviewed H&P completed within last 30 days, I have examined patient prior to procedure and No changes to prior documentation PLANNED PROCEDURE: Operation Date: 04/22/24 07:00 Proposed Procedures p Portacath Placement 61439, I87.8(Not Applicable) - Merritt Garcia DO
[2024-04-22] MEDS: ceFAZolin 2,000 MG in sodium chloride 0.9% (plus) 50 ML 100 MG IV (06:59)
[2024-04-22] MEDS: lidocaine-epi 2% PF 1:200,000 20 mL SDV XX (07:19)
[2024-04-22] MEDS: heparin, porcine 1,000 unit/mL INJ 10 mL 10000 UNIT IRRIGATION (07:22)
--- NOTE | 2024-04-22 07:34 | PM.OP ---
Operative Report Date of procedure: April 22, 2024 Pre-op diagnosis: Poor venous access Post-op diagnosis: same Procedure done: Mediport placement Intraoperative interpretation of fluoroscopy Implants: PowerPort Specimens removed/disposition: None Surgeon: Merritt Garcia DO Anesthesia: MAC and Local Estimated blood loss (mL): 5 Complications: None apparent Brief History: This is a very pleasant 63-year-old gentleman with poor venous access. He desired Mediport placement. The risks and benefits were explained and documented. Procedure: They put another order I will do right now things the patient was taken to the operating room and placed supine on the operating room table. All bony prominences were padded. She was given IV sedation and monitored throughout the case by the anesthesia personnel. SCDs were placed and turned on. The arms were tucked to the side. Patient received Ancef 2 g preoperatively IV. The bilateral chest wall was prepped and draped in usual sterile fashion using chlorhexidine base prep. Sterile drapes were applied. We did procedure pause prior to beginning. An 18 gauge needle was placed in the left subclavian vein. Dark, nonpulsatile blood was aspirated. A guidewire was placed through the needle centrally toward the atrial/vena caval junction. Fluoroscopy visualized good placement. The needle was removed and the guidewire was clipped to the drape with a hemostat. Further local anesthetic was infiltrated in the soft tissues of the left chest wall and a #15 blade was used to make a horizontal skin incision. A subcutaneous Mediport pocket was created using Bovie cautery, dissecting down through the skin and subcutaneous tissues. Meticulous hemostasis was achieved. The Mediport was sutured in position using 3-0 vicryl suture x2 stitches. A #15 blade was used to make a small skin trung around the guidewire insertion area. The Mediport tubing was tunneled through the subcutaneous tissues up to the needle insertion location. A dilator with a peel-away sheath was placed over the guidewire and placed centrally. After measuring the Mediport tubing was cut to length so that the tip would end at the atrial/vena caval junction. The inner cannula and the guidewire were removed, leaving the dilator sheath in place. The Mediport was flushed. The tip of the catheter was inserted through the peel-away sheath and the peel-away sheath removed in the standard fashion. The Mediport was accessed with a straight Bear needle and dark, nonpulsatile blood was aspirated and flushed using heparinized saline to hep-lock the Mediport. Final fluoroscopy visualization showed no kink in the catheter and the tip of the Mediport tubing near the atrial/vena caval junction. There is no obvious pneumothorax. Both skin incisions were thoroughly irrigated and suctioned dry. Meticulous hemostasis noted. The dermis was approximated with 3-0 Vicryl in an interrupted fashion. Skin was closed with Dermabond. Patient was awakened from anesthesia and transferred via her cart to the recovery room in stable condition. All needle, sponge, and instrument counts were correct per the operating personnel x2 counts.
--- NOTE | 2024-04-22 07:47 | ANES.PREANE2 ---
Pre-Anesthetic Assessment Height/Weight: Height 1.78 m Weight 92.986 kg Temp Pulse Resp BP Pulse Ox O2 Del Method 98.5 F 89 17 123/70 96 Room Air 04/22/24 06:10 04/22/24 06:10 04/22/24 06:10 04/22/24 06:10 04/22/24 06:10 04/22/24 06:12 Operation Date: 04/22/24 07:00 Proposed Procedures p Portacath Placement 01502, I87.8(Not Applicable) - Merritt Garcia DO Familial anesthetic complications: none Was Beta Brea taken within 24 hours: N/A Was Clonidine taken within 24 hours: N/A Last intake: Intake Last Liquid Date 04/21/24 Last Liquid Time 21:30 Last Solid Date 04/21/24 Last Solid Time 18:00 Social Alcohol and Tobacco Exam alert, oriented x 3, clear to auscultation bilaterally and regular rate & rhythm Airway Submandibular: within normal limits Cervical ROM: within normal limits Mallampati: Class II Dentition: full Pulmonary Chronic Obstructive Pulmonary Disease CV/HEM Anemia and Hypertension Hepatic Cirrhosis GI Gastroesophageal Reflux Disease Neuropsych Anxiety and Depression Anesthetic Plan ASA status: 3 Anesthesia: MAC Medications/Allergies Home Medications Medication Instructions Recorded Confirmed Last Taken Type sucralfate 1 gram tablet 1 g PO TID #90 tabs 02/06/24 04/21/24 Unknown Rx pantoprazole 40 mg tablet,delayed 40 mg PO BID 30 days #180 tabs 04/09/24 04/21/24 04/21/24 Rx release montelukast 10 mg tablet 10 mg PO .HS PRN allergies 04/21/24 04/21/24 Unknown History (Singulair) allopurinol 300 mg tablet 300 mg PO DAILY 04/22/24 04/22/24 04/21/24 History bupropion HCl 150 mg 24 hr tablet, 150 mg PO QAM 04/22/24 04/21/24 04/21/24 History extended release (Wellbutrin XL) hydrocodone 7.5 mg-acetaminophen 1 tab PO Q6H PRN pain #10 tabs 04/22/24 Unknown Rx 325 mg tablet Allergies Allergy/AdvReac Type Severity Reaction Status Date / Time No Known Allergies Allergy Verified 04/22/24 06:03 Current Medications Generic Name Dose Route Start Last Admin Trade Name Freq PRN Reason Stop Dose Admin Sodium Chloride 1,000 mls @ 30 mls/hr 04/22/24 06:00 04/22/24 06:32 Sodium Chloride 0.9% IV 04/23/24 05:59 30 mls/hr .Q24H YAAKOV Administration PFSH Anesthesia Medical History (Updated 04/14/24 @ 15:03 by Merritt Garcia DO) Poor venous access Jaundice, acholuric 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) 01/31/24 EGD H/H 4.3, PRBC's x 4 units, SPG, 2021 nodular bleeding (GAVE) banded x5 Edema of both lower extremities Liver cirrhosis, alcoholic Hepatomegaly Increased thyroid stimulating hormone (TSH) level Gallstones Tubular adenoma Acute kidney injury superimposed on CKD Hypertriglyceridemia Bilateral carpal tunnel syndrome Anxiety and depression Chronic low back pain Constipation by delayed colonic transit COPD exacerbation GERD (gastroesophageal reflux disease) Alcohol dependence History of kidney stones Gout Hypertension Renal cell cancer Right nephrectomy 2017 Surgical History Hx of colonoscopy with polypectomy History of esophagogastroduodenoscopy (EGD) History of tonsillectomy H/O inguinal hernia repair Right History of nephrectomy Right -- robotic 2017 Family History Mother Cancer Lung cancer Lung disease Father CAD (coronary artery disease) Diabetes Stroke Other Chronic kidney disease (CKD) Hyperlipidemia Hypertension Denies family history of Clotting disorder Dementia Psychiatric illness Suicide Anesthesia complication Bleeding disorder Social History Smoking and tobacco/nicotine status: former use of tobacco/nicotine Quit status (tobacco/nicotine): has quit using Year quit tobacco: 2002 Former quit date comment: Smoked for 20 years Second hand smoke exposure: Yes (Smoked x 20+ years) Alcohol intake: former Year of sobriety/quit date alcohol: 2023 Former alcohol use details: 40 years total use Substance/Drug Use: never Household members: spouse Housing: House Data Anesthesia Cardiac Studies: No Data to Display
--- NOTE | 2024-04-22 14:11 | ANE.PACU2 ---
Inpatient post-anesthesia follow up: Airway intact: Yes Vital signs: Temperature 97.3 F Pulse Rate 87 Respiratory Rate 17 Blood Pressure 105/62 Pulse Oximetry 93 Oxygen Delivery Me thod Room Air Oxygen Flow Rate Fraction of Inspir ed Oxygen Hydration adequate: Yes Nausea and vomiting: No Pain level: 2 Mental status: Baseline
== END 2024-04-22 10:04 | disposition home or self-care (01) ==
PROVIDERS: PCP Family Medicine Adult Medicine; Visit Provider Surgery
PROC: (CPT 36561; principal; 2024-04-22 07:00)
DX: I87.8 Other specified disorders of veins (principal); J44.9 Chronic obstructive pulmonary disease, unspecified; I10 Essential (primary) hypertension; K21.9 Gastro-esophageal reflux disease without esophagitis; Z87.891 Personal history of nicotine dependence
CPT/HCPCS: 36561; 71045; 77001; C1788; J0690; J1644; J2250; J2704; J3010; J7030

== ENCOUNTER 2024-05-05 14:30 | Oncology outpatient (recurring) (ONCR) | payer MEDICARE, MEDICAID, SELFPAY ==
[2024-04-16 11:28] LABS: Basophils # 0.1 10^3/uL (0.0-0.1); Basophils % 0.8 %; Eosinophils # 0.2 10^3/uL (0.0-0.8); Eosinophils % 2.7 %; Hematocrit 33.1 % (37-53); Lymphocytes # 0.6 10^3/uL (0.8-4.8); Lymphocytes % 8.5 %; Mean Corpuscular HGB Conc 31.1 g/dL (30-55); Mean Corpuscular Hemoglobin 33.9 pg (27-33); Mean Corpuscular Volume 108.9 fl (82-101); Mean Platelet Volume 9.2 fL (7.4-10.4); Monocytes # 0.5 10^3/uL (0.2-0.9); Monocytes % 7.3 %; Neutrophils % 80.4 %; Nucleated Red Blood Cells % 0 %; Platelet Count 220 10^3/cmm (157-399); Red Blood Count 3.04 10^6/uL (3.85-5.65); Red Cell Distribution Width 15.9 % (12.1-15.1); White Blood Count 6.59 10^3/uL (3.29-11.43)
[2024-04-16 11:52] LABS: Alanine Aminotransferase 10 U/L (0-41); Albumin Level 2.9 g/dL (3.5-5.2); Alkaline Phosphatase 229 U/L (40-130); Aspartate Amino Transferase 30 U/L (0-40); Blood Urea Nitrogen 7 mg/dL (8-23); Calcium 8.3 mg/dL (8.5-10.5); Carbon Dioxide 26 mmol/L (22-29); Chloride 103 mmol/L (98-107); Globulin 3.3 g/dL (1.3-4.6); Glomerular Filtration Rate 68.1 mL/min (90-130); Glucose 145 mg/dL (65-115); Osmolality Calculated 287 mOsm/kg (285-295); Sodium 138 mmol/L (136-145); Total Bilirubin 2.5 mg/dL (0.15-1.2); Total Protein 6.2 g/dL (6.6-8.7)
[2024-04-22 08:28] LABS: Basophils % 0.7 %; Eosinophils # 0.2 10^3/uL (0.0-0.8); Hematocrit 29.6 % (37-53); Lymphocytes # 0.7 10^3/uL (0.8-4.8); Lymphocytes % 12.2 %; Mean Corpuscular HGB Conc 31.8 g/dL (30-55); Mean Corpuscular Hemoglobin 33.2 pg (27-33); Mean Corpuscular Volume 104.6 fl (82-101); Mean Platelet Volume 9.2 fL (7.4-10.4); Monocytes # 0.5 10^3/uL (0.2-0.9); Monocytes % 8.5 %; Neutrophils # 4.25 10^3/uL (1.8-7.7); Neutrophils % 73.9 %; Nucleated Red Blood Cells % 0 %; Platelet Count 151 10^3/cmm (157-399); Red Blood Count 2.83 10^6/uL (3.85-5.65); Red Cell Distribution Width 15.4 % (12.1-15.1); White Blood Count 5.75 10^3/uL (3.29-11.43)
[2024-04-22 08:44] LABS: Alanine Aminotransferase 9 U/L (0-41); Albumin Level 2.8 g/dL (3.5-5.2); Alkaline Phosphatase 215 U/L (40-130); Anion Gap 11.2 (5-19); Aspartate Amino Transferase 30 U/L (0-40); Blood Urea Nitrogen 7 mg/dL (8-23); Calcium 7.8 mg/dL (8.5-10.5); Carbon Dioxide 25 mmol/L (22-29); Chloride 105 mmol/L (98-107); Glomerular Filtration Rate 85.8 mL/min (90-130); Glucose 111 mg/dL (65-115); Osmolality Calculated 283 mOsm/kg (285-295); Potassium 4.2 mmol/L (3.5-5.1); Sodium 137 mmol/L (136-145); Total Bilirubin 1.8 mg/dL (0.15-1.2); Total Protein 5.8 g/dL (6.6-8.7)
[2024-05-05 13:54] LABS: Basophils % 0.6 %; Eosinophils # 0.2 10^3/uL (0.0-0.8); Eosinophils % 2.1 %; Hematocrit 29.3 % (37-53); Lymphocytes # 0.5 10^3/uL (0.8-4.8); Lymphocytes % 6.9 %; Mean Corpuscular HGB Conc 32.4 g/dL (30-55); Mean Corpuscular Hemoglobin 33.6 pg (27-33); Mean Corpuscular Volume 103.5 fl (82-101); Mean Platelet Volume 8.8 fL (7.4-10.4); Monocytes # 0.6 10^3/uL (0.2-0.9); Monocytes % 8.5 %; Neutrophils # 5.78 10^3/uL (1.8-7.7); Neutrophils % 81.3 %; Nucleated Red Blood Cells % 0 %; Platelet Count 124 10^3/cmm (157-399); Red Blood Count 2.83 10^6/uL (3.85-5.65); Red Cell Distribution Width 16.7 % (12.1-15.1)
[2024-05-05 14:10] LABS: Anion Gap 22.4 (5-19); Blood Urea Nitrogen 6 mg/dL (8-23); Calcium 8.1 mg/dL (8.5-10.5); Carbon Dioxide 21 mmol/L (22-29); Chloride 103 mmol/L (98-107); Creatinine Clr Calc Pharmacy 98.2034; Glomerular Filtration Rate 85.5 mL/min (90-130); Glucose 92 mg/dL (65-115); Osmolality Calculated 291 mOsm/kg (285-295); Potassium 4.4 mmol/L (3.5-5.1); Sodium 142 mmol/L (136-145)
== END 2024-05-11 23:59 | disposition home or self-care (01) ==
PROVIDERS: Nurse Practitioner Family; PCP Family Medicine Adult Medicine; Visit Provider Internal Medicine Medical Oncology
DX: Z53.9 Procedure and treatment not carried out, unspecified reason (principal); D50.0 Iron deficiency anemia secondary to blood loss (chronic); I87.8 Other specified disorders of veins; Z95.828 Presence of other vascular implants and grafts
CPT/HCPCS: 36415; 36591; 80048; 80053; 85025; 99214

== ENCOUNTER 2024-05-27 08:27 | Outpatient (CLI) | payer MEDICARE, MEDICAID, SELFPAY ==
--- NOTE | 2024-05-27 08:30 | XRR_ITS ---
PROCEDURE INFORMATION: Exam: XR Chest Exam date and time: 05/27/2024 8:38 AM Age: 64 years old Clinical indication: Cough and shortness of breath; Prior surgery; Surgery date: 6+ months; Surgery type: Port; Patient HX: HX of kidney cancer; Additional info: Shortness of breath; Cough TECHNIQUE: Imaging protocol: Radiologic exam of the chest. Views: 2 views. COMPARISON: CR XR chest 1V portable [id number] 05/12/2024 3:51 PM FINDINGS: Tubes, catheters and devices: There is a medication port on the left with its tip overlying the SVC. Lungs: There may be mild central vascular congestion. Linear atelectasis or scarring is noted at the right lung base. There is opacity at the left lung base. This may reflect layering pleural fluid, atelectasis, pneumonia or a combination. Pleural spaces: There may be a small left pleural effusion. Heart/Mediastinum: The heart is borderline enlarged. There is calcified plaque involving the aorta. Bones/joints: Unremarkable. XR/XR chest 2V* [id number] IMPRESSION: 1. Borderline cardiomegaly with possible mild central vascular congestion. 2. Left basilar opacity worse on today's exam. 3. Linear atelectasis or scarring right lung base.
== END 2024-05-27 08:28 | disposition home or self-care (01) ==
LOC: RAD 08:29
PROVIDERS: PCP Family Medicine Adult Medicine; Visit Provider Internal Medicine Medical Oncology
DX: R06.02 Shortness of breath (principal); R05.9 Cough, unspecified
CPT/HCPCS: 71046

== ENCOUNTER 2024-05-30 14:16 | Outpatient (CLI) | payer MEDICARE, MEDICAID, SELFPAY ==
--- NOTE | 2024-05-30 14:22 | CTR_ITS ---
PROCEDURE INFORMATION: Exam: CT Chest With Contrast; Diagnostic Exam date and time: 05/30/2024 2:27 PM Age: 64 years old Clinical indication: Mass, lump, or swelling; Shortness of breath; Prior right renal surgery greater than 6 months ago.; Abdominal bloating/ascites, HX of alcoholic cirrhosis; Cirrhosis, abdominal swelling, ascites. TECHNIQUE: Imaging protocol: Diagnostic computed tomography of the chest with contrast. Radiation optimization: All CT scans at this facility use at least one of these dose optimization techniques: automated exposure control; mA and/or kV adjustment per patient size (includes targeted exams where dose is matched to clinical indication); or iterative reconstruction. Contrast material: OMNI 350; Contrast volume: 100 ml; Contrast route: INTRAVENOUS (IV); COMPARISON: CT chest abdpel w/*[id number] 07/30/2023 8:50 AM RADIATION DOSE METRICS: Total DLP (mGy-cm): 1081.28 FINDINGS: Lungs: See Pleural spaces finding. Pleural spaces: Moderate left pleural effusion with adjacent compressive atelectasis or pneumonia. Streaky opacities at the right lung base are consistent with atelectasis and/or scarring. There is a 6 mm pleural-based nodule along the anterior aspect of the right middle lobe series 4, image 41, similar to the prior study. Heart: Mild cardiomegaly. Coronary arteries: Multivessel atherosclerotic disease which involves the coronary arteries. Lymph nodes: Unremarkable. No enlarged lymph nodes. Vasculature: Unremarkable. No aortic aneurysm. Diaphragm: Moderate size hiatal hernia. There is herniation of ascites and mesenteric fat alongside the portion of the herniated stomach. Bones/joints: Unremarkable. No acute fracture. Soft tissues: Unremarkable. (Reference: Betsy) REFERENCES: Betsy Mora et al. Guidelines for Management of Incidental Pulmonary Nodules Detected on CT Images: From the Fleischner Society 2017. Radiology. 2017;284(1):228-243. PROCEDURE INFORMATION: Exam: CT Abdomen And Pelvis With Contrast Exam date and time: 05/30/2024 2:27 PM Age: 64 years old Clinical indication: Mass, lump, or swelling; Shortness of breath; Prior right renal surgery greater than 6 months ago.; Abdominal bloating/ascites, HX of alcoholic cirrhosis; Cirrhosis, abdominal swelling, ascites. TECHNIQUE: Imaging protocol: Computed tomography of the abdomen and pelvis with contrast. Radiation optimization: All CT scans at this facility use at least one of these dose optimization techniques: automated exposure control; mA and/or kV adjustment per patient size (includes targeted exams where dose is matched to clinical indication); or iterative reconstruction. Contrast material: OMNI 350; Contrast volume: 100 ml; Contrast route: INTRAVENOUS (IV); COMPARISON: CT chest abdpe w/*[id number] 07/30/2023 8:50 AM RADIATION DOSE METRICS: Total DLP (mGy-cm): 1081.28 FINDINGS: Coronary arteries: Multivessel atherosclerotic disease which involves the coronary arteries. Liver: Lobulated liver consistent with cirrhosis. Gallbladder and biliary ducts: Cholelithiasis. Pancreas: Mild to moderate pancreatic atrophy. Spleen: The spleen is enlarged measuring 17.1 cm. Adrenal glands: The right adrenal gland has been removed. Kidneys and ureters: The right kidney is been removed. Stomach and bowel: Colonic constipation is present. Appendix: No evidence of appendicitis. Intraperitoneal space: There is a moderate to large amount of free intraperitoneal fluid/ascites in the abdomen/pelvis. Vasculature: There is recanalization of the umbilical vein and varicosities in the upper abdomen consistent with portal venous hypertension. Lymph nodes: Unremarkable. No enlarged lymph nodes. Urinary bladder: Unremarkable as visualized. Reproductive: Unremarkable as visualized. Bones/joints: Unremarkable. No acute fracture. Soft tissues: Soft tissue anasarca. CT/CT chest [facility] w/*[id number] IMPRESSION: 1. Moderate left pleural effusion with adjacent compressive atelectasis or pneumonia. 2. Mild cardiomegaly. 3. 6 mm pleural-based nodule along the anterior aspect of the right middle lobe is stable when compared to the prior study. For patients at low risk (minimal or absent history of smoking and of other known risk factors), recommend CT Chest at 6-12 months, then consider CT Chest at 18-24 months. For patients at high risk (history of smoking or of other known risk factors), recommend CT Chest at 6-12 months, then CT Chest at 18-24 months. IMPRESSION: 1. Cirrhotic liver with splenomegaly and portal venous hypertension. There is associated ascites and soft tissue anasarca. 2. Cholelithiasis. 3. Colonic constipation is present.
[2024-05-30] MEDS: iohexol 350 mg/mL 500 mL Btl (per mL) IV (14:41)
== END 2024-05-30 14:17 | disposition home or self-care (01) ==
LOC: RAD 14:16
PROVIDERS: PCP Family Medicine Adult Medicine; Visit Provider Internal Medicine Medical Oncology
DX: K70.31 Alcoholic cirrhosis of liver with ascites (principal); R19.00 Intra-abdominal and pelvic swelling, mass and lump, unspecified site; J90 Pleural effusion, not elsewhere classified; I51.7 Cardiomegaly; R91.1 Solitary pulmonary nodule; K59.00 Constipation, unspecified; J98.11 Atelectasis; K76.6 Portal hypertension; K80.20 Calculus of gallbladder without cholecystitis without obstruction; I25.10 Atherosclerotic heart disease of native coronary artery without angina pectoris; K86.89 Other specified diseases of pancreas; R16.1 Splenomegaly, not elsewhere classified; Z90.5 Acquired absence of kidney
CPT/HCPCS: 71260; 74177; Q9967

== ENCOUNTER 2024-06-05 08:45 | Oncology outpatient (recurring) (ONCR) | payer MEDICARE, MEDICAID, SELFPAY ==
[2024-05-26 11:36] LABS: Basophils % 0.6 %; Eosinophils # 0.1 10^3/uL (0.0-0.8); Eosinophils % 1.3 %; Hematocrit 21.6 % (37-53); Lymphocytes # 0.5 10^3/uL (0.8-4.8); Lymphocytes % 6.7 %; Mean Corpuscular HGB Conc 32.9 g/dL (30-55); Mean Corpuscular Hemoglobin 34.1 pg (27-33); Mean Corpuscular Volume 103.8 fl (82-101); Mean Platelet Volume 10.1 fL (7.4-10.4); Monocytes # 0.8 10^3/uL (0.2-0.9); Monocytes % 10.6 %; Neutrophils # 5.75 10^3/uL (1.8-7.7); Neutrophils % 80.4 %; Nucleated Red Blood Cells % 0 %; Platelet Count 148 10^3/cmm (157-399); Red Blood Count 2.08 10^6/uL (3.85-5.65); Red Cell Distribution Width 21.2 % (12.1-15.1); White Blood Count 7.15 10^3/uL (3.29-11.43)
[2024-05-26 12:01] LABS: Alanine Aminotransferase 19 U/L (0-41); Albumin Level 3.6 g/dL (3.5-5.2); Alkaline Phosphatase 173 U/L (40-130); Anion Gap 16.9 (5-19); Aspartate Amino Transferase 69 U/L (0-40); Blood Urea Nitrogen 39 mg/dL (8-23); Calcium 8.7 mg/dL (8.5-10.5); Carbon Dioxide 28 mmol/L (22-29); Chloride 93 mmol/L (98-107); Globulin 2.9 g/dL (1.3-4.6); Glucose 136 mg/dL (65-115); Osmolality Calculated 289 mOsm/kg (285-295); Potassium 3.9 mmol/L (3.5-5.1); Sodium 134 mmol/L (136-145); Total Bilirubin 5.6 mg/dL (0.15-1.2); Total Protein 6.5 g/dL (6.6-8.7)
[2024-05-27] VITALS (10 sets, daily range): BP systolic 99–112; BP diastolic 55–68; PULSE 61–92; RESP 17–18; TEMP 36.1–36.6; O2SAT 92–98
[2024-05-27] MEDS: diphenhydrAMINE 25 mg Capsule PO (09:14)
[2024-05-27] MEDS: acetaminophen 325 mg Tablet 650 MG PO (09:14)
[2024-05-30 08:36] LABS: Basophils # 0.1 10^3/uL (0.0-0.1); Basophils % 0.7 %; Eosinophils # 0.2 10^3/uL (0.0-0.8); Hematocrit 24.2 % (37-53); Lymphocytes # 0.4 10^3/uL (0.8-4.8); Lymphocytes % 5.7 %; Mean Corpuscular HGB Conc 32.6 g/dL (30-55); Mean Corpuscular Hemoglobin 33.5 pg (27-33); Mean Corpuscular Volume 102.5 fl (82-101); Mean Platelet Volume 10.1 fL (7.4-10.4); Monocytes # 0.6 10^3/uL (0.2-0.9); Monocytes % 8.4 %; Neutrophils # 6.28 10^3/uL (1.8-7.7); Neutrophils % 81.9 %; Nucleated Red Blood Cells % 0 %; Platelet Count 166 10^3/cmm (157-399); Red Blood Count 2.36 10^6/uL (3.85-5.65); Red Cell Distribution Width 21.2 % (12.1-15.1); White Blood Count 7.66 10^3/uL (3.29-11.43)
[2024-05-30 08:58] LABS: Anion Gap 15.4 (5-19); Blood Urea Nitrogen 40 mg/dL (8-23); Carbon Dioxide 29 mmol/L (22-29); Chloride 96 mmol/L (98-107); Glomerular Filtration Rate 51.4 mL/min (90-130); Potassium 4.4 mmol/L (3.5-5.1); Sodium 136 mmol/L (136-145)
[2024-05-30 08:59] LABS: Alanine Aminotransferase 21 U/L (0-41); Albumin Level 3.6 g/dL (3.5-5.2); Alkaline Phosphatase 162 U/L (40-130); Aspartate Amino Transferase 72 U/L (0-40); Calcium 9.1 mg/dL (8.5-10.5); Glucose 110 mg/dL (65-115); Osmolality Calculated 292 mOsm/kg (285-295); Total Bilirubin 5.4 mg/dL (0.15-1.2); Total Protein 6.6 g/dL (6.6-8.7)
[2024-06-02] VITALS (9 sets, daily range): BP systolic 99–110; BP diastolic 63–70; PULSE 74–79; RESP 16; TEMP 36.1–36.4; O2SAT 91–99
[2024-06-02] MEDS: diphenhydrAMINE 25 mg Capsule PO (08:28)
[2024-06-02] MEDS: ondansetron 2 mg/ML SDV 2 mL 8 MG IVP (09:08)
[2024-06-02] MEDS: sodium chloride 0.9% 250 mL Bag IV (09:26)
[2024-06-05 08:55] LABS: Basophils % 0.6 %; Eosinophils # 0.3 10^3/uL (0.0-0.8); Eosinophils % 4.5 %; Hematocrit 27.3 % (37-53); Lymphocytes # 0.7 10^3/uL (0.8-4.8); Lymphocytes % 10.1 %; Mean Corpuscular HGB Conc 32.6 g/dL (30-55); Mean Corpuscular Hemoglobin 32.5 pg (27-33); Mean Corpuscular Volume 99.6 fl (82-101); Monocytes # 0.6 10^3/uL (0.2-0.9); Neutrophils # 5.02 10^3/uL (1.8-7.7); Neutrophils % 75.5 %; Nucleated Red Blood Cells % 0 %; Platelet Count 155 10^3/cmm (157-399); Red Blood Count 2.74 10^6/uL (3.85-5.65); Red Cell Distribution Width 19.8 % (12.1-15.1); White Blood Count 6.65 10^3/uL (3.29-11.43)
[2024-06-05 09:06] LABS: Alanine Aminotransferase 19 U/L (0-41); Albumin Level 3.4 g/dL (3.5-5.2); Alkaline Phosphatase 144 U/L (40-130); Anion Gap 18.4 (5-19); Aspartate Amino Transferase 61 U/L (0-40); Blood Urea Nitrogen 44 mg/dL (8-23); Calcium 9.1 mg/dL (8.5-10.5); Carbon Dioxide 27 mmol/L (22-29); Chloride 98 mmol/L (98-107); Globulin 3.1 g/dL (1.3-4.6); Glomerular Filtration Rate 38.4 mL/min (90-130); Glucose 109 mg/dL (65-115); Osmolality Calculated 300 mOsm/kg (285-295); Potassium 4.4 mmol/L (3.5-5.1); Sodium 139 mmol/L (136-145); Total Bilirubin 5.5 mg/dL (0.15-1.2); Total Protein 6.5 g/dL (6.6-8.7)
[2024-06-05 09:09] LABS: Creatinine Clr Calc Pharmacy 47.6549
== END 2024-06-11 23:59 | disposition home or self-care (01) ==
PROVIDERS: PCP Family Medicine Adult Medicine; Visit Provider Internal Medicine Medical Oncology
DX: D50.0 Iron deficiency anemia secondary to blood loss (chronic); Z53.9 Procedure and treatment not carried out, unspecified reason
CPT/HCPCS: 36430; 36591; 80053; 85025; 86850; 86900; 86920; 99214; J2405; J7050; P9016; P9040; P9051